=== PATIENT | female | born 1945 | race Caucasian/White ===

== ENCOUNTER 2018-04-11 18:36 | Emergency (ER) | payer MEDICARE ==
[2018-04-11] MEDS ORDERED: ACETAMINOPHEN 325 MG TABLET PO ONE (18:59)
--- NOTE | 2018-04-11 19:04 | ER Document Report ---
ED Medical Screen (RME) - General Chief Complaint: Abdominal Pain Stated Complaint: ABDOMINAL PAIN Time Seen by Provider: 04/11/18 18:55 Notes: RAPID MEDICAL EVALUATION DISCLOSURE I have seen this patient as part of a Rapid Medical Evaluation and, if applicable, placed any initially appropriate orders. The patient will be seen and fully evaluated, including a full history and physical exam, by a provider ( in Main ED or Fast Track) when a room becomes available. 72-year-old female PMH chronic UTIs here with complaints of lower abdominal pain , sharp and intermittent, over the past 4 days. She has also had dysuria consistent with her UTI flares. She takes daily Keflex for "many many years". She has also been taking Azo over the past few days with not much relief. Denies fevers chills nausea vomiting. She has chronic diarrhea as well from the metformin that she takes. EXAM Mild to moderate suprapubic TTP TRAVEL OUTSIDE OF THE [place] IN LAST 30 DAYS: No - Related Data Allergies/Adverse Reactions: niacin [Niacin] Allergy (Verified 04/11/18 18:57) nitrofurantoin [From Macrobid] Adverse Reaction (Verified 04/11/18 18:57) Past Medical History - Social History Chew tobacco use (# tins/day): No Frequency of alcohol use: None Drug Abuse: None - Past Medical History Cardiac Medical History: Reports: Hx Hypercholesterolemia Pulmonary Medical History: Reports: Hx COPD Endocrine Medical History: Reports: Hx Diabetes Mellitus Type 2, Hx Hypothyroidism Renal/ Medical History: Denies: Hx Peritoneal Dialysis GI Medical History: Reports: Hx Gastroesophageal Reflux Disease Past Surgical History: Reports: Hx Hysterectomy - Immunizations Hx Diphtheria, Pertussis, Tetanus Vaccination: Yes Physical Exam - Vital signs Vitals: Temp Pulse Resp BP Pulse Ox 98.4 F 89 26 H 146/68 H 93 04/11/18 18:43 04/11/18 18:43 04/11/18 18:43 04/11/18 18:43 04/11/18 18:43 Course - Vital Signs Vital signs: Temp Pulse Resp BP Pulse Ox 98.4 F 89 26 H 146/68 H 93 04/11/18 18:43 04/11/18 18:43 04/11/18 18:43 04/11/18 18:43 04/11/18 18:43
[2018-04-11 19:32] LABS: ABSOLUTE BASOPHILS # (AUTO) 0.2 10^3/uL (0.0-0.2); ABSOLUTE EOSINOPHILS # (AUTO) 0.3 10^3/uL (0.0-0.6); ABSOLUTE LYMPHOCYTES (AUTO) 4.6 10^3/uL (0.5-4.7); ABSOLUTE MONOCYTES (AUTO) 0.9 10^3/uL (0.1-1.4); ABSOLUTE NEUT (AUTO) 10.1 10^3/uL (1.7-8.2); BASOPHILS % (AUTO) 1.2 % (0-2); EOSINOPHILS % (AUTO) 1.8 % (0-6); HEMOGLOBIN 12.1 g/dL (12.0-15.5); LYMPHOCYTES % (AUTO) 28.6 % (13-45); MEAN CORPUSCULAR HEMOGLOBIN 26.1 pg (27.0-33.4); MEAN CORPUSCULAR HGB CONC 31.8 g/dL (32.0-36.0); MEAN CORPUSCULAR VOLUME 82 fl (80-97); MONOCYTES % (AUTO) 5.4 % (3-13); PLATELET COUNT 338 10^3/uL (150-450); RED BLOOD COUNT 4.64 10^6/uL (3.72-5.28); RED CELL DISTRIBUTION WIDTH 16.5 % (11.5-14.0); TOTAL CELLS COUNTED % (AUTO) 100 %
[2018-04-11 19:38] LABS: APPEARANCE,URINE CLEAR; BILIRUBIN,URINE NEGATIVE (NEGATIVE); COLOR,URINE AMBER; GLUCOSE, URINE NEGATIVE (NEGATIVE); KETONES,URINE NEGATIVE (NEGATIVE); LEUKOCYTE ESTERASE,URINE NEGATIVE (NEGATIVE); NITRITE,URINE POSITIVE (NEGATIVE); PROTEIN,URINE 30 mg/dL (NEGATIVE); URINE SPECIFIC GRAVITY 1.019
[2018-04-11 19:51] LABS: ANION GAP 17 (5-19); BLOOD UREA NITROGEN 12 mg/dL (7-20); CALCIUM 9.4 mg/dL (8.4-10.2); CARBON DIOXIDE 22 mmol/L (22-30); CHLORIDE 104 mmol/L (98-107); GLUCOSE 102 mg/dL (75-110); POTASSIUM 4.3 mmol/L (3.6-5.0); SODIUM 142.7 mmol/L (137-145)
[2018-04-11] MEDS ORDERED: CEPHALEXIN 500 MG CAPSULE PO ONE (21:09)
[2018-04-11] MEDS ORDERED: PHENAZOPYRIDINE HCL 200 MG TABLET PO ONE (21:11)
--- NOTE | 2018-04-11 21:18 | ER Document Report ---
ED General - General Chief Complaint: Abdominal Pain Stated Complaint: ABDOMINAL PAIN Time Seen by Provider: 04/11/18 18:55 Mode of Arrival: Ambulatory Information source: Patient Notes: 72-year-old female patient dysuria. Patient reports that she has chronic urinary tract infections but never seem to fully resolve. Patient states that she sees Dr. Land and that Dr. Land keeps her on Keflex 500 mg daily to try to keep the urinary tract infections to a minimum. Patient reports that over the last 2 days she has had increasing pain with urination. Patient denies any nausea, vomiting, fevers or back pain. TRAVEL OUTSIDE OF THE [place] IN LAST 30 DAYS: No - Related Data Allergies/Adverse Reactions: niacin [Niacin] Allergy (Verified 04/11/18 18:57) sulfamethoxazole [From Bactrim] Allergy (Verified 04/11/18 21:07) trimethoprim [From Bactrim] Allergy (Verified 04/11/18 21:07) nitrofurantoin [From Macrobid] Adverse Reaction (Verified 04/11/18 18:57) Past Medical History - General Information source: Patient - Social History Smoking Status: Former Smoker Chew tobacco use (# tins/day): No Frequency of alcohol use: None Drug Abuse: None Family History: Reviewed & Not Pertinent Patient has suicidal ideation: No Patient has homicidal ideation: No - Past Medical History Cardiac Medical History: Reports: Hx Hypercholesterolemia Pulmonary Medical History: Reports: Hx COPD Endocrine Medical History: Reports: Hx Diabetes Mellitus Type 2, Hx Hypothyroidism Renal/ Medical History: Denies: Hx Peritoneal Dialysis GI Medical History: Reports: Hx Gastroesophageal Reflux Disease Past Surgical History: Reports: Hx Hysterectomy - Immunizations Hx Diphtheria, Pertussis, Tetanus Vaccination: Yes Review of Systems - Review of Systems Constitutional: No symptoms reported. denies: Fever EENT: No symptoms reported Cardiovascular: No symptoms reported Respiratory: No symptoms reported Gastrointestinal: No symptoms reported. denies: Abdominal pain, Diarrhea, Nausea, Vomiting Genitourinary: Dysuria Female Genitourinary: No symptoms reported Musculoskeletal: No symptoms reported Skin: No symptoms reported Hematologic/Lymphatic: No symptoms reported Neurological/Psychological: No symptoms reported Physical Exam - Vital signs Vitals: Temp Pulse Resp BP Pulse Ox 98.4 F 89 26 H 146/68 H 93 04/11/18 18:43 04/11/18 18:43 04/11/18 18:43 04/11/18 18:43 04/11/18 18:43 - Notes Notes: PHYSICAL EXAMINATION: GENERAL: Well-appearing, well-nourished and in no acute distress. HEAD: Atraumatic, normocephalic. EYES: Pupils equal round and reactive to light, extraocular movements intact, conjunctiva are normal. ENT: Nares patent, oropharynx clear without exudates. Moist mucous membranes. NECK: Normal range of motion, supple without lymphadenopathy LUNGS: Breath sounds clear to auscultation bilaterally and equal. No wheezes rales or rhonchi. HEART: Regular rate and rhythm without murmurs ABDOMEN: Soft, nontender, nondistended abdomen. No guarding, no rebound. No masses appreciated. Female : No CVA tenderness. Musculoskeletal: Normal range of motion, no pitting or edema. No cyanosis. NEUROLOGICAL: Cranial nerves grossly intact. Normal speech, normal gait. Normal sensory, motor exams PSYCH: Normal mood, normal affect. SKIN: Warm, Dry, normal turgor, no rashes or lesions noted. Course - Re-evaluation Re-evalutation: 72-year-old female patient presented with chief complaint of denies any fever, chills, nausea. Denies any back pain or abdominal pain. CBC reveals elevated WBC of 16,000, CMP is unremarkable. Urinalysis with positive nitrates and 66 white blood cells. Patient is normotensive and without tachycardia and afebrile. Given that patient appears well and has not had any fever nor does she have CVA tenderness I feel comfortable discharging her home. Will treat patient with a dose of IM Rocephin while in the department due to her leukocytosis as well as the white blood cells in her urine. We will also increase patient's Keflex to 500 mg TID and add Pyridium/ Azo. Patient to resume her usual regimen after the seven-day course of antibiotics. Patient is instructed to follow-up with Dr. Land's office in the next 2-3 days to have her urine rechecked. Patient understands that she is to present back to the emergency department should she develop a fever, chills or any flank pain. - Vital Signs Vital signs: Temp Pulse Resp BP Pulse Ox 98.0 F 80 16 156/67 H 95 04/11/18 21:48 04/11/18 21:48 04/11/18 21:48 04/11/18 21:48 04/11/18 21:48 - Laboratory Result Diagrams: 04/11/18 19:13 04/11/18 19:13 Laboratory results interpreted by me: 04/11/18 04/11/18 04/11/18 19:13 19:13 19:13 WBC 16.0 H MCH 26.1 L MCHC 31.8 L RDW 16.5 H Absolute Neutrophils 10.1 H Est GFR (Non-Af Amer) 53 L Urine Protein 30 H Urine Nitrite POSITIVE H Urine Urobilinogen 4.0 H Discharge - Discharge Clinical Impression: Cystitis Urinary tract infection Qualifiers: Urinary tract infection type: site unspecified Hematuria presence: without hematuria Qualified Code(s): N39.0 - Urinary tract infection, site not specified Condition: Stable Disposition: HOME, SELF-CARE Additional Instructions: Urinary Tract Infection Your evaluation indicates that you have a urinary tract infection. This is due to germs growing in the bladder. This is a common problem. This infection usually responds quickly to antibiotics. Your antibiotic should be taken exactly as prescribed. Drink plenty of fluids -- three to four quarts a day. Occasionally, a bladder anesthetic will be prescribed to help stop the feeling of urgency until the antibiotic has a chance to clear the infection. This may cause your urine to be dark orange. Certain urine infections require a culture. If the doctor obtained a culture, the results will be back in two days. You should call to see if a change in treatment is needed. A repeat urinalysis after you finish treatment is often recommended. The physician will let you know if further testing is required. Call the doctor if you develop fever, chills, flank pain, inability to urinate, or blood in the urine. I am increasing your dose of cephalexin to 500mg three times daily. Please also take the urinary anesthetic as this will help with the pain. This medication will change the color of your urine to a bright orange. Drink plenty of fluids. Please call Dr. Romero office in the morning and make an appointment for follow up in the next 2-3 days. Return to the emergency department if you develop a fever, back pain, or any other symptoms that are concerning to you. Prescriptions: Cephalexin Monohydrate [Keflex 500 mg Capsule] 500 mg PO TID 7 Days #21 capsule Phenazopyridine HCl [Azo Urinary Pain Relief] 97.5 mg PO TID 2 Days #6 tablet Referrals: HERMILA LAND MD [Primary Care Provider] - Follow up as needed
[2018-04-11] MEDS ORDERED: LIDOCAINE 1% INJ-PF (10 MG/ML) 30 ML SDV INJ ONE (21:26)
[2018-04-11] MEDS ORDERED: CEFTRIAXONE INJ 1000 MG VIAL IM ONE (21:26)
[2018-04-11 21:50] VITALS: BP 156/67
== END 2018-04-11 21:48 | disposition home or self-care (01) ==
LOC: ER 18:36
DX: N30.90 Cystitis, unspecified without hematuria (principal); Z79.2 Long term (current) use of antibiotics; Z88.8 Allergy status to other drugs, medicaments and biological substances; Z88.1 Allergy status to other antibiotic agents; Z87.891 Personal history of nicotine dependence; J44.9 Chronic obstructive pulmonary disease, unspecified; E11.9 Type 2 diabetes mellitus without complications
CPT/HCPCS: 99284; 96372; 36415; 87040; 87086; 85025; 80048; 81001; A9270 ×3; J3490; J0696

== ENCOUNTER 2018-09-07 18:40 | Emergency (ER) | payer MEDICAID, MEDICARE ==
--- NOTE | 2018-09-07 19:21 | ER Document Report ---
ED Medical Screen (RME) - General Chief Complaint: Urinary Problem Stated Complaint: PAINFUL URINATION Time Seen by Provider: 09/07/18 19:14 Mode of Arrival: Ambulatory Information source: Patient Notes: 73-year-old female presents emergency department with complaints of increased urgency, increased frequency, dysuria, and low back pain. Patient states that she has a history of cystitis. She states that she followed up with her primary care physician 2 weeks ago for similar symptoms and was started on meloxicam. Patient states that she was not given an antibiotic. Her dysuria has been worsening. She denies any abdominal pain, nausea, vomiting. I have greeted and performed a rapid initial assessment of this patient. A comprehensive ED assessment and evaluation of the patient, analysis of test results and completion of the medical decision making process will be conducted by additional ED providers. PHYSICAL EXAMINATION: GENERAL: Well-appearing, well-nourished and in no acute distress. HEAD: Atraumatic, normocephalic. EYES: Pupils equal round extraocular movements intact, conjunctiva are normal. ENT: Nares patent NECK: Normal range of motion LUNGS: No respiratory distress Musculoskeletal: Normal range of motion NEUROLOGICAL: Normal speech, normal gait. PSYCH: Normal mood, normal affect. SKIN: Warm, Dry, normal turgor, no rashes or lesions noted. TRAVEL OUTSIDE OF THE [place] IN LAST 30 DAYS: No - Related Data Allergies/Adverse Reactions: niacin [Niacin] Allergy (Verified 09/07/18 18:49) sulfamethoxazole [From Bactrim] Allergy (Verified 09/07/18 18:49) trimethoprim [From Bactrim] Allergy (Verified 09/07/18 18:49) nitrofurantoin [From Macrobid] Adverse Reaction (Verified 09/07/18 18:49) Past Medical History - Social History Chew tobacco use (# tins/day): No Frequency of alcohol use: None Drug Abuse: None - Past Medical History Cardiac Medical History: Reports: Hx Hypercholesterolemia Pulmonary Medical History: Reports: Hx COPD Endocrine Medical History: Reports: Hx Diabetes Mellitus Type 2, Hx Hypothyroidism Renal/ Medical History: Denies: Hx Peritoneal Dialysis GI Medical History: Reports: Hx Gastroesophageal Reflux Disease Past Surgical History: Reports: Hx Hysterectomy - Immunizations Hx Diphtheria, Pertussis, Tetanus Vaccination: Yes Doctor's Discharge - Discharge Referrals: ELIU EVANS MD [Primary Care Provider] - Follow up as needed
[2018-09-07 20:01] LABS: APPEARANCE,URINE CLOUDY; BILIRUBIN,URINE NEGATIVE (NEGATIVE); COLOR,URINE AMBER; GLUCOSE, URINE NEGATIVE (NEGATIVE); KETONES,URINE NEGATIVE (NEGATIVE); LEUKOCYTE ESTERASE,URINE NEGATIVE (NEGATIVE); NITRITE,URINE POSITIVE (NEGATIVE); PROTEIN,URINE 100 mg/dL (NEGATIVE); URINE SPECIFIC GRAVITY 1.026
[2018-09-07 20:03] LABS: ABSOLUTE BASOPHILS # (AUTO) 0.3 10^3/uL (0.0-0.2); ABSOLUTE EOSINOPHILS # (AUTO) 0.8 10^3/uL (0.0-0.6); ABSOLUTE LYMPHOCYTES (AUTO) 5.5 10^3/uL (0.5-4.7); BASOPHILS % (AUTO) 1.9 % (0-2); EOSINOPHILS % (AUTO) 4.6 % (0-6); HEMATOCRIT 37.3 % (36.0-47.0); HEMOGLOBIN 11.7 g/dL (12.0-15.5); LYMPHOCYTES % (AUTO) 33.2 % (13-45); MEAN CORPUSCULAR HEMOGLOBIN 26.6 pg (27.0-33.4); MEAN CORPUSCULAR HGB CONC 31.4 g/dL (32.0-36.0); MEAN CORPUSCULAR VOLUME 85 fl (80-97); RED CELL DISTRIBUTION WIDTH 17.3 % (11.5-14.0); SEGMENTED NEUTROPHILS % (AUTO) 54.3 % (42-78); TOTAL CELLS COUNTED % (AUTO) 100 %; WHITE BLOOD COUNT 16.6 10^3/uL (4.0-10.5)
[2018-09-07 20:14] LABS: ALANINE AMINOTRANSFERASE 17 U/L (9-52); ALBUMIN 4.2 g/dL (3.5-5.0); ALKALINE PHOSPHATASE 91 U/L (38-126); ANION GAP 14 (5-19); ASPARTATE AMINO TRANSFERASE 26 U/L (14-36); BILIRUBIN,TOTAL 0.6 mg/dL (0.2-1.3); BLOOD UREA NITROGEN 12 mg/dL (7-20); CALCIUM 8.8 mg/dL (8.4-10.2); CARBON DIOXIDE 24 mmol/L (22-30); CHLORIDE 106 mmol/L (98-107); GLUCOSE 138 mg/dL (75-110); POTASSIUM 4.5 mmol/L (3.6-5.0); SODIUM 143.9 mmol/L (137-145); TOTAL PROTEIN 7.5 g/dL (6.3-8.2)
[2018-09-07 20:17] LABS: PLATELET COUNT 223 10^3/uL (150-450)
[2018-09-07] MEDS ORDERED: LIDOCAINE 1% INJ-PF (10 MG/ML) 30 ML SDV INFIL ONE (22:34)
[2018-09-07] MEDS ORDERED: CEFTRIAXONE INJ 1000 MG VIAL IM ONE (22:34)
--- NOTE | 2018-09-07 22:38 | ER Document Report ---
ED General - General Chief Complaint: Urinary Problem Stated Complaint: PAINFUL URINATION Time Seen by Provider: 09/07/18 19:14 Mode of Arrival: Ambulatory Notes: Patient is a 73-year-old female presents with complaint of pain and burning with urination. Pain is mostly in the suprapubic region. She says she has very mild pain going into her lower back. She has a history of chronic recurrent UTIs. She is on Cipro for possible UTIs however she was prescribed meloxicam for the pain by her primary care doctor and her pharmacist told her she cannot take the Cipro with this and therefore she has not been taking it. No fevers. No vomiting. Some nausea. No diarrhea. No other complaints at this time. TRAVEL OUTSIDE OF THE [place] IN LAST 30 DAYS: No - Related Data Allergies/Adverse Reactions: niacin [Niacin] Allergy (Verified 09/07/18 18:49) sulfamethoxazole [From Bactrim] Allergy (Verified 09/07/18 18:49) trimethoprim [From Bactrim] Allergy (Verified 09/07/18 18:49) nitrofurantoin [From Macrobid] Adverse Reaction (Verified 09/07/18 18:49) Past Medical History - General Information source: Patient - Social History Smoking Status: Never Smoker Chew tobacco use (# tins/day): No Frequency of alcohol use: None Drug Abuse: None Family History: Reviewed & Not Pertinent Patient has suicidal ideation: No Patient has homicidal ideation: No - Past Medical History Cardiac Medical History: Reports: Hx Hypercholesterolemia Pulmonary Medical History: Reports: Hx COPD Endocrine Medical History: Reports: Hx Diabetes Mellitus Type 2, Hx Hypothyroidism Renal/ Medical History: Denies: Hx Peritoneal Dialysis GI Medical History: Reports: Hx Gastroesophageal Reflux Disease Past Surgical History: Reports: Hx Hysterectomy - Immunizations Hx Diphtheria, Pertussis, Tetanus Vaccination: Yes Review of Systems - Review of Systems Notes: My Normal Review Basic REVIEW OF SYSTEMS: CONSTITUTIONAL : Denies fever, chills, or sweats. Denies recent illness. RESPIRATORY: Denies cough, cold, or chest congestion. Denies shortness of breath, difficulty breathing, or wheezing. GASTROINTESTINAL: Pubic abdominal pain. Denies nausea, vomiting, or diarrhea. GENITOURINARY: Dysuria. MUSCULOSKELETAL: Mild low back pain. NEUROLOGICAL: Denies altered mental status or loss of consciousness. ALL OTHER SYSTEMS REVIEWED AND NEGATIVE. Physical Exam - Vital signs Vitals: Temp Pulse Resp BP Pulse Ox 98.1 F 77 18 150/78 H 77 L 09/07/18 21:26 09/07/18 21:26 09/07/18 21:26 09/07/18 21:26 09/07/18 21:26 - Notes Notes: General Appearance: Well nourished, alert, cooperative, no acute distress, moderate obvious discomfort. Vitals: reviewed, See vital signs table. Eyes: PERRL, EOMI, Conjuctiva clear Lungs: No wheezing, No rales, No rhonci, No accessory muscle use, good air exchange bilaterally. Heart: Normal rate, Regular rythm, No murmur, no rub Abdomen: Normal BS, soft, No rigidity, mild suprapubic abdominal tenderness to palpation, No guarding, no rebound, no abdominal masses, no organomegaly Back: Negative Marcelino sign bilaterally Skin: warm, dry, appropriate color, no evidence of shingle-like rash on back. Neuro: speech clear, oriented x 3, normal affect, responds appropriately to questions. Course - Re-evaluation Re-evalutation: 09/08/18 08:53 Patient's urinalysis shows evidence of urinary tract infection which is consistent with her symptoms. She is not septic or toxic appearing. I will give her a dose of Rocephin and then placed on Keflex. I informed her follow- up closely with her and her urologist. I encouraged her return to ER if she has fevers, worsening pain, vomiting, or feels unwell. Patient agrees with plan and will be discharged home. Dictation of this chart was performed using voice recognition software; therefore, there may be some unintended grammatical errors. - Vital Signs Vital signs: Temp Pulse Resp BP Pulse Ox 97.8 F 77 18 150/72 H 99 09/07/18 23:30 09/07/18 23:30 09/07/18 23:30 09/07/18 23:30 09/07/18 23:30 - Laboratory Result Diagrams: 09/07/18 19:36 09/07/18 19:36 Laboratory results interpreted by me: 09/07/18 09/07/18 09/07/18 19:36 19:36 19:36 WBC 16.6 H Hgb 11.7 L MCH 26.6 L MCHC 31.4 L RDW 17.3 H Absolute Neutrophils 9.0 H Absolute Lymphocytes 5.5 H Absolute Eosinophils 0.8 H Absolute Basophils 0.3 H Est GFR (Non-Af Amer) 51 L Glucose 138 H Urine Protein 100 H Urine Blood MODERATE H Urine Nitrite POSITIVE H Urine Urobilinogen 4.0 H Discharge - Discharge Clinical Impression: UTI (urinary tract infection) Qualifiers: Urinary tract infection type: site unspecified Hematuria presence: with hematuria Qualified Code(s): N39.0 - Urinary tract infection, site not specified Condition: Good Disposition: HOME, SELF-CARE Additional Instructions: Please take the Keflex as prescribed. The ultram is a stronger pain medicine that may make you a little sleepy. Please do not drive or operate machinery when taking this medication. Only take the Ultram when your hood is severe. Please follow up with your urologist or Dr. Oliveira on Tuesday for reevaluation. Please return to the ER immediately if you have worsening pain, fevers, vomiting , or feel unwell. Prescriptions: Tramadol HCl [Ultram 50 mg Tablet] 50 mg PO Q6HP PRN #10 tablet PRN Reason: Cephalexin Monohydrate [Keflex 500 mg Capsule] 500 mg PO TID #21 capsule
[2018-09-07 23:31] VITALS: BP 150/72
== END 2018-09-07 23:31 | disposition home or self-care (01) ==
LOC: ER 18:40
DX: N39.0 Urinary tract infection, site not specified (principal); E78.00 Pure hypercholesterolemia, unspecified; J44.9 Chronic obstructive pulmonary disease, unspecified; E11.9 Type 2 diabetes mellitus without complications; E03.9 Hypothyroidism, unspecified; Z87.440 Personal history of urinary (tract) infections; Z88.3 Allergy status to other anti-infective agents; Z90.710 Acquired absence of both cervix and uterus
CPT/HCPCS: 99283; 96372; 36415; 87086; 85025; 87088; 80053; 81001; 87186; J3490; J0696

== ENCOUNTER 2018-10-12 06:54 | Day surgery (SDC) | payer MEDICARE ==
[~2018-10-12 06:54] MED LIST: KETOROLAC TROMETHAMINE 0.45% 4 DROP/0.4 ML DROPERETTE OS PRN
[2018-10-12] MEDS ORDERED: LIDOCAINE 1% INJ-PF (10 MG/ML) 30 ML SDV ONE (07:16)
[2018-10-12] MEDS ORDERED: CHONDR SU A NA/HYALUR INTRAOC KIT (SURGICARE) ONE (07:16)
[2018-10-12] MEDS ORDERED: EPINEPHRINE INJ/PF 1 MG/1 ML AMPULE ONE (07:16)
[2018-10-12] MEDS ORDERED: MIDAZOLAM 2 MG/2 ML INJ ONE (07:20)
[2018-10-12] MEDS: TETRACAINE HCL 0.5% OPH SOLN 4 ML OS PRN ×4 (07:52→10:23)
[2018-10-12] MEDS: CYCLOPENTOLATE 0.2%/PHENYLEPHRINE 1% OPH SOLN 2 ML OS PRN ×3 (07:52→08:13)
[2018-10-12] MEDS: TROPICAMIDE 1% OPH SOLN 3 ML OS PRN ×3 (07:52→08:13)
[2018-10-12] MEDS: BESIFLOXACIN HCL 0.6% OPH SUSP 5 ML BOTTLE OS PRN ×2 (07:53→08:45)
[2018-10-12] MEDS ORDERED: ALBUTEROL SULFATE 0.083% NEB 2.5 MG/3 ML AMPUL NEB ONE (07:59)
--- NOTE | 2018-10-12 19:32 | [facility] OPERATIVE REPORT E ---
[facility] Operative Report NAME: VIOLETTA MENENDEZ AGE: 73Y DATE OF SURGERY: 10/12/2018 ROOM: PREOPERATIVE DIAGNOSIS: CATARACT, LEFT EYE. POSTOPERATIVE DIAGNOSIS: CATARACT, LEFT EYE. OPERATION: Cataract extraction with insertion of an IOL of the left eye. SURGEON: TATIANA VAZQUEZ M.D. ANESTHESIA: Topical. PROCEDURE: After obtaining appropriate consent, the patient's left eye was prepped and draped in sterile fashion as well as the surgeon in a sterile manner and cataract surgery was started. First a paracentesis blade was used to make a side-port incision. Viscoelastic was used to inflate the anterior chamber. Next a 2.4 mm incision was made with a 2.4 mm blade, clear corneal temporally. A continuous capsulorrhexis was made using a cystotome and Utrata forceps. Following this hydrodissection was carried out to make the lens fully loose and mobile and it was rotated 90 degrees. Following this, a abgxus-evu-[id number] technique was used to phacoemulsify the lens with a CDE of 8.31. The remaining cortex was removed with irrigation/aspiration. Provisc was instilled into the capsular bag to inflate the bag. A SN60WF, 20.5 diopter lens was placed. The remaining viscoelastic material was removed with irrigation/aspiration. Following this, the incision was found to be watertight. Besivance was instilled into the eye and a protective shield was placed over the eye. The patient returned to the postoperative recovery in stable condition. DICTATING PHYSICIAN: TATIANA VAZQUEZ M.D. [id number] PHY#: [id number] ID: [id number] JOB#: [id number] ACCT: [id number] cc:TATIANA VAZQUEZ M.D. >
--- NOTE | 2018-10-12 19:37 | [facility] DISCHARGE SUMMARY E ---
[facility] Discharge Summary NAME: VIOLETTA MENENDEZ AGE: 73Y ADMITTED: 10/12/2018 DISCHARGED: 10/12/2018 HOSPITAL COURSE: This is a 73-year-old female who underwent cataract extraction of the left eye. DIAGNOSIS: CATARACT, LEFT EYE. She underwent surgery because she was having trouble seeing words on the television and small print. DISCHARGE INSTRUCTIONS: She should be on a regular diet. No bending at her waist, no heavy lifting. She should use her Besivance, Ilevro, and Durezol at 3 p.m. and 8 p.m. and sleep with a rigid shield. I will see her for her 1 day postoperative tomorrow. DICTATING PHYSICIAN: TATIANA VAZQUEZ M.D. [id number] PHY#: [id number] ID: [id number] JOB#: [id number] ACCT: [id number] cc:TATIANA VAZQUEZ M.D. >
== END 2018-10-12 09:28 | disposition home or self-care (01) ==
LOC: SC 06:54
PROVIDERS: ATTEND Internal Medicine
DX: H25.813 Combined forms of age-related cataract, bilateral (principal); E11.9 Type 2 diabetes mellitus without complications; E78.00 Pure hypercholesterolemia, unspecified; E03.9 Hypothyroidism, unspecified; J44.9 Chronic obstructive pulmonary disease, unspecified; Z87.891 Personal history of nicotine dependence; Z88.1 Allergy status to other antibiotic agents; Z79.899 Other long term (current) drug therapy; Z79.84 Long term (current) use of oral hypoglycemic drugs; Z85.42 Personal history of malignant neoplasm of other parts of uterus; Z79.51 Long term (current) use of inhaled steroids; K21.9 Gastro-esophageal reflux disease without esophagitis; E66.9 Obesity, unspecified; Z68.37 Body mass index [BMI] 37.0-37.9, adult
CPT/HCPCS: 66984; 82962; V2632; J2250; J3490 ×3; A9270 ×2; J0171; 142

== ENCOUNTER 2018-11-02 07:17 | Day surgery (SDC) | payer MEDICARE ==
[~2018-11-02 07:17] MED LIST changes: +CHONDR SU A NA/HYALUR INTRAOC KIT (SURGICARE) ONE; +EPINEPHRINE INJ/PF 1 MG/1 ML AMPULE ONE; +KETOROLAC TROMETHAMINE 0.45% 4 DROP/0.4 ML DROPERETTE OD PRN; -KETOROLAC TROMETHAMINE 0.45% 4 DROP/0.4 ML DROPERETTE OS PRN; +LIDOCAINE 1% INJ-PF (10 MG/ML) 30 ML SDV ONE
[2018-11-02] MEDS: TROPICAMIDE 1% OPH SOLN 3 ML OD PRN ×3 (07:47→08:07)
[2018-11-02] MEDS: CYCLOPENTOLATE 0.2%/PHENYLEPHRINE 1% OPH SOLN 2 ML OD PRN ×3 (07:47→08:07)
[2018-11-02] MEDS: BESIFLOXACIN HCL 0.6% OPH SUSP 5 ML BOTTLE OD PRN ×4 (07:47→08:45)
[2018-11-02] MEDS: TETRACAINE HCL 0.5% OPH SOLN 4 ML OD PRN ×3 (07:48→08:21)
[2018-11-02] MEDS ORDERED: MIDAZOLAM 2 MG/2 ML INJ ONE (08:08)
--- NOTE | 2018-11-02 22:42 | [facility] DISCHARGE SUMMARY E ---
[facility] Discharge Summary NAME: VIOLETTA MENENDEZ AGE: 73Y ADMITTED: 11/02/2018 DISCHARGED: This is a 73-year-old female who underwent cataract extraction of the right eye. DIAGNOSIS: Cataract right eye. She underwent surgery because she was having difficulty driving at night secondary to glare from headlights. She should be on a regular diet. No bending at the waist and no heavy lifting. She should use her Besivance, Ilevro, and Durezol at 3:00 p.m. and 8:00 p.m. and sleep with a rigid shield. I will see her for her 1-day postop tomorrow. DICTATING PHYSICIAN: TATIANA VAZQUEZ M.D. [id number] PHY#: [id number] ID: [id number] JOB#: [id number] ACCT: [id number] cc:TATIANA VAZQUEZ M.D. >
--- NOTE | 2018-11-02 22:42 | [facility] OPERATIVE REPORT E ---
[facility] Operative Report NAME: VIOLETTA MENENDEZ AGE: 73Y DATE OF SURGERY: 11/02/2018 ROOM: PREOPERATIVE DIAGNOSIS: CATARACT, RIGHT EYE. POSTOPERATIVE DIAGNOSIS: CATARACT, RIGHT EYE. OPERATION: Cataract extraction with insertion of an IOL of the right eye. SURGEON: TATIANA VAZQUEZ M.D. ANESTHESIA: Topical. PROCEDURE: After obtaining appropriate consent, the patient's right eye was prepped and draped in sterile fashion as well as the surgeon in a sterile manner and cataract surgery was started. First a paracentesis blade was used to make a side-port incision. Viscoelastic was used to inflate the anterior chamber. Next a 2.4 mm incision was made with a 2.4 mm blade, clear corneal temporally. A continuous capsulorrhexis was made using a cystotome and Utrata forceps. Following this hydrodissection was carried out to make the lens fully loose and mobile and it was rotated 90 degrees. Following this, a bpltzb-vgf-qawyimw technique was used to phacoemulsify the lens with a CDE of 10.18. The remaining cortex was removed with irrigation/aspiration. Provisc was instilled into the capsular bag to inflate the bag. A SN60WF, 22.5 diopter lens was placed. The remaining viscoelastic material was removed with irrigation/aspiration. Following this, the incision was found to be watertight. Besivance was instilled into the eye and a protective shield was placed over the eye. The patient returned to the postoperative recovery in stable condition. DICTATING PHYSICIAN: TATIANA VAZQUEZ M.D. [id number] PHY#: [id number] ID: [id number] JOB#: [id number] ACCT: [id number] cc:TATIANA VAZQUEZ M.D. >
== END 2018-11-02 09:35 | disposition home or self-care (01) ==
LOC: SC 07:17
PROVIDERS: ATTEND Internal Medicine
DX: H25.811 Combined forms of age-related cataract, right eye (principal); Z96.1 Presence of intraocular lens; J44.9 Chronic obstructive pulmonary disease, unspecified; K21.9 Gastro-esophageal reflux disease without esophagitis; E11.9 Type 2 diabetes mellitus without complications; E07.9 Disorder of thyroid, unspecified; Z79.899 Other long term (current) drug therapy; Z79.84 Long term (current) use of oral hypoglycemic drugs; Z88.2 Allergy status to sulfonamides
CPT/HCPCS: 66984; 82962; V2632; J2250; J3490 ×3; A9270; J0171; 142

== ENCOUNTER 2018-12-09 21:30 | Emergency (ER) | payer MEDICARE, MEDICAID ==
[2018-12-09 22:53] LABS: APPEARANCE,URINE TURBID; BILIRUBIN,URINE NEGATIVE (NEGATIVE); GLUCOSE, URINE NEGATIVE (NEGATIVE); KETONES,URINE NEGATIVE (NEGATIVE); LEUKOCYTE ESTERASE,URINE TRACE (NEGATIVE); NITRITE,URINE POSITIVE (NEGATIVE); PROTEIN,URINE >=500 mg/dL (NEGATIVE); URINE SPECIFIC GRAVITY 1.023
[2018-12-09 22:59] LABS: COLOR,URINE ORANGE
[2018-12-09] MEDS ORDERED: CEPHALEXIN 500 MG CAPSULE PO ONE (23:02)
--- NOTE | 2018-12-09 23:08 | ER Document Report ---
ED General - General Chief Complaint: Urinary Problem Stated Complaint: URINATION ISSUES Time Seen by Provider: 12/09/18 22:43 Primary Care Provider: HERMILA LAND MD [Primary Care Provider] - Follow up as needed Notes: Patient is a 73-year-old female who has a long-standing history of recurrent urinary tract infections followed by urology who presents with 24 hours of dysuria and urinary frequency. Patient states this feels identical to her previous episodes of urinary tract infections. Describes the pain as being a dull, burning, significant discomfort with urination but denies any pain otherwise. States she is going to the bathroom every 5-10 minutes and that it is very uncomfortable. Nothing seems to improve or worsen her symptoms. Has not yet seen her general doctor regarding today's concerns. Denies fever or constitutional symptoms. Denies focal abdominal pain. TRAVEL OUTSIDE OF THE [place] IN LAST 30 DAYS: No - Related Data Allergies/Adverse Reactions: niacin [Niacin] Allergy (Verified 10/05/18 13:13) Generalized Itching sulfamethoxazole [From Bactrim] Allergy (Verified 10/05/18 13:13) Hives trimethoprim [From Bactrim] Allergy (Verified 10/05/18 13:13) Hives nitrofurantoin [From Macrobid] Adverse Reaction (Verified 10/05/18 13:13) HURT LUNGS Past Medical History - General Information source: Patient - Social History Smoking Status: Never Smoker Frequency of alcohol use: None Drug Abuse: None Lives with: Family Family History: Reviewed & Not Pertinent - Past Medical History Cardiac Medical History: Reports: Hx Hypercholesterolemia Denies: Hx Heart Attack, Hx Hypertension Pulmonary Medical History: Reports: Hx COPD Denies: Hx Asthma Neurological Medical History: Denies: Hx Cerebrovascular Accident, Hx Seizures Endocrine Medical History: Reports: Hx Diabetes Mellitus Type 2, Hx Hypot hyroidism Renal/ Medical History: Denies: Hx Peritoneal Dialysis GI Medical History: Reports: Hx Gastroesophageal Reflux Disease. Denies: Hx Hepatitis, Hx Hiatal Hernia, Hx Ulcer Infectious Medical History: Denies: Hx Hepatitis Past Surgical History: Reports: Hx Hysterectomy. Denies: Hx Mastectomy, Hx Open Heart Surgery, Hx Pacemaker - Immunizations Hx Diphtheria, Pertussis, Tetanus Vaccination: Yes Review of Systems - Review of Systems Notes: Constitutional: Negative for fever. HENT: Negative for sore throat. Eyes: Negative for visual changes. Cardiovascular: Negative for chest pain. Respiratory: Negative for shortness of breath. Gastrointestinal: Negative for abdominal pain, vomiting or diarrhea. Genitourinary: Positive for dysuria and urinary frequency Musculoskeletal: Negative for back pain. Skin: Negative for rash. Neurological: Negative for headaches, weakness or numbness. 10 point ROS negative except as marked above and in HPI. Physical Exam - Vital signs Vitals: Temp Pulse Resp BP Pulse Ox 98 F 86 16 126/66 H 93 12/09/18 21:36 12/09/18 21:36 12/09/18 21:36 12/09/18 21:36 12/09/18 21:36 Interpretation: Normal Notes: PHYSICAL EXAMINATION: GENERAL: Well-appearing, well-nourished and in no acute distress. HEAD: Atraumatic, normocephalic. EYES: Pupils equal round and reactive to light, extraocular movements intact, sclera anicteric, conjunctiva are normal. ENT: nares patent, oropharynx clear without exudates. Moist mucous membranes. NECK: Normal range of motion, supple without lymphadenopathy LUNGS: Breath sounds clear to auscultation bilaterally and equal. No wheezes rales or rhonchi. HEART: Regular rate and rhythm without murmurs ABDOMEN: Soft, nontender, normoactive bowel sounds. No guarding, no rebound. No masses appreciated. EXTREMITIES: Normal range of motion, no pitting or edema. No cyanosis. NEUROLOGICAL: No focal neurological deficits. Moves all extremities spontaneously and on command. PSYCH: Normal mood, normal affect. SKIN: Warm, Dry, normal turgor, no rashes or lesions noted. Course - Re-evaluation Re-evalutation: 12/09/18 23:06 Patient presents with symptoms consistent with an acute cystitis. Vitals wnl. No history of fever, flank pain, or constitution symptoms to suggest ascending infection at this time. Patient is well in appearance, tolerating oral intake without difficulty. No focal abdominal tenderness to suggest acute appendicitis, biliary pathology, acute pancreatitis. Patient will be started on antibiotics at this time. A culture has been sent. At this time will discharge with return precautions and follow-up recommendations. Verbal discharge instructions given a the bedside and opportunity for questions given. Medication warnings reviewed. Patient is in agreement with this plan and has verbalized understanding of return precautions and the need for primary care follow-up in the next 24-72 hours. - Vital Signs Vital signs: Temp Pulse Resp BP Pulse Ox 98 F 86 16 126/66 H 93 12/09/18 21:36 12/09/18 21:36 12/09/18 21:36 12/09/18 21:36 12/09/18 21:36 - Laboratory Laboratory results interpreted by me: 12/09/18 22:25 Urine Protein >=500 H Urine Blood SMALL H Urine Nitrite POSITIVE H Urine Urobilinogen 4.0 H Ur Leukocyte Esterase TRACE H Discharge - Discharge Clinical Impression: Urinary frequency UTI (urinary tract infection) Qualifiers: Urinary tract infection type: acute cystitis Hematuria presence: with hematuria Qualified Code(s): N30.01 - Acute cystitis with hematuria Condition: Good Disposition: HOME, SELF-CARE Additional Instructions: Your urine shows findings consistent with a urinary tract infection. Please take all the antibiotics as directed even if your symptoms have improved. Please follow-up with your primary care physician as needed. Return to emergency room if you develop fever >101F, persistent vomiting, become lethargic, have severe pain in your sides, or any other symptoms that are concerning to you. Prescriptions: Cephalexin Monohydrate [Keflex 500 mg Capsule] 500 mg PO Q6H 5 Days capsule Referrals: HERMILA LAND MD [Primary Care Provider] - Follow up as needed
[2018-12-09 23:24] VITALS: BP 144/87
== END 2018-12-09 23:34 | disposition home or self-care (01) ==
LOC: ER 21:30
DX: N30.01 Acute cystitis with hematuria (principal); J44.9 Chronic obstructive pulmonary disease, unspecified; E11.9 Type 2 diabetes mellitus without complications; Z88.8 Allergy status to other drugs, medicaments and biological substances; Z88.1 Allergy status to other antibiotic agents
CPT/HCPCS: 99283; 36415; 87086; 87088; 81001; 87186; A9270

== ENCOUNTER 2018-12-20 12:21 | Emergency (ER) | payer MEDICARE, MEDICAID ==
--- NOTE | 2018-12-20 13:29 | ER Document Report ---
ED Medical Screen (RME) - General Chief Complaint: Urinary Problem Stated Complaint: POSSIBLE UTI Time Seen by Provider: 12/20/18 13:25 Primary Care Provider: HERMILA LAND MD [Primary Care Provider] - Follow up as needed Notes: 73 years old female presents today with pain on urination and possible rash around that area. And repeated treatment with antibiotic for presumed UTI. TRAVEL OUTSIDE OF THE [place] IN LAST 30 DAYS: No - Related Data Allergies/Adverse Reactions: niacin [Niacin] Allergy (Verified 12/20/18 12:27) Generalized Itching sulfamethoxazole [From Bactrim] Allergy (Verified 12/20/18 12:27) Hives trimethoprim [From Bactrim] Allergy (Verified 12/20/18 12:27) Hives nitrofurantoin [From Macrobid] Adverse Reaction (Verified 12/20/18 12:27) HURT LUNGS Past Medical History - Past Medical History Cardiac Medical History: Reports: Hx Hypercholesterolemia Denies: Hx Heart Attack, Hx Hypertension Pulmonary Medical History: Reports: Hx COPD Denies: Hx Asthma Neurological Medical History: Denies: Hx Cerebrovascular Accident, Hx Seizures Endocrine Medical History: Reports: Hx Diabetes Mellitus Type 2, Hx Hypothyroidism Renal/ Medical History: Denies: Hx Peritoneal Dialysis GI Medical History: Reports: Hx Gastroesophageal Reflux Disease. Denies: Hx Hepatitis, Hx Hiatal Hernia, Hx Ulcer Infectious Medical History: Denies: Hx Hepatitis Past Surgical History: Reports: Hx Hysterectomy. Denies: Hx Mastectomy, Hx Open Heart Surgery, Hx Pacemaker - Immunizations Hx Diphtheria, Pertussis, Tetanus Vaccination: Yes Physical Exam - Vital signs Vitals: Temp Pulse Resp BP Pulse Ox 98.8 F 80 15 124/57 L 93 12/20/18 12:51 12/20/18 12:51 12/20/18 12:51 12/20/18 12:51 12/20/18 12:51 Course - Vital Signs Vital signs: Temp Pulse Resp BP Pulse Ox 98.8 F 80 15 124/57 L 93 12/20/18 12:51 12/20/18 12:51 12/20/18 12:51 12/20/18 12:51 12/20/18 12:51 Doctor's Discharge - Discharge Referrals: HERMILA LAND MD [Primary Care Provider] - Follow up as needed
[2018-12-20 13:44] LABS: ABSOLUTE BASOPHILS # (AUTO) 0.1 10^3/uL (0.0-0.2); ABSOLUTE EOSINOPHILS # (AUTO) 0.5 10^3/uL (0.0-0.6); ABSOLUTE MONOCYTES (AUTO) 0.9 10^3/uL (0.1-1.4); ABSOLUTE NEUT (AUTO) 9.4 10^3/uL (1.7-8.2); BASOPHILS % (AUTO) 0.4 % (0-2); EOSINOPHILS % (AUTO) 3.2 % (0-6); HEMATOCRIT 37.1 % (36.0-47.0); HEMOGLOBIN 11.8 g/dL (12.0-15.5); LYMPHOCYTES % (AUTO) 31.7 % (13-45); MEAN CORPUSCULAR HEMOGLOBIN 26.7 pg (27.0-33.4); MEAN CORPUSCULAR HGB CONC 31.8 g/dL (32.0-36.0); MEAN CORPUSCULAR VOLUME 84 fl (80-97); MONOCYTES % (AUTO) 5.6 % (3-13); PLATELET COUNT 438 10^3/uL (150-450); RED BLOOD COUNT 4.43 10^6/uL (3.72-5.28); RED CELL DISTRIBUTION WIDTH 16.8 % (11.5-14.0); SEGMENTED NEUTROPHILS % (AUTO) 59.1 % (42-78); TOTAL CELLS COUNTED % (AUTO) 100 %; WHITE BLOOD COUNT 15.8 10^3/uL (4.0-10.5)
[2018-12-20 13:52] LABS: ALANINE AMINOTRANSFERASE 15 U/L (9-52); ALBUMIN 4.7 g/dL (3.5-5.0); ALKALINE PHOSPHATASE 99 U/L (38-126); ANION GAP 14 (5-19); ASPARTATE AMINO TRANSFERASE 39 U/L (14-36); BILIRUBIN,DIRECT 0.2 mg/dL (0.0-0.4); BILIRUBIN,TOTAL 0.6 mg/dL (0.2-1.3); BLOOD UREA NITROGEN 16 mg/dL (7-20); CALCIUM 9.7 mg/dL (8.4-10.2); CARBON DIOXIDE 24 mmol/L (22-30); CHLORIDE 105 mmol/L (98-107); GLUCOSE 142 mg/dL (75-110); SODIUM 143.4 mmol/L (137-145); TOTAL PROTEIN 8.3 g/dL (6.3-8.2)
[2018-12-20 13:59] LABS: APPEARANCE,URINE CLOUDY; BILIRUBIN,URINE NEGATIVE (NEGATIVE); COLOR,URINE AMBER; GLUCOSE, URINE NEGATIVE (NEGATIVE); KETONES,URINE NEGATIVE (NEGATIVE); LEUKOCYTE ESTERASE,URINE MODERATE (NEGATIVE); NITRITE,URINE POSITIVE (NEGATIVE); PROTEIN,URINE 100 mg/dL (NEGATIVE)
--- NOTE | 2018-12-20 14:34 | ER Document Report ---
ED General - General Chief Complaint: Urinary Problem Stated Complaint: POSSIBLE UTI Time Seen by Provider: 12/20/18 13:25 Primary Care Provider: HERMILA LAND MD [Primary Care Provider] - Follow up as needed Notes: Patient is a 73-year-old female that presents to the emergency department for chief complaint of suprapubic pain and concern for urinary tract infection. Patient states she has had a history of recurrent urinary tract infections, she was here about a week ago, with similar complaints of suprapubic pain, she is been taking Azo, was prescribed Keflex at that time, has not had much relief of her symptoms, so she decided come back to the emergency department. She has seen urology in the past, had cystoscopy that demonstrated chronic inflammation of the bladder. She denies any fevers, chills, nausea, vomiting. She currently rates her pain as severe, and she " hurts." Past Medical History: Recurrent urinary tract infections, diabetes mellitus, hypertension, insomnia Past Surgical History: Hysterectomy, cystoscopy Social History: Denies current tobacco, alcohol or drug use. Family History: Reviewed and noncontributory for presenting illness Allergies: Reviewed, see documented allergy list. REVIEW OF SYSTEMS: Other than noted above, the 12 point review of systems was reviewed with the patient and were negative, all pertinent findings are included in the HPI. PHYSICAL EXAMINATION: Vital signs reviewed, nursing noted reviewed. GENERAL: Elderly female, appears uncomfortable, but in no immediate distress HEAD: Atraumatic, normocephalic. EYES: Eyes appear normal, extraocular movements intact, sclera anicteric, conjunctiva are normal. ENT: nares patent, oropharynx clear without exudates. Moist mucous membranes. NECK: Normal range of motion, supple without lymphadenopathy LUNGS: Breath sounds clear to auscultation bilaterally and equal. No wheezes rales or rhonchi. HEART: Regular rate and rhythm without murmurs ABDOMEN: Soft, obese, nontender, normoactive bowel sounds. No rebound, guarding, or rigidity. No masses appreciated. EXTREMITIES: Nontender, good range of motion, no pitting or edema. NEUROLOGICAL: No focal neurological deficits. Moves all extremities spontaneously Motor and sensory grossly intact on exam. PSYCH: Normal mood, normal affect. SKIN: Warm, Dry, normal turgor, no rashes or lesions noted on exposed skin TRAVEL OUTSIDE OF THE [place] IN LAST 30 DAYS: No - Related Data Allergies/Adverse Reactions: niacin [Niacin] Allergy (Verified 12/20/18 12:27) Generalized Itching sulfamethoxazole [From Bactrim] Allergy (Verified 12/20/18 12:27) Hives trimethoprim [From Bactrim] Allergy (Verified 12/20/18 12:27) Hives nitrofurantoin [From Macrobid] Adverse Reaction (Verified 12/20/18 12:27) HURT LUNGS Past Medical History - Social History Smoking Status: Former Smoker Family History: Reviewed & Not Pertinent Patient has suicidal ideation: No Patient has homicidal ideation: No - Past Medical History Cardiac Medical History: Reports: Hx Hypercholesterolemia Denies: Hx Heart Attack, Hx Hypertension Pulmonary Medical History: Reports: Hx COPD Denies: Hx Asthma Neurological Medical History: Denies: Hx Cerebrovascular Accident, Hx Seizures Endocrine Medical History: Reports: Hx Diabetes Mellitus Type 2, Hx H ypothyroidism Renal/ Medical History: Denies: Hx Peritoneal Dialysis GI Medical History: Reports: Hx Gastroesophageal Reflux Disease. Denies: Hx He patitis, Hx Hiatal Hernia, Hx Ulcer Infectious Medical History: Denies: Hx Hepatitis Past Surgical History: Reports: Hx Hysterectomy. Denies: Hx Mastectomy, Hx Open Heart Surgery, Hx Pacemaker - Immunizations Hx Diphtheria, Pertussis, Tetanus Vaccination: Yes Physical Exam - Vital signs Vitals: Temp Pulse Resp BP Pulse Ox 98.8 F 80 15 124/57 L 93 12/20/18 12:51 12/20/18 12:51 12/20/18 12:51 12/20/18 12:51 12/20/18 12:51 Course - Re-evaluation Re-evalutation: Patient seen and examined vital signs reviewed. Laboratory data and imaging were ordered as appropriate for the patient's presenting symptoms and complaint, with consideration of any critical or life threatening conditions that may be associated with their obtained history and exam as noted above. Patient was treated with oral ciprofloxacin 500 mg, and oral Pyridium 200 mg. Results were reviewed when available and demonstrated leukocytosis, and a UA consistent with urinary tract infection, will be sent for culture, patient's previous cultures were reviewed, most recently she grew Klebsiella pneumonia that was essentially pansensitive, and pseudomonas aeruginosa, that was se nsitive to fluoroquinolones The patient was re-evaluated and was stable Evaluation was most consistent with recurrent urinary tract infection, will treat with ciprofloxacin for 10 days. Also given a prescription for Pyridium. Results were discussed with the patient at this point, after careful c onsideration I feel that that patient can be discharged from the emergency department, the patient was educated treatments and reasons to return to the emergency department based on their presumed diagnosis as noted above, they were advised to followup with a primary care physician in 2-3 days. Patient was agreeable to plan of care. *Note is created using voice recognition software and may contain spelling, syntax or grammatical errors. Laboratory 12/20/18 12/20/18 12/20/18 10:54 10:54 12:52 WBC 15.8 H RBC 4.43 Hgb 11.8 L Hct 37.1 MCV 84 MCH 26.7 L MCHC 31.8 L RDW 16.8 H Plt Count 438 Seg Neutrophils % 59.1 Lymphocytes % 31.7 Monocytes % 5.6 Eosinophils % 3.2 Basophils % 0.4 Absolute Neutrophils 9.4 H Absolute Lymphocytes 5.0 H Absolute Monocytes 0.9 Absolute Eosinophils 0.5 Absolute Basophils 0.1 Sodium 143.4 Potassium 4.0 Chloride 105 Carbon Dioxide 24 Anion Gap 14 BUN 16 Creatinine 1.02 Est GFR ( Amer) > 60 Est GFR (Non-Af Amer) 53 L Glucose 142 H Calcium 9.7 Total Bilirubin 0.6 Direct Bilirubin 0.2 Neonat Total Bilirubin Not Reportable Neonat Direct Bilirubin Not Reportable Neonat Indirect Bili Not Reportable AST 39 H ALT 15 Alkaline Phosphatase 99 Total Protein 8.3 H Albumin 4.7 Urine Color RAMYA Urine Appearance CLOUDY Urine pH 6.0 Ur Specific [place] 1.010 Urine Protein 100 H Urine Glucose (UA) NEGATIVE Urine Ketones NEGATIVE Urine Blood MODERATE H Urine Nitrite POSITIVE H Urine Bilirubin NEGATIVE Urine Urobilinogen 4.0 H Ur Leukocyte Esterase MODERATE H Urine WBC (Auto) >182 Urine RBC (Auto) 33 Urine Bacteria (Auto) 1+ Urine WBC Clumps MANY Urine Mucus (Auto) RARE Urine Ascorbic Acid NEGATIVE - Vital Signs Vital signs: Temp Pulse Resp BP Pulse Ox 98.8 F 80 15 124/57 L 93 12/20/18 12:51 12/20/18 12:51 12/20/18 12:51 12/20/18 12:51 12/20/18 12:51 - Laboratory Result Diagrams: 12/20/18 10:54 12/20/18 10:54 Laboratory results interpreted by me: 12/20/18 12/20/18 12/20/18 10:54 10:54 12:52 WBC 15.8 H Hgb 11.8 L MCH 26.7 L MCHC 31.8 L RDW 16.8 H Absolute Neutrophils 9.4 H Absolute Lymphocytes 5.0 H Est GFR (Non-Af Amer) 53 L Glucose 142 H AST 39 H Total Protein 8.3 H Urine Protein 100 H Urine Blood MODERATE H Urine Nitrite POSITIVE H Urine Urobilinogen 4.0 H Ur Leukocyte Esterase MODERATE H Discharge - Discharge Clinical Impression: UTI (urinary tract infection) Qualifiers: Urinary tract infection type: site unspecified Hematuria presence: with hematuria Qualified Code(s): N39.0 - Urinary tract infection, site not specified; R31.9 - Hematuria, unspecified Leukocytosis Qualifiers: Leukocytosis type: unspecified Qualified Code(s): D72.829 - Elevated white blood cell count, unspecified Condition: Stable Disposition: HOME, SELF-CARE Instructions: Urinary Tract Infection ([facility]) Additional Instructions: Please complete the entire course of antibiotics as prescribed and follow-up with your primary care physician. And urologist. Prescriptions: Ciprofloxacin HCl [Cipro 500 mg Tablet] 500 mg PO BID #20 tablet Phenazopyridine HCl [Pyridium 200 mg Tablet] 200 mg PO TID #9 tablet Referrals: HERMILA LAND MD [Primary Care Provider] - Follow up in 3-5 days
[2018-12-20] MEDS ORDERED: CIPROFLOXACIN HCL 500 MG TABLET PO ONE (14:41)
[2018-12-20] MEDS ORDERED: PHENAZOPYRIDINE HCL 200 MG TABLET PO ONE (14:41)
--- NOTE | 2018-12-20 14:47 | RADIOLOGY REPORT (SQ) ---
EXAM DESCRIPTION: KUB/ABDOMEN (SINGLE VIEW) COMPLETED DATE/TIME: 12/20/2018 2:38 pm REASON FOR STUDY: Abdominal pain COMPARISON: Abdominal films 05/11/2015, 12/28/2014, 11/16/2013 NUMBER OF VIEWS: One view. TECHNIQUE: Supine radiographic image of the abdomen acquired. LIMITATIONS: None. FINDINGS: BOWEL GAS PATTERN: Normal bowel gas pattern. No dilated loops. CALCIFICATIONS: No suspicious calcifications. SOFT TISSUES: No gross mass or suggestion of organomegaly. HARDWARE: Surgical clips along the right and left internal iliac regions. BONES: No acute fracture. No worrisome bone lesions. OTHER: No other significant finding. IMPRESSION: Nonobstructive bowel gas pattern TECHNICAL DOCUMENTATION: JOB ID: [id number] [employer]- All Rights Reserved Reading location - IP/workstation name: [email or web address]
[2018-12-20 14:57] VITALS: BP 122/62
== END 2018-12-20 14:57 | disposition home or self-care (01) ==
LOC: ER 12:21
DX: N39.0 Urinary tract infection, site not specified (principal); R31.9 Hematuria, unspecified; D72.829 Elevated white blood cell count, unspecified; R10.30 Lower abdominal pain, unspecified; Z87.891 Personal history of nicotine dependence; J44.9 Chronic obstructive pulmonary disease, unspecified; E11.9 Type 2 diabetes mellitus without complications
CPT/HCPCS: 99283; 36415; 87086; 85025; 87088; 80053; 81001; 87186; 74018; A9270 ×2; J3490

== ENCOUNTER 2019-07-02 22:21 | Emergency (ER) | payer MEDICARE, MEDICAID ==
--- NOTE | 2019-07-02 22:30 | ER Document Report ---
ED General - General Stated Complaint: VOMITING/DIZZINESS Time Seen by Provider: 07/02/19 22:29 Primary Care Provider: HERMILA LAND MD [Primary Care Provider] - Follow up as needed Notes: Patient is a 73-year-old female with diabetes that presents to the emergency department for chief complaint of nausea, vomiting diarrhea. Patient states that this started this evening, where she was having vomiting while having diarrhea, and she actually had a diarrhea episode on the way into the hospital by ambulance. She states she was overall feeling okay earlier in the day, she states she ate a ham and turkey salad, but nothing out of the ordinary. No recent travel out of the country. She denies having any blood in the stool or in the vomit. She denies having any pain at this time, denies headache, but admits she had some lightheadedness, but did not pass out. Denies having any chest pain, shortness of breath or difficulty breathing. Past Medical History: Diabetes, hypothyroidism, overactive bladder Past Surgical History: Hysterectomy Social History: Denies tobacco, alcohol or drug use. Family History: Reviewed and noncontributory for presenting illness Allergies: Reviewed, see documented allergy list. REVIEW OF SYSTEMS: Other than noted above, the 12 point review of systems was reviewed with the patient and were negative, all pertinent findings are included in the HPI. PHYSICAL EXAMINATION: Vital signs reviewed, nursing noted reviewed. GENERAL: Elderly, obese female, no acute distress HEAD: Atraumatic, normocephalic. EYES: Eyes appear normal, extraocular movements intact, sclera anicteric, conjunctiva are normal. ENT: nares patent, oropharynx clear without exudates. Moist mucous membranes. NECK: Normal range of motion, supple without lymphadenopathy LUNGS: Breath sounds clear to auscultation bilaterally and equal. No wheezes rales or rhonchi. HEART: Regular rate and rhythm without murmurs ABDOMEN: Soft, nontender, normoactive bowel sounds. No rebound, guarding, or rigidity. No masses appreciated. EXTREMITIES: Nontender, good range of motion, no pitting or edema. NEUROLOGICAL: No focal neurological deficits. Moves all extremities spontaneously Motor and sensory grossly intact on exam. PSYCH: Normal mood, normal affect. SKIN: Warm, Dry, normal turgor, no rashes or lesions noted on exposed skin TRAVEL OUTSIDE OF THE [place] IN LAST 30 DAYS: No - Related Data Allergies/Adverse Reactions: niacin [Niacin] Allergy (Verified 12/20/18 12:27) Generalized Itching sulfamethoxazole [From Bactrim] Allergy (Verified 12/20/18 12:27) Hives trimethoprim [From Bactrim] Allergy (Verified 12/20/18 12:27) Hives nitrofurantoin [From Macrobid] Adverse Reaction (Verified 12/20/18 12:27) HURT LUNGS Past Medical History - Social History Smoking Status: Never Smoker Family History: Reviewed & Not Pertinent - Past Medical History Cardiac Medical History: Reports: Hx Hypercholesterolemia Denies: Hx Heart Attack, Hx Hypertension Pulmonary Medical History: Reports: Hx COPD Denies: Hx Asthma Neurological Medical History: Denies: Hx Cerebrovascular Accident, Hx Seizures Endocrine Medical History: Reports: Hx Diabetes Mellitus Type 2, Hx Hypothyroidism Renal/ Medical History: Denies: Hx Peritoneal Dialysis GI Medical History: Reports: Hx Gastroesophageal Reflux Disease. Denies: Hx Hepatitis, Hx Hiatal Hernia, Hx Ulcer Infectious Medical History: Denies: Hx Hepatitis Past Surgical History: Reports: Hx Hysterectomy. Denies: Hx Mastectomy, Hx Open Heart Surgery, Hx Pacemaker - Immunizations Hx Diphtheria, Pertussis, Tetanus Vaccination: Yes Physical Exam - Vital signs Vitals: Temp Resp BP 98.0 F 18 89/76 L 07/02/19 22:41 07/02/19 22:41 07/02/19 22:41 Course - Re-evaluation Re-evalutation: Patient seen and examined vital signs reviewed. Laboratory data and/or imaging were ordered as appropriate for the patient's presenting symptoms and complaint, with consideration of any critical or life threatening conditions that may be associated with their obtained history and exam as noted above. Patient was treated with IV fluids and Zofran Results were reviewed when available and demonstrated unremarkable CMP, [place]'s white blood cell count was elevated at 22, she has not been on recent antibiotics, has not had further diarrhea in the ED since arrival, I have low suspicion for bacterial etiology of her diarrhea, she is no abdominal pain, no blood in the diarrhea. The patient was re-evaluated and was stable, blood pressure stable, she is feeling much better, no further diarrhea or vomiting. Patient feels comfortable being discharged home. Evaluation was most consistent with nonspecific nausea, vomiting diarrhea, most likely viral in etiology, will have her follow-up with her primary care, given a dispense pack of Zofran to take for the nausea and vomiting. Results were discussed with the patient at this point, after careful consideration I feel that that patient can be discharged from the emergency department, the patient was educated treatments and reasons to return to the emergency department based on their presumed diagnosis as noted above, they were advised to followup with a primary care physician in 2-3 days. Patient was agreeable to plan of care. *Note is created using voice recognition software and may contain spelling, syntax or grammatical errors. Laboratory 07/02/19 07/02/19 23:30 23:30 WBC 21.2 H RBC 4.38 Hgb 11.2 L Hct 35.4 L MCV 81 MCH 25.5 L MCHC 31.6 L RDW 17.4 H Plt Count 374 Lymph % (Auto) Not Reportable [place] % (Auto) Not Reportable Eos % (Auto) Not Reportable Baso % (Auto) Not Reportable Absolute Neuts (auto) Not Reportable Absolute Lymphs (auto) Not Reportable Absolute Monos (auto) Not Reportable Absolute Eos (auto) Not Reportable Absolute Basos (auto) Not Reportable Total Counted 100 Seg Neutrophils % Not Reportable Seg Neuts % (Manual) 76 Band Neutrophils % 2 L Lymphocytes % (Manual) 18 Monocytes % (Manual) 4 Eosinophils % (Manual) 0 Basophils % (Manual) 0 Abs Neuts (Manual) 16.5 H Abs Lymphs (Manual) 3.8 Abs Monocytes (Manual) 0.8 Absolute Eos (Manual) 0.0 Abs Basophils (Manual) 0.0 Toxic Granulation SLIGHT Toxic Vacuolation PRESENT Platelet Comment ADEQUATE Poikilocytosis 1+ Anisocytosis 1+ Tear Drop Cells SLIGHT Ovalocytes SLIGHT [place] Cells SLIGHT Sodium 139.3 Potassium 4.8 Chloride 104 Carbon Dioxide 24 Anion Gap 11 BUN 19 Creatinine 1.13 Est GFR ( Amer) 57 L Est GFR (MDRD) Non-Af 47 L Glucose 188 H Calcium 9.2 Total Bilirubin 0.4 Direct Bilirubin 0.3 Neonat Total Bilirubin Not Reportable Neonat Direct Bilirubin Not Reportable Neonat Indirect Bili Not Reportable AST 38 H ALT 22 Alkaline Phosphatase 96 Total Protein 7.6 Albumin 4.1 Chest X-Ray 07/02/19 22:31 IMPRESSION: No evidence of acute cardiopulmonary disease. - Vital Signs Vital signs: Temp Pulse Resp BP Pulse Ox 98.0 F 21 H 89/76 L 98 07/02/19 22:41 07/02/19 23:04 07/02/19 22:41 07/02/19 23:04 - Laboratory Result Diagrams: 07/02/19 23:30 07/02/19 23:30 Laboratory results interpreted by me: 07/02/19 07/02/19 23:30 23:30 WBC 21.2 H Hgb 11.2 L Hct 35.4 L MCH 25.5 L MCHC 31.6 L RDW 17.4 H Band Neutrophils % 2 L Abs Neuts (Manual) 16.5 H Est GFR ( Amer) 57 L Est GFR (MDRD) Non-Af 47 L Glucose 188 H AST 38 H - EKG Interpretation by Me Additional EKG results interpreted by me: EKG demonstrates sinus rhythm with a ventricular rate of 82 bpm, normal axis, normal intervals, no ST elevation, compared to prior EKG from 03/30/2016, without significant change. Discharge - Discharge Clinical Impression: Nausea vomiting and diarrhea Condition: Stable Disposition: HOME, SELF-CARE Instructions: Diarrhea, Nonspecific ([facility]), Vomiting ([facility]) Additional Instructions: Please follow-up with Dr. Land, call for an appointment tomorrow, be sure to drink plenty of fluids at home to hydrate yourself. If your diarrhea is continuing or worsening, do not hesitate to return to the emergency department to be reevaluated. Referrals: HERMILA LAND MD [Primary Care Provider] - Follow up in 3-5 days
[2019-07-02] MEDS ORDERED: NORMAL SALINE 1000 ML 1,000 ML IV ONE (22:35)
[2019-07-02] MEDS ORDERED: ONDANSETRON HCL INJ/PF 4 MG/2 ML SDV IV ONE (22:35)
[2019-07-02 23:49] LABS: HEMATOCRIT 35.4 % (36.0-47.0); HEMOGLOBIN 11.2 g/dL (12.0-15.5); MEAN CORPUSCULAR HEMOGLOBIN 25.5 pg (27.0-33.4); MEAN CORPUSCULAR HGB CONC 31.6 g/dL (32.0-36.0); MEAN CORPUSCULAR VOLUME 81 fl (80-97); PLATELET COUNT 374 10^3/uL (150-450); RED BLOOD COUNT 4.38 10^6/uL (3.72-5.28); RED CELL DISTRIBUTION WIDTH 17.4 % (11.5-14.0); WHITE BLOOD COUNT 21.2 10^3/uL (4.0-10.5)
--- NOTE | 2019-07-02 23:50 | RADIOLOGY REPORT (SQ) ---
XR CHEST 1 VIEW EXAM DATE: 07/02/2019 10:31 PM CDT HISTORY: Dizziness. COMPARISON: 12/02/2014 FINDINGS: The heart size is within normal limits. No consolidation, pleural effusion, or pneumothorax is seen. Chronic interstitial changes in both lungs. The bony thorax is intact. IMPRESSION: No evidence of acute cardiopulmonary disease.
[2019-07-03 00:01] LABS: ALBUMIN 4.1 g/dL (3.5-5.0); ALKALINE PHOSPHATASE 96 U/L (38-126); ANION GAP 11 (5-19); ASPARTATE AMINO TRANSFERASE 38 U/L (14-36); BILIRUBIN,DIRECT 0.3 mg/dL (0.0-0.4); BILIRUBIN,TOTAL 0.4 mg/dL (0.2-1.3); BLOOD UREA NITROGEN 19 mg/dL (7-20); CALCIUM 9.2 mg/dL (8.4-10.2); CARBON DIOXIDE 24 mmol/L (22-30); CHLORIDE 104 mmol/L (98-107); GLUCOSE 188 mg/dL (75-110); POTASSIUM 4.8 mmol/L (3.6-5.0); TOTAL PROTEIN 7.6 g/dL (6.3-8.2)
[2019-07-03 00:12] LABS: ABSOLUTE LYMPHOCYTES# (MANUAL) 3.8 10^3/uL (0.5-4.7); ABSOLUTE MONOCYTES # (MANUAL) 0.8 10^3/uL (0.1-1.4); BAND NEUTROPHILS % (MANUAL) 2 % (3-5); BASOPHILS % (MANUAL) 0 % (0-2); EOSINOPHILS % (MANUAL) 0 % (0-6); LYMPHOCYTES % (MANUAL) 18 % (13-45); MONOCYTES % (MANUAL) 4 % (3-13); SEGMENTED NEUTROPHILS % (MAN) 76 % (42-78); TOTAL CELLS COUNTED 100
[2019-07-03 00:13] LABS: TOXIC GRANULATION SLIGHT; TOXIC VACUOLATION PRESENT
[2019-07-03 00:14] LABS: ANISOCYTOSIS 1+; BURR CELLS SLIGHT; OVALOCYTES SLIGHT; PLATELET COMMENT ADEQUATE; POIKILOCYTOSIS 1+; TEAR DROP CELLS SLIGHT
[2019-07-03] MEDS ORDERED: ONDANSETRON ODT 4 MG TAB (6 TAB/ER DISP) PO PRN (00:33)
[2019-07-03 01:09] VITALS: BP 133/58
--- NOTE | 2019-07-03 07:08 | EKG REPORT ---
SEVERITY:- BORDERLINE ECG - SINUS RHYTHM BORDERLINE T WAVE ABNORMALITIES : Confirmed by: Eh Reynolds MD 03-Jul-2019 07:08:06
== END 2019-07-03 01:17 | disposition home or self-care (01) ==
LOC: ER 22:21
DX: R11.2 Nausea with vomiting, unspecified (principal); R19.7 Diarrhea, unspecified; E11.9 Type 2 diabetes mellitus without complications; E66.9 Obesity, unspecified
CPT/HCPCS: 93005; 36415; 85025; 80053; 71045; 93010; J2405; J7030; A9270; 96361; 96374; 99284

== ENCOUNTER 2019-07-23 17:24 | Emergency (ER) | payer MEDICAID, MEDICARE ==
--- NOTE | 2019-07-23 17:45 | ER Document Report ---
ED General - General Stated Complaint: VOMITTING/NAUSEA Time Seen by Provider: 07/23/19 17:35 Primary Care Provider: HERMILA LAND MD [Primary Care Provider] - Follow up as needed Notes: Patient is a 73-year-old female who presents to the emergency department with a chief complaint of nausea, vomiting, and diarrhea. Patient was at home and she tried to take her own Zofran, but ended up vomiting it up. She arrived via EMS and EMS arrived she was pale and diaphoretic. They gave her 4 mg of Zofran IV and 500 mL of lactated Ringer's. TRAVEL OUTSIDE OF THE [place] IN LAST 30 DAYS: No - Related Data Allergies/Adverse Reactions: niacin [Niacin] Allergy (Verified 12/20/18 12:27) Generalized Itching sulfamethoxazole [From Bactrim] Allergy (Verified 12/20/18 12:27) Hives trimethoprim [From Bactrim] Allergy (Verified 12/20/18 12:27) Hives nitrofurantoin [From Macrobid] Adverse Reaction (Verified 12/20/18 12:27) HURT LUNGS Past Medical History - Social History Family History: Reviewed & Not Pertinent - Past Medical History Cardiac Medical History: Reports: Hx Hypercholesterolemia Denies: Hx Heart Attack, Hx Hypertension Pulmonary Medical History: Reports: Hx COPD Denies: Hx Asthma Neurological Medical History: Denies: Hx Cerebrovascular Accident, Hx Seizures Endocrine Medical History: Reports: Hx Diabetes Mellitus Type 2, Hx Hypothyroidism Renal/ Medical History: Denies: Hx Peritoneal Dialysis GI Medical History: Reports: Hx Gastroesophageal Reflux Disease. Denies: Hx Hepatitis, Hx Hiatal Hernia, Hx Ulcer Infectious Medical History: Denies: Hx Hepatitis Past Surgical History: Reports: Hx Hysterectomy. Denies: Hx Mastectomy, Hx Open Heart Surgery, Hx Pacemaker - Immunizations Hx Diphtheria, Pertussis, Tetanus Vaccination: Yes Discharge - Discharge Referrals: HERMILA LAND MD [Primary Care Provider] - Follow up as needed
--- NOTE | 2019-07-23 17:59 | ER Document Report ---
ED Medical Screen (RME) - General Stated Complaint: VOMITTING/NAUSEA Time Seen by Provider: 07/23/19 17:35 Primary Care Provider: HERMILA LAND MD [Primary Care Provider] - Follow up as needed Notes: Patient is a 73-year-old female who presents to the emergency department with a chief complaint of nausea, vomiting, and diarrhea. Patient attempted to take her own Zofran, but ended up vomiting it up. She arrived via EMS and EMS arrived she was pale and diaphoretic. They gave her 4 mg of Zofran IV and 500 mL of lactated Ringer's. Patient states that she feels better after receiving the Zofran. Exam: Soft, mildly tender lower abdomen. I have greeted and performed a rapid initial assessment of this patient. A comprehensive ED assessment and evaluation of the patient, analysis of test results and completion of medical decision making process will be conducted by an additional ED providers. TRAVEL OUTSIDE OF THE [place] IN LAST 30 DAYS: No - Related Data Allergies/Adverse Reactions: niacin [Niacin] Allergy (Verified 12/20/18 12:27) Generalized Itching sulfamethoxazole [From Bactrim] Allergy (Verified 12/20/18 12:27) Hives trimethoprim [From Bactrim] Allergy (Verified 12/20/18 12:27) Hives nitrofurantoin [From Macrobid] Adverse Reaction (Verified 12/20/18 12:27) HURT LUNGS Past Medical History - Past Medical History Cardiac Medical History: Reports: Hx Hypercholesterolemia Denies: Hx Heart Attack, Hx Hypertension Pulmonary Medical History: Reports: Hx COPD Denies: Hx Asthma Neurological Medical History: Denies: Hx Cerebrovascular Accident, Hx Seizures Endocrine Medical History: Reports: Hx Diabetes Mellitus Type 2, Hx Hypothyroidism Renal/ Medical History: Denies: Hx Peritoneal Dialysis GI Medical History: Reports: Hx Gastroesophageal Reflux Disease. Denies: Hx Hepatitis, Hx Hiatal Hernia, Hx Ulcer Infectious Medical History: Denies: Hx Hepatitis Past Surgical History: Reports: Hx Hysterectomy. Denies: Hx Mastectomy, Hx Open Heart Surgery, Hx Pacemaker - Immunizations Hx Diphtheria, Pertussis, Tetanus Vaccination: Yes Course - Laboratory Result Diagrams: 07/23/19 16:50 07/23/19 16:50 Doctor's Discharge - Discharge Referrals: HERMILA LAND MD [Primary Care Provider] - Follow up as needed
[2019-07-23 18:07] LABS: MEAN CORPUSCULAR HEMOGLOBIN 25.2 pg (27.0-33.4); MEAN CORPUSCULAR HGB CONC 31.7 g/dL (32.0-36.0); MEAN CORPUSCULAR VOLUME 80 fl (80-97); PLATELET COUNT 423 10^3/uL (150-450); RED BLOOD COUNT 4.76 10^6/uL (3.72-5.28); RED CELL DISTRIBUTION WIDTH 17.5 % (11.5-14.0); WHITE BLOOD COUNT 23.3 10^3/uL (4.0-10.5)
[2019-07-23 18:21] LABS: ALBUMIN 4.4 g/dL (3.5-5.0); ALKALINE PHOSPHATASE 109 U/L (38-126); ANION GAP 16 (5-19); ASPARTATE AMINO TRANSFERASE 43 U/L (14-36); BILIRUBIN,DIRECT 0.2 mg/dL (0.0-0.4); BILIRUBIN,TOTAL 0.3 mg/dL (0.2-1.3); BLOOD UREA NITROGEN 13 mg/dL (7-20); CALCIUM 9.7 mg/dL (8.4-10.2); CARBON DIOXIDE 25 mmol/L (22-30); CHLORIDE 100 mmol/L (98-107); GLUCOSE 92 mg/dL (75-110); POTASSIUM 4.2 mmol/L (3.6-5.0); TOTAL PROTEIN 7.8 g/dL (6.3-8.2)
[2019-07-23 18:36] LABS: ABSOLUTE LYMPHOCYTES# (MANUAL) 11.2 10^3/uL (0.5-4.7); ABSOLUTE MONOCYTES # (MANUAL) 0.9 10^3/uL (0.1-1.4); BASOPHILS % (MANUAL) 0 % (0-2); EOSINOPHILS % (MANUAL) 2 % (0-6); LYMPHOCYTES % (MANUAL) 48 % (13-45); MONOCYTES % (MANUAL) 4 % (3-13); SEGMENTED NEUTROPHILS % (MAN) 46 % (42-78); TOTAL CELLS COUNTED 100
[2019-07-23 18:37] LABS: ANISOCYTOSIS 1+; HYPOCHROMASIA SLIGHT; PLATELET COMMENT ADEQUATE
[2019-07-23 19:46] LABS: APPEARANCE,URINE CLOUDY; BILIRUBIN,URINE NEGATIVE (NEGATIVE); COLOR,URINE YELLOW; GLUCOSE, URINE NEGATIVE (NEGATIVE); KETONES,URINE NEGATIVE (NEGATIVE); LEUKOCYTE ESTERASE,URINE LARGE (NEGATIVE); NITRITE,URINE NEGATIVE (NEGATIVE); PROTEIN,URINE 30 mg/dL (NEGATIVE); URINE SPECIFIC GRAVITY 1.016; UROBILINOGEN,URINE NEGATIVE mg/dL (<2.0)
[2019-07-23] MEDS ORDERED: CEFTRIAXONE INJ 1000 MG VIAL IV ONE (20:22)
--- NOTE | 2019-07-23 20:22 | ER Document Report ---
ED General - General Chief Complaint: Nausea/Vomiting/Diarrhea Stated Complaint: VOMITTING/NAUSEA Time Seen by Provider: 07/23/19 17:35 Primary Care Provider: HERMILA LAND MD [Primary Care Provider] - Follow up in 3-5 days Notes: Patient is a 73-year-old female who presents to the emergency department with a chief complaint of nausea, vomiting, and diarrhea. Patient attempted to take her own Zofran, but ended up vomiting it up. She arrived via EMS and EMS arrived she was pale and diaphoretic. They gave her 4 mg of Zofran IV and 500 mL of lactated Ringer's. Patient states that she feels better after receiving the Zofran. TRAVEL OUTSIDE OF THE [place] IN LAST 30 DAYS: No - Related Data Allergies/Adverse Reactions: niacin [Niacin] Allergy (Verified 12/20/18 12:27) Generalized Itching sulfamethoxazole [From Bactrim] Allergy (Verified 12/20/18 12:27) Hives trimethoprim [From Bactrim] Allergy (Verified 12/20/18 12:27) Hives nitrofurantoin [From Macrobid] Adverse Reaction (Verified 12/20/18 12:27) HURT LUNGS Past Medical History - Social History Smoking Status: Never Smoker Frequency of alcohol use: None Drug Abuse: None Family History: Reviewed & Not Pertinent - Past Medical History Cardiac Medical History: Reports: Hx Hypercholesterolemia Denies: Hx Heart Attack, Hx Hypertension Pulmonary Medical History: Reports: Hx COPD Denies: Hx Asthma Neurological Medical History: Denies: Hx Cerebrovascular Accident, Hx Seizures Endocrine Medical History: Reports: Hx Diabetes Mellitus Type 2, Hx Hypothyroidism Renal/ Medical History: Denies: Hx Peritoneal Dialysis GI Medical History: Reports: Hx Gastroesophageal Reflux Disease. Denies: Hx Hepatitis, Hx Hiatal Hernia, Hx Ulcer Infectious Medical History: Denies: Hx Hepatitis Past Surgical History: Reports: Hx Hysterectomy. Denies: Hx Mastectomy, Hx Open Heart Surgery, Hx Pacemaker - Immunizations Hx Diphtheria, Pertussis, Tetanus Vaccination: Yes Review of Systems - Review of Systems Notes: REVIEW OF SYSTEMS: CONSTITUTIONAL : Denies recent illness. Denies recent unintentional weight loss. Denies fever, chills, or sweats. EENT: Denies eye, ear, throat, or mouth pain, discharge, or symptoms. Denies nasal or sinus congestion. CARDIOVASCULAR: Denies chest pain. RESPIRATORY: Denies shortness of breath, cough, congestion, difficulty breathing, or wheezing. GASTROINTESTINAL: See HPI. GENITOURINARY: Denies difficulty urinating, burning, blood in urine, urgency or frequency. MUSCULOSKELETAL: Denies neck and back pain. Denies joint pain or swelling. SKIN: Denies rash, itchiness, or lesions HEMATOLOGIC : Denies easy bruising or bleeding. LYMPHATIC: Denies swollen, painful, enlarged glands. NEUROLOGICAL: Denies no numbness or tingling denies weakness. Denies headache. Denies altered mental status. Denies alteration in speech. PSYCHIATRIC: Denies stress, anxiety, alteration in sleep patterns, or depression. All other systems reviewed and negative. Physical Exam - Vital signs Vitals: Temp Pulse Resp BP Pulse Ox 98.0 F 84 16 109/53 L 96 07/23/19 20:24 07/23/19 20:24 07/23/19 20:24 07/23/19 20:24 07/23/19 20:24 - Notes Notes: PHYSICAL EXAMINATION: GENERAL: Obese, no acute distress. HEAD: Normocephalic, atraumatic. EYES: PERRL, conjunctiva normal, all extraocular movements intact, sclera nonicteric ENT: Moist mucous membranes. NECK: Supple, no noticeable swelling, redness, rash. Normal range of motion. LUNGS: Equal breath sounds bilaterally and clear to auscultation. No wheezes rales or rhonchi. CARDIOVASCULAR: S1-S2, regular rate, regular rhythm. Radial pulses 2+, normal. ABDOMEN: Normoactive bowel sounds. Soft, mildly tender mid to lower abdomen, no guarding, no rebound tenderness, and no masses palpated. EXTREMITIES: Normal strength and range of motion, no pitting or edema. No cyanosis. NEUROLOGICAL: Moves all extremities upon command. Strength 5/5 in all extremities. PSYCH: Normal mood, normal affect. SKIN: Warm, dry. No rash, lesions, ulcerations noted. Normal skin turgor. Course - Re-evaluation Re-evalutation: 07/23/19 20:24 Patient's chemistries are unremarkable at this time. Her urinalysis shows that she has a large amount of leukocytes and greater than 182 WBCs and her urine. I have a very low suspicion for an infected kidney stone because the patient does not have any flank pain and most of her pain is in her mid lower abdomen. Her urine will be sent for culture. She will be given a gram of Rocephin and sent home with azithromycin Keflex. She has an elevated white blood cell count of 23,300. The patient was unable to provide a stool sample for C. difficile or stool for WBC. I have advised the patient to follow-up with her primary care provider in regards to her diarrhea. She will start on the BRAT diet. Follow- up precautions were given. Verbal discharge instructions were given to the patient. They verbalized understanding. They are stable for discharge. - Vital Signs Vital signs: Temp Pulse Resp BP Pulse Ox 98.9 F 92 18 144/99 H 100 07/23/19 21:00 07/23/19 21:00 07/23/19 21:00 07/23/19 21:00 07/23/19 21:00 - Laboratory Result Diagrams: 07/23/19 16:50 07/23/19 16:50 Laboratory results interpreted by me: 07/23/19 07/23/19 07/23/19 16:50 16:50 19:06 WBC 23.3 H MCH 25.2 L MCHC 31.7 L RDW 17.5 H Lymphocytes % (Manual) 48 H Abs Neuts (Manual) 10.7 H Abs Lymphs (Manual) 11.2 H Est GFR (MDRD) Non-Af 56 L AST 43 H Urine Protein 30 H Urine Blood SMALL H Ur Leukocyte Esterase LARGE H Discharge - Discharge Clinical Impression: Nausea vomiting and diarrhea Urinary tract infection Qualifiers: Urinary tract infection type: acute cystitis Hematuria presence: with hematuria Qualified Code(s): N30.01 - Acute cystitis with hematuria Condition: Stable Disposition: HOME, SELF-CARE Instructions: Antinausea Medication ([facility]), Cephalexin ([facility]), Urinary Tract Infection ([facility]) Additional Instructions: Your urine shows findings consistent with a urinary tract infection. Please take all the antibiotics as directed even if your symptoms have improved. Please follow-up with your primary care physician as needed. Return to emergency room if you develop fever >101F, persistent vomiting, become lethargic, have severe pain in your sides, or any other symptoms that are concerning to you. Please follow-up with Dr. Land in regards to your diarrhea. You can start on the brat diet, which is bananas, rice, applesauce, and toast. This will help with your diarrhea. Prescriptions: Cephalexin [Keflex] 500 mg PO BID #14 capsule Ondansetron [Zofran Odt 4 mg Tablet] 1 - 2 tab PO Q4H PRN #15 tab.rapdis PRN Reason: For Nausea/Vomiting Referrals: HERMILA LAND MD [Primary Care Provider] - Follow up in 3-5 days
[2019-07-23 21:00] VITALS: BP 144/99
== END 2019-07-23 21:05 | disposition home or self-care (01) ==
LOC: ER 17:24
DX: N30.01 Acute cystitis with hematuria (principal); R11.2 Nausea with vomiting, unspecified; R19.7 Diarrhea, unspecified; E78.00 Pure hypercholesterolemia, unspecified; E66.9 Obesity, unspecified; Z88.3 Allergy status to other anti-infective agents; Z90.710 Acquired absence of both cervix and uterus
CPT/HCPCS: 36415; 87086; 85025; 87088; 80053; 81001; 87186; J0696; 96374; 99284

== ENCOUNTER 2019-07-24 02:00 | Inpatient (IN) | payer MEDICARE ==
[2019-07-24] MEDS ORDERED: NORMAL SALINE 1000 ML 1,000 ML IV PRN (02:23)
[2019-07-24] MEDS ORDERED: CEFTRIAXONE 1 GM/D5W RTU 1 GM/50 ML RTUPB IV ONE (02:25)
[2019-07-24 03:11] LABS: ABSOLUTE EOSINOPHILS # (AUTO) 0.2 10^3/uL (0.0-0.6); ABSOLUTE LYMPHOCYTES (AUTO) 1.3 10^3/uL (0.5-4.7); ABSOLUTE NEUT (AUTO) 12.2 10^3/uL (1.7-8.2); BASOPHILS % (AUTO) 0.1 % (0-2); EOSINOPHILS % (AUTO) 1.2 % (0-6); HEMATOCRIT 35.7 % (36.0-47.0); HEMOGLOBIN 11.2 g/dL (12.0-15.5); LYMPHOCYTES % (AUTO) 9.1 % (13-45); MEAN CORPUSCULAR HEMOGLOBIN 25.4 pg (27.0-33.4); MEAN CORPUSCULAR HGB CONC 31.4 g/dL (32.0-36.0); MEAN CORPUSCULAR VOLUME 81 fl (80-97); MONOCYTES % (AUTO) 6.9 % (3-13); PLATELET COUNT 293 10^3/uL (150-450); RED BLOOD COUNT 4.41 10^6/uL (3.72-5.28); RED CELL DISTRIBUTION WIDTH 17.3 % (11.5-14.0); SEGMENTED NEUTROPHILS % (AUTO) 82.7 % (42-78); TOTAL CELLS COUNTED % (AUTO) 100 %; WHITE BLOOD COUNT 14.8 10^3/uL (4.0-10.5)
[2019-07-24] MEDS ORDERED: NORMAL SALINE 1000 ML 1,000 ML IV ONE (03:31)
[2019-07-24 03:42] LABS: APPEARANCE,URINE HAZY; BILIRUBIN,URINE NEGATIVE (NEGATIVE); COLOR,URINE YELLOW; GLUCOSE, URINE NEGATIVE (NEGATIVE); KETONES,URINE NEGATIVE (NEGATIVE); LEUKOCYTE ESTERASE,URINE LARGE (NEGATIVE); NITRITE,URINE NEGATIVE (NEGATIVE); PROTEIN,URINE 100 mg/dL (NEGATIVE); URINE SPECIFIC GRAVITY 1.013; UROBILINOGEN,URINE NEGATIVE mg/dL (<2.0)
[2019-07-24 04:25] LABS: PROTHROMBIN TIME 14.2 SEC (11.4-15.4)
[2019-07-24 04:30] LABS: ALBUMIN 3.8 g/dL (3.5-5.0); ALKALINE PHOSPHATASE 89 U/L (38-126); ANION GAP 14 (5-19); ASPARTATE AMINO TRANSFERASE 37 U/L (14-36); BILIRUBIN,DIRECT 0.1 mg/dL (0.0-0.4); BILIRUBIN,TOTAL 0.3 mg/dL (0.2-1.3); BLOOD UREA NITROGEN 16 mg/dL (7-20); CALCIUM 8.6 mg/dL (8.4-10.2); CARBON DIOXIDE 22 mmol/L (22-30); CHLORIDE 105 mmol/L (98-107); GLUCOSE 216 mg/dL (75-110); POTASSIUM 4.4 mmol/L (3.6-5.0); TOTAL PROTEIN 7.3 g/dL (6.3-8.2)
--- NOTE | 2019-07-24 06:39 | RADIOLOGY REPORT (SQ) ---
CLINICAL HISTORY: general pain COMPARISON: None. TECHNIQUE: CT ABDOMEN PELVIS WITH IV CONTRAST on 07/24/2019 5:09 AM CDT This exam was performed according to our departmental dose-optimization program, which includes automated exposure control, adjustment of the mA and/or kV according to patient size and/or use of iterative reconstruction technique. FINDINGS: Lower lungs are clear. Abdomen: The liver is normal in appearance. There is no biliary dilatation. Gallbladder is normally distended. The pancreas and spleen are normal in appearance. Adrenal glands are normal. Kidneys are mildly atrophic. Abdominal aorta is normal in course and caliber without aneurysm. There is no free air. There is no retroperitoneal adenopathy.There is a [place] left lateral abdominal wall hernia containing multiple bowel loops. Pelvis: There is moderate distal colonic diverticulosis. There is mild thickening of the urinary bladder with surrounding inflammation. There fiducial markers at the vaginal cuff. There is no free fluid. Appendix is normal. Hysterectomy was performed. Skeleton: There are no acute osseous findings. No suspicious bony lesions. IMPRESSION: Possible diffuse cystitis. No other convincing acute inflammatory process.
--- NOTE | 2019-07-24 06:47 | ER Document Report ---
ED GI/ - General Chief Complaint: Nausea/Vomiting/Diarrhea Stated Complaint: WEAKNESS,NEAR SYNCOPE Time Seen by Provider: 07/24/19 02:20 Primary Care Provider: HERMILA LAND MD [Primary Care Provider] - Follow up as needed Notes: Patient is a 73-year-old female presents to the emergency department for hypotension, continued nausea, vomiting, diarrhea. Patient was seen at this facility earlier this evening diagnosed with a urinary tract infection. States she was initially feeling better but when she presented home she continued with vomiting and diarrhea. States she had to alert 911 to present to the emergency room. EMS report states patient had a blood pressure of 78/palp. They did provide the patient with 800 cc of normal saline solution. Patient is complaining of continued diarrhea and vomiting. She is denying any blood in her emesis or stool. Patient is complaining of generalized abdominal pain. TRAVEL OUTSIDE OF THE [place] IN LAST 30 DAYS: No - Related Data Allergies/Adverse Reactions: niacin [Niacin] Allergy (Verified 12/20/18 12:27) Generalized Itching sulfamethoxazole [From Bactrim] Allergy (Verified 12/20/18 12:27) Hives trimethoprim [From Bactrim] Allergy (Verified 12/20/18 12:27) Hives nitrofurantoin [From Macrobid] Adverse Reaction (Verified 12/20/18 12:27) HURT LUNGS Past Medical History - General Information source: Patient - Social History Smoking Status: Unknown if Ever Smoked Family History: Reviewed & Not Pertinent Patient has suicidal ideation: No Patient has homicidal ideation: No - Past Medical History Cardiac Medical History: Reports: Hx Hypercholesterolemia Denies: Hx Heart Attack, Hx Hypertension Pulmonary Medical History: Reports: Hx COPD Denies: Hx Asthma Neurological Medical History: Denies: Hx Cerebrovascular Accident, Hx Seizures Endocrine Medical History: Reports: Hx Diabetes Mellitus Type 2, Hx Hypothyroidism Renal/ Medical History: Denies: Hx Peritoneal Dialysis GI Medical History: Reports: Hx Gastroesophageal Reflux Disease. Denies: Hx Hepatitis, Hx Hiatal Hernia, Hx Ulcer Infectious Medical History: Denies: Hx Hepatitis Past Surgical History: Reports: Hx Hysterectomy. Denies: Hx Mastectomy, Hx Open Heart Surgery, Hx Pacemaker - Immunizations Hx Diphtheria, Pertussis, Tetanus Vaccination: Yes Review of Systems - Review of Systems Constitutional: denies: Fever EENT: No symptoms reported Cardiovascular: No symptoms reported Respiratory: No symptoms reported Gastrointestinal: See HPI Genitourinary: denies: Burning, Dysuria Female Genitourinary: No symptoms reported Musculoskeletal: No symptoms reported Skin: No symptoms reported Hematologic/Lymphatic: No symptoms reported Neurological/Psychological: No symptoms reported Physical Exam - Vital signs Vitals: Resp Pulse Ox 18 97 07/24/19 02:08 07/24/19 02:08 - Notes Notes: GENERAL: Alert, interacts well. Pallor noted HEAD: Normocephalic, atraumatic. EYES: Pupils equal, round, and reactive to light. Extraocular movements intact. ENT: Oral mucosa moist, tongue midline. NECK: Full range of motion. Supple. Trachea midline. LUNGS: Clear to auscultation bilaterally, no wheezes, rales, or rhonchi. No respiratory distress. HEART: Regular rate and rhythm. No murmur ABDOMEN: Soft, generalized tenderness noted all 4 quadrants. Non-distended. Bowel sounds present in all 4 quadrants. EXTREMITIES: Moves all 4 extremities spontaneously. No edema, normal radial and dorsalis pedis pulses bilaterally. No cyanosis. BACK: no cervical, thoracic, lumbar midline tenderness. No saddle anesthesia, normal distal neurovascular exam. NEUROLOGICAL: Alert and oriented x3. Normal speech. cranial nerves II through XII grossly intact PSYCH: Normal affect, normal mood. SKIN: Warm, dry, normal turgor. No rashes or lesions noted. Course - Re-evaluation Re-evalutation: Laboratory 07/24/19 07/24/19 07/24/19 02:45 02:45 02:45 WBC 14.8 H RBC 4.41 Hgb 11.2 L Hct 35.7 L MCV 81 MCH 25.4 L MCHC 31.4 L RDW 17.3 H Plt Count 293 Lymph % (Auto) 9.1 L [place] % (Auto) 6.9 Eos % (Auto) 1.2 Baso % (Auto) 0.1 Absolute Neuts (auto) 12.2 H Absolute Lymphs (auto) 1.3 Absolute Monos (auto) 1.0 Absolute Eos (auto) 0.2 Absolute Basos (auto) 0.0 Seg Neutrophils % 82.7 H PT INR Sodium Cancelled Potassium Cancelled Chloride Cancelled Carbon Dioxide Cancelled Anion Gap Cancelled BUN Cancelled Creatinine Cancelled Est GFR ( Amer) Cancelled Est GFR (Non-Af Amer) Cancelled Est GFR (MDRD) Non-Af Cancelled Glucose Cancelled Lactic Acid 3.9 H Calcium Cancelled Total Bilirubin Cancelled Direct Bilirubin Cancelled Neonat Total Bilirubin Cancelled Neonat Direct Bilirubin Cancelled Neonat Indirect Bili Cancelled AST Cancelled ALT Cancelled Alkaline Phosphatase Cancelled Total Protein Cancelled Albumin Cancelled EGFR Cancelled Urine Color Urine Appearance Urine pH Ur Specific [place] Urine Protein Urine Glucose (UA) Urine Ketones Urine Blood Urine Nitrite Urine Bilirubin Urine Urobilinogen Ur Leukocyte Esterase Urine WBC (Auto) Urine RBC (Auto) U Hyaline Cast (Auto) Urine Bacteria (Auto) Urine WBC Clumps Squamous Epi Cells Auto Urine Mucus (Auto) Urine Ascorbic Acid 07/24/19 07/24/19 07/24/19 03:10 03:57 03:57 WBC RBC Hgb Hct MCV MCH MCHC RDW Plt Count Lymph % (Auto) [place] % (Auto) Eos % (Auto) Baso % (Auto) Absolute Neuts (auto) Absolute Lymphs (auto) Absolute Monos (auto) Absolute Eos (auto) Absolute Basos (auto) Seg Neutrophils % PT 14.2 INR 1.10 Sodium 140.6 Potassium 4.4 Chloride 105 Carbon Dioxide 22 Anion Gap 14 BUN 16 Creatinine 0.97 Est GFR ( Amer) > 60 Est GFR (Non-Af Amer) Est GFR (MDRD) Non-Af 56 L Glucose 216 H Lactic Acid Calcium 8.6 Total Bilirubin 0.3 Direct Bilirubin 0.1 Neonat Total Bilirubin Not Reportable Neonat Direct Bilirubin Not Reportable Neonat Indirect Bili Not Reportable AST 37 H ALT 22 Alkaline Phosphatase 89 Total Protein 7.3 Albumin 3.8 EGFR Urine Color YELLOW Urine Appearance HAZY Urine pH 5.0 Ur Specific [place] 1.013 Urine Protein 100 H Urine Glucose (UA) NEGATIVE Urine Ketones NEGATIVE Urine Blood MODERATE H Urine Nitrite NEGATIVE Urine Bilirubin NEGATIVE Urine Urobilinogen NEGATIVE Ur Leukocyte Esterase LARGE H Urine WBC (Auto) >182 Urine RBC (Auto) 39 U Hyaline Cast (Auto) 24 Urine Bacteria (Auto) 1+ Urine WBC Clumps FEW Squamous Epi Cells Auto 2 Urine Mucus (Auto) RARE Urine Ascorbic Acid NEGATIVE Abdomen/Pelvis CT 07/24/19 05:09 IMPRESSION: Possible diffuse cystitis. No other convincing acute inflammatory process. I discussed this case with patient's primary care doctor Dr. Land. He would like the patient admitted to [facility] for continued care. - Vital Signs Vital signs: Temp Pulse Resp BP Pulse Ox 98.5 F 19 106/49 L 96 07/24/19 03:10 07/24/19 06:01 07/24/19 06:00 07/24/19 06:01 - Laboratory Result Diagrams: 07/24/19 02:45 07/24/19 03:57 Laboratory results interpreted by me: 07/24/19 07/24/19 07/24/19 02:45 02:45 03:10 WBC 14.8 H Hgb 11.2 L Hct 35.7 L MCH 25.4 L MCHC 31.4 L RDW 17.3 H Lymph % (Auto) 9.1 L Absolute Neuts (auto) 12.2 H Seg Neutrophils % 82.7 H Est GFR (MDRD) Non-Af Glucose Lactic Acid 3.9 H AST Urine Protein 100 H Urine Blood MODERATE H Ur Leukocyte Esterase LARGE H 07/24/19 03:57 WBC Hgb Hct MCH MCHC RDW Lymph % (Auto) Absolute Neuts (auto) Seg Neutrophils % Est GFR (MDRD) Non-Af 56 L Glucose 216 H Lactic Acid AST 37 H Urine Protein Urine Blood Ur Leukocyte Esterase Discharge - Discharge Clinical Impression: Elevated lactic acid level Urinary tract infection Qualifiers: Urinary tract infection type: site unspecified Hematuria presence: with hematuria Qualified Code(s): N39.0 - Urinary tract infection, site not specified Hypotension Qualifiers: Hypotension type: unspecified hypotension type Qualified Code(s): I95.9 - Hypotension, unspecified Condition: Stable Disposition: ADMITTED INPATIENT Admitting Provider: [facility] Unit Admitted: [facility] Referrals: HERMILA LAND MD [Primary Care Provider] - Follow up as needed
[2019-07-24] MEDS ORDERED: ONDANSETRON HCL INJ/PF 4 MG/2 ML SDV IV PRN (07:43)
[2019-07-24] MEDS ORDERED: ACETAMINOPHEN 325 MG TABLET PO PRN (07:43)
--- NOTE | 2019-07-24 07:48 | EKG REPORT ---
SEVERITY:- NORMAL ECG - SINUS RHYTHM : Confirmed by: Eh Reynolds MD 24-Jul-2019 07:47:33
[2019-07-24] MEDS ORDERED: DEXTROSE 40% GEL 15 GM TUBE PO PRN ×2 (08:41)
[2019-07-24] MEDS ORDERED: DEXTROSE 50%-WATER 25 GM/50 ML DISP.SYRIN IV PRN ×2 (08:41)
[2019-07-24] MEDS ORDERED: GLUCAGON,HUMAN RECOMB 1 MG INJ IM PRN (08:41)
--- NOTE | 2019-07-24 09:17 | PDOC H&P ---
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 bahena in [place] came to the emergency department last night with a nausea vomiting not feeling well In the emergency department patient's white count was elevated 22,000's and the patient received the Rocephin and oral antibiotic and discharged home patients went home and not feeling well persistent nausea vomiting diarrhea and patients came by EMS with the hypotensive and not feeling well and patient's underwent for the CT abdomen pelvis with IV contrast with suggest the diffuse cystitis but no other acute finding In the ER patient's white count is already down from the last visit from the ER patient's was received the 2 L of fluids feeling better's when I saw in the ER patient is alert awake talking denied any chest pain to than any shortness of the breath Patient urine is positive for UTI patient's was several prophylactic antibiotic including the Macrobid in the past which caused the pulmonary fibrosis switch to the Bactrim then switched to the Cipro and then Keflex by several urologist At this point decided to admit in the IMCU for further close monitor for possible urosepsis due to the hypotension's elevated white count elevated lactic acids Discussed with the patient about the power of attorneyBut patient does not have it and patient wants to talk only close friends but not Her kidsAnd she does not want to inform her kids Past Medical History Cardiac Medical History: Reports: Hyperlipidema Denies: Myocardial Infarction, Hypertension Pulmonary Medical History: Reports: Chronic Obstructive Pulmonary Disease (COPD) Denies: Asthma Neurological Medical History: Denies: Seizures Endocrine Medical History: Reports: Diabetes Mellitus Type 2, Hypothyroidism Malignancy History Note: Uterine cancer status post hysterectomy status post pelvic radiation's GI Medical History: Reports: Gastroesophageal Reflux Disease Denies: Hepatitis, Hiatal Hernia Hematology: Denies: Anemia, Sickle Cell Disease Past Surgical History Past Surgical History: Reports: Hysterectomy Denies: Mastectomy, Pacemaker Social History Information Source: Patient Smoking Status: Never Smoker Frequency of Alcohol Use: None Hx Recreational Drug Use: No Hx Prescription Drug Abuse: No Family History Family History: Reviewed & Not Pertinent Parental Family History Reviewed: Yes Children Family History Reviewed: Yes Sibling(s) Family History Reviewed.: Yes Medication/Allergy Home Medications: Acetaminophen/Diphenhydramine [Tylenol Pm Ex-Strength Caplet] 2 tab PO QPM 07/24/19 Atorvastatin Calcium [Lipitor 40 mg Tablet] 40 mg PO QHS 07/24/19 Esomeprazole Mag Trihydrate [Nexium] 40 mg PO QAM 07/24/19 Gabapentin [Neurontin 100 mg Capsule] 200 mg PO Q12 07/24/19 Glipizide [Glucotrol] 5 mg PO DAILY 07/24/19 Ipratropium/Albuterol Sulfate [Combivent Respimat 4 gm Mdi] 1 puff IH QID 07/24/19 Levothyroxine Sodium 100 mcg PO Q6AM 07/24/19 Metformin HCl [Glucophage 500 mg Tablet] 500 mg PO Q12 07/24/19 Allergies/Adverse Reactions: niacin [Niacin] Allergy (Verified 12/20/18 12:27) Generalized Itching sulfamethoxazole [From Bactrim] Allergy (Verified 12/20/18 12:27) Hives trimethoprim [From Bactrim] Allergy (Verified 12/20/18 12:27) Hives nitrofurantoin [From Macrobid] Adverse Reaction (Verified 12/20/18 12:27) HURT LUNGS Review of Systems Constitutional: ABSENT: chills, fever(s), headache(s), weight gain, weight loss Eyes: ABSENT: visual disturbances Ears: ABSENT: hearing changes Cardiovascular: ABSENT: chest pain, dyspnea on exertion, edema, orthropnea, palpitations Respiratory: ABSENT: cough, hemoptysis Gastrointestinal: PRESENT: diarrhea, nausea, vomiting. ABSENT: abdominal pain, constipation, hematemesis, hematochezia Genitourinary: ABSENT: dysuria, hematuria Musculoskeletal: ABSENT: joint swelling Integumentary: ABSENT: rash, wounds Neurological: PRESENT: weakness. ABSENT: abnormal gait, abnormal speech, confusion, dizziness, focal weakness, syncope Psychiatric: ABSENT: anxiety, depression, homidical ideation, suicidal ideation Endocrine: ABSENT: cold intolerance, heat intolerance, menstrual abnormalities, polydipsia, polyuria Hematologic/Lymphatic: ABSENT: easy bleeding, easy bruising, lymphadenopathy Physical Exam Vital Signs: Temp Pulse Resp BP Pulse Ox 98.3 F 17 104/51 L 96 07/24/19 07:46 07/24/19 07:27 07/24/19 07:27 07/24/19 07:27 Intake & Output 07/23/19 07/24/19 07/25/19 06:59 06:59 06:59 Intake Total 2049 Balance 2049 Weight 96.615 kg General appearance: PRESENT: no acute distress, well-developed, well-nourished Head exam: PRESENT: atraumatic, normocephalic Eye exam: PRESENT: conjunctiva pink, EOMI, PERRLA. ABSENT: scleral icterus Ear exam: PRESENT: normal external ear exam Mouth exam: PRESENT: moist, tongue midline Neck exam: PRESENT: full ROM. ABSENT: carotid bruit, JVD, lymphadenopathy, thyromegaly Respiratory exam: PRESENT: clear to auscultation pranay Cardiovascular exam: PRESENT: RRR. ABSENT: diastolic murmur, rubs, systolic m urmur Pulses: PRESENT: normal dorsalis pedis pul, +2 pedal pulses bilateral Vascular exam: PRESENT: normal capillary refill GI/Abdominal exam: PRESENT: normal bowel sounds, soft. ABSENT: distended, guarding, mass, organolmegaly, rebound, tenderness Rectal exam: PRESENT: deferred Extremities exam: ABSENT: pedal edema Neurological exam: PRESENT: alert, awake, oriented to person, oriented to place, oriented to time, oriented to situation, CN II-XII grossly intact. ABSENT: motor sensory deficit Psychiatric exam: PRESENT: appropriate affect, normal mood. ABSENT: homicidal ideation, suicidal ideation Skin exam: PRESENT: dry, intact, warm. ABSENT: cyanosis, rash Results Laboratory Results: 07/24/19 02:45 07/24/19 03:57 07/24/19 07/24/19 07/24/19 02:45 02:45 02:45 WBC 14.8 H RBC 4.41 Hgb 11.2 L Hct 35.7 L MCV 81 MCH 25.4 L MCHC 31.4 L RDW 17.3 H Plt Count 293 Seg Neutrophils % 82.7 H Sodium Cancelled Potassium Cancelled Chloride Cancelled Carbon Dioxide Cancelled Anion Gap Cancelled BUN Cancelled Creatinine Cancelled Est GFR ( Amer) Cancelled Est GFR (Non-Af Amer) Cancelled Glucose Cancelled Lactic Acid 3.9 H Calcium Cancelled Total Bilirubin Cancelled AST Cancelled Alkaline Phosphatase Cancelled Total Protein Cancelled Albumin Cancelled Urine Color Urine Appearance Urine pH Ur Specific [place] Urine Protein Urine Glucose (UA) Urine Ketones Urine Blood Urine Nitrite Ur Leukocyte Esterase Urine WBC (Auto) Urine RBC (Auto) 07/24/19 07/24/19 03:10 03:57 WBC RBC Hgb Hct MCV MCH MCHC RDW Plt Count Seg Neutrophils % Sodium 140.6 Potassium 4.4 Chloride 105 Carbon Dioxide 22 Anion Gap 14 BUN 16 Creatinine 0.97 Est GFR ( Amer) > 60 Est GFR (Non-Af Amer) Glucose 216 H Lactic Acid Calcium 8.6 Total Bilirubin 0.3 AST 37 H Alkaline Phosphatase 89 Total Protein 7.3 Albumin 3.8 Urine Color YELLOW Urine Appearance HAZY Urine pH 5.0 Ur Specific [place] 1.013 Urine Protein 100 H Urine Glucose (UA) NEGATIVE Urine Ketones NEGATIVE Urine Blood MODERATE H Urine Nitrite NEGATIVE Ur Leukocyte Esterase LARGE H Urine WBC (Auto) >182 Urine RBC (Auto) 39 Impressions: Abdomen/Pelvis CT 07/24/19 05:09 IMPRESSION: Possible diffuse cystitis. No other convincing acute inflammatory process. Assessment & Plan - Diagnosis (1) Sepsis associated hypotension Is this a current diagnosis for this admission?: Yes Plan: Due to the recurrent urinary tract infections with the urosepsis continues to IV fluid IV antibiotic will wait for the all culture and sensitivity (2) Recurrent urinary tract infection Is this a current diagnosis for this admission?: Yes Plan: Is likely due to the radiation-induced chronic cystitis patient seen by the several urologist have a cystoscopy was done last year suggesting some mucosal inflammation's all the urologist changing the prophylactic antibioticsAnd may be a suggest the hyperbaric therapy chamber (3) Chronic cystitis without hematuria Is this a current diagnosis for this admission?: Yes Plan: Due to the pelvic radiation's with chronic cystitis (4) Type 2 diabetes mellitus Qualifiers: Diabetes mellitus residential insulin use: without residential use Is this a current diagnosis for this admission?: Yes Plan: Continues to sliding scale will stop the Metformin right now due to the diarrhea (5) Hypertension Qualifiers: Hypertension type: essential hypertension Qualified Code(s): I10 - Essential (primary) hypertension Is this a current diagnosis for this admission?: Yes Plan: Currently hold the blood pressure medications (6) History of uterine cancer Is this a current diagnosis for this admission?: Yes Plan: Status post hysterectomy current abdomen pelvic CT is all stable (7) Hyperlipidemia Qualifiers: Hyperlipidemia type: unspecified Qualified Code(s): E78.5 - Hyperlipidemia, unspecified Is this a current diagnosis for this admission?: Yes (8) Nausea vomiting and diarrhea Is this a current diagnosis for this admission?: Yes Plan: Will continues to PRN Zofran's we will check stool for C. difficile continues to the Protonix patient is already refused for colonoscopy in the past patient with persistent symptoms patients need endoscopy or colonoscopy for further evaluations (9) Chronic obstructive pulmonary disease Qualifiers: Emphysema type: unspecified Is this a current diagnosis for this admission?: Yes Plan: Continues to nebulizer treatments patient have underlying pulmonary fibrosis due to the medications - Time Time Spent: 50 to 70 Minutes Medications reviewed and adjusted accordingly: Yes Anticipated discharge: Home with Homehealth Within: Other - Inpatient Certification Based on my medical assessment, after consideration of the patient's comorbidities, presenting symptoms, or acuity I expect that the services needed warrant INPATIENT care.: Yes Medical Necessity: Significant Comorbidiites Make Outpatient Treatment Too Risky, Need For IV Fluids, Need for IV Antibiotics Post Hospital Care: D/C Mash 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
[2019-07-24] MEDS ORDERED: CEFTRIAXONE 1 GM/D5W RTU 1 GM/50 ML RTUPB IV SCH (10:00)
[2019-07-24 10:15] LABS: C DIFFICILE GDH NEGATIVE (NEGATIVE)
[2019-07-24] MEDS: CEFEPIME 1 GM/D5W RTU 1 GM/50 ML RTUPB IV SCH ×2 (11:16→21:28)
[2019-07-24] MEDS: GLIPIZIDE 5 MG TABLET PO SCH (11:17)
[2019-07-24] MEDS: GABAPENTIN 100 MG CAPSULE PO SCH ×2 (11:17→21:28)
[2019-07-24] MEDS: NORMAL SALINE 1000 ML 1,000 ML IV PRN (11:17)
[2019-07-24] MEDS: ENOXAPARIN SODIUM INJ 40 MG/0.4 ML DISP.SYRIN SUBCUT SCH (11:17)
[2019-07-24] MEDS: PANTOPRAZOLE SODIUM 40 MG TABLET.DR PO SCH (11:18)
[2019-07-24] MEDS: LEVOTHYROXINE SODIUM 0.1 MG TABLET PO SCH (11:18)
[2019-07-24] MEDS: DOCUSATE SODIUM 100 MG CAPSULE PO SCH (11:19)
[2019-07-24] MEDS: INSULIN LISPRO 100 UNIT/ML 3 ML VIAL SUBCUT SCH ×3 (12:23→21:28)
[2019-07-24] MEDS: IPRATROPIUM/ALBUTEROL 120 PUFF/4 GM MDI IH SCH ×4 (13:30→21:27)
[2019-07-24] MEDS ORDERED: DIPHENHYDRAMINE PO SCH (18:00)
[2019-07-24] MEDS ORDERED: ACETAMINOPHEN PO SCH (18:00)
[2019-07-24] MEDS ORDERED: [UNRECOGNIZED DRUG - OTHER] PO SCH (18:00)
[2019-07-24] MEDS: ATORVASTATIN CALCIUM 40 MG TABLET PO SCH (21:28)
[2019-07-25] MEDS: NORMAL SALINE 1000 ML 1,000 ML IV PRN ×2 (02:29→17:05)
[2019-07-25] MEDS: LEVOTHYROXINE SODIUM 0.1 MG TABLET PO SCH (05:18)
[2019-07-25 06:48] LABS: ABSOLUTE EOSINOPHILS # (AUTO) 0.4 10^3/uL (0.0-0.6); ABSOLUTE LYMPHOCYTES (AUTO) 2.2 10^3/uL (0.5-4.7); ABSOLUTE MONOCYTES (AUTO) 0.7 10^3/uL (0.1-1.4); ABSOLUTE NEUT (AUTO) 5.7 10^3/uL (1.7-8.2); BASOPHILS % (AUTO) 0.4 % (0-2); EOSINOPHILS % (AUTO) 4.7 % (0-6); HEMATOCRIT 31.3 % (36.0-47.0); HEMOGLOBIN 9.8 g/dL (12.0-15.5); LYMPHOCYTES % (AUTO) 24.5 % (13-45); MEAN CORPUSCULAR HEMOGLOBIN 25.3 pg (27.0-33.4); MEAN CORPUSCULAR HGB CONC 31.3 g/dL (32.0-36.0); MEAN CORPUSCULAR VOLUME 81 fl (80-97); MONOCYTES % (AUTO) 7.5 % (3-13); PLATELET COUNT 258 10^3/uL (150-450); RED BLOOD COUNT 3.88 10^6/uL (3.72-5.28); RED CELL DISTRIBUTION WIDTH 17.4 % (11.5-14.0); SEGMENTED NEUTROPHILS % (AUTO) 62.9 % (42-78); TOTAL CELLS COUNTED % (AUTO) 100 %; WHITE BLOOD COUNT 9.1 10^3/uL (4.0-10.5)
[2019-07-25 07:10] LABS: ANION GAP 12 (5-19); BLOOD UREA NITROGEN 13 mg/dL (7-20); CALCIUM 8.3 mg/dL (8.4-10.2); CARBON DIOXIDE 23 mmol/L (22-30); CHLORIDE 106 mmol/L (98-107); GLUCOSE 170 mg/dL (75-110); PHOSPHORUS 3.4 mg/dL (2.5-4.5); POTASSIUM 4.2 mmol/L (3.6-5.0)
[2019-07-25] MEDS ORDERED: (PENDING PHARMACY ID) (Esomeprazole Mag Trihydrate [Nexium] 40 MG) PO SCH (08:00)
--- NOTE | 2019-07-25 08:42 | PDOC PROGRESS REPORT ---
Subjective Progress Note for:: 07/25/19 Subjective:: Patient is feeling much better Patient's denied any chest pain to than any shortness of the breath No abdominal pain no nausea no vomiting no diarrhea today Reason For Visit: UROSEPSIS Physical Exam Vital Signs: Temp Pulse Resp BP Pulse Ox 97.7 F 71 16 125/49 L 96 07/25/19 04:05 07/25/19 04:05 07/25/19 04:05 07/25/19 04:05 07/25/19 04:05 Intake & Output 07/24/19 07/25/19 07/26/19 06:59 06:59 06:59 Intake Total 2049 1830 562 Output Total 2700 Balance 2049 -870 562 Weight 99.6 kg General appearance: PRESENT: no acute distress, well-developed, well-nourished Head exam: PRESENT: atraumatic, normocephalic Eye exam: PRESENT: conjunctiva pink, EOMI, PERRLA. ABSENT: scleral icterus Ear exam: PRESENT: normal external ear exam Mouth exam: PRESENT: moist, tongue midline Neck exam: PRESENT: full ROM. ABSENT: carotid bruit, JVD, lymphadenopathy, thyromegaly Respiratory exam: PRESENT: clear to auscultation pranay Cardiovascular exam: PRESENT: RRR. ABSENT: diastolic murmur, rubs, systolic murmur Pulses: PRESENT: normal dorsalis pedis pul, +2 pedal pulses bilateral Vascular exam: PRESENT: normal capillary refill GI/Abdominal exam: PRESENT: normal bowel sounds, soft. ABSENT: distended, guarding, mass, organolmegaly, rebound, tenderness Rectal exam: PRESENT: deferred Musculoskeletal exam: PRESENT: ambulatory Neurological exam: PRESENT: alert, awake, oriented to person, oriented to place, oriented to time, oriented to situation, CN II-XII grossly intact. ABSENT: motor sensory deficit Psychiatric exam: PRESENT: appropriate affect, normal mood. ABSENT: homicidal ideation, suicidal ideation Skin exam: PRESENT: dry, intact, warm. ABSENT: cyanosis, rash Results Laboratory Results: 07/25/19 06:31 07/25/19 06:31 07/24/19 07/25/19 07/25/19 08:25 06:31 06:31 WBC 9.1 RBC 3.88 Hgb 9.8 L Hct 31.3 L MCV 81 MCH 25.3 L MCHC 31.3 L RDW 17.4 H Plt Count 258 Seg Neutrophils % 62.9 Sodium 140.6 Potassium 4.2 Chloride 106 Carbon Dioxide 23 Anion Gap 12 BUN 13 Creatinine 0.87 Est GFR ( Amer) > 60 Glucose 170 H Lactic Acid 2.3 H Calcium 8.3 L Phosphorus 3.4 Impressions: Abdomen/Pelvis CT 07/24/19 05:09 IMPRESSION: Possible diffuse cystitis. No other convincing acute inflammatory process. Assessment & Plan - Diagnosis (1) Sepsis associated hypotension Is this a current diagnosis for this admission?: Yes Plan: Currently all getting better's white count is normal we will continues to IV antibiotic wait for the cultures cut down the IV fluids (2) Recurrent urinary tract infection Is this a current diagnosis for this admission?: Yes Plan: Is likely due to the radiation induced cystitis continues to IV antibiotics (3) Chronic cystitis without hematuria Is this a current diagnosis for this admission?: Yes Plan: Due to the pelvic radiation's with chronic cystitis (4) Type 2 diabetes mellitus Qualifiers: Diabetes mellitus half-way insulin use: without vermin exterminator use Is this a current diagnosis for this admission?: Yes Plan: Continues to sliding scale will stop the Metformin right now due to the diarrhea (5) Hypertension Qualifiers: Hypertension type: essential hypertension Qualified Code(s): I10 - Essential (primary) hypertension Is this a current diagnosis for this admission?: Yes Plan: Currently all improving stable (6) History of uterine cancer Is this a current diagnosis for this admission?: Yes Plan: Status post hysterectomy current abdomen pelvic CT is all stable (7) Hyperlipidemia Qualifiers: Hyperlipidemia type: unspecified Qualified Code(s): E78.5 - Hyperlipidemia, unspecified Is this a current diagnosis for this admission?: Yes (8) Nausea vomiting and diarrhea Is this a current diagnosis for this admission?: Yes Plan: Currently all resolved (9) Chronic obstructive pulmonary disease Qualifiers: Emphysema type: unspecified Is this a current diagnosis for this admission?: Yes Plan: Continues to nebulizer treatments patient have underlying pulmonary fibrosis due to the medications - Time Time Spent with patient: 15-24 minutes Medications reviewed and adjusted accordingly: Yes Anticipated discharge: Home with Homehealth Within: Other - Plan Summary Plan Summary: Get the physical therapy evaluations Out of the bed Continues to IV antibiotic wait for the culture Down the IV fluid
[2019-07-25] MEDS: INSULIN LISPRO 100 UNIT/ML 3 ML VIAL SUBCUT SCH ×4 (09:56→21:47)
[2019-07-25] MEDS: PANTOPRAZOLE SODIUM 40 MG TABLET.DR PO SCH (09:56)
[2019-07-25] MEDS: GABAPENTIN 100 MG CAPSULE PO SCH ×2 (09:57→21:46)
[2019-07-25] MEDS: GLIPIZIDE 5 MG TABLET PO SCH (09:57)
[2019-07-25] MEDS: DOCUSATE SODIUM 100 MG CAPSULE PO SCH (09:57)
[2019-07-25] MEDS: ENOXAPARIN SODIUM INJ 40 MG/0.4 ML DISP.SYRIN SUBCUT SCH (09:59)
[2019-07-25] MEDS: IPRATROPIUM/ALBUTEROL 120 PUFF/4 GM MDI IH SCH ×4 (10:00→21:48)
[2019-07-25] MEDS: CEFEPIME 1 GM/D5W RTU 1 GM/50 ML RTUPB IV SCH ×2 (10:00→21:47)
[2019-07-25] MEDS: ATORVASTATIN CALCIUM 40 MG TABLET PO SCH (21:46)
[2019-07-26] MEDS: LEVOTHYROXINE SODIUM 0.1 MG TABLET PO SCH (05:39)
[2019-07-26 07:08] LABS: ABSOLUTE BASOPHILS # (AUTO) 0.1 10^3/uL (0.0-0.2); ABSOLUTE EOSINOPHILS # (AUTO) 0.4 10^3/uL (0.0-0.6); ABSOLUTE LYMPHOCYTES (AUTO) 2.7 10^3/uL (0.5-4.7); ABSOLUTE MONOCYTES (AUTO) 0.6 10^3/uL (0.1-1.4); ABSOLUTE NEUT (AUTO) 4.7 10^3/uL (1.7-8.2); BASOPHILS % (AUTO) 0.6 % (0-2); EOSINOPHILS % (AUTO) 4.5 % (0-6); HEMATOCRIT 31.7 % (36.0-47.0); HEMOGLOBIN 10.1 g/dL (12.0-15.5); MEAN CORPUSCULAR HEMOGLOBIN 25.5 pg (27.0-33.4); MEAN CORPUSCULAR VOLUME 80 fl (80-97); MONOCYTES % (AUTO) 7.3 % (3-13); PLATELET COUNT 249 10^3/uL (150-450); RED BLOOD COUNT 3.97 10^6/uL (3.72-5.28); RED CELL DISTRIBUTION WIDTH 17.2 % (11.5-14.0); SEGMENTED NEUTROPHILS % (AUTO) 55.6 % (42-78); TOTAL CELLS COUNTED % (AUTO) 100 %; WHITE BLOOD COUNT 8.4 10^3/uL (4.0-10.5)
[2019-07-26 07:39] LABS: ANION GAP 11 (5-19); BLOOD UREA NITROGEN 13 mg/dL (7-20); CALCIUM 8.7 mg/dL (8.4-10.2); CARBON DIOXIDE 24 mmol/L (22-30); CHLORIDE 106 mmol/L (98-107); GLUCOSE 140 mg/dL (75-110); PHOSPHORUS 3.9 mg/dL (2.5-4.5); POTASSIUM 4.4 mmol/L (3.6-5.0)
[2019-07-26] MEDS: INSULIN LISPRO 100 UNIT/ML 3 ML VIAL SUBCUT SCH ×4 (09:00→21:35)
[2019-07-26] MEDS: DOCUSATE SODIUM 100 MG CAPSULE PO SCH (11:00)
[2019-07-26] MEDS: IPRATROPIUM/ALBUTEROL 120 PUFF/4 GM MDI IH SCH ×4 (11:17→21:25)
[2019-07-26] MEDS: GLIPIZIDE 5 MG TABLET PO SCH (11:17)
[2019-07-26] MEDS: ENOXAPARIN SODIUM INJ 40 MG/0.4 ML DISP.SYRIN SUBCUT SCH (11:18)
[2019-07-26] MEDS: CEFEPIME 1 GM/D5W RTU 1 GM/50 ML RTUPB IV SCH ×2 (11:18→21:26)
[2019-07-26] MEDS: GABAPENTIN 100 MG CAPSULE PO SCH ×2 (11:19→21:26)
[2019-07-26] MEDS: PANTOPRAZOLE SODIUM 40 MG TABLET.DR PO SCH (11:20)
--- NOTE | 2019-07-26 14:22 | PDOC PROGRESS REPORT ---
Subjective Progress Note for:: 07/26/19 Subjective:: Patient is currently doing well No fever no chills Reason For Visit: UROSEPSIS Physical Exam Vital Signs: Temp Pulse Resp BP Pulse Ox 98.3 F 69 16 131/57 H 94 07/26/19 11:07 07/26/19 11:07 07/26/19 11:07 07/26/19 11:07 07/26/19 11:07 Intake & Output 07/25/19 07/26/19 07/27/19 06:59 06:59 06:59 Intake Total 1880 2160 1530 Output Total 2700 3675 700 Balance -820 -1515 830 Weight 99.6 kg 99.8 kg General appearance: PRESENT: no acute distress, well-developed, well-nourished Head exam: PRESENT: atraumatic, normocephalic Eye exam: PRESENT: conjunctiva pink, EOMI, PERRLA. ABSENT: scleral icterus Ear exam: PRESENT: normal external ear exam Mouth exam: PRESENT: moist, tongue midline Neck exam: PRESENT: full ROM. ABSENT: carotid bruit, JVD, lymphadenopathy, thyromegaly Respiratory exam: PRESENT: clear to auscultation pranay Cardiovascular exam: PRESENT: RRR. ABSENT: diastolic murmur, rubs, systolic murmur Pulses: PRESENT: normal dorsalis pedis pul, +2 pedal pulses bilateral Vascular exam: PRESENT: normal capillary refill GI/Abdominal exam: PRESENT: normal bowel sounds, soft. ABSENT: distended, guarding, mass, organolmegaly, rebound, tenderness Rectal exam: PRESENT: deferred Musculoskeletal exam: PRESENT: ambulatory Neurological exam: PRESENT: alert, awake, oriented to person, oriented to place, oriented to time, oriented to situation, CN II-XII grossly intact. ABSENT: motor sensory deficit Psychiatric exam: PRESENT: appropriate affect, normal mood. ABSENT: homicidal ideation, suicidal ideation Skin exam: PRESENT: dry, intact, warm. ABSENT: cyanosis, rash Results Laboratory Results: 07/26/19 06:26 07/26/19 06:26 07/26/19 07/26/19 06:26 06:26 WBC 8.4 RBC 3.97 Hgb 10.1 L Hct 31.7 L MCV 80 MCH 25.5 L MCHC 32.0 RDW 17.2 H Plt Count 249 Seg Neutrophils % 55.6 Sodium 141.3 Potassium 4.4 Chloride 106 Carbon Dioxide 24 Anion Gap 11 BUN 13 Creatinine 0.74 Est GFR ( Amer) > 60 Glucose 140 H Calcium 8.7 Phosphorus 3.9 07/24/19 03:10 Clean Catch Midstream Urine Culture - Final 6,000 col/ml Impressions: Abdomen/Pelvis CT 07/24/19 05:09 IMPRESSION: Possible diffuse cystitis. No other convincing acute inflammatory process. 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 bahena for further future plan (4) Type 2 diabetes mellitus Qualifiers: Diabetes mellitus half-way insulin use: without joint terminal attack controller use Is this a current diagnosis for this admission?: Yes Plan: Continues to sliding scale will stop the Metformin right now due to the diarrhea (5) Hypertension Qualifiers: Hypertension type: essential hypertension Qualified Code(s): I10 - Essential (primary) hypertension Is this a current diagnosis for this admission?: Yes Plan: Currently all improving stable (6) History of uterine cancer Is this a current diagnosis for this admission?: Yes Plan: Status post hysterectomy current abdomen pelvic CT is all stable (7) Hyperlipidemia Qualifiers: Hyperlipidemia type: unspecified Qualified Code(s): E78.5 - Hyperlipidemia, unspecified Is this a current diagnosis for this admission?: Yes (8) Nausea vomiting and diarrhea Is this a current diagnosis for this admission?: Yes Plan: Currently all resolved (9) Chronic obstructive pulmonary disease Qualifiers: Emphysema type: unspecified Is this a current diagnosis for this admission?: Yes Plan: Continues to nebulizer treatments patient have underlying pulmonary fibrosis due to the medications - Time Time Spent with patient: 15-24 minutes Medications reviewed and adjusted accordingly: Yes Anticipated discharge: Home with Homehealth Within: Other - Plan Summary Plan Summary: We will discontinues the Mcallister catheter
[2019-07-26] MEDS: ATORVASTATIN CALCIUM 40 MG TABLET PO SCH (21:26)
[2019-07-27] MEDS: LEVOTHYROXINE SODIUM 0.1 MG TABLET PO SCH (05:41)
[2019-07-27 06:47] LABS: ABSOLUTE BASOPHILS # (AUTO) 0.1 10^3/uL (0.0-0.2); ABSOLUTE EOSINOPHILS # (AUTO) 0.3 10^3/uL (0.0-0.6); ABSOLUTE LYMPHOCYTES (AUTO) 2.3 10^3/uL (0.5-4.7); ABSOLUTE MONOCYTES (AUTO) 0.7 10^3/uL (0.1-1.4); ABSOLUTE NEUT (AUTO) 5.4 10^3/uL (1.7-8.2); BASOPHILS % (AUTO) 0.6 % (0-2); EOSINOPHILS % (AUTO) 3.5 % (0-6); HEMATOCRIT 31.4 % (36.0-47.0); HEMOGLOBIN 10.1 g/dL (12.0-15.5); LYMPHOCYTES % (AUTO) 26.2 % (13-45); MEAN CORPUSCULAR HEMOGLOBIN 25.5 pg (27.0-33.4); MEAN CORPUSCULAR HGB CONC 32.2 g/dL (32.0-36.0); MEAN CORPUSCULAR VOLUME 79 fl (80-97); MONOCYTES % (AUTO) 7.5 % (3-13); PLATELET COUNT 249 10^3/uL (150-450); RED BLOOD COUNT 3.97 10^6/uL (3.72-5.28); RED CELL DISTRIBUTION WIDTH 17.1 % (11.5-14.0); SEGMENTED NEUTROPHILS % (AUTO) 62.2 % (42-78); TOTAL CELLS COUNTED % (AUTO) 100 %; WHITE BLOOD COUNT 8.7 10^3/uL (4.0-10.5)
[2019-07-27 07:07] LABS: ANION GAP 10 (5-19); BLOOD UREA NITROGEN 13 mg/dL (7-20); CARBON DIOXIDE 26 mmol/L (22-30); CHLORIDE 103 mmol/L (98-107); GLUCOSE 153 mg/dL (75-110); PHOSPHORUS 4.5 mg/dL (2.5-4.5); POTASSIUM 4.2 mmol/L (3.6-5.0)
[2019-07-27] MEDS: INSULIN LISPRO 100 UNIT/ML 3 ML VIAL SUBCUT SCH (09:00)
[2019-07-27] MEDS: CEFEPIME 1 GM/D5W RTU 1 GM/50 ML RTUPB IV SCH (09:49)
[2019-07-27] MEDS: PANTOPRAZOLE SODIUM 40 MG TABLET.DR PO SCH (09:50)
[2019-07-27] MEDS: GABAPENTIN 100 MG CAPSULE PO SCH (09:50)
[2019-07-27] MEDS: GLIPIZIDE 5 MG TABLET PO SCH (09:51)
[2019-07-27] MEDS: DOCUSATE SODIUM 100 MG CAPSULE PO SCH (09:51)
[2019-07-27] MEDS: IPRATROPIUM/ALBUTEROL 120 PUFF/4 GM MDI IH SCH (09:52)
[2019-07-27] MEDS: ENOXAPARIN SODIUM INJ 40 MG/0.4 ML DISP.SYRIN SUBCUT SCH (09:54)
[2019-07-27 12:38] VITALS: BP 110/84
--- NOTE | 2019-07-27 13:34 | PDOC DISCHARGE SUMMARY ---
General - Admit/Disc Date/PCP Admission Date/Primary Care Provider: 07/24/19 07:02 HERMILA LAND MD Discharge Date: 07/27/19 - Discharge Diagnosis (1) Sepsis associated hypotension Is this a current diagnosis for this admission?: Yes Summary: Currently all resolved (2) Recurrent urinary tract infection Is this a current diagnosis for this admission?: Yes Summary: Continues to Keflex twice a day follow with the urology (3) Chronic cystitis without hematuria Is this a current diagnosis for this admission?: Yes Summary: Patient is already seen by Dr. bahena urology will make a permit to see her next week for may be consider hyperbaric therapy for the radiation-induced cystitis (4) Type 2 diabetes mellitus Is this a current diagnosis for this admission?: Yes Summary: We will discontinues the Metformin because of the GI upsets will continues to glipizide's for patient's blood sugars goes up we may consider the Tradjenta (5) Hypertension Is this a current diagnosis for this admission?: Yes Summary: Currently all stable (6) History of uterine cancer Is this a current diagnosis for this admission?: Yes (7) Hyperlipidemia Is this a current diagnosis for this admission?: Yes (8) Nausea vomiting and diarrhea Is this a current diagnosis for this admission?: Yes Summary: Patient is initially all the symptoms resolved still have some mild persistent on and off nausea patients get a benefit to outpatients GI evaluations which patient refused in the past but discussed with the patient's and she will go The PPI (9) Chronic obstructive pulmonary disease Is this a current diagnosis for this admission?: Yes Summary: Currently all stable - Additional Information Discharge Diet: Diabetic Discharge Activity: Activity As Tolerated Prescriptions: Cephalexin Monohydrate [Keflex 500 mg Capsule] 500 mg PO BID #14 capsule Ondansetron HCl [Zofran 4 mg Tablet] 1 tab PO Q4H PRN #20 tablet PRN Reason: Home Medications: Acetaminophen/Diphenhydramine [Tylenol Pm Ex-Strength Caplet] 2 tab PO QPM 07/24/19 Atorvastatin Calcium [Lipitor 40 mg Tablet] 40 mg PO QHS 07/24/19 Esomeprazole Mag Trihydrate [Nexium] 40 mg PO QAM 07/24/19 Gabapentin [Neurontin 100 mg Capsule] 200 mg PO Q12 07/24/19 Glipizide [Glucotrol] 5 mg PO DAILY 07/24/19 Ipratropium/Albuterol Sulfate [Combivent Respimat 4 gm Mdi] 1 puff IH QID 07/24/19 Levothyroxine Sodium 100 mcg PO Q6AM 07/24/19 Cephalexin Monohydrate [Keflex 500 mg Capsule] 500 mg PO BID #14 capsule 07/27/19 Ondansetron HCl [Zofran 4 mg Tablet] 1 tab PO Q4H PRN #20 tablet 07/27/19 History of Present Illness History of Present Illness: VIOLETTA MENENDEZ is a 73 year old female This 73-year-old female with a history of the type 2 diabetes history of the hypertension's hyperlipidemia and history of the recurrent urinary tract infections with the 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 bahena in [place] came to the emergency department last night with a nausea vomiting not feeling well In the emergency department patient's white count was elevated 22,000's and the patient received the Rocephin and oral antibiotic and discharged home patients went home and not feeling well persistent nausea vomiting diarrhea and patients came by EMS with the hypotensive and not feeling well and patient's underwent for the CT abdomen pelvis with IV contrast with suggest the diffuse cystitis but no other acute finding In the ER patient's white count is already down from the last visit from the ER patient's was received the 2 L of fluids feeling better's when I saw in the ER patient is alert awake talking denied any chest pain to than any shortness of the breath Patient urine is positive for UTI patient's was several prophylactic antibiotic including the Macrobid in the past which caused the pulmonary fibrosis switch to the Bactrim then switched to the Cipro and then Keflex by several urologist At this point decided to admit in the IMCU for further close monitor for possible urosepsis due to the hypotension's elevated white count elevated lactic acids Discussed with the patient about the power of attorneyBut patient does not have it and patient wants to talk only close friends but not Her kidsAnd she does not want to inform her kids Hospital Course Hospital Course: This is a 73-year-old female she presents with the nausea vomiting diarrhea with a urinary tract infections And have a radiation-induced cystitis with a several urology evaluation done so in the last several yearsIn the last one done by Dr. bahena and a cystoscopy was also done and suggest patients may be need a hyperbaric therapy but patients unable to go because of the transportation issues and a cost issues It was giving several antibiotic prophylactic including the patient was given Macrobid which caused some pulmonary fibrosis then giving the Keflex then giving the Cipro In the emergency department patient's received the IV fluid IV antibiotics and patient's daughter all culture and put the Mcallister catheter Patient is improved much better although nausea vomiting diarrhea is resolved stool culture is negative's and the patient's C. difficile is also negative patient's urine cultures also negative Since Mcallister catheter was removed Patient CT scan of the abdomen pelvis shows a diffuse cystitis but no other acu te findings Patient's otherwise walk with the physical therapy back to the baseline all blood work is stable Physical Exam Vital Signs: Temp Pulse Resp BP Pulse Ox 98.1 F 82 18 110/84 96 07/27/19 11:25 07/27/19 11:25 07/27/19 11:25 07/27/19 11:25 07/27/19 11:25 Intake & Output 07/26/19 07/27/19 07/28/19 06:59 06:59 06:59 Intake Total 2160 2130 50 Output Total 3675 1100 Balance -1515 1030 50 Weight 99.8 kg 98.4 kg General appearance: PRESENT: no acute distress, well-developed, well-nourished Head exam: PRESENT: atraumatic, normocephalic Eye exam: PRESENT: conjunctiva pink, EOMI, PERRLA. ABSENT: scleral icterus Ear exam: PRESENT: normal external ear exam Mouth exam: PRESENT: moist, tongue midline Neck exam: PRESENT: full ROM. ABSENT: carotid bruit, JVD, lymphadenopathy, thyromegaly Respiratory exam: PRESENT: clear to auscultation pranay Cardiovascular exam: PRESENT: RRR. ABSENT: diastolic murmur, rubs, systolic murmur Pulses: PRESENT: normal dorsalis pedis pul, +2 pedal pulses bilateral Vascular exam: PRESENT: normal capillary refill GI/Abdominal exam: PRESENT: normal bowel sounds, soft. ABSENT: distended, guarding, mass, organolmegaly, rebound, tenderness Rectal exam: PRESENT: deferred Musculoskeletal exam: PRESENT: ambulatory Neurological exam: PRESENT: alert, awake, oriented to person, oriented to place, oriented to time, oriented to situation, CN II-XII grossly intact. ABSENT: motor sensory deficit Psychiatric exam: PRESENT: appropriate affect, normal mood. ABSENT: homicidal ideation, suicidal ideation Skin exam: PRESENT: dry, intact, warm. ABSENT: cyanosis, rash Results Laboratory Results: 07/27/19 06:34 07/27/19 06:34 07/27/19 07/27/19 06:34 06:34 WBC 8.7 RBC 3.97 Hgb 10.1 L Hct 31.4 L MCV 79 L MCH 25.5 L MCHC 32.2 RDW 17.1 H Plt Count 249 Seg Neutrophils % 62.2 Sodium 139.3 Potassium 4.2 Chloride 103 Carbon Dioxide 26 Anion Gap 10 BUN 13 Creatinine 0.72 Est GFR ( Amer) > 60 Glucose 153 H Calcium 9.0 Phosphorus 4.5 07/24/19 05:11 Stool - Stool - Final 07/24/19 05:11 Stool - Stool Stool Culture - Final NO SALMONELLA, SHIGELLA, CAMPYLOBACTER, OR E.COLI 0157 RECOVERED. NEGATIVE FOR SHIGA TOXINS 1&2. Impressions: Abdomen/Pelvis CT 07/24/19 05:09 IMPRESSION: Possible diffuse cystitis. No other convincing acute inflammatory process. Qualifiers - * PATIENT BEING DISCHARGED WITH ANY OF THE FOLLOWING DIAGNOSIS: No Acute Heart Failure - Is this a Heart Failure Patient?: No Plan Time Spent: Greater than 30 Minutes - Follow with the urology Dr. bahena next week Follow with superannuation clerk will make appointment to see Dr. Juancarlos Uribe in office 1 week
== END 2019-07-27 12:45 | disposition home health service (06) | DRG 872 ==
LOC: ER 02:00 → EH 07:02 → 3W 08:59
PROVIDERS: ADMIT Family Medicine; ATTEND Family Medicine
DX: A41.9 Sepsis, unspecified organism (principal); N30.40 Irradiation cystitis without hematuria; E11.9 Type 2 diabetes mellitus without complications; I10 Essential (primary) hypertension; E78.5 Hyperlipidemia, unspecified; J44.9 Chronic obstructive pulmonary disease, unspecified; E03.9 Hypothyroidism, unspecified; K21.9 Gastro-esophageal reflux disease without esophagitis; E78.00 Pure hypercholesterolemia, unspecified; Y84.2 Radiological procedure and radiotherapy as the cause of abnormal reaction of the patient, or of later complication, without mention of misadventure at the time of the procedure; I95.9 Hypotension, unspecified; Z85.42 Personal history of malignant neoplasm of other parts of uterus; Z92.3 Personal history of irradiation; Z79.899 Other long term (current) drug therapy; Z79.84 Long term (current) use of oral hypoglycemic drugs; Z88.3 Allergy status to other anti-infective agents; Z88.8 Allergy status to other drugs, medicaments and biological substances
CPT/HCPCS: 36415; 74177; 80048; 80053; 81001; 82962; 83605; 84100; 85025; 85610; 87040; 87045; 87086; 87088; 87186; 87205; 87324; 87449; 93005; 93010; 96361; 96365; 99285; J0692; J0696; J1650; J1815; J3490; J7030

== ENCOUNTER 2019-11-25 12:35 | Emergency (ER) | payer MEDICARE ==
[2019-11-25 12:44] VITALS: BP 145/75
[2019-11-25 13:20] LABS: AMORPHOUS SEDIMENT,URINE TRACE /HPF; APPEARANCE,URINE CLOUDY; BILIRUBIN,URINE NEGATIVE (NEGATIVE); COLOR,URINE AMBER; GLUCOSE, URINE NEGATIVE (NEGATIVE); KETONES,URINE NEGATIVE (NEGATIVE); LEUKOCYTE ESTERASE,URINE LARGE (NEGATIVE); NITRITE,URINE POSITIVE (NEGATIVE); PROTEIN,URINE NEGATIVE (NEGATIVE); URINE SPECIFIC GRAVITY 1.013
[2019-11-25] MEDS ORDERED: OXYCODONE-ACETAMINOPHEN 5-325 MG TABLET PO ONE (13:52)
[2019-11-25] MEDS ORDERED: CIPROFLOXACIN HCL 500 MG TABLET PO ONE (13:53)
--- NOTE | 2019-11-25 19:48 | ER Document Report ---
Entered by DAVID HUGGINS SCRIBE 11/25/19 1331 Acting as scribe for:ROS RICHARD MD ED General - General Chief Complaint: Back Pain Stated Complaint: BACK PAIN Time Seen by Provider: 11/25/19 13:25 Primary Care Provider: HERMILA LAND MD [Primary Care Provider] - Follow up in 3-5 days (Call the office tomorrow morning to schedule appointment in the next 2 to 3 days for recheck.) Mode of Arrival: Medic Information source: Patient Notes: This 74 year old female patient brought in by EMS presents to the ED today with complaints of left-sided back pain and associated sacral region pain that started x3 days ago. Patient states that the symptoms have progressively gotten worse since onset and that the pain is exacerbated by certain movements and coughing. Patient states that she took aspirin without relief. Patient reports some nausea with increased pain, but denies a fever. Patient has a history of chronic UTIs that grows either Klebsiella or Pseudomonas or both when cultured. TRAVEL OUTSIDE OF THE [place] IN LAST 30 DAYS: No - Related Data Allergies/Adverse Reactions: niacin [Niacin] Allergy (Verified 12/20/18 12:27) Generalized Itching sulfamethoxazole [From Bactrim] Allergy (Verified 12/20/18 12:27) Hives trimethoprim [From Bactrim] Allergy (Verified 12/20/18 12:27) Hives nitrofurantoin [From Macrobid] Adverse Reaction (Verified 12/20/18 12:27) HURT LUNGS Past Medical History - General Information source: Patient - Social History Smoking Status: Never Smoker Cigarette use (# per day): No Chew tobacco use (# tins/day): No Smoking Education Provided: No Frequency of alcohol use: None Drug Abuse: None Lives with: Alone Family History: Reviewed & Not Pertinent Patient has suicidal ideation: No Patient has homicidal ideation: No - Past Medical History Cardiac Medical History: Reports: Hx Hypercholesterolemia Pulmonary Medical History: Reports: Hx COPD Endocrine Medical History: Reports: Hx Diabetes Mellitus Type 2, Hx Hypothyroidism Renal/ Medical History: Reports: Other - Hx UTI GI Medical History: Reports: Hx Gastroesophageal Reflux Disease Past Surgical History: Reports: Hx Hysterectomy - Immunizations Hx Diphtheria, Pertussis, Tetanus Vaccination: Yes Hx Pneumococcal Vaccination: 11/07/13 Review of Systems - Review of Systems Constitutional: See HPI. denies: Fever EENT: No symptoms reported Cardiovascular: No symptoms reported Respiratory: No symptoms reported Gastrointestinal: See HPI, Nausea Genitourinary: No symptoms reported Female Genitourinary: No symptoms reported Musculoskeletal: See HPI, Back pain, Other - Sacral pain Skin: No symptoms reported Hematologic/Lymphatic: No symptoms reported Neurological/Psychological: No symptoms reported -: Yes All other systems reviewed and negative Physical Exam - Vital signs Vitals: Temp Pulse Resp BP Pulse Ox 98.2 F 84 20 145/75 H 95 11/25/19 12:36 11/25/19 12:36 11/25/19 12:36 11/25/19 12:36 11/25/19 12:36 - General General appearance: Alert - HEENT Head: Normocephalic, Atraumatic Eyes: Normal Pupils: PERRL - Respiratory Respiratory status: No respiratory distress Chest status: Nontender Breath sounds: Normal Chest palpation: Normal - Cardiovascular Rhythm: Regular Heart sounds: Normal auscultation Murmur: No - Abdominal Inspection: Obese Distension: No distension Bowel sounds: Normal Tenderness: Nontender - Abdomen soft Organomegaly: No organomegaly - Back Back: Tender - Left lower lumbar sacral muscles are exquisitely tender to palpate. Right lumbar back is midly tender to palpate., Other - No skin rash, lesion, or edema noted. - Extremities General upper extremity: Normal inspection General lower extremity: Normal inspection - Neurological Neuro grossly intact: Yes - Psychological Associated symptoms: Normal affect, Normal mood - Skin Skin Temperature: Warm Skin Moisture: Dry Skin Color: Normal Course - Vital Signs Vital signs: Temp Pulse Resp BP Pulse Ox 98.2 F 84 16 145/75 H 95 11/25/19 12:41 11/25/19 12:41 11/25/19 12:41 11/25/19 12:41 11/25/19 12:41 - Laboratory Laboratory results interpreted by me: 11/25/19 12:55 Urine Blood SMALL H Urine Nitrite POSITIVE H Urine Urobilinogen 4.0 H Ur Leukocyte Esterase LARGE H Discharge - Discharge Clinical Impression: Urinary tract infection Qualifiers: Urinary tract infection type: site unspecified Hematuria presence: with hematuria Qualified Code(s): N39.0 - Urinary tract infection, site not specified; R31.9 - Hematuria, unspecified Low back pain Qualifiers: Chronicity: acute Back pain laterality: left Sciatica presence: without sciatica Qualified Code(s): M54.5 - Low back pain Condition: Stable Disposition: HOME, SELF-CARE Additional Instructions: Low Back Pain: Three out of every four people will have an episode of disabling back pain during their lifetime. Most commonly the pain is due to straining of the muscles and ligaments in the low back. Usual treatment includes: (1) Rest on a firm surface. Avoid lying on your stomach. (2) Ice pack the painful area. After a few days, gentle heat may be used intermittently to relax the area, or ice packs can be continued. (3) Medication may be needed -- muscle relaxers and antiinflammatory medicines are commonly used. (4) As the back improves, exercises are prescribed to strengthen the back and abdominal muscles. Your doctor will advise you on the proper care for your back at each stage in your recovery. You may be better in a few days -- or healing may take several weeks. If new symptoms of a "herniated disc" (radiation of pain, numbness, or tingling down the back of the leg or weakness in the leg) occur, you should be re-examined. Further testing may be necessary. Urinary Tract Infection: Your evaluation indicates that you have a urinary tract infection. This is due to germs growing in the bladder. This is a common problem. This infection usually responds quickly to antibiotics. Your antibiotic should be taken exactly as prescribed. Drink plenty of fluids -- three to four quarts a day. Occasionally, a bladder anesthetic will be prescribed to help stop the feeling of urgency until the antibiotic has a chance to clear the infection. This may cause your urine to be dark orange. Certain urine infections require a culture. If the doctor obtained a culture, the results will be back in two days. You should call to see if a change in treatment is needed. A repeat urinalysis after you finish treatment is often recommended. The physician will let you know if further testing is required. Call the doctor if you develop fever, chills, flank pain, inability to urinate, or blood in the urine. Take medications as prescribed. Rest. Drink plenty of fluids throughout the day in the evening. Call Dr. Land's office tomorrow morning to schedule an appointment in the next 2 to 3 days for recheck. RETURN TO THE EMERGENCY ROOM IF ANY NEW OR WORSENING SYMPTOMS. Prescriptions: Ciprofloxacin HCl [Cipro 500 mg Tablet] 500 mg PO BID #10 tablet Cyclobenzaprine HCl [Flexeril 5 mg Tablet] 5 mg PO TID PRN #15 tablet PRN Reason: Oxycodone HCl/Acetaminophen [Percocet 5-325 mg Tablet] 1 tab PO ASDIR PRN #12 tablet PRN Reason: Referrals: HERMILA LAND MD [Primary Care Provider] - Follow up in 3-5 days (Call the office tomorrow morning to schedule appointment in the next 2 to 3 days for recheck.) Scribe Attestation: 11/25/19 13:48 I personally performed the services described in the documentation, reviewed and edited the documentation which was dictated to the scribe in my presence, and it accurately records my words and actions. I personally performed the services described in the documentation, reviewed and edited the documentation which was dictated to the scribe in my presence, and it accurately records my words and actions.
== END 2019-11-25 14:09 | disposition home or self-care (01) ==
LOC: ER 12:35
DX: N39.0 Urinary tract infection, site not specified (principal); R31.9 Hematuria, unspecified; M54.5 Low back pain; J44.9 Chronic obstructive pulmonary disease, unspecified; E11.9 Type 2 diabetes mellitus without complications; R11.0 Nausea; Z88.8 Allergy status to other drugs, medicaments and biological substances; Z88.1 Allergy status to other antibiotic agents
CPT/HCPCS: 99283; 87086; 87088; 81001; 87186; A9270 ×2

== ENCOUNTER 2020-04-16 05:10 | Emergency (ER) | payer MEDICARE ==
[2020-04-16] MEDS ORDERED: MORPHINE SULFATE 10 MG/ML INJ IV ONE (05:31)
[2020-04-16 06:04] LABS: INTERNATIONAL RATION (INR) 1.06; PROTHROMBIN TIME 13.8 SEC (11.4-15.4)
[2020-04-16 06:05] LABS: PARTIAL THROMBOPLASTIN TIME 23.5 SEC (23.5-35.8)
[2020-04-16 06:10] LABS: HEMATOCRIT 37.6 % (36.0-47.0); MEAN CORPUSCULAR VOLUME 81 fl (80-97); PLATELET COUNT 286 10^3/uL (150-450); RED BLOOD COUNT 4.63 10^6/uL (3.72-5.28); RED CELL DISTRIBUTION WIDTH 17.6 % (11.5-14.0); WHITE BLOOD COUNT 10.9 10^3/uL (4.0-10.5)
--- NOTE | 2020-04-16 06:13 | RADIOLOGY REPORT (SQ) ---
EXAM DESCRIPTION: XR PELVIS 1-2 VIEWS COMPLETED DATE/TME: 04/16/2020 05:27 CLINICAL HISTORY: 74 years, Female, trauma right side fall COMPARISON: None. NUMBER OF VIEWS: 2 TECHNIQUE: AP views of the pelvis LIMITATIONS: None. FINDINGS: Osteopenia. Surgical clips in the pelvis. Degenerative change of the hips bilaterally. No radiographic evidence for acute fracture or dislocation IMPRESSION: No acute osseous abnormality copyright 2010 [employer]- All Rights Reserved
--- NOTE | 2020-04-16 06:17 | RADIOLOGY REPORT (SQ) ---
EXAM DESCRIPTION: [facility]: XR CHEST 1 VIEW CLINICAL HISTORY: 74 years Female; trauma right side fall; COMPARISON: 07/02/2019 FINDINGS: Lungs: Peripheral interstitial fibrosis is again noted in both lungs. There is no acute groundglass infiltrate. No pneumothorax or pleural effusion. Mediastinum: Aortic calcifications are again noted. No superior mediastinal widening or shift. Bones: There are slightly displaced fractures of the lateral portions of the right 7th and 8th ribs. Cannot exclude distal nondisplaced rib fractures. IMPRESSION: 1. Acute displaced right 7th and 8th rib fractures. 2. No pneumothorax.
[2020-04-16 06:20] LABS: ALBUMIN 4.1 g/dL (3.5-5.0); ALKALINE PHOSPHATASE 182 U/L (38-126); ANION GAP 10 (5-19); ASPARTATE AMINO TRANSFERASE 45 U/L (14-36); BILIRUBIN,DIRECT 0.1 mg/dL (0.0-0.4); BILIRUBIN,TOTAL 0.6 mg/dL (0.2-1.3); BLOOD UREA NITROGEN 11 mg/dL (7-20); CALCIUM 9.1 mg/dL (8.4-10.2); CARBON DIOXIDE 27 mmol/L (22-30); CHLORIDE 101 mmol/L (98-107); GLUCOSE 251 mg/dL (75-110); POTASSIUM 4.3 mmol/L (3.6-5.0); TOTAL PROTEIN 7.8 g/dL (6.3-8.2)
[2020-04-16 06:46] LABS: ABSOLUTE LYMPHOCYTES# (MANUAL) 3.1 10^3/uL (0.5-4.7); ABSOLUTE MONOCYTES # (MANUAL) 0.4 10^3/uL (0.1-1.4); BASOPHILS % (MANUAL) 0 % (0-2); EOSINOPHILS % (MANUAL) 2 % (0-6); LYMPHOCYTES % (MANUAL) 28 % (13-45); MONOCYTES % (MANUAL) 4 % (3-13); SEGMENTED NEUTROPHILS % (MAN) 66 % (42-78); TOTAL CELLS COUNTED 100
[2020-04-16 06:47] LABS: ANISOCYTOSIS 1+; HYPOCHROMASIA SLIGHT; TOXIC GRANULATION SLIGHT
[2020-04-16 06:48] LABS: OVALOCYTES SLIGHT; PLATELET COMMENT ADEQUATE; POIKILOCYTOSIS SLIGHT; SCHISTOCYTES SLIGHT
--- NOTE | 2020-04-16 07:20 | RADIOLOGY REPORT (SQ) ---
CLINICAL HISTORY: trauma right side chest abd COMPARISON: 07/24/2019. TECHNIQUE: CT ABDOMEN PELVIS WITHOUT IV CONTRAST, CT CHEST WITHOUT IV CONTRAST on 04/16/2020 5:32 AM CDT This exam was performed according to our departmental dose-optimization program, which includes automated exposure control, adjustment of the mA and/or kV according to patient size and/or use of iterative reconstruction technique. FINDINGS: Chest: The heart is normal in size. There is no pericardial effusion. Intrathoracic lymph nodes are not enlarged. There is no pleural effusion, pleural thickening or pneumothorax. Central airways are patent. There is upper lung paraseptal emphysema. There are no focal consolidations. Abdomen: The liver is normal in appearance. There is no biliary dilatation. Gallbladder is normal in appearance. The pancreas and spleen are normal in appearance. Adrenal glands are normal. Kidneys are mildly atrophic. Abdominal aorta is densely calcified without aneurysm. There is no free air. There is no retroperitoneal adenopathy.There is a large left lateral abdominal wall hernia containing small and large bowel. Pelvis: There is no bowel obstruction. There is moderate diverticulosis of the distal colon. Urinary bladder is unremarkable. There is no free fluid. Hysterectomy was performed. Appendix is normal. Skeleton: There are mildly displaced fractures of the lateral aspects of the right seventh and eighth ribs. IMPRESSION: Right rib fractures.
[2020-04-16] MEDS ORDERED: OXYCODONE-ACETAMINOPHEN 5-325 MG TABLET PO ONE (07:32)
--- NOTE | 2020-04-16 07:39 | ER Document Report ---
ED General - General Chief Complaint: Fall Injury Stated Complaint: FALL/RIB PAIN Primary Care Provider: HERMILA LAND MD [Primary Care Provider] - Follow up as needed TRAVEL OUTSIDE OF THE [place] IN LAST 30 DAYS: No - HPI Notes: 74-year-old female history of hyperlipidemia, diabetes presents with mechanical fall just prior to arrival. Patient says she got up to go the bathroom in the dark and hit her right side of her body hard on her bed. Patient complains of pain with breathing and pain to her right rib cage. Patient denies other injury, head injury, neck pain, back pain, vomiting, abdominal pain, anticoagulation - Related Data Allergies/Adverse Reactions: niacin [Niacin] Allergy (Verified 04/16/20 05:15) Generalized Itching sulfamethoxazole [From Bactrim] Allergy (Verified 04/16/20 05:15) Hives trimethoprim [From Bactrim] Allergy (Verified 04/16/20 05:15) Hives nitrofurantoin [From Macrobid] Adverse Reaction (Verified 04/16/20 05:15) HURT LUNGS Past Medical History - General Information source: Patient - Social History Smoking Status: Never Smoker Family History: Reviewed & Not Pertinent Patient has homicidal ideation: No - Past Medical History Cardiac Medical History: Reports: Hx Hypercholesterolemia Denies: Hx Heart Attack, Hx Hypertension Pulmonary Medical History: Reports: Hx COPD Denies: Hx Asthma Neurological Medical History: Denies: Hx Cerebrovascular Accident, Hx Seizures Endocrine Medical History: Reports: Hx Diabetes Mellitus Type 2, Hx Hypothy roidism Renal/ Medical History: Denies: Hx Peritoneal Dialysis GI Medical History: Reports: Hx Gastroesophageal Reflux Disease. Denies: Hx Hepatitis, Hx Hiatal Hernia, Hx Ulcer Infectious Medical History: Denies: Hx Hepatitis Past Surgical History: Reports: Hx Hysterectomy. Denies: Hx Mastectomy, Hx Open Heart Surgery, Hx Pacemaker - Immunizations Hx Diphtheria, Pertussis, Tetanus Vaccination: Yes Hx Pneumococcal Vaccination: 11/07/13 Review of Systems - Review of Systems Notes: REVIEW OF SYSTEMS: CONSTITUTIONAL : Denies fever, chills, or sweats. EENT: Denies recent cold/sinus symptoms, denies throat pain CARDIOVASCULAR: +rib pain, -KI RESPIRATORY: Denies cough, denies shortness of breath. GASTROINTESTINAL: Denies abdominal pain, nausea/vomiting. GENITOURINARY: Denies difficulty urinating, painful urination. MUSCULOSKELETAL: Denies neck pain, back pain. SKIN: Denies rash or skin lesions. HEMATOLOGIC : Denies easy bruising or bleeding. LYMPHATIC: Denies swollen, enlarged glands. NEUROLOGICAL: Denies headache, denies change in gait. PSYCHIATRIC: Denies anxiety or stress or depression. Physical Exam - Vital signs Vitals: Temp 97.8 F 04/16/20 05:15 - Notes Notes: PHYSICAL EXAMINATION: GENERAL: Well-appearing, well-nourished elderly woman in no acute distress. HEAD: Atraumatic, normocephalic. EYES: Pupils equal round and appropriate constriction, sclera anicteric, conjunctiva are normal. ENT: nares patent, moist mucous membranes. NECK: Normal range of motion, supple without lymphadenopathy LUNGS: Breath sounds clear to auscultation bilaterally and equal. No wheezes rales or rhonchi. CHEST: Tenderness without deformity to inferior lateral right chest HEART: Regular rate and rhythm without murmurs ABDOMEN: Soft, nontender, no guarding, no masses, no CVAT EXTREMITIES: Normal range of motion, no pitting or edema. No cyanosis. NEUROLOGICAL: Awake, alert, conversing appropriately, moves all extremities spontaneously. PSYCH: Normal mood, normal affect. SKIN: Warm, Dry, normal turgor, no rashes or lesions noted. Course - Re-evaluation Re-evalutation: 04/16/20 07:43 Patient assessed immediately upon arrival to the trauma bay (patient refused transport to [facility]), had bilateral breath sounds and bilateral lung sliding on bedside ultrasound, performed FAST exam which was negative and added to chart, because isolated trauma was on inferior ribs obtain CT of chest and abdomen pelvis which showed no emergent findings. Patient found to have 2 mildly displaced right rib fractures without pneumothorax. Patient lives with her daughter who can help her at home. Patient had no other injury on exam and his tory. Patient has tolerated Percocet in the past and will prescribe this for pain control. Spoke to patient at length regarding importance of breathing exercises and use of incentive spirometry in order to avoid pneumonia secondary to splinting. Ordered incentive spirometry and meds and additional dose of Percocet for rib pain. Gave patient extensive return to ED precautions which she demonstrated understanding of. Patient calling her daughter for a ride home. - Vital Signs Vital signs: Temp Pulse Resp BP Pulse Ox 97.8 F 17 148/46 H 100 04/16/20 05:15 04/16/20 05:31 04/16/20 05:31 04/16/20 05:31 - Laboratory Result Diagrams: 04/16/20 05:44 04/16/20 05:44 Laboratory results interpreted by me: 04/16/20 04/16/20 05:44 05:44 WBC 10.9 H MCH 26.0 L RDW 17.6 H Glucose 251 H AST 45 H Alkaline Phosphatase 182 H Discharge - Discharge Clinical Impression: Rib fractures Qualifiers: Encounter type: initial encounter Rib fracture type: multiple ribs Fracture type: closed Laterality: right Qualified Code(s): S22.41XA - Multiple fractures of ribs, right side, initial encounter for closed fracture Condition: Stable Disposition: HOME, SELF-CARE Additional Instructions: Rib Injuries and Fractures You have been diagnosed as having either bruised or broken ribs. These two injuries are treated in the same way. It will usually take four to six weeks for these injured ribs to heal. Sometimes, rib belts or anesthetic injections of the chest wall help reduce the pain. If you are using a rib belt, you should cough or take a deep breath at least every hour or two to prevent lung complications. You should not engage in any strenuous physical activity until released by your physician. The usual rule is "if it hurts, don't do it." Rib fractures can lead to serious lung complications including lung collapse, hemorrhage, and pneumonia. You should call the physician or return at once if any of the following occur: (1) Fever or chills. (2) Persistent cough, coughing up blood, or shortness of breath. (3) Increasing pain. (4) Weakness, lightheadedness, or fainting. Use incentive spirometer as instructed. follow-up with your primary doctor within the next few days to be reassessed to ensure that you are not developing any infection. If you have any shortness of breath, fever, worsening pain, chest pain, dizziness, fainting, any new symptoms or any worsening or alarming symptoms return to the ED immediately. Prescriptions: Acetaminophen [Pain Relief] 650 mg PO Q6HP PRN #30 tablet PRN Reason: Oxycodone HCl/Acetaminophen [Percocet 5-325 mg Tablet] 1 tab PO Q6HP PRN #10 tablet PRN Reason: Referrals: HERMILA LAND MD [Primary Care Provider] - Follow up as needed
[2020-04-16 08:37] VITALS: BP 129/52
== END 2020-04-16 08:36 | disposition home or self-care (01) ==
LOC: ER 05:10
DX: S22.41XA Multiple fractures of ribs, right side, initial encounter for closed fracture (principal); R07.81 Pleurodynia; E78.5 Hyperlipidemia, unspecified; W19.XXXA Unspecified fall, initial encounter; Z88.8 Allergy status to other drugs, medicaments and biological substances; Z88.2 Allergy status to sulfonamides; J44.9 Chronic obstructive pulmonary disease, unspecified; E11.9 Type 2 diabetes mellitus without complications
CPT/HCPCS: 99284; 96374; 36415; 85025; 85610; 85730; 80053; 71045; 72170; 71250; 74176; J2270; A9270

== ENCOUNTER 2020-10-24 16:37 | Inpatient (IN) | payer MEDICARE ==
--- NOTE | 2020-10-24 17:10 | ER Document Report ---
ED Medical Screen (RME) - General Chief Complaint: Shortness Of Breath Stated Complaint: TROUBLE BREATHING Time Seen by Provider: 10/24/20 17:08 Primary Care Provider: HERMILA LAND MD [Primary Care Provider] - Follow up as needed Information source: Patient Notes: Patient presents complaining of difficulty breathing that started yesterday. Patient denies any cough but does report chest pain symptoms. Patient states that she does wear oxygen at 3 L and ran out of her home oxygen recently. Patient states that her difficulty breathing started prior to running out of the oxygen. Patient has a history of diabetes and COPD. Patient has a history of prior pneumothorax after rib fracture and was concerned that her pain symptoms may be attributed to this. I have greeted and performed a rapid initial assessment of this patient. A comprehensive ED assessment and evaluation of the patient, analysis of test results and completion of the medical decision making process will be conducted by additional ED providers. TRAVEL OUTSIDE OF THE [place] IN LAST 30 DAYS: No - Related Data Allergies/Adverse Reactions: niacin [Niacin] Allergy (Verified 10/24/20 16:52) Generalized Itching sulfamethoxazole [From Bactrim] Allergy (Verified 10/24/20 16:52) Hives trimethoprim [From Bactrim] Allergy (Verified 10/24/20 16:52) Hives nitrofurantoin [From Macrobid] Adverse Reaction (Verified 10/24/20 16:52) HURT LUNGS Past Medical History - Social History Frequency of alcohol use: None Drug Abuse: None - Past Medical History Cardiac Medical History: Reports: Hx Hypercholesterolemia Denies: Hx Heart Attack, Hx Hypertension Pulmonary Medical History: Reports: Hx COPD Denies: Hx Asthma Neurological Medical History: Denies: Hx Cerebrovascular Accident, Hx Seizures Endocrine Medical History: Reports: Hx Diabetes Mellitus Type 2, Hx Hypothyroidism Renal/ Medical History: Denies: Hx Peritoneal Dialysis GI Medical History: Reports: Hx Gastroesophageal Reflux Disease. Denies: Hx Hepatitis, Hx Hiatal Hernia, Hx Ulcer Infectious Medical History: Denies: Hx Hepatitis Past Surgical History: Reports: Hx Hysterectomy. Denies: Hx Mastectomy, Hx Open Heart Surgery, Hx Pacemaker - Immunizations Hx Diphtheria, Pertussis, Tetanus Vaccination: Yes Physical Exam - Vital signs Vitals: Temp Pulse Resp BP Pulse Ox 97.8 F 98 28 H 125/89 H 91 L 10/24/20 16:48 10/24/20 16:48 10/24/20 16:48 10/24/20 16:48 10/24/20 16:48 - Respiratory Respiratory status: Tachypnea Chest status: Tender Breath sounds: Normal Course - Vital Signs Vital signs: Temp Pulse Resp BP Pulse Ox 97.8 F 98 28 H 125/89 H 91 L 10/24/20 16:48 10/24/20 16:48 10/24/20 16:48 10/24/20 16:48 10/24/20 16:48 Doctor's Discharge - Discharge Referrals: HERMILA LAND MD [Primary Care Provider] - Follow up as needed
[2020-10-24 18:52] LABS: ABSOLUTE EOSINOPHILS # (AUTO) 0.2 10^3/uL (0.0-0.6); ABSOLUTE LYMPHOCYTES (AUTO) 3.3 10^3/uL (0.5-4.7); ABSOLUTE MONOCYTES (AUTO) 0.9 10^3/uL (0.1-1.4); ABSOLUTE NEUT (AUTO) 10.4 10^3/uL (1.7-8.2); BASOPHILS % (AUTO) 0.3 % (0-2); EOSINOPHILS % (AUTO) 1.3 % (0-6); HEMATOCRIT 39.8 % (36.0-47.0); HEMOGLOBIN 12.5 g/dL (12.0-15.5); LYMPHOCYTES % (AUTO) 22.5 % (13-45); MEAN CORPUSCULAR HEMOGLOBIN 25.4 pg (27.0-33.4); MEAN CORPUSCULAR HGB CONC 31.4 g/dL (32.0-36.0); MEAN CORPUSCULAR VOLUME 81 fl (80-97); MONOCYTES % (AUTO) 5.9 % (3-13); PLATELET COUNT 338 10^3/uL (150-450); RED BLOOD COUNT 4.93 10^6/uL (3.72-5.28); TOTAL CELLS COUNTED % (AUTO) 100 %; WHITE BLOOD COUNT 14.8 10^3/uL (4.0-10.5)
--- NOTE | 2020-10-24 19:05 | ER Document Report ---
ED Respiratory Problem - General Chief Complaint: Shortness Of Breath Stated Complaint: TROUBLE BREATHING Time Seen by Provider: 10/24/20 17:08 Mode of Arrival: Wheelchair Information source: Patient Notes: 75-year-old woman presents to the emergency department with a history of pneumothorax which was treated at [facility] approximately 3 weeks ago. She states that she had a tube in her chest for approximately 5 days it was removed and she was doing well. Last night she was traveling from [place], developed shortness of breath, the shortness of breath and chest discomfort has continued into the day today. Presents to the ER for evaluation. She is not a smoker, and she is on no anticoagulation. TRAVEL OUTSIDE OF THE [place] IN LAST 30 DAYS: No - Related Data Allergies/Adverse Reactions: niacin [Niacin] Allergy (Verified 10/24/20 16:52) Generalized Itching sulfamethoxazole [From Bactrim] Allergy (Verified 10/24/20 16:52) Hives trimethoprim [From Bactrim] Allergy (Verified 10/24/20 16:52) Hives nitrofurantoin [From Macrobid] Adverse Reaction (Verified 10/24/20 16:52) HURT LUNGS Past Medical History - General Information source: Patient - Social History Smoking Status: Former Smoker Frequency of alcohol use: None Drug Abuse: None Family History: Reviewed & Not Pertinent - Past Medical History Cardiac Medical History: Reports: Hx Hypercholesterolemia Denies: Hx Heart Attack, Hx Hypertension Pulmonary Medical History: Reports: Hx COPD Denies: Hx Asthma Neurological Medical History: Denies: Hx Cerebrovascular Accident, Hx Seizures Endocrine Medical History: Reports: Hx Diabetes Mellitus Type 2, Hx Hypothyroidism Renal/ Medical History: Denies: Hx Peritoneal Dialysis GI Medical History: Reports: Hx Gastroesophageal Reflux Disease. Denies: Hx Hepatitis, Hx Hiatal Hernia, Hx Ulcer Infectious Medical History: Denies: Hx Hepatitis Past Surgical History: Reports: Hx Hysterectomy. Denies: Hx Mastectomy, Hx Open Heart Surgery, Hx Pacemaker - Immunizations Hx Diphtheria, Pertussis, Tetanus Vaccination: Yes Hx Pneumococcal Vaccination: 11/07/13 Review of Systems - Review of Systems Notes: Constitutional: Negative for fever. HENT: Negative for sore throat. Eyes: Negative for visual changes. Cardiovascular: Negative for chest pain. Respiratory: See HPI Gastrointestinal: Negative for abdominal pain, vomiting or diarrhea. Genitourinary: Negative for dysuria. Musculoskeletal: Negative for back pain. Skin: Negative for rash. Neurological: Negative for headaches, weakness or numbness. 10 point ROS negative except as marked above and in HPI. Physical Exam - Vital signs Vitals: Temp Pulse Resp BP Pulse Ox 97.8 F 98 28 H 125/89 H 91 L 10/24/20 16:48 10/24/20 16:48 10/24/20 16:48 10/24/20 16:48 10/24/20 16:48 - Notes Notes: PHYSICAL EXAMINATION: Physical Exam: General: Well-nourished well-developed 68-year-old woman in no acute distress HEENT: NC/AT, pupils equal round and reactive to light, MM moist,nares clear, oropharynx clear, airway patent Neck: supple, no adenopathy, no masses. Good range of motion Lungs: No respiratory distress, good air movement CVS: Regular rate and rhythm no murmur gallop or rub Abdomen: Soft, active, nontender, no masses, no hepatosplenomegaly Ext: No edema, clubbing or cyanosis. Neuro: Alert and responsive, moving all 4 extremities on command, cranial nerves intact, no focal findings Skin: Intact no open lesions, no rash PSYCH: Normal mood, normal affect. Course - Re-evaluation Re-evalutation: 10/24/20 19:03 I have reviewed the chest x-ray and note that the patient has approximate 35% pneumothorax on the right side without shift in the midline. I talked to the general surgeon on-call Dr. Brice, he will see the patient in the emergency department for further evaluation and treatment. Of note a rapid coronavirus test is ordered, requested the patient be placed in one of the trauma base and that a chest tube insertion kit and Pleur-vac be made available in the room. - Vital Signs Vital signs: Temp Pulse Resp BP Pulse Ox 97.8 F 98 21 H 141/51 H 100 10/24/20 16:48 10/24/20 16:48 10/25/20 01:00 10/25/20 00:04 10/25/20 01:00 - Laboratory Results Result Diagrams: 10/24/20 18:28 10/24/20 18:28 Laboratory Results Interpreted: 10/24/20 10/24/20 10/24/20 18:28 18:28 18:28 WBC 14.8 H MCH 25.4 L MCHC 31.4 L RDW 17.0 H Absolute Neuts (auto) 10.4 H Glucose 154 H Phosphorus 4.7 H Magnesium 1.5 L Alkaline Phosphatase 151 H TSH 10/24/20 18:28 WBC MCH MCHC RDW Absolute Neuts (auto) Glucose Phosphorus Magnesium Alkaline Phosphatase TSH 0.03 L Critical Laboratory Results Reviewed: No Critical Results - Radiology Results Radiology Results Interpreted: 10/24/20 20:24 Chest X-Ray 10/24/20 17:09 IMPRESSION: Right sided pneumothorax. Critical Radiology Results Reviewed: Yes Attending or Supervising Physician who Reviewed Radiology: MAURIZIO HANNON - EKG Interpretation by Id Rate: Normal - EKG interpreted by Dr. Hannon: Normal sinus rhythm, rate 89, W[place] interval 160 ms QT interval 360 ms, normal axis, diffuse low voltage, no acute ST or T wave abnormalities, no ischemic findings, compared to EKG dated 07/24/2019 no acute interval changes are noted, Interpretation borderline EKG Discharge - Discharge Clinical Impression: Type 2 diabetes mellitus, Hypertension, Pneumothorax, right Condition: Good Disposition: ADMITTED INPATIENT Admitting Provider: [facility] Unit Admitted: Telemetry
[2020-10-24 19:13] LABS: ALBUMIN 4.2 g/dL (3.5-5.0); ALKALINE PHOSPHATASE 151 U/L (38-126); ANION GAP 11 (5-19); ASPARTATE AMINO TRANSFERASE 29 U/L (14-36); BILIRUBIN,DIRECT 0.2 mg/dL (0.0-0.4); BILIRUBIN,TOTAL 0.6 mg/dL (0.2-1.3); BLOOD UREA NITROGEN 11 mg/dL (7-20); CARBON DIOXIDE 27 mmol/L (22-30); CHLORIDE 103 mmol/L (98-107); GLUCOSE 154 mg/dL (75-110); POTASSIUM 4.2 mmol/L (3.6-5.0); TOTAL PROTEIN 7.8 g/dL (6.3-8.2)
[2020-10-24 19:15] LABS: INTERNATIONAL RATION (INR) 1.03; PROTHROMBIN TIME 13.7 SEC (11.4-15.4)
--- NOTE | 2020-10-24 19:15 | RADIOLOGY REPORT (SQ) ---
EXAM DESCRIPTION: CHEST SINGLE VIEW IMAGES COMPLETED DATE/TIME: 10/24/2020 6:23 pm REASON FOR STUDY: cp, sob COMPARISON: 04/16/2020 EXAM PARAMETERS: NUMBER OF VIEWS: One view. TECHNIQUE: Single frontal radiographic view of the chest acquired. RADIATION DOSE: NA LIMITATIONS: None. FINDINGS: LUNGS AND PLEURA: There is about a 50% pneumothorax on the right. MEDIASTINUM AND HILAR STRUCTURES: No masses. Contour normal. HEART AND VASCULAR STRUCTURES: Heart normal in size. Normal vasculature. BONES: No acute findings. HARDWARE: None in the chest. OTHER: No other significant finding. IMPRESSION: Right sided pneumothorax. COMMENT: Pertinent findings on the imaging study reported as a CRITICAL RESULT to DR LOPEZ at19:0 8 on 10/24/2020. Category of Critical Result: Pneumothorax. TECHNICAL DOCUMENTATION: JOB ID: [id number] 2010 [employer]- All Rights Reserved Reading location - IP/workstation name: [email or web address]
[2020-10-24 19:16] LABS: PARTIAL THROMBOPLASTIN TIME 29.4 SEC (23.5-35.8)
--- NOTE | 2020-10-24 20:30 | PDOC CONSULTATION ---
Consultation Consult Date: 10/24/20 Attending physician:: MAURIZIO HANNON Provider Consulted: BEHZAD WAGNER Consult reason:: Right pneumothorax History of Present Illness Admission Date/PCP: HERMILA LAND MD History of Present Illness: VIOLETTA MENENDEZ is a 75 year old female Presents to the emergency department via ground rescue complaining shortness of breath. Patient is 3 weeks status post right thoracostomy tube placement for pneumothorax at the [facility]. The patient spent 5 days in the hospital there. No other procedures were performed. She was Covid negative at that time. Emergency department at [facility] she was found to have a 30 to 40% pneumothorax on the right side. She is short of breath, with saturations of 95 to 100% on nasal cannula oxygen. Surgery was consulted for chest tube insertion. Patient is 6-month status post fall with right rib fractures. CT scan at that time at [facility] showed rib fractures only, no evidence of mass in the chest. Patient has a remote history of smoking and COPD. Past Medical History Cardiac Medical History: Reports: Hyperlipidema Denies: Myocardial Infarction, Hypertension Pulmonary Medical History: Reports: Chronic Obstructive Pulmonary Disease (COPD) Denies: Asthma Neurological Medical History: Denies: Seizures Endocrine Medical History: Reports: Diabetes Mellitus Type 2, Hypothyroidism GI Medical History: Reports: Gastroesophageal Reflux Disease Denies: Hepatitis, Hiatal Hernia Hematology: Denies: Anemia, Sickle Cell Disease Past Surgical History Past Surgical History: Reports: Hysterectomy Denies: Mastectomy, Pacemaker Social History Information Source: Patient Smoking Status: Former Smoker Frequency of Alcohol Use: None Hx Recreational Drug Use: No Drugs: None Hx Prescription Drug Abuse: No Family History Family History: None, Reviewed & Not Pertinent Parental Family History Reviewed: No Children Family History Reviewed: No Sibling(s) Family History Reviewed.: No Medication/Allergy Home Medications: Acetaminophen/Diphenhydramine [Tylenol Pm Ex-Strength Caplet] 2 tab PO QPM 07/24/19 Atorvastatin Calcium [Lipitor 40 mg Tablet] 40 mg PO QHS 07/24/19 Esomeprazole Mag Trihydrate [Nexium] 40 mg PO QAM 07/24/19 Gabapentin [Neurontin 100 mg Capsule] 200 mg PO Q12 07/24/19 Glipizide [Glucotrol] 5 mg PO DAILY 07/24/19 Ipratropium/Albuterol Sulfate [Combivent Respimat 4 gm Mdi] 1 puff IH QID 07/24/19 Levothyroxine Sodium 100 mcg PO Q6AM 07/24/19 Cephalexin Monohydrate [Keflex 500 mg Capsule] 500 mg PO BID #14 capsule 07/27/19 Ondansetron HCl [Zofran 4 mg Tablet] 1 tab PO Q4H PRN #20 tablet 07/27/19 Ciprofloxacin HCl [Cipro 500 mg Tablet] 500 mg PO BID #10 tablet 11/25/19 Cyclobenzaprine HCl [Flexeril 5 mg Tablet] 5 mg PO TID PRN #15 tablet 11/25/19 Oxycodone HCl/Acetaminophen [Percocet 5-325 mg Tablet] 1 tab PO ASDIR PRN #12 tablet 11/25/19 Acetaminophen [Pain Relief] 650 mg PO Q6HP PRN #30 tablet 04/16/20 Oxycodone HCl/Acetaminophen [Percocet 5-325 mg Tablet] 1 tab PO Q6HP PRN #10 tablet 04/16/20 Cephalexin Monohydrate [Keflex 500 mg Capsule] 500 mg PO Q6H 7 Days #28 capsule 06/10/20 Allergies/Adverse Reactions: niacin [Niacin] Allergy (Verified 10/24/20 16:52) Generalized Itching sulfamethoxazole [From Bactrim] Allergy (Verified 10/24/20 16:52) Hives trimethoprim [From Bactrim] Allergy (Verified 10/24/20 16:52) Hives nitrofurantoin [From Macrobid] Adverse Reaction (Verified 10/24/20 16:52) HURT LUNGS Review of Systems Constitutional: PRESENT: other - Short of breath Eyes: PRESENT: other - Mild conjunctival irritation Ears: ABSENT: hearing changes Cardiovascular: PRESENT: chest pain - Chest pain right side Respiratory: PRESENT: dyspnea Integumentary: PRESENT: diaphoresis Physical Exam Vital Signs: Temp Pulse Resp BP Pulse Ox 97.8 F 98 19 184/88 H 100 10/24/20 16:48 10/24/20 16:48 10/24/20 19:29 10/24/20 19:29 10/24/20 19:42 Intake & Output 10/23/20 10/24/20 10/25/20 06:59 06:59 06:59 Weight 90.718 kg General appearance: PRESENT: mild distress Head exam: PRESENT: normocephalic Eye exam: PRESENT: EOMI Mouth exam: PRESENT: dry mucosa Teeth exam: PRESENT: poor dentation Neck exam: PRESENT: full ROM Respiratory exam: PRESENT: decreased breath sounds - Decreased breath sounds on the right side Cardiovascular exam: PRESENT: RRR Pulses: PRESENT: normal carotid pulses, normal radial pulses, normal femoral pulses, normal dorsalis pedis pul GI/Abdominal exam: PRESENT: soft Rectal exam: PRESENT: deferred Extremities exam: PRESENT: full ROM Musculoskeletal exam: PRESENT: full ROM Neurological exam: PRESENT: oriented to person, oriented to place, oriented to time, oriented to situation Psychiatric exam: PRESENT: appropriate affect Skin exam: PRESENT: dry Results Laboratory Results: 10/24/20 18:28 10/24/20 18:28 10/24/20 10/24/20 18:28 18:28 WBC 14.8 H RBC 4.93 Hgb 12.5 Hct 39.8 MCV 81 MCH 25.4 L MCHC 31.4 L RDW 17.0 H Plt Count 338 Seg Neutrophils % 70.0 Sodium 140.6 Potassium 4.2 Chloride 103 Carbon Dioxide 27 Anion Gap 11 BUN 11 Creatinine 0.72 Est GFR ( Amer) > 60 Glucose 154 H Calcium 10.0 Magnesium 1.5 L Total Bilirubin 0.6 AST 29 Alkaline Phosphatase 151 H Total Protein 7.8 Albumin 4.2 10/24/20 18:28 Troponin I < 0.012 Impressions: Chest X-Ray 10/24/20 17:09 IMPRESSION: Right sided pneumothorax. Assessment & Plan - Diagnosis (1) Pneumothorax on right Is this a current diagnosis for this admission?: Yes Plan: Impression: 40% pneumothorax right side with dyspnea in patient with a previous pneumothorax 3 weeks ago requiring thoracostomy tube placement. Covid status pending. No evidence of trauma. Remote history of COPD. Plan: 1. Patient needs admission to the hospital service with surgery consulting. We will place a thoracostomy tube at bedside this evening. 2. Patient may require further intervention such as VATS procedure pending her response to thoracostomy tube placement. 3. I discussed the above with the emergency room physician, Dr. Hannon. (2) Chronic obstructive pulmonary disease Is this a current diagnosis for this admission?: Yes (3) Type 2 diabetes mellitus Is this a current diagnosis for this admission?: Yes (4) History of fracture of rib Is this a current diagnosis for this admission?: Yes - Time Time Spent: 30 to 50 Minutes Smoking Cessation Education: 3 to 10 minutes Medications reviewed and adjusted accordingly: Yes Anticipated discharge: Home
[2020-10-24] MEDS ORDERED: LIDOCAINE 2% INJ (20 MG/ML) 20 ML MDV ONE (22:00)
[2020-10-24] MEDS ORDERED: MIDAZOLAM 2 MG/2 ML INJ IV ONE (22:02)
--- NOTE | 2020-10-24 22:41 | Operative Report ---
Operative Report DATE OF SURGERY: 10/24/20 PREOPERATIVE DIAGNOSIS: 1. Recurrent right pneumothorax. 2. COPD. 3. Obesi ty POSTOPERATIVE DIAGNOSIS: Same OPERATION: 1. Right 28 Malagasy thoracostomy tube insertion. 2. Interpretation of post insertion chest x-ray SURGEON: BEHZAD WAGNER ANESTHESIA: Moderate Sedation TISSUE REMOVED OR ALTERED: None ESTIMATED BLOOD LOSS: Scant INTRAOPERATIVE FINDINGS: See below PROCEDURE: The patient was taken from room 11 in the emergency department to the trauma room where she was placed in the semirecumbent position, hooked to monitoring devices. Nasal cannula oxygen flowing and saturations at 100%. Covid test negative. Surgical timeout conducted. The right anterior lateral chest wall was prepped and draped in a sterile fashion. Appropriate level of conscious sedation was induced with Versed. A suitable site for placement of the chest tube was chosen in the slightly lateral anterior chest along the anterior axillary line approximately ICS 7. Right breast fold inferiorly. The right chest wall was prepped with chlorhexidine. The site was anesthetized with 1% lidocaine. A 2 cm incision was made with a 15 blade, and Amy clamp used to spread the subcutaneous tissue, intercostal muscle and entered the right chest. There was a gush of air. We then inserted a 28 Malagasy chest tube using the Amy as a insertion tool. Chest tube was advanced to the apex based on palpation with the sentinel hole approximately 13 cm from the skin level. Chest tube was secured to the skin multiple times with 2-0 Prolene suture including a pursestring. Sterile dressing including Xeroform 4 x 4's and silk tape all applied. Patient tolerated this well. Portable semiupright chest x-ray showed chest tube to be in excellent position with the tip in the apex of the right hemithorax, sentinel hole inside the right chest. The right lung was not completely expanded with a persisting pneumothorax, however smaller compared to preinsertion. Chest tube was hooked to waterseal initially with a persisting air leak so suction was added. Patient will be admitted to the medicine service with surgery consulting. IV acetaminophen will be administered. Pulmonary toilet will be encouraged.
[2020-10-24] MEDS ORDERED: IPRATROPIUM/ALBUTEROL 0.5-2.5 MG/3 ML AMPUL NEB PRN (23:06)
--- NOTE | 2020-10-24 23:16 | RADIOLOGY REPORT (SQ) ---
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 Pre-existing right-sided pneumothorax appears diminished in size, now small. Associated subcutaneous emphysema is noted about the right lateral chest wall. Cardiac and mediastinal contours are stable. Parenchymal bands are evident about both lungs, likely indicating areas of atelectasis and/or scar. There is blunting of left costophrenic sulcus which could indicate a trace left pleural effusion. IMPRESSION: Interval placement of right-sided chest tube with decreased size of right-sided pneumothorax, now small. Blunting of left costophrenic sulcus, suspicious for a trace pleural effusion.
[2020-10-24] MEDS ORDERED: ACETAMINOPHEN 1,000 MG/100 ML RTUPB IV ONE (23:27)
[2020-10-24] MEDS: ACETAMINOPHEN 1,000 MG/100 ML RTUPB IV SCH (23:36)
[2020-10-24 23:38] LABS: PHOSPHORUS 4.7 mg/dL (2.5-4.5)
[2020-10-24 23:55] LABS: FREE T4 (FREE THYROXINE) 1.79 ng/dL (0.78-2.19)
[2020-10-25] MEDS ORDERED: ACETAMINOPHEN INJ/PF 1000 MG/100 ML SDV IV SCH
[2020-10-25 00:10] LABS: THYROID STIMULATING HORMONE 0.03 uIU/mL (0.47-4.68)
[2020-10-25 00:12] LABS: INTERNATIONAL RATION (INR) 1.05; PARTIAL THROMBOPLASTIN TIME 26.7 SEC (23.5-35.8); PROTHROMBIN TIME 13.9 SEC (11.4-15.4)
[2020-10-25 00:26] LABS: CREATINE KINASE MB 0.86 ng/mL (<4.55)
[2020-10-25 00:28] LABS: TROPONIN I < 0.012 ng/mL
[2020-10-25 06:16] LABS: APPEARANCE,URINE SLIGHTLY-CLOUDY; BILIRUBIN,URINE NEGATIVE (NEGATIVE); COLOR,URINE AMBER; GLUCOSE, URINE NEGATIVE (NEGATIVE); KETONES,URINE NEGATIVE (NEGATIVE); LEUKOCYTE ESTERASE,URINE LARGE (NEGATIVE); NITRITE,URINE NEGATIVE (NEGATIVE); PROTEIN,URINE 30 mg/dL (NEGATIVE); URINE SPECIFIC GRAVITY 1.019; UROBILINOGEN,URINE NEGATIVE mg/dL (<2.0)
[2020-10-25 06:29] LABS: URINE AMPHETAMINES SCREEN NEGATIVE; URINE BARBITURATES SCREEN NEGATIVE; URINE COCAINE SCREEN NEGATIVE; URINE MARIJUANA (THC) SCREEN NEGATIVE; URINE METHADONE SCREEN NEGATIVE; URINE PHENCYCLIDINE SCREEN NEGATIVE
[2020-10-25 06:30] LABS: URINE BENZODIAZEPINES SCREEN UNCONFIRMED POSITIVE
[2020-10-25 06:35] LABS: ABSOLUTE BASOPHILS # (AUTO) 0.1 10^3/uL (0.0-0.2); ABSOLUTE EOSINOPHILS # (AUTO) 0.1 10^3/uL (0.0-0.6); ABSOLUTE LYMPHOCYTES (AUTO) 2.7 10^3/uL (0.5-4.7); ABSOLUTE MONOCYTES (AUTO) 0.7 10^3/uL (0.1-1.4); ABSOLUTE NEUT (AUTO) 8.1 10^3/uL (1.7-8.2); BASOPHILS % (AUTO) 0.7 % (0-2); EOSINOPHILS % (AUTO) 0.8 % (0-6); HEMATOCRIT 37.2 % (36.0-47.0); HEMOGLOBIN 11.6 g/dL (12.0-15.5); LYMPHOCYTES % (AUTO) 23.2 % (13-45); MEAN CORPUSCULAR HEMOGLOBIN 25.3 pg (27.0-33.4); MEAN CORPUSCULAR HGB CONC 31.2 g/dL (32.0-36.0); MEAN CORPUSCULAR VOLUME 81 fl (80-97); PLATELET COUNT 224 10^3/uL (150-450); RED BLOOD COUNT 4.58 10^6/uL (3.72-5.28); RED CELL DISTRIBUTION WIDTH 16.7 % (11.5-14.0); SEGMENTED NEUTROPHILS % (AUTO) 69.3 % (42-78); TOTAL CELLS COUNTED % (AUTO) 100 %; WHITE BLOOD COUNT 11.7 10^3/uL (4.0-10.5)
[2020-10-25] MEDS: ACETAMINOPHEN 1,000 MG/100 ML RTUPB IV SCH ×3 (06:38→18:33)
[2020-10-25 06:52] LABS: ALBUMIN 3.6 g/dL (3.5-5.0); ALKALINE PHOSPHATASE 122 U/L (38-126); ANION GAP 7 (5-19); ASPARTATE AMINO TRANSFERASE 35 U/L (14-36); BILIRUBIN,DIRECT 0.3 mg/dL (0.0-0.4); BILIRUBIN,TOTAL 0.6 mg/dL (0.2-1.3); BLOOD UREA NITROGEN 12 mg/dL (7-20); CALCIUM 9.2 mg/dL (8.4-10.2); CARBON DIOXIDE 28 mmol/L (22-30); CHLORIDE 106 mmol/L (98-107); CHOLESTEROL 140.44 mg/dL (0-200); CREATINE KINASE 102 U/L (30-135); GLUCOSE 158 mg/dL (75-110); POTASSIUM 4.6 mmol/L (3.6-5.0); TRIGLYCERIDES 168 mg/dL (<150)
[2020-10-25 07:03] LABS: DIRECT LDL 72 mg/dL (<100)
[2020-10-25 07:07] LABS: TROPONIN I < 0.012 ng/mL; VLDL CHOLESTEROL 33.6 mg/dL (10-31)
--- NOTE | 2020-10-25 08:24 | RADIOLOGY REPORT (SQ) ---
EXAM DESCRIPTION: CHEST SINGLE VIEW IMAGES COMPLETED DATE/TIME: 10/25/2020 7:56 am REASON FOR STUDY: Interval change in right pneumothorax COMPARISON: 10/24/2020. EXAM PARAMETERS: NUMBER OF VIEWS: One view. TECHNIQUE: Single frontal radiographic view of the chest acquired. RADIATION DOSE: NA LIMITATIONS: None. FINDINGS: LUNGS AND PLEURA: Chronic interstitial changes. No opacities, masses or pneumothorax. No pleural effusion. MEDIASTINUM AND HILAR STRUCTURES: No masses. Contour normal. HEART AND VASCULAR STRUCTURES: Heart normal in size. Normal vasculature. BONES: No acute findings. HARDWARE: Stable right chest tube. OTHER: Small amount of subcutaneous emphysema on the right side. IMPRESSION: STABLE RIGHT CHEST TUBE. NO PNEUMOTHORAX. CHRONIC INTERSTITIAL CHANGES. NO ACUTE RADI OGRAPHIC FINDING IN THE CHEST. TECHNICAL DOCUMENTATION: JOB ID: [id number] 2010 [employer]- All Rights Reserved Reading location - IP/workstation name: [email or web address]
[2020-10-25] MEDS: DOCUSATE SODIUM 100 MG CAPSULE PO SCH ×2 (10:49→18:18)
[2020-10-25] MEDS: ENOXAPARIN SODIUM INJ 40 MG/0.4 ML DISP.SYRIN SUBCUT SCH (10:50)
[2020-10-25] MEDS ORDERED: HYDROCODONE/ACETAMINOPHEN 5-325 MG TABLET PO SCH (12:00)
[2020-10-25] MEDS: HYDROCODONE/ACETAMINOPHEN 5-325 MG TABLET PO PRN ×2 (12:47→22:00)
--- NOTE | 2020-10-25 17:23 | EKG REPORT ---
SEVERITY:- BORDERLINE ECG - SINUS RHYTHM LOW VOLTAGE THROUGHOUT : Confirmed by: Arely Ortiz MD 25-Oct-2020 17:22:47
--- NOTE | 2020-10-25 17:46 | PDOC H&P ---
History of Present Illness Admission Date/PCP: 10/24/20 22:04 HERMILA LAND MD History of Present Illness: VIOLETTA MENENDEZ is a 75 year old female, She came to the emergency room for evaluation of shortness of breath, chest x-ray was done, it demonstrated pneumothorax on the right side, the surgeon was consulted by the ED physician the right thoracostomy tube was inserted in the emergency room. About 3 weeks ago she was admitted at [facility] for 5 days when she had pneumothorax she underwent right thoracostomy tube placement, she was discharged home and she drove herself from [place] to [facility]. 6 months ago she fell, CT chest [facility] demonstrated rib fracture no evidence of mass lesion, she has underlining COPD, she stopped smoking many years ago.Medicine was consulted for inpatient care. Past Medical History Cardiac Medical History: Reports: Hyperlipidema Pulmonary Medical History: Reports: Chronic Obstructive Pulmonary Disease (COPD) Endocrine Medical History: Reports: Diabetes Mellitus Type 2, Hypothyroidism GI Medical History: Reports: Gastroesophageal Reflux Disease Past Surgical History Past Surgical History: Reports: Hysterectomy Social History Smoking Status: Former Smoker Cigarettes Packs Per Day: 2 Electronic Cigarette use?: No Number of Years Smokin Last Time Smoked: 1989 Frequency of Alcohol Use: None Hx Recreational Drug Use: No Drugs: None Hx Prescription Drug Abuse: No Family History Family History: Reviewed & Not Pertinent Parental Family History Reviewed: Yes Children Family History Reviewed: Yes Sibling(s) Family History Reviewed.: Yes Medication/Allergy Home Medications: Acetaminophen/Diphenhydramine [Tylenol Pm Ex-Strength Caplet] 2 tab PO QPM 07/24/19 Atorvastatin Calcium [Lipitor 40 mg Tablet] 40 mg PO QHS 07/24/19 Esomeprazole Mag Trihydrate [Nexium] 40 mg PO QAM 07/24/19 Gabapentin [Neurontin 100 mg Capsule] 200 mg PO Q12 07/24/19 Glipizide [Glucotrol] 5 mg PO DAILY 07/24/19 Ipratropium/Albuterol Sulfate [Combivent Respimat 4 gm Mdi] 1 puff IH QID 07/24/19 Levothyroxine Sodium 100 mcg PO Q6AM 07/24/19 Cephalexin Monohydrate [Keflex 500 mg Capsule] 500 mg PO BID #14 capsule 07/27/19 Ondansetron HCl [Zofran 4 mg Tablet] 1 tab PO Q4H PRN #20 tablet 07/27/19 Ciprofloxacin HCl [Cipro 500 mg Tablet] 500 mg PO BID #10 tablet 11/25/19 Cyclobenzaprine HCl [Flexeril 5 mg Tablet] 5 mg PO TID PRN #15 tablet 11/25/19 Oxycodone HCl/Acetaminophen [Percocet 5-325 mg Tablet] 1 tab PO ASDIR PRN #12 tablet 11/25/19 Acetaminophen [Pain Relief] 650 mg PO Q6HP PRN #30 tablet 04/16/20 Oxycodone HCl/Acetaminophen [Percocet 5-325 mg Tablet] 1 tab PO Q6HP PRN #10 tablet 04/16/20 Cephalexin Monohydrate [Keflex 500 mg Capsule] 500 mg PO Q6H 7 Days #28 capsule 06/10/20 Allergies/Adverse Reactions: niacin [Niacin] Allergy (Verified 10/24/20 16:52) Generalized Itching sulfamethoxazole [From Bactrim] Allergy (Verified 10/24/20 16:52) Hives trimethoprim [From Bactrim] Allergy (Verified 10/24/20 16:52) Hives nitrofurantoin [From Macrobid] Adverse Reaction (Verified 10/24/20 16:52) HURT LUNGS Review of Systems Constitutional: ABSENT: chills, fever(s), headache(s), weight gain, weight loss Eyes: ABSENT: visual disturbances Ears: ABSENT: hearing changes Cardiovascular: PRESENT: dyspnea on exertion Respiratory: PRESENT: dyspnea. ABSENT: cough, hemoptysis Gastrointestinal: ABSENT: abdominal pain, constipation, diarrhea, hematemesis, hematochezia, nausea, vomiting Genitourinary: ABSENT: dysuria, hematuria Musculoskeletal: ABSENT: joint swelling Integumentary: ABSENT: rash, wounds Neurological: ABSENT: abnormal gait, abnormal speech, confusion, dizziness, focal weakness, syncope Psychiatric: ABSENT: anxiety, depression, homidical ideation, suicidal ideation Endocrine: ABSENT: cold intolerance, heat intolerance, menstrual abnormalities, polydipsia, polyuria Hematologic/Lymphatic: ABSENT: easy bleeding, easy bruising, lymphadenopathy Physical Exam Vital Signs: Temp Pulse Resp BP Pulse Ox 97.8 F 70 16 132/63 H 100 10/25/20 16:31 10/25/20 16:31 10/25/20 16:31 10/25/20 16:29 10/25/20 16:31 Intake & Output 10/24/20 10/25/20 10/26/20 06:59 06:59 06:59 Intake Total 200 100 Output Total 290 Balance 200 -190 Weight 90.718 kg General appearance: PRESENT: no acute distress Head exam: PRESENT: atraumatic, normocephalic Eye exam: PRESENT: PERRLA Ear exam: PRESENT: normal external ear exam Mouth exam: PRESENT: moist, tongue midline Neck exam: PRESENT: full ROM Respiratory exam: PRESENT: clear to auscultation pranay Cardiovascular exam: PRESENT: RRR, +S1, +S2 Pulses: PRESENT: normal dorsalis pedis pul, +2 pedal pulses bilateral Vascular exam: PRESENT: normal capillary refill GI/Abdominal exam: PRESENT: normal bowel sounds, soft Rectal exam: PRESENT: deferred Neurological exam: PRESENT: alert, awake, oriented to person, oriented to place, oriented to time, oriented to situation, CN II-XII grossly intact Psychiatric exam: PRESENT: appropriate affect, normal mood Skin exam: PRESENT: dry, intact, warm. ABSENT: cyanosis, rash Results Laboratory Results: 10/25/20 06:07 10/25/20 06:07 10/24/20 10/24/20 10/24/20 18:28 18:28 18:28 WBC 14.8 H RBC 4.93 Hgb 12.5 Hct 39.8 MCV 81 MCH 25.4 L MCHC 31.4 L RDW 17.0 H Plt Count 338 Seg Neutrophils % 70.0 Sodium 140.6 Potassium 4.2 Chloride 103 Carbon Dioxide 27 Anion Gap 11 BUN 11 Creatinine 0.72 Est GFR ( Amer) > 60 Glucose 154 H Calcium 10.0 Phosphorus 4.7 H Magnesium 1.5 L Cancelled Total Bilirubin 0.6 AST 29 Alkaline Phosphatase 151 H Ammonia Total Protein 7.8 Albumin 4.2 Triglycerides Cholesterol LDL Cholesterol Direct VLDL Cholesterol HDL Cholesterol Amylase 37 Lipase 91.9 TSH Free T4 Urine Color Urine Appearance Urine pH Ur Specific [place] Urine Protein Urine Glucose (UA) Urine Ketones Urine Blood Urine Nitrite Ur Leukocyte Esterase Urine WBC (Auto) Urine RBC (Auto) 10/24/20 10/24/20 10/25/20 18:28 23:44 03:41 WBC RBC Hgb Hct MCV MCH MCHC RDW Plt Count Seg Neutrophils % Sodium Potassium Chloride Carbon Dioxide Anion Gap BUN Creatinine Est GFR ( Amer) Glucose Calcium Phosphorus Magnesium Total Bilirubin AST Alkaline Phosphatase Ammonia < 8.7 L Total Protein Albumin Triglycerides Cholesterol LDL Cholesterol Direct VLDL Cholesterol HDL Cholesterol Amylase Lipase TSH 0.03 L Free T4 1.79 Urine Color RAMYA Urine Appearance SLIGHTLY-CLOUDY Urine pH 5.0 Ur Specific [place] 1.019 Urine Protein 30 H Urine Glucose (UA) NEGATIVE Urine Ketones NEGATIVE Urine Blood SMALL H Urine Nitrite NEGATIVE Ur Leukocyte Esterase LARGE H Urine WBC (Auto) 144 Urine RBC (Auto) 31 10/25/20 10/25/20 06:07 06:07 WBC 11.7 H RBC 4.58 Hgb 11.6 L Hct 37.2 MCV 81 MCH 25.3 L MCHC 31.2 L RDW 16.7 H Plt Count 224 Seg Neutrophils % 69.3 Sodium 141.1 Potassium 4.6 Chloride 106 Carbon Dioxide 28 Anion Gap 7 BUN 12 Creatinine 0.69 Est GFR ( Amer) > 60 Glucose 158 H Calcium 9.2 Phosphorus Magnesium Total Bilirubin 0.6 AST 35 Alkaline Phosphatase 122 Ammonia Total Protein 7.0 Albumin 3.6 Triglycerides 168 H Cholesterol 140.44 LDL Cholesterol Direct 72 VLDL Cholesterol 33.6 H HDL Cholesterol 36 L Amylase Lipase TSH Free T4 Urine Color Urine Appearance Urine pH Ur Specific [place] Urine Protein Urine Glucose (UA) Urine Ketones Urine Blood Urine Nitrite Ur Leukocyte Esterase Urine WBC (Auto) Urine RBC (Auto) 10/24/20 10/24/20 10/24/20 18:28 23:44 23:44 Creatine Kinase 60 CK-MB (CK-2) 0.86 Troponin I < 0.012 < 0.012 10/25/20 10/25/20 10/25/20 06:07 06:07 11:45 Creatine Kinase 102 122 CK-MB (CK-2) 1.10 Troponin I < 0.012 Impressions: Chest X-Ray 10/25/20 07:34 IMPRESSION: STABLE RIGHT CHEST TUBE. NO PNEUMOTHORAX. CHRONIC INTERSTITIAL CHANGES. NO ACUTE RADIOGRAPHIC FINDING IN THE CHEST. Assessment & Plan - Diagnosis (1) Pneumothorax Qualifiers: Pneumothorax type: spontaneous, secondary Qualified Code(s): J93.12 - Secondary spontaneous pneumothorax Is this a current diagnosis for this admission?: Yes Plan: Patient had thoracostomy tube placement done by the surgeon Dr. Brice. The case was discussed with the surgeon DR Brice, there is the possibility that she may ultimately required video-assisted thoracoscopic surgery, VATS depending on her response to the thoracostomy tube placement bearing in mind that she just had pneumothorax less than a week ago for which she underwent thoracostomy tube placement in [facility]. (2) Chronic obstructive pulmonary disease Qualifiers: COPD type: unspecified COPD Qualified Code(s): J44.9 - Chronic obstructive pulmonary disease, unspecified Is this a current diagnosis for this admission?: Yes Plan: She has underlying COPD (3) Type 2 diabetes mellitus Qualifiers: Diabetes mellitus long-term insulin use: without medical terminologist use Diabetes mellitus complication status: with neurologic complications Diabetes mellitus complication detail: with polyneuropathy Qualified Code(s): E11.42 - Type 2 diabetes mellitus with diabetic polyneuropathy Is this a current diagnosis for this admission?: Yes - Time Time Spent: Greater than 70 Minutes Medications reviewed and adjusted accordingly: Yes Anticipated Discharge Disposition: Home, Self Care Anticipated Discharge Timeframe: within 72 hours
[2020-10-25] MEDS ORDERED: GLUCAGON,HUMAN RECOMB 1 MG INJ IM PRN (17:47)
[2020-10-25] MEDS ORDERED: DEXTROSE 40% GEL 15 GM TUBE PO PRN ×2 (17:47)
[2020-10-25] MEDS ORDERED: DEXTROSE 50%-WATER 25 GM/50 ML DISP.SYRIN IV PRN ×2 (17:47)
[2020-10-25] MEDS ORDERED: ACETAMINOPHEN IV ONE (18:23)
[2020-10-25] MEDS: INSULIN LISPRO 100 UNIT/ML 3 ML VIAL SUBCUT SCH ×2 (18:31→21:08)
[2020-10-25 19:12] LABS: CREATINE KINASE MB 0.75 ng/mL (<4.55)
[2020-10-25 19:14] LABS: TROPONIN I < 0.012 ng/mL
[2020-10-26] MEDS: HYDROCODONE/ACETAMINOPHEN 5-325 MG TABLET PO PRN ×4 (03:18→21:31)
[2020-10-26 06:57] LABS: ABSOLUTE BASOPHILS # (AUTO) 0.1 10^3/uL (0.0-0.2); ABSOLUTE EOSINOPHILS # (AUTO) 0.4 10^3/uL (0.0-0.6); ABSOLUTE LYMPHOCYTES (AUTO) 2.2 10^3/uL (0.5-4.7); ABSOLUTE MONOCYTES (AUTO) 0.7 10^3/uL (0.1-1.4); ABSOLUTE NEUT (AUTO) 5.7 10^3/uL (1.7-8.2); BASOPHILS % (AUTO) 0.9 % (0-2); EOSINOPHILS % (AUTO) 4.3 % (0-6); HEMATOCRIT 36.7 % (36.0-47.0); HEMOGLOBIN 11.6 g/dL (12.0-15.5); LYMPHOCYTES % (AUTO) 24.7 % (13-45); MEAN CORPUSCULAR HEMOGLOBIN 25.9 pg (27.0-33.4); MEAN CORPUSCULAR HGB CONC 31.7 g/dL (32.0-36.0); MEAN CORPUSCULAR VOLUME 82 fl (80-97); MONOCYTES % (AUTO) 7.6 % (3-13); PLATELET COUNT 243 10^3/uL (150-450); RED BLOOD COUNT 4.48 10^6/uL (3.72-5.28); RED CELL DISTRIBUTION WIDTH 16.9 % (11.5-14.0); SEGMENTED NEUTROPHILS % (AUTO) 62.5 % (42-78); TOTAL CELLS COUNTED % (AUTO) 100 %
[2020-10-26] MEDS: INSULIN LISPRO 100 UNIT/ML 3 ML VIAL SUBCUT SCH ×4 (07:44→21:51)
[2020-10-26] MEDS: DOCUSATE SODIUM 100 MG CAPSULE PO SCH ×2 (09:31→17:28)
[2020-10-26] MEDS: ENOXAPARIN SODIUM INJ 40 MG/0.4 ML DISP.SYRIN SUBCUT SCH (09:32)
--- NOTE | 2020-10-26 13:07 | PDOC PROGRESS REPORT ---
Subjective Date:: 10/26/20 Reason For Visit: TYPE 2 DIABETES,HYPERTENSION,PNEUMOTHORAX,RIGHT No distress; patient got up on side of bed Physical Exam Vital Signs: Temp Pulse Resp BP Pulse Ox 98.1 F 66 16 145/51 H 100 10/26/20 11:48 10/26/20 11:48 10/26/20 11:48 10/26/20 11:48 10/26/20 11:48 Intake & Output 10/25/20 10/26/20 10/27/20 06:59 06:59 06:59 Intake Total 200 760 Output Total 840 Balance 200 -80 Weight 90.718 kg 88.8 kg General appearance: PRESENT: no acute distress Respiratory exam: PRESENT: other - Thoracostomy tube site dry; no subcutaneous emphysema on right chest wall; Pleur-evac with persisting air leak Results Laboratory Results: 10/26/20 06:14 10/25/20 06:07 10/26/20 06:14 WBC 9.0 RBC 4.48 Hgb 11.6 L Hct 36.7 MCV 82 MCH 25.9 L MCHC 31.7 L RDW 16.9 H Plt Count 243 Seg Neutrophils % 62.5 10/24/20 10/24/20 10/24/20 18:28 23:44 23:44 Creatine Kinase 60 CK-MB (CK-2) 0.86 Troponin I < 0.012 < 0.012 10/25/20 10/25/20 10/25/20 06:07 06:07 11:45 Creatine Kinase 102 122 CK-MB (CK-2) 1.10 Troponin I < 0.012 10/25/20 18:30 Creatine Kinase CK-MB (CK-2) 0.75 Troponin I < 0.012 Impressions: Chest X-Ray 10/25/20 07:34 IMPRESSION: STABLE RIGHT CHEST TUBE. NO PNEUMOTHORAX. CHRONIC INTERSTITIAL CHANGES. NO ACUTE RADIOGRAPHIC FINDING IN THE CHEST. Assessment & Plan - Diagnosis (1) Pneumothorax on right Is this a current diagnosis for this admission?: Yes Plan: Impression: Hospital day 2 in patient with recurrent right pneumothorax, status post right thoracostomy tube placement, with persisting air leak likely due to popped bleb. Recommendations: 1. Continue current therapy; changed chest tube dressing daily and orders written 2. I discussed with patient last night the prognosis of a recurrent right pneumothorax with persistent air leak. She may require VATS procedure. She is very unenthused about undergoing further intervention. 3. We will continue to follow with you. (2) Chronic obstructive pulmonary disease Qualifiers: COPD type: unspecified COPD Qualified Code(s): J44.9 - Chronic obstructive pulmonary disease, unspecified Is this a current diagnosis for this admission?: Yes (3) Type 2 diabetes mellitus Qualifiers: Diabetes mellitus computer terminal operator insulin use: without nursing home use Diabetes mellitus complication status: with neurologic complications Diabetes mellitus complication detail: with polyneuropathy Qualified Code(s): E11.42 - Type 2 diabetes mellitus with diabetic polyneuropathy Is this a current diagnosis for this admission?: Yes (4) History of fracture of rib Is this a current diagnosis for this admission?: Yes - Time Anticipated Discharge Disposition: Home, Self Care Anticipated Discharge Timeframe: within 24 hours
--- NOTE | 2020-10-26 19:09 | PDOC PROGRESS REPORT ---
Subjective Date:: 10/26/20 Subjective:: She looks better today, no new complaints, she was seen by the surgeon that is a ir leak Reason For Visit: TYPE 2 DIABETES,HYPERTENSION,PNEUMOTHORAX,RIGHT Physical Exam Vital Signs: Temp Pulse Resp BP Pulse Ox 98.1 F 66 16 145/51 H 100 10/26/20 11:48 10/26/20 11:48 10/26/20 11:48 10/26/20 11:48 10/26/20 11:48 Intake & Output 10/25/20 10/26/20 10/27/20 06:59 06:59 06:59 Intake Total 200 760 982 Output Total 840 Balance 200 -80 982 Weight 90.718 kg 88.8 kg General appearance: PRESENT: no acute distress Eye exam: PRESENT: PERRLA Respiratory exam: PRESENT: clear to auscultation pranay Cardiovascular exam: PRESENT: +S1, +S2 Results Laboratory Results: 10/26/20 06:14 10/25/20 06:07 10/26/20 06:14 WBC 9.0 RBC 4.48 Hgb 11.6 L Hct 36.7 MCV 82 MCH 25.9 L MCHC 31.7 L RDW 16.9 H Plt Count 243 Seg Neutrophils % 62.5 10/25/20 03:41 Clean Catch Midstream Urine Culture - Final C.albicans/C.dubliniensis 10/24/20 10/24/20 10/24/20 18:28 23:44 23:44 Creatine Kinase 60 CK-MB (CK-2) 0.86 Troponin I < 0.012 < 0.012 10/25/20 10/25/20 10/25/20 06:07 06:07 11:45 Creatine Kinase 102 122 CK-MB (CK-2) 1.10 Troponin I < 0.012 10/25/20 18:30 Creatine Kinase CK-MB (CK-2) 0.75 Troponin I < 0.012 Impressions: Chest X-Ray 10/25/20 07:34 IMPRESSION: STABLE RIGHT CHEST TUBE. NO PNEUMOTHORAX. CHRONIC INTERSTITIAL CHANGES. NO ACUTE RADIOGRAPHIC FINDING IN THE CHEST. Assessment & Plan - Diagnosis (1) Pneumothorax Qualifiers: Pneumothorax type: spontaneous, secondary Qualified Code(s): J93.12 - Secondary spontaneous pneumothorax Is this a current diagnosis for this admission?: Yes Plan: Continue present treatment (2) Chronic obstructive pulmonary disease Qualifiers: COPD type: unspecified COPD Qualified Code(s): J44.9 - Chronic obstructive pulmonary disease, unspecified Is this a current diagnosis for this admission?: Yes (3) Type 2 diabetes mellitus Qualifiers: Diabetes mellitus remote computer terminal operator insulin use: without remote computer terminal operator use Diabetes mellitus complication status: with neurologic complications Diabetes mellitus complication detail: with polyneuropathy Qualified Code(s): E11.42 - Type 2 diabetes mellitus with diabetic polyneuropathy Is this a current diagnosis for this admission?: Yes - Time Time Spent with patient: 25-34 minutes Level of Care: IMCU Medications reviewed and adjusted accordingly: Yes Anticipated discharge: Home Anticipated DC Timeframe: Other
[2020-10-26] MEDS: DIPHENHYDRAMINE HCL 25 MG CAPSULE PO PRN (22:03)
[2020-10-26] MEDS: TRAMADOL HCL 50 MG TABLET PO PRN (23:30)
[2020-10-27] MEDS: DIPHENHYDRAMINE HCL 25 MG CAPSULE PO PRN (06:24)
[2020-10-27 06:29] LABS: ABSOLUTE BASOPHILS # (AUTO) 0.1 10^3/uL (0.0-0.2); ABSOLUTE EOSINOPHILS # (AUTO) 0.4 10^3/uL (0.0-0.6); ABSOLUTE LYMPHOCYTES (AUTO) 2.6 10^3/uL (0.5-4.7); ABSOLUTE MONOCYTES (AUTO) 0.7 10^3/uL (0.1-1.4); ABSOLUTE NEUT (AUTO) 4.9 10^3/uL (1.7-8.2); BASOPHILS % (AUTO) 0.9 % (0-2); EOSINOPHILS % (AUTO) 4.9 % (0-6); HEMATOCRIT 34.7 % (36.0-47.0); HEMOGLOBIN 11.2 g/dL (12.0-15.5); LYMPHOCYTES % (AUTO) 30.4 % (13-45); MEAN CORPUSCULAR HEMOGLOBIN 26.1 pg (27.0-33.4); MEAN CORPUSCULAR HGB CONC 32.3 g/dL (32.0-36.0); MEAN CORPUSCULAR VOLUME 81 fl (80-97); MONOCYTES % (AUTO) 7.7 % (3-13); PLATELET COUNT 235 10^3/uL (150-450); RED CELL DISTRIBUTION WIDTH 16.8 % (11.5-14.0); SEGMENTED NEUTROPHILS % (AUTO) 56.1 % (42-78); TOTAL CELLS COUNTED % (AUTO) 100 %; WHITE BLOOD COUNT 8.7 10^3/uL (4.0-10.5)
[2020-10-27] MEDS: ENOXAPARIN SODIUM INJ 40 MG/0.4 ML DISP.SYRIN SUBCUT SCH (09:15)
[2020-10-27] MEDS: INSULIN LISPRO 100 UNIT/ML 3 ML VIAL SUBCUT SCH ×3 (09:15→21:23)
[2020-10-27] MEDS: DOCUSATE SODIUM 100 MG CAPSULE PO SCH ×2 (09:15→17:05)
--- NOTE | 2020-10-27 09:42 | PDOC PROGRESS REPORT ---
Subjective Date:: 10/27/20 Reason For Visit: TYPE 2 DIABETES,HYPERTENSION,PNEUMOTHORAX,RIGHT Patient sitting at bedside. Denies shortness of breath. Chest tube to Pleur- evac, with suction, with persisting air leak. Physical Exam Vital Signs: Temp Pulse Resp BP Pulse Ox 97.5 F 82 16 128/74 H 100 10/27/20 03:50 10/27/20 03:50 10/27/20 03:50 10/27/20 03:50 10/27/20 03:50 Intake & Output 10/26/20 10/27/20 10/28/20 06:59 06:59 06:59 Intake Total 760 982 Output Total 878 260 Balance -118 722 Weight 88.8 kg 88.4 kg General appearance: PRESENT: no acute distress Respiratory exam: PRESENT: other - Chest tube dressing replaced; no evidence of subcu emphysema; continuous air leak through the chamber B of the Pleur-evac. Results Laboratory Results: 10/27/20 05:44 10/25/20 06:07 10/27/20 05:44 WBC 8.7 RBC 4.30 Hgb 11.2 L Hct 34.7 L MCV 81 MCH 26.1 L MCHC 32.3 RDW 16.8 H Plt Count 235 Seg Neutrophils % 56.1 10/25/20 03:41 Clean Catch Midstream Urine Culture - Final C.albicans/C.dubliniensis 10/24/20 10/24/20 10/24/20 18:28 23:44 23:44 Creatine Kinase 60 CK-MB (CK-2) 0.86 Troponin I < 0.012 < 0.012 10/25/20 10/25/20 10/25/20 06:07 06:07 11:45 Creatine Kinase 102 122 CK-MB (CK-2) 1.10 Troponin I < 0.012 10/25/20 18:30 Creatine Kinase CK-MB (CK-2) 0.75 Troponin I < 0.012 Impressions: Chest X-Ray 10/25/20 07:34 IMPRESSION: STABLE RIGHT CHEST TUBE. NO PNEUMOTHORAX. CHRONIC INTERSTITIAL CHANGES. NO ACUTE RADIOGRAPHIC FINDING IN THE CHEST. Assessment & Plan - Diagnosis (1) Pneumothorax on right Is this a current diagnosis for this admission?: Yes Plan: Impression: Persisting, near continuous air leak from chest tube and patient with recurrent pneumothorax, COPD, likely popped bleb that has not sealed Plan: 1. Reviewed patient's clinical situation with patient, nursing staff, and Dr. Ochoa. Patient's airleak is not closed. She will likely require surgical intervention. I told the patient this and she is not too enthused. Conversely, she cannot have the chest tube removed as she will develop a tension pneumothorax and I explained this to the patient. 2. I will obtain a CT scan of the chest, define the extent of her bullous disease. I have tentatively posted her for a VATS procedure on October 29. I have consulted Dr. English, computational scientist for preoperative cleara nce. I have also spoken with patient's granddaughter who is a chief nursing officer at [employer]. (2) Chronic obstructive pulmonary disease Qualifiers: COPD type: unspecified COPD Qualified Code(s): J44.9 - Chronic obstructive pulmonary disease, unspecified Is this a current diagnosis for this admission?: Yes (3) Type 2 diabetes mellitus Qualifiers: Diabetes mellitus skilled nursing insulin use: without skilled nursing use Diabetes mellitus complication status: with neurologic complications Diabetes mellitus complication detail: with polyneuropathy Qualified Code(s): E11.42 - Type 2 diabetes mellitus with diabetic polyneuropathy Is this a current diagnosis for this admission?: Yes (4) History of fracture of rib Is this a current diagnosis for this admission?: Yes - Time Anticipated Discharge Disposition: Home, Self Care Anticipated Discharge Timeframe: To be dete
[2020-10-27] MEDS: HYDROCODONE/ACETAMINOPHEN 5-325 MG TABLET PO PRN (17:05)
--- NOTE | 2020-10-27 17:16 | XCELERA REPORT ---
[address] [address] Transthoracic Echocardiogram Report Name: VIOLETTA MENENDEZ Age: 75 yrs Gender: Female : 1945 Patient Status: Inpatient Patient Location: [address] [place] [address] Study Date: 10/27/2020 10:17 AM Height: 61 in Weight: 194 lb BSA: 1.9 m2 Procedure: A two-dimensional transthoracic echocardiogram with color flow and Doppler was performed. Study Quality: Fair. Reason For Study: murmur/Htn/Preop History: murmur/Htn/Preop. Ordering Physician: ARELY DAN Performed By: Bea Bryan Interpretation Summary The left ventricle is normal in size. There is normal left ventricular wall thickness. LV EF is Greater than 65% Left ventricular systolic function is normal. Doppler measurements suggest impaired left ventricular relaxation, which is associated with grade I/IV or mild diastolic dysfunction The left ventricular wall motion is normal. There is no thrombus. No ASD,VSD ,or PFO seen. The right ventricle is normal in size and function. The right atrium is normal. The left atrial size is normal. There is mild mitral annular calcification. There is no evidence of mitral valve prolapse. There is no vegetation seen on the mitral valve. There is no mitral valve stenosis. There is no mitral regurgitation noted. There is no aortic valvular vegetation. There is no aortic valve stenosis There is aortic sclerosis without aortic stenosis. There is no LVOT obstruction. No aortic regurgitation is present. There is no tricuspid stenosis. There is a trace amount of tricuspid regurgitation No significant Pulmonary Hypertension.RVSO is 27 to 32 mm of Hg , with RA mean of 0 to 5. There is no pulmonic valvular stenosis. There is no pulmonic valvular regurgitation. The aortic root is normal size. The inferior vena cava appeared small and collapsed with respiration (RAP 0-5 mmHg) There is no pericardial effusion. MMode/2D Measurements & Calculations RVDd: 2.0 cm LVIDd: 3.9 cm FS: 37.9 % Ao root diam: 2.9 cm IVSd: 0.98 cm LVIDs: 2.4 cm EDV(Teich): 65.2 ml Ao root area: 6.6 cm2 LVPWd: 1.0 cm ESV(Teich): 20.4 ml LA dimension: 2.9 cm EF(Teich): 68.7 % Doppler Measurements & Calculations MV E max bee: MV P1/2t max bee: Ao V2 max: LV V1 max P.1 cm/sec 73.1 cm/sec 107.1 cm/sec 4.4 mmHg MV A max bee: MV P1/2t: 94.7 msec Ao max P.6 mmHg LV V1 max: 94.3 cm/sec MVA(P1/2t): 2.3 cm2 104.6 cm/sec MV E/A: 0.77 MV dec slope: 225.8 cm/sec2 MV dec time: 0.31 sec PA V2 max: TR max bee: MV P1/2t-pr_phl: 91.8 cm/sec 258.3 cm/sec 94.7 msec PA max PG: TR max P.7 mmHg 3.4 mmHg Left Ventricle The left ventricle is normal in size. There is normal left ventricular wall thickness. LV EF is Greater than 65%. Left ventricular systolic function is normal. Doppler measurements suggest impaired left ventricular relaxation, which is associated with grade I/IV or mild diastolic dysfunction. The left ventricular wall motion is normal. There is no thrombus. No ASD,VSD ,or PFO seen. Right Ventricle The right ventricle is normal in size and function. Atria The right atrium is normal. The left atrial size is normal. Mitral Valve There is mild mitral annular calcification. There is no evidence of mitral valve prolapse. There is no vegetation seen on the mitral valve. There is no mitral valve stenosis. There is no mitral regurgitation noted. Aortic Valve There is no aortic valvular vegetation. There is no aortic valve stenosis. There is aortic sclerosis without aortic stenosis. There is no LVOT obstruction. No aortic regurgitation is present. Tricuspid Valve There is no tricuspid stenosis. There is a trace amount of tricuspid regurgitation. No significant Pulmonary Hypertension.RVSO is 27 to 32 mm of Hg , with RA mean of 0 to 5. Pulmonic Valve There is no pulmonic valvular stenosis. There is no pulmonic valvular regurgitation. Great Vessels The aortic root is normal size. The inferior vena cava appeared small and collapsed with respiration (RAP 0-5 mmHg). Effusions There is no pericardial effusion. : ARELY DAN Lakshmi
--- NOTE | 2020-10-27 17:17 | PDOC CONSULTATION ---
Consultation-Blank Consultation: CARDIOLOGY CONSULTATION by Dr. Arely Ortiz on 10/27/2020. Patient seen at 4 PM. 60 minutes spent on the patient more than 50% time spent in direct patient care. CONSULT REQUESTING PHYSICIAN: Dr. Brice, surgical hist. REASON FOR CONSULTATION: Cardiac risk assessment for VATS procedure for persistent air leak post chest tube insertion for pneumothorax. HISTORY OF PRESENT ILLNESS: Patient is a 75-year-old female with known history of COPD, diabetes mellitus, hypothyroidism on replacement admitted with shortness of breath and found to have a right-sided pneumothorax. The patient had a chest tube insertion done earlier this admission. In spite of the chest tube the patient is having persistent air leak and is for VATS procedure. The patient denies history of hypertension or coronary artery disease. There is no history of KS or anginal symptoms. There is no clear-cut anginal symptoms. The patient does have chest pain when she takes a deep breath due to her lung problem. There is no PND orthopnea palpitations near syncope or syncope. There is no history of congestive heart failure. There is no history of TIA CVA. There were no arrhythmias seen on the monitor. Past Medical History Cardiac Medical History: Reports: Hyperlipidema Pulmonary Medical History: Reports: Chronic Obstructive Pulmonary Disease (COPD) Endocrine Medical History: Reports: Diabetes Mellitus Type 2, Hypothyroidism GI Medical History: Reports: Gastroesophageal Reflux Disease Past Surgical History Past Surgical History: Reports: Hysterectomy Social History Smoking Status: Former Smoker Cigarettes Packs Per Day: 2 Electronic Cigarette use?: No Number of Years Smokin Last Time Smoked: 1989 Frequency of Alcohol Use: None Hx Recreational Drug Use: No Drugs: None Hx Prescription Drug Abuse: No Family History Family History: Reviewed & Not Pertinent Parental Family History Reviewed: Yes Children Family History Reviewed: Yes Sibling(s) Family History Reviewed.: Yes RESUSCITATION STATUS: The patient is a full code. Her granddaughter is a surrogate healthcare decision maker. Medication/Allergy Home Medications: Acetaminophen/Diphenhydramine [Tylenol Pm Ex-Strength Caplet] 2 tab PO QPM 07/24/19 Atorvastatin Calcium [Lipitor 40 mg Tablet] 40 mg PO QHS 07/24/19 Esomeprazole Mag Trihydrate [Nexium] 40 mg PO QAM 07/24/19 Gabapentin [Neurontin 100 mg Capsule] 200 mg PO Q12 07/24/19 Glipizide [Glucotrol] 5 mg PO DAILY 07/24/19 Ipratropium/Albuterol Sulfate [Combivent Respimat 4 gm Mdi] 1 puff IH QID 07/24/19 Levothyroxine Sodium 100 mcg PO Q6AM 07/24/19 Cephalexin Monohydrate [Keflex 500 mg Capsule] 500 mg PO BID #14 capsule 07/27/19 Ondansetron HCl [Zofran 4 mg Tablet] 1 tab PO Q4H PRN #20 tablet 07/27/19 Ciprofloxacin HCl [Cipro 500 mg Tablet] 500 mg PO BID #10 tablet 11/25/19 Cyclobenzaprine HCl [Flexeril 5 mg Tablet] 5 mg PO TID PRN #15 tablet 11/25/19 Oxycodone HCl/Acetaminophen [Percocet 5-325 mg Tablet] 1 tab PO ASDIR PRN #12 tablet 11/25/19 Acetaminophen [Pain Relief] 650 mg PO Q6HP PRN #30 tablet 04/16/20 Oxycodone HCl/Acetaminophen [Percocet 5-325 mg Tablet] 1 tab PO Q6HP PRN #10 tablet 04/16/20 Cephalexin Monohydrate [Keflex 500 mg Capsule] 500 mg PO Q6H 7 Days #28 capsule 06/10/20 Allergies/Adverse Reactions: niacin [Niacin] Allergy (Verified 10/24/20 16:52) Generalized Itching sulfamethoxazole [From Bactrim] Allergy (Verified 10/24/20 16:52) Hives trimethoprim [From Bactrim] Allergy (Verified 10/24/20 16:52) Hives nitrofurantoin [From Macrobid] Adverse Reaction (Verified 10/24/20 16:52) HURT LUNGS Review of Systems Constitutional: ABSENT: chills, fever(s), headache(s), weight gain, weight loss Eyes: ABSENT: visual disturbances Ears: ABSENT: hearing changes Cardiovascular: PRESENT: dyspnea on exertion Respiratory: PRESENT: dyspnea. ABSENT: cough, hemoptysis Gastrointestinal: ABSENT: abdominal pain, constipation, diarrhea, hematemesis, hematochezia, nausea, vomiting Genitourinary: ABSENT: dysuria, hematuria Musculoskeletal: ABSENT: joint swelling Integumentary: ABSENT: rash, wounds Neurological: ABSENT: abnormal gait, abnormal speech, confusion, dizziness, focal weakness, syncope Psychiatric: ABSENT: anxiety, depression, homidical ideation, suicidal ideation Endocrine: ABSENT: cold intolerance, heat intolerance, menstrual abnormalities, polydipsia, polyuria Hematologic/Lymphatic: ABSENT: easy bleeding, easy bruising, lymphadenopathy Current Medications Generic Name Dose Route Start Last Admin Trade Name Freq PRN Reason Stop Dose Admin Hydrocodone Bitart/Acetaminophen 1 tab 10/25/20 22:12 10/27/20 17:05 Hydrocodone/Acetaminophen 5-325 Mg Tablet PO 11/01/20 22:11 1 tab Q4HP PRN Administration FOR PAIN Albuterol/Ipratropium 3 ml 10/24/20 23:06 Ipratropium/Albuterol 0.5-2.5 Mg/3 Ml Ampul NEB 11/23/20 23:05 RTQ4HP PRN SHORTNESS OF BREATH Dextrose 12.5 gm 10/25/20 17:47 Dextrose 50%-Water 25 Gm/50 Ml Disp.Syrin IV 11/24/20 17:46 PRN PRN FOR BG 50-69 IN ALERT PATIENT Protocol Dextrose 25 gm 10/25/20 17:47 Dextrose 50%-Water 25 Gm/50 Ml Disp.Syrin IV 11/24/20 17:46 PRN PRN PER PROTOCOL Protocol Diphenhydramine HCl 25 mg 10/26/20 21:56 10/27/20 06:24 Diphenhydramine Hcl 25 Mg Capsule PO 11/25/20 21:55 25 mg Q6HP PRN Administration ITCHING Docusate Sodium 100 mg 10/25/20 10:00 10/27/20 17:05 Docusate Sodium 100 Mg Capsule PO 11/24/20 09:59 100 mg BID RAUL Administration Enoxaparin Sodium 40 mg 10/25/20 10:00 10/27/20 09:15 Enoxaparin Sodium Inj 40 Mg/0.4 Ml Disp.Syrin SUBCUT 11/24/20 09:59 40 mg DAILY RAUL Administration Glucagon 1 mg 10/25/20 17:47 Glucagon,Human Recomb 1 Mg Inj IM 11/24/20 17:46 PRN PRN Evaluate for BG < 70 Protocol Glucose 15 gm 10/25/20 17:47 Dextrose 40% Gel 15 Gm Tube PO 11/24/20 17:46 PRN PRN FOR BG 50-69 IN ALERT PATIENT Protocol Glucose 30 gm 10/25/20 17:47 Dextrose 40% Gel 15 Gm Tube PO 11/24/20 17:46 PRN PRN FOR BG < 50 IN ALERT PATIENT Protocol Insulin Human Lispro 0 - 12 unit 10/25/20 18:00 10/27/20 16:14 Insulin Lispro 100 Unit/Ml 3 Ml Vial SUBCUT 11/24/20 17:59 Not Given ACHS [facility] Protocol Discontinued Medications Generic Name Dose Route Start Last Admin Trade Name Freq PRN Reason Stop Dose Admin Acetaminophen 1,000 mg 10/25/20 00:00 Acetaminophen Inj/Pf 1000 Mg/100 Ml Sdv IV 10/28/20 00:00 Q6 RAUL Hydrocodone Bitart/Acetaminophen 1 tab 10/25/20 12:00 10/25/20 11:17 Hydrocodone/Acetaminophen 5-325 Mg Tablet PO 11/01/20 11:59 Not Given Q6 RAUL Hydrocodone Bitart/Acetaminophen 1 tab 10/25/20 11:19 10/25/20 22:00 Hydrocodone/Acetaminophen 5-325 Mg Tablet PO 11/01/20 11:18 1 tab Q6HP PRN Administration FOR PAIN Acetaminophen 1,000 mg in 100 mls @ 400 mls/hr 10/25/20 00:00 10/25/20 18:48 Ofirmev Inj/Pf 1000 Mg/100 Ml Sdv IV 10/28/20 00:00 Infused Q6 RAUL Infusion Acetaminophen Confirm 10/24/20 23:27 Ofirmev Inj/Pf 1000 Mg/100 Ml Sdv Administered 10/24/20 23:28 Dose 1,000 mg in 100 mls @ ud IV .STK-MED ONE Acetaminophen Confirm 10/25/20 18:23 10/25/20 18:39 Ofirmev Inj/Pf 1000 Mg/100 Ml Sdv Administered 10/25/20 18:24 Not Given Dose 3,000 mg in 300 mls @ ud IV .STK-MED ONE Lidocaine HCl Confirm 10/24/20 22:00 10/24/20 22:10 Lidocaine 2% Inj (20 Mg/Ml) 20 Ml Mdv Administered 10/24/20 22:01 20 ml Dose Administration 20 ml .ROUTE .STK-MED ONE Midazolam HCl 4 mg 10/24/20 22:02 10/24/20 22:08 Midazolam 2 Mg/2 Ml Inj IV 12/18/20 22:03 4 mg NOW ONE Administration PHYSICAL EXAMINATION: The patient is moderately obese. In no acute distress. Selected Entries 10/27/20 16:00 Temperature 98.1 F Temperature Oral Source Pulse Rate 71 Respiratory 20 Rate Blood Pressure 136/49 H Blood Pressure 78 Mean BP Location Left Arm BP Position Supine O2 Sat by Pulse 100 Oximetry Oxygen Flow 2.50 Rate Oxygen Delivery Nasal Cannula Method HEAD: Is atraumatic normocephalic. EYES: Pupils equal round regular reactive to light and accommodation. Extraocular movements are normal. There is no conjunctival pallor. There is no scleral icterus. NOSE: There is no deviated nasal septum. There is no inflammation nasal mucous membrane. EARS: Tympanic membranes are intact. External auditory canals are clear. MOUTH: There is no ulcers in the mouth. There is no bleeding from the gums. Mucous membranes of mouth are moist. THROAT: There is no redness of the oropharynx. There is no exudates. SKIN: There is no skin rashes. There is no skin lesions. There is no petechia or ecchymosis. NECK: Supple. There is no JVD. Carotids are equal there is no bruit. There is no lymphadenopathy. There is no goiter. There is no accessory muscles of respiration use. Trachea central. LUNGS: There is diminished air entry prolonged expiration. There is diminished breath sounds in the right side with scattered rhonchi. There is no rales of CHF. HEART: S1-S2 is heard. There is no S3 gallop. There is no S4 gallop. There is systolic murmur left sternal border and the apex there is no rub. ABDOMEN: Soft. Nontender there is no possible megaly. Bowel sounds are well heard. EXTREMITIES: Femorals are slightly diminished. Leg pulses well felt. There is no pedal edema. There is no DVT or cellulitis. There is no cyanosis or clubbing. HEAD CLEANING PORTER: The patient is conscious awake alert oriented x3 with no focal deficits. PSYCHIATRIC: The patient judgment and insight are intact. Her affect is normal. The patient is EKG shows sinus rhythm. Left ventricular hypertrophy. ECHOCARDIOGRAM.: The left ventricle is normal in size. There is normal left ventricular wall thickness. LV EF is Greater than 65% Left ventricular systolic function is normal. Doppler measurements suggest impaired left ventricular relaxation, which is associated with grade I/IV or mild diastolic dysfunction The left ventricular wall motion is normal. There is no thrombus. No ASD,VSD ,or PFO seen. The right ventricle is normal in size and function. The right atrium is normal. The left atrial size is normal. There is mild mitral annular calcification. There is no evidence of mitral valve prolapse. There is no vegetation seen on the mitral valve. There is no mitral valve stenosis. There is no mitral regurgitation noted. There is no aortic valvular vegetation. There is no aortic valve stenosis There is aortic sclerosis without aortic stenosis. There is no LVOT obstruction. No aortic regurgitation is present. There is no tricuspid stenosis. There is a trace amount of tricuspid regurgitation No significant Pulmonary Hypertension.RVSO is 27 to 32 mm of Hg , with RA mean of 0 to 5. There is no pulmonic valvular stenosis. There is no pulmonic valvular regurgitation. The aortic root is normal size. The inferior vena cava appeared small and collapsed with respiration (RAP 0-5 mmHg) There is no pericardial effusion. Labs- Entire Visit 10/24/20 10/24/20 10/24/20 18:28 18:28 18:28 WBC 14.8 H RBC 4.93 Hgb 12.5 Hct 39.8 MCV 81 MCH 25.4 L MCHC 31.4 L RDW 17.0 H Plt Count 338 Lymph % (Auto) 22.5 [place] % (Auto) 5.9 Eos % (Auto) 1.3 Baso % (Auto) 0.3 Absolute Neuts (auto) 10.4 H Absolute Lymphs (auto) 3.3 Absolute Monos (auto) 0.9 Absolute Eos (auto) 0.2 Absolute Basos (auto) 0.0 Seg Neutrophils % 70.0 PT INR APTT Sodium 140.6 Potassium 4.2 Chloride 103 Carbon Dioxide 27 Anion Gap 11 BUN 11 Creatinine 0.72 Est GFR ( Amer) > 60 Est GFR (MDRD) Non-Af > 60 Glucose 154 H POC Glucose Hemoglobin A1c % Calcium 10.0 Phosphorus Magnesium 1.5 L Total Bilirubin 0.6 Direct Bilirubin 0.2 Neonat Total Bilirubin Not Reportable Neonat Direct Bilirubin Not Reportable Neonat Indirect Bili Not Reportable AST 29 ALT 14 Alkaline Phosphatase 151 H Ammonia Creatine Kinase CK-MB (CK-2) Troponin I < 0.012 Total Protein 7.8 Albumin 4.2 Triglycerides Cholesterol LDL Cholesterol Direct VLDL Cholesterol HDL Cholesterol Amylase Lipase TSH Free T4 Urine Color Urine Appearance Urine pH Ur Specific [place] Urine Protein Urine Glucose (UA) Urine Ketones Urine Blood Urine Nitrite Urine Bilirubin Urine Urobilinogen Ur Leukocyte Esterase Urine WBC (Auto) Urine RBC (Auto) U Hyaline Cast (Auto) Urine Bacteria (Auto) Squamous Epi Cells Auto Urine Mucus (Auto) Urine Yeast (Budding) Urine Ascorbic Acid Urine Opiates Screen Urine Methadone Screen Ur Barbiturates Screen Ur Phencyclidine Scrn Ur Amphetamines Screen U Benzodiazepines Scrn Urine Cocaine Screen U Marijuana (THC) Screen COVID-19 Source COVID-19 ([place]) Influenza A (RT-PCR) Influenza B (RT-PCR) RSV (RT-PCR) SARS-CoV-2 Rap RNA(RT-PCR) 10/24/20 10/24/20 10/24/20 18:28 18:28 18:28 WBC RBC Hgb Hct MCV MCH MCHC RDW Plt Count Lymph % (Auto) [place] % (Auto) Eos % (Auto) Baso % (Auto) Absolute Neuts (auto) Absolute Lymphs (auto) Absolute Monos (auto) Absolute Eos (auto) Absolute Basos (auto) Seg Neutrophils % PT 13.7 INR 1.03 APTT 29.4 Sodium Potassium Chloride Carbon Dioxide Anion Gap BUN Creatinine Est GFR ( Amer) Est GFR (MDRD) Non-Af Glucose POC Glucose Hemoglobin A1c % Calcium Phosphorus 4.7 H Magnesium Cancelled Total Bilirubin Direct Bilirubin Neonat Total Bilirubin Neonat Direct Bilirubin Neonat Indirect Bili AST ALT Alkaline Phosphatase Ammonia Creatine Kinase CK-MB (CK-2) Troponin I Total Protein Albumin Triglycerides Cholesterol LDL Cholesterol Direct VLDL Cholesterol HDL Cholesterol Amylase 37 Lipase 91.9 TSH 0.03 L Free T4 1.79 Urine Color Urine Appearance Urine pH Ur Specific [place] Urine Protein Urine Glucose (UA) Urine Ketones Urine Blood Urine Nitrite Urine Bilirubin Urine Urobilinogen Ur Leukocyte Esterase Urine WBC (Auto) Urine RBC (Auto) U Hyaline Cast (Auto) Urine Bacteria (Auto) Squamous Epi Cells Auto Urine Mucus (Auto) Urine Yeast (Budding) Urine Ascorbic Acid Urine Opiates Screen Urine Methadone Screen Ur Barbiturates Screen Ur Phencyclidine Scrn Ur Amphetamines Screen U Benzodiazepines Scrn Urine Cocaine Screen U Marijuana (THC) Screen COVID-19 Source COVID-19 ([place]) Influenza A (RT-PCR) Influenza B (RT-PCR) RSV (RT-PCR) SARS-CoV-2 Rap RNA(RT-PCR) 10/24/20 10/24/20 10/24/20 20:10 20:10 23:44 WBC RBC Hgb Hct MCV MCH MCHC RDW Plt Count Lymph % (Auto) [place] % (Auto) Eos % (Auto) Baso % (Auto) Absolute Neuts (auto) Absolute Lymphs (auto) Absolute Monos (auto) Absolute Eos (auto) Absolute Basos (auto) Seg Neutrophils % PT 13.9 INR 1.05 APTT 26.7 Sodium Potassium Chloride Carbon Dioxide Anion Gap BUN Creatinine Est GFR ( Amer) Est GFR (MDRD) Non-Af Glucose POC Glucose Hemoglobin A1c % Calcium Phosphorus Magnesium Total Bilirubin Direct Bilirubin Neonat Total Bilirubin Neonat Direct Bilirubin Neonat Indirect Bili AST ALT Alkaline Phosphatase Ammonia Creatine Kinase CK-MB (CK-2) Troponin I Total Protein Albumin Triglycerides Cholesterol LDL Cholesterol Direct VLDL Cholesterol HDL Cholesterol Amylase Lipase TSH Free T4 Urine Color Urine Appearance Urine pH Ur Specific [place] Urine Protein Urine Glucose (UA) Urine Ketones Urine Blood Urine Nitrite Urine Bilirubin Urine Urobilinogen Ur Leukocyte Esterase Urine WBC (Auto) Urine RBC (Auto) U Hyaline Cast (Auto) Urine Bacteria (Auto) Squamous Epi Cells Auto Urine Mucus (Auto) Urine Yeast (Budding) Urine Ascorbic Acid Urine Opiates Screen Urine Methadone Screen Ur Barbiturates Screen Ur Phencyclidine Scrn Ur Amphetamines Screen U Benzodiazepines Scrn Urine Cocaine Screen U Marijuana (THC) Screen COVID-19 Source Cancelled COVID-19 ([place]) Cancelled Influenza A (RT-PCR) NEGATIVE Influenza B (RT-PCR) NEGATIVE RSV (RT-PCR) NEGATIVE SARS-CoV-2 Rap RNA(RT-PCR) NEGATIVE 10/24/20 10/24/20 10/24/20 23:44 23:44 23:44 WBC RBC Hgb Hct MCV MCH MCHC RDW Plt Count Lymph % (Auto) [place] % (Auto) Eos % (Auto) Baso % (Auto) Absolute Neuts (auto) Absolute Lymphs (auto) Absolute Monos (auto) Absolute Eos (auto) Absolute Basos (auto) Seg Neutrophils % PT INR APTT Sodium Potassium Chloride Carbon Dioxide Anion Gap BUN Creatinine Est GFR ( Amer) Est GFR (MDRD) Non-Af Glucose POC Glucose Hemoglobin A1c % Calcium Phosphorus Magnesium Total Bilirubin Direct Bilirubin Neonat Total Bilirubin Neonat Direct Bilirubin Neonat Indirect Bili AST ALT Alkaline Phosphatase Ammonia < 8.7 L Creatine Kinase 60 CK-MB (CK-2) 0.86 Troponin I < 0.012 Total Protein Albumin Triglycerides Cholesterol LDL Cholesterol Direct VLDL Cholesterol HDL Cholesterol Amylase Lipase TSH Free T4 Urine Color Urine Appearance Urine pH Ur Specific [place] Urine Protein Urine Glucose (UA) Urine Ketones Urine Blood Urine Nitrite Urine Bilirubin Urine Urobilinogen Ur Leukocyte Esterase Urine WBC (Auto) Urine RBC (Auto) U Hyaline Cast (Auto) Urine Bacteria (Auto) Squamous Epi Cells Auto Urine Mucus (Auto) Urine Yeast (Budding) Urine Ascorbic Acid Urine Opiates Screen Urine Methadone Screen Ur Barbiturates Screen Ur Phencyclidine Scrn Ur Amphetamines Screen U Benzodiazepines Scrn Urine Cocaine Screen U Marijuana (THC) Screen COVID-19 Source COVID-19 ([place]) Influenza A (RT-PCR) Influenza B (RT-PCR) RSV (RT-PCR) SARS-CoV-2 Rap RNA(RT-PCR) 10/25/20 10/25/20 10/25/20 03:41 03:41 06:07 WBC RBC Hgb Hct MCV MCH MCHC RDW Plt Count Lymph % (Auto) [place] % (Auto) Eos % (Auto) Baso % (Auto) Absolute Neuts (auto) Absolute Lymphs (auto) Absolute Monos (auto) Absolute Eos (auto) Absolute Basos (auto) Seg Neutrophils % PT INR APTT Sodium 141.1 Potassium 4.6 Chloride 106 Carbon Dioxide 28 Anion Gap 7 BUN 12 Creatinine 0.69 Est GFR ( Amer) > 60 Est GFR (MDRD) Non-Af > 60 Glucose 158 H POC Glucose Hemoglobin A1c % Calcium 9.2 Phosphorus Magnesium Total Bilirubin 0.6 Direct Bilirubin 0.3 Neonat Total Bilirubin Not Reportable Neonat Direct Bilirubin Not Reportable Neonat Indirect Bili Not Reportable AST 35 ALT 13 Alkaline Phosphatase 122 Ammonia Creatine Kinase 102 CK-MB (CK-2) Troponin I Total Protein 7.0 Albumin 3.6 Triglycerides 168 H Cholesterol 140.44 LDL Cholesterol Direct 72 VLDL Cholesterol 33.6 H HDL Cholesterol 36 L Amylase Lipase TSH Free T4 Urine Color RAMYA Urine Appearance SLIGHTLY-CLOUDY Urine pH 5.0 Ur Specific [place] 1.019 Urine Protein 30 H Urine Glucose (UA) NEGATIVE Urine Ketones NEGATIVE Urine Blood SMALL H Urine Nitrite NEGATIVE Urine Bilirubin NEGATIVE Urine Urobilinogen NEGATIVE Ur Leukocyte Esterase LARGE H Urine WBC (Auto) 144 Urine RBC (Auto) 31 U Hyaline Cast (Auto) 1 Urine Bacteria (Auto) TRACE Squamous Epi Cells Auto 3 Urine Mucus (Auto) RARE Urine Yeast (Budding) PRESENT Urine Ascorbic Acid NEGATIVE Urine Opiates Screen NEGATIVE Urine Methadone Screen NEGATIVE Ur Barbiturates Screen NEGATIVE Ur Phencyclidine Scrn NEGATIVE Ur Amphetamines Screen NEGATIVE U Benzodiazepines Scrn UNCONFIRMED POSITIVE Urine Cocaine Screen NEGATIVE U Marijuana (THC) Screen NEGATIVE COVID-19 Source COVID-19 ([place]) Influenza A (RT-PCR) Influenza B (RT-PCR) RSV (RT-PCR) SARS-CoV-2 Rap RNA(RT-PCR) 10/25/20 10/25/20 10/25/20 06:07 06:07 06:07 WBC 11.7 H RBC 4.58 Hgb 11.6 L Hct 37.2 MCV 81 MCH 25.3 L MCHC 31.2 L RDW 16.7 H Plt Count 224 Lymph % (Auto) 23.2 [place] % (Auto) 6.0 Eos % (Auto) 0.8 Baso % (Auto) 0.7 Absolute Neuts (auto) 8.1 Absolute Lymphs (auto) 2.7 Absolute Monos (auto) 0.7 Absolute Eos (auto) 0.1 Absolute Basos (auto) 0.1 Seg Neutrophils % 69.3 PT INR APTT Sodium Potassium Chloride Carbon Dioxide Anion Gap BUN Creatinine Est GFR ( Amer) Est GFR (MDRD) Non-Af Glucose POC Glucose Hemoglobin A1c % 6.5 H Calcium Phosphorus Magnesium Total Bilirubin Direct Bilirubin Neonat Total Bilirubin Neonat Direct Bilirubin Neonat Indirect Bili AST ALT Alkaline Phosphatase Ammonia Creatine Kinase CK-MB (CK-2) 1.10 Troponin I < 0.012 Total Protein Albumin Triglycerides Cholesterol LDL Cholesterol Direct VLDL Cholesterol HDL Cholesterol Amylase Lipase TSH Free T4 Urine Color Urine Appearance Urine pH Ur Specific [place] Urine Protein Urine Glucose (UA) Urine Ketones Urine Blood Urine Nitrite Urine Bilirubin Urine Urobilinogen Ur Leukocyte Esterase Urine WBC (Auto) Urine RBC (Auto) U Hyaline Cast (Auto) Urine Bacteria (Auto) Squamous Epi Cells Auto Urine Mucus (Auto) Urine Yeast (Budding) Urine Ascorbic Acid Urine Opiates Screen Urine Methadone Screen Ur Barbiturates Screen Ur Phencyclidine Scrn Ur Amphetamines Screen U Benzodiazepines Scrn Urine Cocaine Screen U Marijuana (THC) Screen COVID-19 Source COVID-19 ([place]) Influenza A (RT-PCR) Influenza B (RT-PCR) RSV (RT-PCR) SARS-CoV-2 Rap RNA(RT-PCR) 10/25/20 10/25/20 10/25/20 08:50 11:45 12:42 WBC RBC Hgb Hct MCV MCH MCHC RDW Plt Count Lymph % (Auto) [place] % (Auto) Eos % (Auto) Baso % (Auto) Absolute Neuts (auto) Absolute Lymphs (auto) Absolute Monos (auto) Absolute Eos (auto) Absolute Basos (auto) Seg Neutrophils % PT INR APTT Sodium Potassium Chloride Carbon Dioxide Anion Gap BUN Creatinine Est GFR ( Amer) Est GFR (MDRD) Non-Af Glucose POC Glucose 132 H 130 H Hemoglobin A1c % Calcium Phosphorus Magnesium Total Bilirubin Direct Bilirubin Neonat Total Bilirubin Neonat Direct Bilirubin Neonat Indirect Bili AST ALT Alkaline Phosphatase Ammonia Creatine Kinase 122 CK-MB (CK-2) Troponin I Total Protein Albumin Triglycerides Cholesterol LDL Cholesterol Direct VLDL Cholesterol HDL Cholesterol Amylase Lipase TSH Free T4 Urine Color Urine Appearance Urine pH Ur Specific [place] Urine Protein Urine Glucose (UA) Urine Ketones Urine Blood Urine Nitrite Urine Bilirubin Urine Urobilinogen Ur Leukocyte Esterase Urine WBC (Auto) Urine RBC (Auto) U Hyaline Cast (Auto) Urine Bacteria (Auto) Squamous Epi Cells Auto Urine Mucus (Auto) Urine Yeast (Budding) Urine Ascorbic Acid Urine Opiates Screen Urine Methadone Screen Ur Barbiturates Screen Ur Phencyclidine Scrn Ur Amphetamines Screen U Benzodiazepines Scrn Urine Cocaine Screen U Marijuana (THC) Screen COVID-19 Source COVID-19 ([place]) Influenza A (RT-PCR) Influenza B (RT-PCR) RSV (RT-PCR) SARS-CoV-2 Rap RNA(RT-PCR) 10/25/20 10/25/20 10/25/20 16:29 18:30 20:57 WBC RBC Hgb Hct MCV MCH MCHC RDW Plt Count Lymph % (Auto) [place] % (Auto) Eos % (Auto) Baso % (Auto) Absolute Neuts (auto) Absolute Lymphs (auto) Absolute Monos (auto) Absolute Eos (auto) Absolute Basos (auto) Seg Neutrophils % PT INR APTT Sodium Potassium Chloride Carbon Dioxide Anion Gap BUN Creatinine Est GFR ( Amer) Est GFR (MDRD) Non-Af Glucose POC Glucose 128 H 149 H Hemoglobin A1c % Calcium Phosphorus Magnesium Total Bilirubin Direct Bilirubin Neonat Total Bilirubin Neonat Direct Bilirubin Neonat Indirect Bili AST ALT Alkaline Phosphatase Ammonia Creatine Kinase CK-MB (CK-2) 0.75 Troponin I < 0.012 Total Protein Albumin Triglycerides Cholesterol LDL Cholesterol Direct VLDL Cholesterol HDL Cholesterol Amylase Lipase TSH Free T4 Urine Color Urine Appearance Urine pH Ur Specific [place] Urine Protein Urine Glucose (UA) Urine Ketones Urine Blood Urine Nitrite Urine Bilirubin Urine Urobilinogen Ur Leukocyte Esterase Urine WBC (Auto) Urine RBC (Auto) U Hyaline Cast (Auto) Urine Bacteria (Auto) Squamous Epi Cells Auto Urine Mucus (Auto) Urine Yeast (Budding) Urine Ascorbic Acid Urine Opiates Screen Urine Methadone Screen Ur Barbiturates Screen Ur Phencyclidine Scrn Ur Amphetamines Screen U Benzodiazepines Scrn Urine Cocaine Screen U Marijuana (THC) Screen COVID-19 Source COVID-19 ([place]) Influenza A (RT-PCR) Influenza B (RT-PCR) RSV (RT-PCR) SARS-CoV-2 Rap RNA(RT-PCR) 10/26/20 10/26/20 10/26/20 06:14 07:24 11:48 WBC 9.0 RBC 4.48 Hgb 11.6 L Hct 36.7 MCV 82 MCH 25.9 L MCHC 31.7 L RDW 16.9 H Plt Count 243 Lymph % (Auto) 24.7 [place] % (Auto) 7.6 Eos % (Auto) 4.3 Baso % (Auto) 0.9 Absolute Neuts (auto) 5.7 Absolute Lymphs (auto) 2.2 Absolute Monos (auto) 0.7 Absolute Eos (auto) 0.4 Absolute Basos (auto) 0.1 Seg Neutrophils % 62.5 PT INR APTT Sodium Potassium Chloride Carbon Dioxide Anion Gap BUN Creatinine Est GFR ( Amer) Est GFR (MDRD) Non-Af Glucose POC Glucose 147 H 164 H Hemoglobin A1c % Calcium Phosphorus Magnesium Total Bilirubin Direct Bilirubin Neonat Total Bilirubin Neonat Direct Bilirubin Neonat Indirect Bili AST ALT Alkaline Phosphatase Ammonia Creatine Kinase CK-MB (CK-2) Troponin I Total Protein Albumin Triglycerides Cholesterol LDL Cholesterol Direct VLDL Cholesterol HDL Cholesterol Amylase Lipase TSH Free T4 Urine Color Urine Appearance Urine pH Ur Specific [place] Urine Protein Urine Glucose (UA) Urine Ketones Urine Blood Urine Nitrite Urine Bilirubin Urine Urobilinogen Ur Leukocyte Esterase Urine WBC (Auto) Urine RBC (Auto) U Hyaline Cast (Auto) Urine Bacteria (Auto) Squamous Epi Cells Auto Urine Mucus (Auto) Urine Yeast (Budding) Urine Ascorbic Acid Urine Opiates Screen Urine Methadone Screen Ur Barbiturates Screen Ur Phencyclidine Scrn Ur Amphetamines Screen U Benzodiazepines Scrn Urine Cocaine Screen U Marijuana (THC) Screen COVID-19 Source COVID-19 ([place]) Influenza A (RT-PCR) Influenza B (RT-PCR) RSV (RT-PCR) SARS-CoV-2 Rap RNA(RT-PCR) 10/26/20 10/26/20 10/27/20 16:08 21:43 05:44 WBC 8.7 RBC 4.30 Hgb 11.2 L Hct 34.7 L MCV 81 MCH 26.1 L MCHC 32.3 RDW 16.8 H Plt Count 235 Lymph % (Auto) 30.4 [place] % (Auto) 7.7 Eos % (Auto) 4.9 Baso % (Auto) 0.9 Absolute Neuts (auto) 4.9 Absolute Lymphs (auto) 2.6 Absolute Monos (auto) 0.7 Absolute Eos (auto) 0.4 Absolute Basos (auto) 0.1 Seg Neutrophils % 56.1 PT INR APTT Sodium Potassium Chloride Carbon Dioxide Anion Gap BUN Creatinine Est GFR ( Amer) Est GFR (MDRD) Non-Af Glucose POC Glucose 167 H 125 H Hemoglobin A1c % Calcium Phosphorus Magnesium Total Bilirubin Direct Bilirubin Neonat Total Bilirubin Neonat Direct Bilirubin Neonat Indirect Bili AST ALT Alkaline Phosphatase Ammonia Creatine Kinase CK-MB (CK-2) Troponin I Total Protein Albumin Triglycerides Cholesterol LDL Cholesterol Direct VLDL Cholesterol HDL Cholesterol Amylase Lipase TSH Free T4 Urine Color Urine Appearance Urine pH Ur Specific [place] Urine Protein Urine Glucose (UA) Urine Ketones Urine Blood Urine Nitrite Urine Bilirubin Urine Urobilinogen Ur Leukocyte Esterase Urine WBC (Auto) Urine RBC (Auto) U Hyaline Cast (Auto) Urine Bacteria (Auto) Squamous Epi Cells Auto Urine Mucus (Auto) Urine Yeast (Budding) Urine Ascorbic Acid Urine Opiates Screen Urine Methadone Screen Ur Barbiturates Screen Ur Phencyclidine Scrn Ur Amphetamines Screen U Benzodiazepines Scrn Urine Cocaine Screen U Marijuana (THC) Screen COVID-19 Source COVID-19 ([place]) Influenza A (RT-PCR) Influenza B (RT-PCR) RSV (RT-PCR) SARS-CoV-2 Rap RNA(RT-PCR) 10/27/20 10/27/20 10/27/20 07:18 11:56 16:00 WBC RBC Hgb Hct MCV MCH MCHC RDW Plt Count Lymph % (Auto) [place] % (Auto) Eos % (Auto) Baso % (Auto) Absolute Neuts (auto) Absolute Lymphs (auto) Absolute Monos (auto) Absolute Eos (auto) Absolute Basos (auto) Seg Neutrophils % PT INR APTT Sodium Potassium Chloride Carbon Dioxide Anion Gap BUN Creatinine Est GFR ( Amer) Est GFR (MDRD) Non-Af Glucose POC Glucose 161 H 123 H 129 H Hemoglobin A1c % Calcium Phosphorus Magnesium Total Bilirubin Direct Bilirubin Neonat Total Bilirubin Neonat Direct Bilirubin Neonat Indirect Bili AST ALT Alkaline Phosphatase Ammonia Creatine Kinase CK-MB (CK-2) Troponin I Total Protein Albumin Triglycerides Cholesterol LDL Cholesterol Direct VLDL Cholesterol HDL Cholesterol Amylase Lipase TSH Free T4 Urine Color Urine Appearance Urine pH Ur Specific [place] Urine Protein Urine Glucose (UA) Urine Ketones Urine Blood Urine Nitrite Urine Bilirubin Urine Urobilinogen Ur Leukocyte Esterase Urine WBC (Auto) Urine RBC (Auto) U Hyaline Cast (Auto) Urine Bacteria (Auto) Squamous Epi Cells Auto Urine Mucus (Auto) Urine Yeast (Budding) Urine Ascorbic Acid Urine Opiates Screen Urine Methadone Screen Ur Barbiturates Screen Ur Phencyclidine Scrn Ur Amphetamines Screen U Benzodiazepines Scrn Urine Cocaine Screen U Marijuana (THC) Screen COVID-19 Source COVID-19 ([place]) Influenza A (RT-PCR) Influenza B (RT-PCR) RSV (RT-PCR) SARS-CoV-2 Rap RNA(RT-PCR) Chest X-Ray 10/24/20 00:00 IMPRESSION: Interval placement of right-sided chest tube with decreased size of right-sided pneumothorax, now small. Blunting of left costophrenic sulcus, suspicious for a trace pleural effusion. Chest X-Ray 10/24/20 17:09 IMPRESSION: Right sided pneumothorax. Chest X-Ray 10/25/20 07:34 IMPRESSION: STABLE RIGHT CHEST TUBE. NO PNEUMOTHORAX. CHRONIC INTERSTITIAL CHANGES. NO ACUTE RADIOGRAPHIC FINDING IN THE CHEST. IMPRESSION/RECOMMENDATION: 1. In the thorax with persistent air leak even after chest tube insertion. Patient for VATS procedure on Tuesday. 2. Clinically no evidence of coronary artery disease. 3. Diabetes mellitus type 2: Continue current antidiabetic regimen and Accu- Cheks as per protocol. 4. COPD with no evidence of acute exacerbation 5. Hypothyroidism: Continue replacement. 6. Preoperative cardiac risk assessment. THE PATIENT WILL BE AN ACCEPTABLE/LOW CARDIAC RISK FOR THIS VATS PROCEDURE. Medications reviewed. Medical regimen management plan discussed with Dr. Ochoa covering for Dr. Oliveira. Discussed with the surgical hist. Medical decision making is of high complexity. 60 minutes spent on this patient more than 50% time spent in direct patient care. Will follow
--- NOTE | 2020-10-27 21:01 | PDOC PROGRESS REPORT ---
Subjective Date:: 10/27/20 Subjective:: Patient seen by the bedside, she still continues to have air leak, the tentative plan is for patient to have VATS by end of the week. She was seen by Dr. Ramirez cardiology for cardiac evaluation before procedure Reason For Visit: TYPE 2 DIABETES,HYPERTENSION,PNEUMOTHORAX,RIGHT Physical Exam Vital Signs: Temp Pulse Resp BP Pulse Ox 98.1 F 76 20 136/49 H 100 10/27/20 16:00 10/27/20 19:00 10/27/20 16:00 10/27/20 16:00 10/27/20 16:00 Intake & Output 10/26/20 10/27/20 10/28/20 06:59 06:59 06:59 Intake Total 760 982 451 Output Total 878 260 Balance -118 722 451 Weight 88.8 kg 88.4 kg General appearance: PRESENT: no acute distress Eye exam: PRESENT: PERRLA Respiratory exam: PRESENT: clear to auscultation pranay Cardiovascular exam: PRESENT: +S1, +S2 GI/Abdominal exam: PRESENT: soft Neurological exam: PRESENT: alert Results Laboratory Results: 10/27/20 05:44 10/25/20 06:07 10/27/20 05:44 WBC 8.7 RBC 4.30 Hgb 11.2 L Hct 34.7 L MCV 81 MCH 26.1 L MCHC 32.3 RDW 16.8 H Plt Count 235 Seg Neutrophils % 56.1 10/24/20 10/24/20 10/24/20 18:28 23:44 23:44 Creatine Kinase 60 CK-MB (CK-2) 0.86 Troponin I < 0.012 < 0.012 10/25/20 10/25/20 10/25/20 06:07 06:07 11:45 Creatine Kinase 102 122 CK-MB (CK-2) 1.10 Troponin I < 0.012 10/25/20 18:30 Creatine Kinase CK-MB (CK-2) 0.75 Troponin I < 0.012 Impressions: Chest X-Ray 10/25/20 07:34 IMPRESSION: STABLE RIGHT CHEST TUBE. NO PNEUMOTHORAX. CHRONIC INTERSTITIAL CHANGES. NO ACUTE RADIOGRAPHIC FINDING IN THE CHEST. Assessment & Plan - Diagnosis (1) Pneumothorax Qualifiers: Pneumothorax type: spontaneous, secondary Qualified Code(s): J93.12 - Secondary spontaneous pneumothorax Is this a current diagnosis for this admission?: Yes Plan: Continue present treatment (2) Chronic obstructive pulmonary disease Qualifiers: COPD type: unspecified COPD Qualified Code(s): J44.9 - Chronic obstructive pulmonary disease, unspecified Is this a current diagnosis for this admission?: Yes Plan: Continue treatment (3) Type 2 diabetes mellitus Qualifiers: Diabetes mellitus moth exterminator insulin use: without moth exterminator use Diabetes mellitus complication status: with neurologic complications Diabetes mellitus complication detail: with polyneuropathy Qualified Code(s): E11.42 - Type 2 diabetes mellitus with diabetic polyneuropathy Is this a current diagnosis for this admission?: Yes Plan: Continue treatment - Time Time Spent with patient: 35 or more minutes Level of Care: IMCU Medications reviewed and adjusted accordingly: Yes Anticipated DC Timeframe: Other
[2020-10-28] MEDS: HYDROCODONE/ACETAMINOPHEN 5-325 MG TABLET PO PRN ×2 (00:56→15:01)
[2020-10-28] MEDS: DIPHENHYDRAMINE HCL 25 MG CAPSULE PO PRN ×2 (01:51→15:02)
--- NOTE | 2020-10-28 09:08 | RADIOLOGY REPORT (SQ) ---
EXAM DESCRIPTION: CT CHEST WITH IMAGES COMPLETED DATE/TIME: 10/27/2020 11:35 pm REASON FOR STUDY: Define extent of COPD COMPARISON: Chest x-ray dated 10/25/2020. Chest CT dated 04/16/2020. TECHNIQUE: CT scan of the chest performed using helical scanning technique with dynamic intravenous contrast injection. Images reviewed with lung, soft tissue and bone windows. Reconstructed coronal and sagittal MPR and MIP images reviewed. All images stored on PACS. All CT scanners at this facility use dose modulation, iterative reconstruction, and/or weight based d osing when appropriate to reduce radiation dose to as low as reasonably achievable (ALARA). [facility]: Dose Right [facility]: CareDose [facility]: Dose Right [facility]: Teradose 4D [facility]: [employer] CONTRAST TYPE AND DOSE: contrast/concentration: Isovue 350.00 mmol/ml; Total Contrast Delivered: 80. 0 ml; Total Saline Delivered: 55.0 ml RENAL FUNCTION: BUN 12 creatinine 0.69. RADIATION DOSE: CT Rad equipment meets quality standard of care and radiation dose reduction techniq ues were employed. CTDIvol: 27.4 mGy. DLP: 1014 mGy-cm. . LIMITATIONS: None. FINDINGS: LUNGS AND PLEURA: Diffuse emphysematous changes, particularly in the upper lobes. A few b kenan in the right lower lobe. Chronic parenchymal scarring. No lobar infiltrates. Less than 10% pn eumothorax on the right with right chest tube. No pleural effusion. HILAR AND MEDIASTINAL STRUCTURES: No identified masses or abnormal nodes. HEART AND VASCULAR STRUCTURES: No aneurysm or dissection. No central pulmonary emboli. No pericardi al effusion. HARDWARE: Right chest tube. UPPER ABDOMEN: No significant findings. Limited exam. THYROID AND OTHER SOFT TISSUES: No masses. No adenopathy. Some subcutaneous emphysema in the right chest wall. BONES: No significant finding. OTHER: No other significant finding. IMPRESSION: RIGHT CHEST TUBE WITH LESS THAN 10% PNEUMOTHORAX. CHRONIC DIFFUSE EMPHYSEMATOUS CHANGES WITH PARENCHYMAL SCARRING. NO APPARENT ACUTE FINDINGS. TECHNICAL DOCUMENTATION: JOB ID: [id number] Quality ID # [id number]: Final reports with documentation of one or more dose reduction techniques (e.g., Au tomated exposure control, adjustment of the mA and/or kV according to patient size, use of iterative reconstruction technique) 2010 [employer]- All Rights Reserved Reading location - IP/workstation name: [email or web address]
[2020-10-28] MEDS: INSULIN LISPRO 100 UNIT/ML 3 ML VIAL SUBCUT SCH ×4 (10:27→21:37)
[2020-10-28] MEDS: ENOXAPARIN SODIUM INJ 40 MG/0.4 ML DISP.SYRIN SUBCUT SCH (10:35)
[2020-10-28] MEDS: DOCUSATE SODIUM 100 MG CAPSULE PO SCH ×2 (10:36→18:14)
--- NOTE | 2020-10-28 11:19 | PDOC PROGRESS REPORT ---
Subjective Date:: 10/28/20 Subjective:: 75-year-old female admitted with a spontaneous pneumothorax that is recurrent. The patient underwent tube thoracostomy. She denies any chest pain, shortness of breath, fevers, chills, nausea, vomiting, dizziness, orthostasis. Reason For Visit: TYPE 2 DIABETES,HYPERTENSION,PNEUMOTHORAX,RIGHT Physical Exam Vital Signs: Temp Pulse Resp BP Pulse Ox 97.4 F 67 20 118/65 100 10/28/20 07:43 10/28/20 07:43 10/28/20 07:43 10/28/20 07:43 10/28/20 07:43 Intake & Output 10/27/20 10/28/20 10/29/20 06:59 06:59 06:59 Intake Total 982 451 Output Total 282 26 Balance 700 425 Weight 88.4 kg 84.9 kg General appearance: PRESENT: no acute distress, cooperative, obese Head exam: PRESENT: atraumatic, normocephalic Eye exam: PRESENT: EOMI, PERRLA. ABSENT: scleral icterus Mouth exam: PRESENT: moist, neck supple Neck exam: ABSENT: meningismus, tenderness, thyromegaly, tracheal deviation Respiratory exam: PRESENT: unlabored, other - Tube thoracostomy in place. Slow, persistent air leak is present.. ABSENT: tachypnea, wheezes Cardiovascular exam: ABSENT: tachycardia GI/Abdominal exam: PRESENT: soft. ABSENT: distended, tenderness Rectal exam: PRESENT: deferred Extremities exam: ABSENT: clubbing Musculoskeletal exam: ABSENT: deformity Neurological exam: PRESENT: alert, awake. ABSENT: oriented to person, oriented to place, oriented to time, oriented to situation, CN II-XII grossly intact Psychiatric exam: ABSENT: agitated, anxious, depressed Focused psych exam: ABSENT: delusional Skin exam: ABSENT: cyanosis, erythema, jaundice Results Laboratory Results: 10/27/20 05:44 10/25/20 06:07 10/24/20 10/24/20 10/24/20 18:28 23:44 23:44 Creatine Kinase 60 CK-MB (CK-2) 0.86 Troponin I < 0.012 < 0.012 10/25/20 10/25/20 10/25/20 06:07 06:07 11:45 Creatine Kinase 102 122 CK-MB (CK-2) 1.10 Troponin I < 0.012 10/25/20 18:30 Creatine Kinase CK-MB (CK-2) 0.75 Troponin I < 0.012 Impressions: Chest X-Ray 10/25/20 07:34 IMPRESSION: STABLE RIGHT CHEST TUBE. NO PNEUMOTHORAX. CHRONIC INTERSTITIAL CHANGES. NO ACUTE RADIOGRAPHIC FINDING IN THE CHEST. Chest CT 10/27/20 09:38 IMPRESSION: RIGHT CHEST TUBE WITH LESS THAN 10% PNEUMOTHORAX. CHRONIC DIFFUSE EMPHYSEMATOUS CHANGES WITH PARENCHYMAL SCARRING. NO APPARENT ACUTE FINDINGS. Assessment & Plan - Diagnosis (1) Pneumothorax on right Is this a current diagnosis for this admission?: Yes - Time Anticipated Discharge Disposition: Unknown Anticipated Discharge Timeframe: Unknown - Plan Summary Plan Summary: 75-year-old female with a spontaneous pneumothorax. This is the second occurrence of her pneumothorax in the last month. She continues to have a persistent air leak. In light of the recurrent nature of the pneumothorax and the persistence of her airleak, the next most reasonable step is pleurodesis. Plan for VATS with pleurodesis tomorrow. This has been discussed with the patient at length. Risks/benefits discussed, informed consent obtained, and all questions answered.
--- NOTE | 2020-10-28 18:48 | Progress Note ---
Provider Note Provider Note: CARDIOLOGY PROGRESS NOTE by Dr. Arely Ortiz on 10/28/2020. SUBJECTIVE: The patient denies any chest pain discomfort. Shortness of breath is stable. There is no PND or orthopnea. There is no anginal symptoms. There is no palpitations near syncope syncope. There is no arrhythmias seen on the monitor. PHYSICAL EXAMINATION: The patient is moderately obese in no acute distress. Selected Entries 10/28/20 16:09 Temperature 98.0 F Temperature Oral Source Pulse Rate 72 Respiratory 18 Rate Blood Pressure 133/53 H Blood Pressure 79 Mean BP Location Right Arm BP Position Supine O2 Sat by Pulse 100 Oximetry Oxygen Flow 3.00 Rate Oxygen Delivery Nasal Cannula Method HEAD: Is atraumatic normocephalic. EYES: Pupils equal round regular reactive to light and accommodation. Extraocular movements are normal. There is no conjunctival pallor. There is no scleral icterus. NOSE: There is no deviated nasal septum. There is no inflammation nasal mucous membrane. EARS: Tympanic membranes are intact. External auditory canals are clear. MOUTH: There is no ulcers in the mouth. There is no bleeding from the gums. Mucous membranes of mouth are moist. THROAT: There is no redness of the oropharynx. There is no exudates. SKIN: There is no skin rashes. There is no skin lesions. There is no petechia or ecchymosis. NECK: Supple. There is no JVD. Carotids are equal there is no bruit. There is no lymphadenopathy. There is no goiter. There is no accessory muscles of respiration use. Trachea central. LUNGS: There is diminished air entry prolonged expiration. There is diminished breath sounds in the right side with scattered rhonchi. There is no rales of CHF. HEART: S1-S2 is heard. There is no S3 gallop. There is no S4 gallop. There is systolic murmur left sternal border and the apex there is no rub. ABDOMEN: Soft. Nontender there is no possible megaly. Bowel sounds are well heard. EXTREMITIES: Femorals are slightly diminished. Leg pulses well felt. There is no pedal edema. There is no DVT or cellulitis. There is no cyanosis or clubbing. STITCH CLEANER: The patient is conscious awake alert oriented x3 with no focal deficits. PSYCHIATRIC: The patient judgment and insight are intact. Her affect is normal. Labs- All tests 24 hr 10/27/20 10/28/20 10/28/20 21:04 07:58 12:52 POC Glucose 126 H 129 H 186 H 10/28/20 16:10 POC Glucose 141 H Chest X-Ray 10/24/20 00:00 IMPRESSION: Interval placement of right-sided chest tube with decreased size of right-sided pneumothorax, now small. Blunting of left costophrenic sulcus, suspicious for a trace pleural effusion. Chest X-Ray 10/24/20 17:09 IMPRESSION: Right sided pneumothorax. Chest X-Ray 10/25/20 07:34 IMPRESSION: STABLE RIGHT CHEST TUBE. NO PNEUMOTHORAX. CHRONIC INTERSTITIAL CHANGES. NO ACUTE RADIOGRAPHIC FINDING IN THE CHEST. Chest CT 10/27/20 09:38 IMPRESSION: RIGHT CHEST TUBE WITH LESS THAN 10% PNEUMOTHORAX. CHRONIC DIFFUSE EMPHYSEMATOUS CHANGES WITH PARENCHYMAL SCARRING. NO APPARENT ACUTE FINDINGS. IMPRESSION/RECOMMENDATION: 1. Right pneumothorax, s/p chest tube insertion in the thorax with persistent air leak even after chest tube insertion. Patient for VATS procedure on Tuesday. 2. Clinically no evidence of coronary artery disease. 3. Diabetes mellitus type 2: Continue current antidiabetic regimen and Accu- Cheks as per protocol. 4. COPD with no evidence of acute exacerbation 5. Hypothyroidism: Continue replacement. 6. Preoperative cardiac risk assessment. THE PATIENT WILL BE AN ACCEPTABLE/LOW CARDIAC RISK FOR THIS VATS PROCEDURE. Patient awaiting VATS pleurodesis tomorrow. Medical decision making is of moderate complexity. Medical medications reviewed. Medical regimen and management plan discussed with attending provider on the case. 40 minutes spent as patient more than 50% time spent in direct patient care. Will follow.
--- NOTE | 2020-10-28 20:21 | PDOC PROGRESS REPORT ---
Subjective Date:: 10/28/20 Subjective:: Patient seen by the bedside, scheduled for VATS procedure tomorrow, no new kelly rns presently Reason For Visit: TYPE 2 DIABETES,HYPERTENSION,PNEUMOTHORAX,RIGHT Physical Exam Vital Signs: Temp Pulse Resp BP Pulse Ox 98.0 F 94 18 133/53 H 100 10/28/20 16:09 10/28/20 19:00 10/28/20 16:09 10/28/20 16:09 10/28/20 16:09 Intake & Output 10/27/20 10/28/20 10/29/20 06:59 06:59 06:59 Intake Total 982 451 510 Output Total 282 26 Balance 700 425 510 Weight 88.4 kg 84.9 kg General appearance: PRESENT: no acute distress Eye exam: PRESENT: PERRLA Respiratory exam: PRESENT: clear to auscultation pranay Cardiovascular exam: PRESENT: +S1, +S2 GI/Abdominal exam: PRESENT: soft Neurological exam: PRESENT: alert Results Laboratory Results: 10/27/20 05:44 10/25/20 06:07 10/24/20 10/24/20 10/24/20 18:28 23:44 23:44 Creatine Kinase 60 CK-MB (CK-2) 0.86 Troponin I < 0.012 < 0.012 10/25/20 10/25/20 10/25/20 06:07 06:07 11:45 Creatine Kinase 102 122 CK-MB (CK-2) 1.10 Troponin I < 0.012 10/25/20 18:30 Creatine Kinase CK-MB (CK-2) 0.75 Troponin I < 0.012 Impressions: Chest X-Ray 10/25/20 07:34 IMPRESSION: STABLE RIGHT CHEST TUBE. NO PNEUMOTHORAX. CHRONIC INTERSTITIAL CHANGES. NO ACUTE RADIOGRAPHIC FINDING IN THE CHEST. Chest CT 10/27/20 09:38 IMPRESSION: RIGHT CHEST TUBE WITH LESS THAN 10% PNEUMOTHORAX. CHRONIC DIFFUSE EMPHYSEMATOUS CHANGES WITH PARENCHYMAL SCARRING. NO APPARENT ACUTE FINDINGS. Assessment & Plan - Diagnosis (1) Pneumothorax Qualifiers: Pneumothorax type: spontaneous, secondary Qualified Code(s): J93.12 - Secondary spontaneous pneumothorax Is this a current diagnosis for this admission?: Yes Plan: Continue present treatment (2) Chronic obstructive pulmonary disease Qualifiers: COPD type: unspecified COPD Qualified Code(s): J44.9 - Chronic obstructive pulmonary disease, unspecified Is this a current diagnosis for this admission?: Yes Plan: Continue treatment (3) Type 2 diabetes mellitus Qualifiers: Diabetes mellitus rodent exterminator insulin use: without assisted use Diabetes mellitus complication status: with neurologic complications Diabetes mellitus complication detail: with polyneuropathy Qualified Code(s): E11.42 - Type 2 diabetes mellitus with diabetic polyneuropathy Is this a current diagnosis for this admission?: Yes - Time Time Spent with patient: 25-34 minutes Level of Care: MEDICAL Medications reviewed and adjusted accordingly: Yes Anticipated discharge: Home - Inpatient Certification Based on my medical assessment, after consideration of the patient's comorbidities, presenting symptoms, or acuity I expect that the services needed warrant INPATIENT care.: Yes I certify that my determination is in accordance with my understanding of Medicare's requirements for reasonable and necessary INPATIENT services [42 CFR 412.3e].: Yes
[2020-10-29] MEDS ORDERED: EPHEDRINE SULFATE INJ 50 MG/1 ML AMPULE ONE (06:49)
[2020-10-29] MEDS ORDERED: MIDAZOLAM 2 MG/2 ML INJ ONE (06:49)
[2020-10-29] MEDS ORDERED: FENTANYL CITRATE INJ/PF 100 MCG/2 ML AMPUL ONE (06:49)
[2020-10-29] MEDS ORDERED: MORPHINE SULFATE 10 MG/ML INJ ONE (06:49)
[2020-10-29] MEDS ORDERED: SUGAMMADEX SODIUM 200 MG/2 ML SDV IV ONE (06:50)
[2020-10-29] MEDS ORDERED: PROPOFOL INJ 200 MG/20 ML VIAL IV ONE (06:50)
[2020-10-29] MEDS ORDERED: LIDOCAINE 2% INJ (20 MG/ML) 20 ML MDV ONE (06:52)
[2020-10-29] MEDS ORDERED: BUPIVACAINE HCL 0.25 % INJ/PF (2.5 MG/1 ML) 30 ML VIAL ONE (07:12)
[2020-10-29] MEDS ORDERED: LIDOCAINE 0.5% INJ-PF (5 MG/ML) 50 ML SDV ONE (07:12)
[2020-10-29] MEDS: INSULIN LISPRO 100 UNIT/ML 3 ML VIAL SUBCUT SCH ×4 (08:05→21:09)
[2020-10-29] MEDS ORDERED: CEFAZOLIN INJ 1 GM VIAL ONE (08:12)
[2020-10-29] MEDS ORDERED: FENTANYL CITRATE INJ/PF 100 MCG/2 ML AMPUL IV PRN ×3 (08:58)
[2020-10-29] MEDS ORDERED: MORPHINE SULFATE 10 MG/ML INJ IV PRN (08:58)
[2020-10-29] MEDS ORDERED: DIPHENHYDRAMINE HCL 50 MG/ML VIAL IV PRN (08:58)
[2020-10-29] MEDS ORDERED: PROMETHAZINE HCL INJ 25 MG/1 ML VIAL IV PRN (08:58)
[2020-10-29] MEDS ORDERED: MEPERIDINE HCL/PF INJ 25 MG/1 ML DISP.SYRIN IV PRN (08:58)
[2020-10-29] MEDS: DOCUSATE SODIUM 100 MG CAPSULE PO SCH ×2 (10:14→17:42)
--- NOTE | 2020-10-29 10:29 | Operative Report ---
Operative Report DATE OF SURGERY: 10/29/20 PREOPERATIVE DIAGNOSIS: 1. Persisting air leak status post right thoracostomy tube placement for spontaneous pneumothorax. 2. COPD. 3. Diabetes mellitus POSTOPERATIVE DIAGNOSIS: Same with intrathoracic adhesions and moderate to severe bullous emphysema OPERATION: 1. Right thoracoscopic evaluation, lysis of adhesions. 2. Stapled release of right lower lobe chest wall. 3. Mechanical pleurodesis. 4. Placement of chest tubes x2 right chest SURGEON: BEHZAD BASS PHARMACEUTICAL ENGINEER: ALEKSANDRA DIANE ANESTHESIA: GA TISSUE REMOVED OR ALTERED: None COMPLICATIONS: None ESTIMATED BLOOD LOSS: Minimal INTRAOPERATIVE FINDINGS: See below PROCEDURE: Patient for procedure: The patient is a 75-year-old white female, diabetic, obese, remote history of smoking, with COPD, bullous emphysematous disease. Patient is 1 month status post right thoracostomy tube placement in [place] for spontaneous pneumothorax. After 5-day hospitalization, chest tube removed uneventfully. 3 weeks later patient presented to [facility] emergency department where she was found to have a recurrent right pneumothorax. She had a right 28 [place] thoracostomy tube placed with near complete reexpansion of the lung, however she continued to have an air leak. Covid test negative. CT scan of the chest revealed bilateral emphysematous disease with extensive plaque involving bilateral upper lobe apices., no evidence of malignancy. The patient was felt to be an appropriate candidate for VATS procedure, possible blebectomy, mechanical pleurodesis. The details of the operation, as well as expectations postoperatively were discussed with the patient. She expressed her understanding and agreed to proceed. The patient was taken from the preoperative holding area to the main operating room where general endotracheal intubation was performed using a dual-lumen endotracheal tube, 41 cm in length. Right and left lung ventilation was confirmed individually with the patient in the supine position. Tube was secure d, then the patient was placed in the left lateral cubitus position, right side up, pillow under the left axilla, and left arm abducted anteriorly. Auscultation, ventilation and oxygenation again confirmed to be satisfactory with patient in the lateral position. The right chest, laterally, anteriorly and posteriorly was prepped and draped sterile fashion. Of note the previously placed chest tube was amputated approximately 8 cm from the exit site, and prepped into the field. Surgical plan surgical timeout were conducted. Markings were made on the skin for 3 port thoracoscopy. The distinct chest tube site was essentially in the patient's superior lateral aspect of the right breast, and to medial to be functional for thoracoscopy. The first site was in the ICS 4-5 position in the anterior axillary line. Skin was excised 1% plain lidocaine, incision made with a 15 blade, and a 5 mm laparoscopic port was inserted into the right chest. We are able to visualize now with a 5 degree viewing scope, flexible, the previously placed chest tube which was removed in its entirety. It was in fact very anterior. Under visualization, we placed 2 additional 5 mm ports, one in the air lateral chest, in the midaxillary line, at approximately ICS 9-10. The third port was placed in the posterior subscapular position approximately ICS 5. Visualization of the chest revealed the right upper, middle and lower lobes all to be satisfactorily decompressed. In fact at the case, the ventilation expansion, and compression of the right lung was outstanding. Patient had no problems maintaining her saturations throughout the course. There were several adhesions between the lower aspect of the right upper lobe along the fissure, and the lateral chest wall. These were taken down with the h armonic scalpel. There was no parenchymal complement in the separation. This enabled us to visualize the right upper lobe in its entirety. Photographs were taken. The lung was diseased, however there were no obvious thin cysts, with rupture, or visible leak. There was a portion of the right lower lobe adhesed to the lateral chest wall. It covered several centimeters of tissue. Photos were taken. I elected to divide this point of attachment with a single firing of the Endo DEONDRE stapler, 45 mm, blue load. Once this was accomplished, the lobe lower lobe was released from the chest wall. We were now able to visualize all 3 lobes. They were all collapse satisfactorily. We inspected the anterior, and lateral aspects of the right hilum and there was only a small cystic bleb along the midportion of the major fissure. We now fill the right chest with a saline, and reexpanded the right lung carefully, looking for any significant air leaking and we could not identify a definitive source. All 3 lobes expanded nicely. I did not feel a right upper lobe wedge resection was indicated as there was no active leaking at this time. The right lung was decompressed again, and we proceeded with mechanical pleurodesis using thinly cut strips of Bovie pads. Were fixed to laparoscopic graspers. We worked in a circumferential fashion, using all 3 ports for access to the entire right hemithorax. This proceeded uneventfully. There were multiple areas where the pleura was frankly stripped. Bleeding fortunately was minimal. Once this was accomplished, we brought onto the field to 28 [place] chest tubes one hard and one soft. Additional sideholes were cut in the stiff chest tube, and the soft chest tube was truncated by approximately 5 cm. Chest tube was threaded into the chest through the anterior axillary port with its tip in the apex. It was secured to the skin with multiple 2-0 Prolene sutures. The posterior chest tube was placed through the midaxillary port site, and s ecured into position with 2-0 Prolene suture, with the sideholes sufficiently in the chest. We now visualized the reexpansion of the lung by anesthesia. The lung came up nicely, demonstrating retention of the chest tubes in their intended positions. Chest tubes were hooked up to Pleur-evac's, waterseal only. Serial chest tube demonstrated an air leak with evacuation of serosanguineous fluid 150 cc. The anterior tube showed no evidence of leak. Patient was placed in supine position, successfully extubated, taken recovery in stable condition. Again patient maintained excellent saturations throughout the entire course. She was ventilating and oxygenating on the way to the recovery room. Portable upright chest x-ray pending at time dictation. The physician fleet assistant, Ms. Bush, provided assistance during this case by: Assisting with retracting tissue, instillation of local anesthesia and closure of skin incisions.
--- NOTE | 2020-10-29 10:44 | RADIOLOGY REPORT (SQ) ---
EXAM DESCRIPTION: CHEST SINGLE VIEW IMAGES COMPLETED DATE/TIME: 10/29/2020 10:25 am REASON FOR STUDY: chest tube placement COMPARISON: 10/25/2020 EXAM PARAMETERS: NUMBER OF VIEWS: One view. TECHNIQUE: Single frontal radiographic view of the chest acquired. RADIATION DOSE: NA LIMITATIONS: None. FINDINGS: LUNGS AND PLEURA: There is a large right-sided pneumothorax. A single large-bore right-si ded chest tubes in place. There is a 2nd large-bore chest tube overlying the subcutaneous tissue of the right hemithorax. There is subcutaneous emphysema. Minimal right basilar airspace disease proba janelle atelectasis. MEDIASTINUM AND HILAR STRUCTURES: No masses. Contour normal. HEART AND VASCULAR STRUCTURES: Heart normal in size. Normal vasculature. BONES: No acute findings. HARDWARE: None in the chest. OTHER: No other significant finding. IMPRESSION: Increasing right-sided pneumothorax. Large-bore right-sided chest tube remains in place . A 2nd tube overlies the subcutaneous tissue of the right hemithorax. There is increasing subcutan eous emphysema as well. TECHNICAL DOCUMENTATION: JOB ID: [id number] 2010 [employer]- All Rights Reserved Reading location - IP/workstation name: [email or web address]
[2020-10-29] MEDS ORDERED: DEXAMETHASONE SOD PHOSPHATE INJ 4 MG/1 ML VIAL ONE (11:24)
[2020-10-29] MEDS ORDERED: ROCURONIUM BROMIDE INJ 50 MG/5 ML VIAL IV ONE (11:24)
[2020-10-29] MEDS ORDERED: ONDANSETRON HCL INJ/PF 4 MG/2 ML SDV ONE (11:24)
[2020-10-29] MEDS ORDERED: SUCCINYLCHOLINE CHLORIDE INJ 200 MG/10 ML VIAL ONE (11:24)
[2020-10-29] MEDS ORDERED: METOCLOPRAMIDE HCL INJ/PF 10 MG/2 ML SDV ONE (11:24)
--- NOTE | 2020-10-29 12:10 | RADIOLOGY REPORT (SQ) ---
EXAM DESCRIPTION: CHEST SINGLE VIEW IMAGES COMPLETED DATE/TIME: 10/29/2020 12:00 pm REASON FOR STUDY: CHEST TUBE REMOVAL COMPARISON: Earlier the same day. EXAM PARAMETERS: NUMBER OF VIEWS: One view. TECHNIQUE: Single frontal radiographic view of the chest acquired. RADIATION DOSE: NA LIMITATIONS: None. FINDINGS: LUNGS AND PLEURA: Large-bore right-sided chest tube remains in place. Small right apical pneumothorax remains but is improved. The chest tube lying in the subcutaneous tissues of the right hemithorax has been removed. Persistent right basilar airspace disease MEDIASTINUM AND HILAR STRUCTURES: No masses. Contour normal. HEART AND VASCULAR STRUCTURES: Heart normal in size. Normal vasculature. BONES: No acute findings. HARDWARE: None in the chest. OTHER: No other significant finding. IMPRESSION: Small right apical pneumothorax. This is significantly improved from the earlier film. Other changes as described. TECHNICAL DOCUMENTATION: JOB ID: [id number] 2010 [employer]- All Rights Reserved Reading location - IP/workstation name: [email or web address]
[2020-10-29] MEDS: HYDROCODONE/ACETAMINOPHEN 5-325 MG TABLET PO PRN (13:09)
[2020-10-29] MEDS: DIPHENHYDRAMINE HCL 25 MG CAPSULE PO PRN (13:09)
[2020-10-29] MEDS ORDERED: ACETAMINOPHEN INJ/PF 1000 MG/100 ML SDV IV SCH (16:00)
[2020-10-29] MEDS: ACETAMINOPHEN 1,000 MG/100 ML RTUPB IV SCH ×2 (17:16→23:25)
--- NOTE | 2020-10-29 20:18 | PDOC PROGRESS REPORT ---
Subjective Date:: 10/29/20 Subjective:: Patient had VATS done today, she said she feels better with breathing Reason For Visit: TYPE 2 DIABETES,HYPERTENSION,PNEUMOTHORAX,RIGHT Physical Exam Vital Signs: Temp Pulse Resp BP Pulse Ox 98.3 F 76 22 H 115/49 L 99 10/29/20 16:04 10/29/20 16:04 10/29/20 16:04 10/29/20 16:04 10/29/20 16:04 Intake & Output 10/28/20 10/29/20 10/30/20 06:59 06:59 06:59 Intake Total 670 357 2973 Output Total 26 1670 Balance 087 604 1405 Weight 84.9 kg 78.9 kg General appearance: PRESENT: no acute distress Eye exam: PRESENT: PERRLA Respiratory exam: PRESENT: clear to auscultation pranay Cardiovascular exam: PRESENT: +S1, +S2 GI/Abdominal exam: PRESENT: soft Neurological exam: PRESENT: alert Results Laboratory Results: 10/27/20 05:44 10/25/20 06:07 10/24/20 10/24/20 10/24/20 18:28 23:44 23:44 Creatine Kinase 60 CK-MB (CK-2) 0.86 Troponin I < 0.012 < 0.012 10/25/20 10/25/20 10/25/20 06:07 06:07 11:45 Creatine Kinase 102 122 CK-MB (CK-2) 1.10 Troponin I < 0.012 10/25/20 18:30 Creatine Kinase CK-MB (CK-2) 0.75 Troponin I < 0.012 Impressions: Chest CT 10/27/20 09:38 IMPRESSION: RIGHT CHEST TUBE WITH LESS THAN 10% PNEUMOTHORAX. CHRONIC DIFFUSE EMPHYSEMATOUS CHANGES WITH PARENCHYMAL SCARRING. NO APPARENT ACUTE FINDINGS. Chest X-Ray 10/29/20 00:00 IMPRESSION: Small right apical pneumothorax. This is significantly improved from the earlier film. Other changes as described. Assessment & Plan - Diagnosis (1) Pneumothorax Qualifiers: Pneumothorax type: spontaneous, secondary Qualified Code(s): J93.12 - Secondary spontaneous pneumothorax Is this a current diagnosis for this admission?: Yes Plan: Continue present treatment (2) Chronic obstructive pulmonary disease Qualifiers: COPD type: unspecified COPD Qualified Code(s): J44.9 - Chronic obstructive pulmonary disease, unspecified Is this a current diagnosis for this admission?: Yes (3) Type 2 diabetes mellitus Qualifiers: Diabetes mellitus residential insulin use: without terminologist use Diabetes mellitus complication status: with neurologic complications Diabetes mellitus complication detail: with polyneuropathy Qualified Code(s): E11.42 - Type 2 diabetes mellitus with diabetic polyneuropathy Is this a current diagnosis for this admission?: Yes - Time Time Spent with patient: 35 or more minutes Level of Care: IMCU Anticipated DC Timeframe: Other
[2020-10-30] MEDS: ACETAMINOPHEN 1,000 MG/100 ML RTUPB IV SCH ×4 (05:36→23:41)
[2020-10-30] MEDS: HYDROCODONE/ACETAMINOPHEN 5-325 MG TABLET PO PRN (05:40)
[2020-10-30] MEDS: DIPHENHYDRAMINE HCL 25 MG CAPSULE PO PRN (05:40)
[2020-10-30] MEDS: INSULIN LISPRO 100 UNIT/ML 3 ML VIAL SUBCUT SCH ×4 (07:46→21:56)
[2020-10-30] MEDS: DOCUSATE SODIUM 100 MG CAPSULE PO SCH ×2 (09:56→17:14)
--- NOTE | 2020-10-30 14:20 | RADIOLOGY REPORT (SQ) ---
EXAM DESCRIPTION: CHEST SINGLE VIEW IMAGES COMPLETED DATE/TIME: 10/30/2020 2:07 pm REASON FOR STUDY: r/o ptx COMPARISON: 10/29/2020 EXAM PARAMETERS: NUMBER OF VIEWS: One view. TECHNIQUE: Single frontal radiographic view of the chest acquired. RADIATION DOSE: NA LIMITATIONS: None. FINDINGS: LUNGS AND PLEURA: Large bore right-sided chest tube again noted. Persistent very small r ight apical pneumothorax. Stable scarring and emphysematous changes in the lungs. Interval resoluti on of the right basilar airspace disease. The left lung is stable in appearance. MEDIASTINUM AND HILAR STRUCTURES: No masses. Contour normal. HEART AND VASCULAR STRUCTURES: Heart normal in size. Normal vasculature. BONES: No acute findings. HARDWARE: None in the chest. OTHER: No other significant finding. IMPRESSION: 1. As on the prior study dated 10/29/2020, large bore right-sided chest tube and persis tent very small right apical pneumothorax. 2. Interval resolution of the right basilar airspace disease. TECHNICAL DOCUMENTATION: JOB ID: [id number] 2010 [employer]- All Rights Reserved Reading location - IP/workstation name: [email or web address]
--- NOTE | 2020-10-30 15:28 | PDOC PROGRESS REPORT ---
Subjective Date:: 10/30/20 Subjective:: There is no new complaints Reason For Visit: TYPE 2 DIABETES,HYPERTENSION,PNEUMOTHORAX,RIGHT Physical Exam Vital Signs: Temp Pulse Resp BP Pulse Ox 97.9 F 75 20 141/44 H 99 10/30/20 12:29 10/30/20 12:29 10/30/20 12:29 10/30/20 12:29 10/30/20 12:29 Intake & Output 10/29/20 10/30/20 10/31/20 06:59 06:59 06:59 Intake Total 510 3090 100 Output Total 2145 Balance 510 945 100 Weight 78.9 kg 80.8 kg 80.8 kg General appearance: PRESENT: no acute distress Eye exam: PRESENT: PERRLA Respiratory exam: PRESENT: clear to auscultation pranay Cardiovascular exam: PRESENT: +S1, +S2 GI/Abdominal exam: PRESENT: soft Neurological exam: PRESENT: alert Results Laboratory Results: 10/27/20 05:44 10/25/20 06:07 10/25/20 00:34 Blood Blood Culture - Final NO GROWTH IN 5 DAYS 10/24/20 23:44 Blood Blood Culture - Final NO GROWTH IN 5 DAYS 10/24/20 10/24/20 10/24/20 18:28 23:44 23:44 Creatine Kinase 60 CK-MB (CK-2) 0.86 Troponin I < 0.012 < 0.012 10/25/20 10/25/20 10/25/20 06:07 06:07 11:45 Creatine Kinase 102 122 CK-MB (CK-2) 1.10 Troponin I < 0.012 10/25/20 18:30 Creatine Kinase CK-MB (CK-2) 0.75 Troponin I < 0.012 Impressions: Chest CT 10/27/20 09:38 IMPRESSION: RIGHT CHEST TUBE WITH LESS THAN 10% PNEUMOTHORAX. CHRONIC DIFFUSE EMPHYSEMATOUS CHANGES WITH PARENCHYMAL SCARRING. NO APPARENT ACUTE FINDINGS. Chest X-Ray 10/30/20 00:00 IMPRESSION: 1. As on the prior study dated 10/29/2020, large bore right-sided chest tube and persistent very small right apical pneumothorax. 2. Interval resolution of the right basilar airspace disease. Assessment & Plan - Diagnosis (1) Pneumothorax Qualifiers: Pneumothorax type: spontaneous, secondary Qualified Code(s): J93.12 - Secondary spontaneous pneumothorax Is this a current diagnosis for this admission?: Yes Plan: Continue present treatment (2) Chronic obstructive pulmonary disease Qualifiers: COPD type: unspecified COPD Qualified Code(s): J44.9 - Chronic obstructive pulmonary disease, unspecified Is this a current diagnosis for this admission?: Yes (3) Type 2 diabetes mellitus Qualifiers: Diabetes mellitus track machine operator repairer insulin use: without track machine operator repairer use Diabetes mellitus complication status: with neurologic complications Diabetes mellitus complication detail: with polyneuropathy Qualified Code(s): E11.42 - Type 2 diabetes mellitus with diabetic polyneuropathy Is this a current diagnosis for this admission?: Yes - Time Time Spent with patient: Less than 15 minutes Level of Care: MEDICAL Medications reviewed and adjusted accordingly: Yes Anticipated discharge: Home
--- NOTE | 2020-10-30 17:35 | PDOC PROGRESS REPORT ---
Subjective Date:: 10/30/20 Subjective:: c/o chest pain from tube sitting up in chair eating dinner Reason For Visit: TYPE 2 DIABETES,HYPERTENSION,PNEUMOTHORAX,RIGHT Physical Exam Vital Signs: Temp Pulse Resp BP Pulse Ox 97.9 F 65 20 141/44 H 99 10/30/20 12:29 10/30/20 14:00 10/30/20 12:29 10/30/20 12:29 10/30/20 12:29 Intake & Output 10/29/20 10/30/20 10/31/20 06:59 06:59 06:59 Intake Total 510 3090 200 Output Total 2145 Balance 510 945 200 Weight 78.9 kg 80.8 kg 80.8 kg General appearance: PRESENT: no acute distress Head exam: PRESENT: normocephalic Eye exam: PRESENT: EOMI Ear exam: PRESENT: normal external ear exam Mouth exam: PRESENT: moist Teeth exam: PRESENT: edentulous Neck exam: PRESENT: full ROM Respiratory exam: PRESENT: clear to auscultation pranay Cardiovascular exam: PRESENT: RRR Pulses: PRESENT: normal radial pulses, normal femoral pulses Vascular exam: PRESENT: normal capillary refill Breast: PRESENT: Normal GI/Abdominal exam: PRESENT: soft Rectal exam: PRESENT: deferred Extremities exam: PRESENT: full ROM Musculoskeletal exam: PRESENT: full ROM Neurological exam: PRESENT: alert, awake, oriented to person, oriented to place Psychiatric exam: PRESENT: appropriate affect Skin exam: PRESENT: dry Results Laboratory Results: 10/27/20 05:44 10/25/20 06:07 10/25/20 00:34 Blood Blood Culture - Final NO GROWTH IN 5 DAYS 10/24/20 23:44 Blood Blood Culture - Final NO GROWTH IN 5 DAYS 10/24/20 10/24/20 10/24/20 18:28 23:44 23:44 Creatine Kinase 60 CK-MB (CK-2) 0.86 Troponin I < 0.012 < 0.012 10/25/20 10/25/20 10/25/20 06:07 06:07 11:45 Creatine Kinase 102 122 CK-MB (CK-2) 1.10 Troponin I < 0.012 10/25/20 18:30 Creatine Kinase CK-MB (CK-2) 0.75 Troponin I < 0.012 Impressions: Chest CT 10/27/20 09:38 IMPRESSION: RIGHT CHEST TUBE WITH LESS THAN 10% PNEUMOTHORAX. CHRONIC DIFFUSE EMPHYSEMATOUS CHANGES WITH PARENCHYMAL SCARRING. NO APPARENT ACUTE FINDINGS. Chest X-Ray 10/30/20 00:00 IMPRESSION: 1. As on the prior study dated 10/29/2020, large bore right-sided chest tube and persistent very small right apical pneumothorax. 2. Interval resolution of the right basilar airspace disease. Assessment & Plan - Time Anticipated Discharge Disposition: Home, Self Care Anticipated Discharge Timeframe: unk - Plan Summary Plan Summary: Impression status post video-assisted thoracoscopic pleurodesis. Patient still with a small air leak and a small apical pneumothorax on this morning's chest x-ray. Otherwise patient seems to be doing fine. We will continue chest tube to suction. Repeat chest x-ray the next day or 2.
--- NOTE | 2020-10-30 20:18 | Progress Note ---
Provider Note Provider Note: CARDIOLOGY PROGRESS NOTE by dialogue to Arely Ortiz on 10/30/2020. OBJECTIVE: The patient yesterday had videoscopic assisted thoracoscopic pleurodesis. She is doing fine. There is a small air leak and a small apical pneumothorax. Patient asymptomatic from this. Her chest wall pain is much improved. She denies any anginal symptoms. There is no PND orthopnea or leg edema. There is no chest pain of angina. There is no arrhythmias seen on the monitor. PHYSICAL EXAMINATION: The patient is moderately obese. In no acute distress. She is sitting up in the chair. Selected Entries 10/30/20 16:34 Temperature 97.8 F Temperature Oral Source Pulse Rate 67 Respiratory 15 Rate Blood Pressure 130/43 H Blood Pressure 72 Mean BP Location Left Arm BP Position Sitting O2 Sat by Pulse 98 Oximetry Oxygen Flow 2.00 Rate Oxygen Delivery Nasal Cannula Method HEAD: Is atraumatic normocephalic. EYES: Pupils equal round regular reactive to light and accommodation. Extraocular movements are normal. There is no conjunctival pallor. There is no scleral icterus. NOSE: There is no deviated nasal septum. There is no inflammation nasal mucous membrane. EARS: Tympanic membranes are intact. External auditory canals are clear. MOUTH: There is no ulcers in the mouth. There is no bleeding from the gums. Mucous membranes of mouth are moist. THROAT: There is no redness of the oropharynx. There is no exudates. SKIN: There is no skin rashes. There is no skin lesions. There is no petechia or ecchymosis. NECK: Supple. There is no JVD. Carotids are equal there is no bruit. There is no lymphadenopathy. There is no goiter. There is no accessory muscles of respiration use. Trachea central. LUNGS: There is diminished air entry prolonged expiration. Bilateral lung garland are clear to auscultation.. There is no rales of CHF. HEART: S1-S2 is heard. There is no S3 gallop. There is no S4 gallop. There is systolic murmur left sternal border and the apex there is no rub. ABDOMEN: Soft. Nontender there is no possible megaly. Bowel sounds are well heard. EXTREMITIES: Femorals are slightly diminished. Leg pulses well felt. There is no pedal edema. There is no DVT or cellulitis. There is no cyanosis or clubbing. STOCK PLAN ADMINISTRATOR: The patient is conscious awake alert oriented x3 with no focal deficits. PSYCHIATRIC: The patient judgment and insight are intact. Her affect is normal. Labs- All tests 24 hr 10/29/20 10/30/20 10/30/20 21:01 07:31 11:40 POC Glucose 173 H 128 H 122 H 10/30/20 16:34 POC Glucose 139 H Chest X-Ray 10/24/20 00:00 IMPRESSION: Interval placement of right-sided chest tube with decreased size of right-sided pneumothorax, now small. Blunting of left costophrenic sulcus, suspicious for a trace pleural effusion. Chest X-Ray 10/24/20 17:09 IMPRESSION: Right sided pneumothorax. Chest X-Ray 10/25/20 07:34 IMPRESSION: STABLE RIGHT CHEST TUBE. NO PNEUMOTHORAX. CHRONIC INTERSTITIAL CHANGES. NO ACUTE RADIOGRAPHIC FINDING IN THE CHEST. Chest CT 10/27/20 09:38 IMPRESSION: RIGHT CHEST TUBE WITH LESS THAN 10% PNEUMOTHORAX. CHRONIC DIFFUSE EMPHYSEMATOUS CHANGES WITH PARENCHYMAL SCARRING. NO APPARENT ACUTE FINDINGS. Chest X-Ray 10/29/20 00:00 IMPRESSION: Increasing right-sided pneumothorax. Large-bore right-sided chest tube remains in place. A 2nd tube overlies the subcutaneous tissue of the right hemithorax. There is increasing subcutaneous emphysema as well. Chest X-Ray 10/29/20 00:00 IMPRESSION: Small right apical pneumothorax. This is significantly improved from the earlier film. Other changes as described. Chest X-Ray 10/30/20 00:00 IMPRESSION: 1. As on the prior study dated 10/29/2020, large bore right-sided chest tube and persistent very small right apical pneumothorax. 2. Interval resolution of the right basilar airspace disease. IMPRESSION/RECOMMENDATION: 1. Pneumothorax right lung: S/p video-assisted thoracoscopic pleurodesis. Patient with mild air leak and small apical pneumothorax. Patient asymptomatic. Surgery following the patient. 2. Clinically no evidence of coronary artery disease. But does have multiple risk factors for CAD. Hence would recommend IV Lexiscan Cardiolite stress test. This can be done as an outpatient. 3. Diabetes mellitus type 2: Continue current antidiabetic regimen and Accu- Cheks as per protocol. 4. COPD with no evidence of acute exacerbation 5. Hypothyroidism: Continue replacement. 6. Dyslipidemia. Patient is mildly elevated triglycerides, good LDL levels, and low HDL levels. 7. The patient's coronary artery disease risk factors are Namely age, dyslipidemia, and diabetes mellitus. Medications reviewed. Medical regimen management plan discussed with the Attending provider on the case medical decision making is of moderate complexity. 40 minutes spent on this patient more than 50% of time spent in direct patient care. Will sign off and follow the patient as an outpatient.
[2020-10-31] MEDS: ACETAMINOPHEN 1,000 MG/100 ML RTUPB IV SCH ×3 (05:11→17:34)
--- NOTE | 2020-10-31 08:19 | PDOC PROGRESS REPORT ---
Subjective Date:: 10/31/20 Subjective:: c/o pain at tube site Reason For Visit: TYPE 2 DIABETES,HYPERTENSION,PNEUMOTHORAX,RIGHT Physical Exam Vital Signs: Temp Pulse Resp BP Pulse Ox 97.4 F 63 20 133/64 H 97 10/31/20 00:10 10/31/20 00:10 10/31/20 00:10 10/31/20 00:10 10/31/20 00:10 Intake & Output 10/30/20 10/31/20 11/01/20 06:59 06:59 06:59 Intake Total 3090 1336 Output Total 2145 800 Balance 945 536 Weight 80.8 kg 80 kg General appearance: PRESENT: no acute distress Head exam: PRESENT: normocephalic Eye exam: PRESENT: EOMI Ear exam: PRESENT: normal external ear exam Mouth exam: PRESENT: moist Teeth exam: PRESENT: poor dentation Neck exam: PRESENT: full ROM Respiratory exam: PRESENT: crackles, decreased breath sounds, rhonchi Cardiovascular exam: PRESENT: RRR Pulses: PRESENT: normal radial pulses, normal femoral pulses Vascular exam: PRESENT: normal capillary refill Breast: PRESENT: Normal GI/Abdominal exam: PRESENT: soft Rectal exam: PRESENT: deferred Extremities exam: PRESENT: full ROM Musculoskeletal exam: PRESENT: full ROM Neurological exam: PRESENT: alert, awake, oriented to person, oriented to place Psychiatric exam: PRESENT: anxious, appropriate affect Skin exam: PRESENT: dry Results Laboratory Results: 10/27/20 05:44 10/25/20 06:07 10/24/20 10/24/20 10/24/20 18:28 23:44 23:44 Creatine Kinase 60 CK-MB (CK-2) 0.86 Troponin I < 0.012 < 0.012 10/25/20 10/25/20 10/25/20 06:07 06:07 11:45 Creatine Kinase 102 122 CK-MB (CK-2) 1.10 Troponin I < 0.012 10/25/20 18:30 Creatine Kinase CK-MB (CK-2) 0.75 Troponin I < 0.012 Impressions: Chest CT 10/27/20 09:38 IMPRESSION: RIGHT CHEST TUBE WITH LESS THAN 10% PNEUMOTHORAX. CHRONIC DIFFUSE EMPHYSEMATOUS CHANGES WITH PARENCHYMAL SCARRING. NO APPARENT ACUTE FINDINGS. Chest X-Ray 10/30/20 00:00 IMPRESSION: 1. As on the prior study dated 10/29/2020, large bore right-sided chest tube and persistent very small right apical pneumothorax. 2. Interval resolution of the right basilar airspace disease. Assessment & Plan - Time Anticipated Discharge Disposition: Home, Self Care Anticipated Discharge Timeframe: Unknown - Plan Summary Plan Summary: Chest tube remains on suction. There is still a significant air leak. Chest x-ray yesterday showed a small apical pneumothorax. We will repeat chest x-ray today. Continue chest tube zuniga ction.
[2020-10-31] MEDS: INSULIN LISPRO 100 UNIT/ML 3 ML VIAL SUBCUT SCH ×4 (08:55→21:40)
--- NOTE | 2020-10-31 09:46 | RADIOLOGY REPORT (SQ) ---
EXAM DESCRIPTION: CHEST SINGLE VIEW IMAGES COMPLETED DATE/TIME: 10/31/2020 9:30 am REASON FOR STUDY: chest tube COMPARISON: 10/30/2020 and 10/29/2020 EXAM PARAMETERS: NUMBER OF VIEWS: One view. TECHNIQUE: Single frontal radiographic view of the chest acquired. RADIATION DOSE: NA LIMITATIONS: None. FINDINGS: LUNGS AND PLEURA: Near complete resolution of a right apical pneumothorax. Otherwise stab le pulmonary exam. MEDIASTINUM AND HILAR STRUCTURES: No masses. Contour normal. HEART AND VASCULAR STRUCTURES: Heart normal in size. Normal vasculature. BONES: No acute findings. HARDWARE: Right hemithorax chest tube, stable. OTHER: No other significant finding. IMPRESSION: Near complete resolution of the right apical pneumothorax. Stable position and appearan ce of the right hemithorax chest tube. TECHNICAL DOCUMENTATION: JOB ID: [id number] 2010 [email or web address]- All Rights Reserved Reading location - IP/workstation name: [email or web address]
[2020-10-31] MEDS: DOCUSATE SODIUM 100 MG CAPSULE PO SCH ×2 (10:17→17:39)
--- NOTE | 2020-10-31 15:49 | PDOC PROGRESS REPORT ---
Subjective Date:: 10/31/20 Subjective:: Patient reported feeling and breathing better. OOB in recliner chair. She denied any chest pain. No reported fever or chills. No nausea, vomiting or abdominal pain. Reason For Visit: TYPE 2 DIABETES,HYPERTENSION,PNEUMOTHORAX,RIGHT Physical Exam Vital Signs: Temp Pulse Resp BP Pulse Ox 97.6 F 67 19 122/69 98 10/31/20 11:22 10/31/20 14:00 10/31/20 11:22 10/31/20 11:22 10/31/20 11:22 Intake & Output 10/30/20 10/31/20 11/01/20 06:59 06:59 06:59 Intake Total 3090 1436 Output Total 2145 875 Balance 945 561 Weight 80.8 kg 80 kg General appearance: PRESENT: no acute distress, obese Head exam: PRESENT: atraumatic, normocephalic Eye exam: PRESENT: conjunctiva pink, EOMI, PERRLA. ABSENT: scleral icterus Ear exam: PRESENT: normal external ear exam Mouth exam: PRESENT: moist, tongue midline Neck exam: PRESENT: full ROM. ABSENT: carotid bruit, JVD, lymphadenopathy, thyromegaly Respiratory exam: PRESENT: clear to auscultation pranay, decreased breath sounds - at lung bases, other - right chest tube in place. Cardiovascular exam: PRESENT: RRR, +S1, +S2. ABSENT: diastolic murmur, rubs, systolic murmur Vascular exam: ABSENT: pallor GI/Abdominal exam: PRESENT: normal bowel sounds, soft. ABSENT: tenderness Extremities exam: ABSENT: pedal edema Neurological exam: PRESENT: alert, awake, oriented to person, oriented to place, oriented to time, oriented to situation, CN II-XII grossly intact. ABSENT: motor sensory deficit Psychiatric exam: PRESENT: appropriate affect, normal mood. ABSENT: homicidal ideation, suicidal ideation Skin exam: PRESENT: dry, intact, warm. ABSENT: cyanosis, rash Results Laboratory Results: 10/27/20 05:44 10/25/20 06:07 10/24/20 10/24/20 10/24/20 18:28 23:44 23:44 Creatine Kinase 60 CK-MB (CK-2) 0.86 Troponin I < 0.012 < 0.012 10/25/20 10/25/20 10/25/20 06:07 06:07 11:45 Creatine Kinase 102 122 CK-MB (CK-2) 1.10 Troponin I < 0.012 10/25/20 18:30 Creatine Kinase CK-MB (CK-2) 0.75 Troponin I < 0.012 Impressions: Chest CT 10/27/20 09:38 IMPRESSION: RIGHT CHEST TUBE WITH LESS THAN 10% PNEUMOTHORAX. CHRONIC DIFFUSE EMPHYSEMATOUS CHANGES WITH PARENCHYMAL SCARRING. NO APPARENT ACUTE FINDINGS. Chest X-Ray 10/31/20 00:00 IMPRESSION: Near complete resolution of the right apical pneumothorax. Stable position and appearance of the right hemithorax chest tube. Assessment & Plan - Diagnosis (1) Pneumothorax on right Is this a current diagnosis for this admission?: Yes Plan: Continue current management and support. (2) Chronic obstructive pulmonary disease Qualifiers: COPD type: unspecified COPD Qualified Code(s): J44.9 - Chronic obstructive pulmonary disease, unspecified Is this a current diagnosis for this admission?: Yes Plan: Continue current treatment regimen. (3) Diabetes mellitus type 2 in obese Is this a current diagnosis for this admission?: Yes Plan: Continue current medication and dietary management. (4) Hypertension Qualifiers: Hypertension type: essential hypertension Qualified Code(s): I10 - Essential (primary) hypertension Is this a current diagnosis for this admission?: Yes Plan: Continue current medication and dietary management. - Time Time Spent with patient: 25-34 minutes Level of Care: IMCU Medications reviewed and adjusted accordingly: Yes Anticipated discharge: Home with Homehealth, SNF Anticipated DC Timeframe: within 72 hours - Inpatient Certification Based on my medical assessment, after consideration of the patient's comorbidities, presenting symptoms, or acuity I expect that the services needed warrant INPATIENT care.: Yes I certify that my determination is in accordance with my understanding of Medicare's requirements for reasonable and necessary INPATIENT services [42 CFR 412.3e].: Yes Medical Necessity: Significant Comorbidiites Make Outpatient Treatment Too Risky, Need Close Monitoring Due to Risk of Patient Decompensation, Need For IV Fluids, Need For Continuous Telemetry Monitoring, Risk of Complication if Not Cared For in Hospital, Risk of Diagnosis Which Will Require Inpatient Eval/Care/Monitoring 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 Obtain CBC with diff and CMP in am.
[2020-11-01] MEDS: ACETAMINOPHEN 1,000 MG/100 ML RTUPB IV SCH ×3 (00:05→12:10)
--- NOTE | 2020-11-01 09:00 | PDOC PROGRESS REPORT ---
Subjective Date:: 11/01/20 Reason For Visit: TYPE 2 DIABETES,HYPERTENSION,PNEUMOTHORAX,RIGHT Physical Exam Vital Signs: Temp Pulse Resp BP Pulse Ox 98.0 F 66 15 129/76 H 98 11/01/20 03:04 11/01/20 03:04 11/01/20 03:04 11/01/20 03:04 11/01/20 04:42 Intake & Output 10/31/20 11/01/20 11/02/20 06:59 06:59 06:59 Intake Total 1436 660 Output Total 875 650 Balance 561 10 Weight 80 kg Results Laboratory Results: 11/01/20 06:55 11/01/20 06:55 11/01/20 11/01/20 06:55 06:55 WBC Cancelled RBC Cancelled Hgb Cancelled Hct Cancelled MCV Cancelled MCH Cancelled MCHC Cancelled RDW Cancelled Plt Count Cancelled Seg Neutrophils % Cancelled Sodium Cancelled Potassium Cancelled Chloride Cancelled Carbon Dioxide Cancelled Anion Gap Cancelled BUN Cancelled Creatinine Cancelled Est GFR ( Amer) Cancelled Est GFR (Non-Af Amer) Cancelled Glucose Cancelled Calcium Cancelled Total Bilirubin Cancelled AST Cancelled Alkaline Phosphatase Cancelled Total Protein Cancelled Albumin Cancelled 10/24/20 10/24/20 10/24/20 18:28 23:44 23:44 Creatine Kinase 60 CK-MB (CK-2) 0.86 Troponin I < 0.012 < 0.012 10/25/20 10/25/20 10/25/20 06:07 06:07 11:45 Creatine Kinase 102 122 CK-MB (CK-2) 1.10 Troponin I < 0.012 10/25/20 18:30 Creatine Kinase CK-MB (CK-2) 0.75 Troponin I < 0.012 Impressions: Chest CT 10/27/20 09:38 IMPRESSION: RIGHT CHEST TUBE WITH LESS THAN 10% PNEUMOTHORAX. CHRONIC DIFFUSE EMPHYSEMATOUS CHANGES WITH PARENCHYMAL SCARRING. NO APPARENT ACUTE FINDINGS. Chest X-Ray 10/31/20 00:00 IMPRESSION: Near complete resolution of the right apical pneumothorax. Stable position and appearance of the right hemithorax chest tube. Assessment & Plan - Diagnosis (1) Pneumothorax on right Is this a current diagnosis for this admission?: Yes - Time Anticipated Discharge Disposition: unknown Anticipated Discharge Timeframe: unknown - Plan Summary Plan Summary: 75-year-old female status post VATS with mechanical pleurodesis on the right. The patient continues to have an air leak. Maintain chest tube to suction. Rep eat x-ray tomorrow.
[2020-11-01 09:42] LABS: ABSOLUTE BASOPHILS # (AUTO) 0.1 10^3/uL (0.0-0.2); ABSOLUTE EOSINOPHILS # (AUTO) 0.6 10^3/uL (0.0-0.6); ABSOLUTE LYMPHOCYTES (AUTO) 2.7 10^3/uL (0.5-4.7); ABSOLUTE MONOCYTES (AUTO) 0.5 10^3/uL (0.1-1.4); ABSOLUTE NEUT (AUTO) 7.2 10^3/uL (1.7-8.2); BASOPHILS % (AUTO) 0.7 % (0-2); EOSINOPHILS % (AUTO) 5.7 % (0-6); HEMATOCRIT 36.7 % (36.0-47.0); HEMOGLOBIN 11.8 g/dL (12.0-15.5); LYMPHOCYTES % (AUTO) 24.3 % (13-45); MEAN CORPUSCULAR HEMOGLOBIN 25.5 pg (27.0-33.4); MEAN CORPUSCULAR VOLUME 80 fl (80-97); MONOCYTES % (AUTO) 4.5 % (3-13); PLATELET COUNT 366 10^3/uL (150-450); RED CELL DISTRIBUTION WIDTH 16.9 % (11.5-14.0); SEGMENTED NEUTROPHILS % (AUTO) 64.8 % (42-78); TOTAL CELLS COUNTED % (AUTO) 100 %; WHITE BLOOD COUNT 11.1 10^3/uL (4.0-10.5)
[2020-11-01 10:02] LABS: ALBUMIN 3.9 g/dL (3.5-5.0); ALKALINE PHOSPHATASE 146 U/L (38-126); ANION GAP 9 (5-19); ASPARTATE AMINO TRANSFERASE 31 U/L (14-36); BILIRUBIN,DIRECT 0.3 mg/dL (0.0-0.4); BILIRUBIN,TOTAL 0.6 mg/dL (0.2-1.3); BLOOD UREA NITROGEN 16 mg/dL (7-20); CALCIUM 9.5 mg/dL (8.4-10.2); CARBON DIOXIDE 30 mmol/L (22-30); CHLORIDE 97 mmol/L (98-107); GLUCOSE 133 mg/dL (75-110); POTASSIUM 4.6 mmol/L (3.6-5.0); TOTAL PROTEIN 7.4 g/dL (6.3-8.2)
[2020-11-01] MEDS: INSULIN LISPRO 100 UNIT/ML 3 ML VIAL SUBCUT SCH ×4 (10:19→21:51)
[2020-11-01] MEDS: DOCUSATE SODIUM 100 MG CAPSULE PO SCH ×2 (11:36→17:58)
--- NOTE | 2020-11-01 14:13 | PDOC PROGRESS REPORT ---
Subjective Date:: 11/01/20 Subjective:: Patient denied any chest pain or difficulty with breathing. She expressed pain a round her right chest tube site and asking for pain medication. No reported fever or chills. No nausea, vomiting or abdominal pain. Reason For Visit: TYPE 2 DIABETES,HYPERTENSION,PNEUMOTHORAX,RIGHT Physical Exam Vital Signs: Temp Pulse Resp BP Pulse Ox 98.3 F 66 18 130/47 H 100 11/01/20 11:46 11/01/20 11:46 11/01/20 11:46 11/01/20 11:46 11/01/20 11:46 Intake & Output 10/31/20 11/01/20 11/02/20 06:59 06:59 06:59 Intake Total 1436 660 300 Output Total 875 650 250 Balance 561 10 50 Weight 80 kg Physical Exam: General appearance: PRESENT: no acute distress, obese Head exam: PRESENT: atraumatic, normocephalic Eye exam: PRESENT: conjunctiva pink. ABSENT: pallor, sclera icterus Ear exam: PRESENT: normal external ear exam Mouth exam: PRESENT: moist Respiratory exam: PRESENT: clear to auscultation pranay, decreased breath sounds - at lung bases, other - right chest tube in place. Cardiovascular exam: PRESENT: RRR, +S1, +S2. ABSENT: diastolic murmur, rubs, systolic murmur GI/Abdominal exam: PRESENT: normal bowel sounds, soft. ABSENT: tenderness Extremities exam: ABSENT: pedal edema Neurological exam: PRESENT: alert, awake Psychiatric exam: PRESENT: appropriate affect, normal mood. Skin exam: PRESENT: dry, intact, warm. ABSENT: cyanosis, rash Results Laboratory Results: 11/01/20 08:54 11/01/20 08:54 11/01/20 11/01/20 11/01/20 06:55 06:55 08:54 WBC Cancelled 11.1 H RBC Cancelled 4.60 Hgb Cancelled 11.8 L Hct Cancelled 36.7 MCV Cancelled 80 MCH Cancelled 25.5 L MCHC Cancelled 32.0 RDW Cancelled 16.9 H Plt Count Cancelled 366 Seg Neutrophils % Cancelled 64.8 Sodium Cancelled Potassium Cancelled Chloride Cancelled Carbon Dioxide Cancelled Anion Gap Cancelled BUN Cancelled Creatinine Cancelled Est GFR ( Amer) Cancelled Est GFR (Non-Af Amer) Cancelled Glucose Cancelled Calcium Cancelled Total Bilirubin Cancelled AST Cancelled Alkaline Phosphatase Cancelled Total Protein Cancelled Albumin Cancelled 11/01/20 08:54 WBC RBC Hgb Hct MCV MCH MCHC RDW Plt Count Seg Neutrophils % Sodium 135.6 L Potassium 4.6 Chloride 97 L Carbon Dioxide 30 Anion Gap 9 BUN 16 Creatinine 0.73 Est GFR ( Amer) > 60 Est GFR (Non-Af Amer) Glucose 133 H Calcium 9.5 Total Bilirubin 0.6 AST 31 Alkaline Phosphatase 146 H Total Protein 7.4 Albumin 3.9 10/24/20 10/24/20 10/24/20 18:28 23:44 23:44 Creatine Kinase 60 CK-MB (CK-2) 0.86 Troponin I < 0.012 < 0.012 10/25/20 10/25/20 10/25/20 06:07 06:07 11:45 Creatine Kinase 102 122 CK-MB (CK-2) 1.10 Troponin I < 0.012 10/25/20 18:30 Creatine Kinase CK-MB (CK-2) 0.75 Troponin I < 0.012 Impressions: Chest CT 10/27/20 09:38 IMPRESSION: RIGHT CHEST TUBE WITH LESS THAN 10% PNEUMOTHORAX. CHRONIC DIFFUSE EMPHYSEMATOUS CHANGES WITH PARENCHYMAL SCARRING. NO APPARENT ACUTE FINDINGS. Chest X-Ray 10/31/20 00:00 IMPRESSION: Near complete resolution of the right apical pneumothorax. Stable position and appearance of the right hemithorax chest tube. Assessment & Plan - Diagnosis (1) Pneumothorax on right Is this a current diagnosis for this admission?: Yes (2) Chronic obstructive pulmonary disease Qualifiers: COPD type: unspecified COPD Qualified Code(s): J44.9 - Chronic obstructive pulmonary disease, unspecified Is this a current diagnosis for this admission?: Yes (3) Diabetes mellitus type 2 in obese Is this a current diagnosis for this admission?: Yes (4) Hypertension Qualifiers: Hypertension type: essential hypertension Qualified Code(s): I10 - Essential (primary) hypertension Is this a current diagnosis for this admission?: Yes - Time Time Spent with patient: 25-34 minutes Level of Care: IMCU Medications reviewed and adjusted accordingly: Yes Anticipated discharge: Home with Homehealth, SNF Anticipated DC Timeframe: within 72 hours - Inpatient Certification Based on my medical assessment, after consideration of the patient's comorbidities, presenting symptoms, or acuity I expect that the services needed warrant INPATIENT care.: Yes I certify that my determination is in accordance with my understanding of Medicare's requirements for reasonable and necessary INPATIENT services [42 CFR 412.3e].: Yes Medical Necessity: Significant Comorbidiites Make Outpatient Treatment Too Risky, Need Close Monitoring Due to Risk of Patient Decompensation, Need For Continuous Telemetry Monitoring, Risk of Complication if Not Cared For in Hospital, Risk of Diagnosis Which Will Require Inpatient Eval/Care/Monitoring 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 Patient reported prior use of Tramadol without any problem and she is currently on Acetaminophen infusion therapy without any allergic reaction. Continue other current medication management. Surgical team input noted.
[2020-11-01] MEDS: IPRATROPIUM/ALBUTEROL 0.5-2.5 MG/3 ML AMPUL NEB SCH (19:22)
[2020-11-01] MEDS: TRAMADOL HCL 50 MG TABLET PO PRN (19:27)
[2020-11-01] MEDS: GABAPENTIN 100 MG CAPSULE PO SCH (21:51)
[2020-11-01] MEDS: ATORVASTATIN CALCIUM 40 MG TABLET PO SCH (21:51)
[2020-11-02] MEDS: TRAMADOL HCL 50 MG TABLET PO PRN ×3 (03:11→23:30)
[2020-11-02] MEDS: LEVOTHYROXINE SODIUM 0.112 MG TABLET PO SCH (05:56)
[2020-11-02] MEDS: INSULIN LISPRO 100 UNIT/ML 3 ML VIAL SUBCUT SCH ×3 (08:24→16:41)
[2020-11-02] MEDS: IPRATROPIUM/ALBUTEROL 0.5-2.5 MG/3 ML AMPUL NEB SCH ×4 (09:05→20:57)
[2020-11-02] MEDS: GABAPENTIN 100 MG CAPSULE PO SCH ×2 (09:35→21:30)
[2020-11-02] MEDS: DOCUSATE SODIUM 100 MG CAPSULE PO SCH ×2 (09:35→17:54)
--- NOTE | 2020-11-02 12:54 | PDOC PROGRESS REPORT ---
Subjective Date:: 11/02/20 Subjective:: Patient comfortable, no complaints Reason For Visit: TYPE 2 DIABETES,HYPERTENSION,PNEUMOTHORAX,RIGHT Physical Exam Vital Signs: Temp Pulse Resp BP Pulse Ox 98.1 F 70 18 129/41 H 96 11/02/20 07:40 11/02/20 09:05 11/02/20 09:05 11/02/20 03:44 11/02/20 09:05 Intake & Output 11/01/20 11/02/20 11/03/20 06:59 06:59 06:59 Intake Total 660 990 Output Total 650 1130 Balance 10 -140 Weight 79.8 kg General appearance: PRESENT: no acute distress, obese Respiratory exam: PRESENT: other - Right chest = chest tube in place, air leak noted in Pleur-evac, no air leak following clamp on chest tube Results Laboratory Results: 11/01/20 08:54 11/01/20 08:54 10/24/20 10/24/20 10/24/20 18:28 23:44 23:44 Creatine Kinase 60 CK-MB (CK-2) 0.86 Troponin I < 0.012 < 0.012 10/25/20 10/25/20 10/25/20 06:07 06:07 11:45 Creatine Kinase 102 122 CK-MB (CK-2) 1.10 Troponin I < 0.012 10/25/20 18:30 Creatine Kinase CK-MB (CK-2) 0.75 Troponin I < 0.012 Impressions: Chest CT 10/27/20 09:38 IMPRESSION: RIGHT CHEST TUBE WITH LESS THAN 10% PNEUMOTHORAX. CHRONIC DIFFUSE EMPHYSEMATOUS CHANGES WITH PARENCHYMAL SCARRING. NO APPARENT ACUTE FINDINGS. Chest X-Ray 10/31/20 00:00 IMPRESSION: Near complete resolution of the right apical pneumothorax. Stable position and appearance of the right hemithorax chest tube. Assessment & Plan - Diagnosis (1) Pneumothorax on right Is this a current diagnosis for this admission?: Yes - Time Anticipated Discharge Disposition: Home, Self Care Anticipated Discharge Timeframe: within 48 hours - Plan Summary Plan Summary: Assessment: Recurrent right pneumothorax Postoperative day #4 following right VATS with mechanical pleurodesis Air leak noted on Pleur-evac; however, this disappeared following clamping of the chest tube as per tubing connection failure Plan: Clamp chest tube Obtain stat chest x-ray If no pneumothorax identified, will leave the clamp in place and repeat chest x- ray in 4 hours Possible removal of the chest x-ray today if no pneumothorax identified in 4 hours.
--- NOTE | 2020-11-02 13:05 | Progress Note ---
Provider Note Provider Note: Pneumothorax identified upon clamping of the chest tube Plan: Resume chest tube to wall suction Repeat chest x-ray in 4 hours
--- NOTE | 2020-11-02 13:41 | RADIOLOGY REPORT (SQ) ---
EXAM DESCRIPTION: CHEST SINGLE VIEW IMAGES COMPLETED DATE/TIME: 11/02/2020 12:08 pm REASON FOR STUDY: Right lung pneumothorax COMPARISON: 10/31/2020 EXAM PARAMETERS: NUMBER OF VIEWS: One view. TECHNIQUE: Single frontal radiographic view of the chest acquired. RADIATION DOSE: NA LIMITATIONS: None. FINDINGS: LUNGS AND PLEURA: Interval development of a moderate to large right pneumothorax for measu ring about 4 cm from the right lung apex. Right chest tube remains in place. Compressive atelectasi s at the medial right lung. Left lung is clear. MEDIASTINUM AND HILAR STRUCTURES: No masses. Contour normal. HEART AND VASCULAR STRUCTURES: Heart normal in size. Normal vasculature. BONES: No acute findings. HARDWARE: None in the chest. OTHER: No other significant finding. IMPRESSION: Interval development of a moderate to large right pneumothorax. Right chest tube remain s in place. COMMENT: Findings discussed with Dr. Olivares on 11/02/2020 at 1334 hours Eastern time. TECHNICAL DOCUMENTATION: JOB ID: [id number] 2010 [employer]- All Rights Reserved Reading location - IP/workstation name: [email or web address]
--- NOTE | 2020-11-02 15:23 | PDOC PROGRESS REPORT ---
Subjective Date:: 11/02/20 Subjective:: Patient denied any chest pain or difficulty with breathing. She expressed pain a round her right lower abdominal region which she claimed relief with use of ice pack. No reported fever or chills. No nausea, vomiting or diarrhea. Reason For Visit: TYPE 2 DIABETES,HYPERTENSION,PNEUMOTHORAX,RIGHT Physical Exam Vital Signs: Temp Pulse Resp BP Pulse Ox 98.2 F 74 18 123/47 L 100 11/02/20 12:34 11/02/20 14:00 11/02/20 12:34 11/02/20 12:34 11/02/20 12:34 Intake & Output 11/01/20 11/02/20 11/03/20 06:59 06:59 06:59 Intake Total 660 990 240 Output Total 650 1130 250 Balance 10 -140 -10 Weight 79.8 kg Physical Exam: General appearance: PRESENT: no acute distress, obese Head exam: PRESENT: atraumatic, normocephalic Eye exam: PRESENT: conjunctiva pink. ABSENT: pallor, sclera icterus Ear exam: PRESENT: normal external ear exam Mouth exam: PRESENT: moist Respiratory exam: PRESENT: clear to auscultation pranay, decreased breath sounds - at lung bases, other - right chest tube in place. Cardiovascular exam: PRESENT: RRR, +S1, +S2. GI/Abdominal exam: PRESENT: normal bowel sounds, soft. ABSENT: tenderness Extremities exam: ABSENT: pedal edema Neurological exam: PRESENT: alert, awake Psychiatric exam: PRESENT: appropriate affect, normal mood. Skin exam: PRESENT: dry, intact, warm. ABSENT: cyanosis, rash Results Laboratory Results: 11/01/20 08:54 11/01/20 08:54 10/24/20 10/24/20 10/24/20 18:28 23:44 23:44 Creatine Kinase 60 CK-MB (CK-2) 0.86 Troponin I < 0.012 < 0.012 10/25/20 10/25/20 10/25/20 06:07 06:07 11:45 Creatine Kinase 102 122 CK-MB (CK-2) 1.10 Troponin I < 0.012 10/25/20 18:30 Creatine Kinase CK-MB (CK-2) 0.75 Troponin I < 0.012 Impressions: Chest CT 10/27/20 09:38 IMPRESSION: RIGHT CHEST TUBE WITH LESS THAN 10% PNEUMOTHORAX. CHRONIC DIFFUSE EMPHYSEMATOUS CHANGES WITH PARENCHYMAL SCARRING. NO APPARENT ACUTE FINDINGS. Chest X-Ray 11/02/20 00:00 IMPRESSION: Interval development of a moderate to large right pneumothorax. Right chest tube remains in place. Assessment & Plan - Diagnosis (1) Pneumothorax on right Is this a current diagnosis for this admission?: Yes (2) Chronic obstructive pulmonary disease Qualifiers: COPD type: unspecified COPD Qualified Code(s): J44.9 - Chronic obstructive pulmonary disease, unspecified Is this a current diagnosis for this admission?: Yes (3) Diabetes mellitus type 2 in obese Is this a current diagnosis for this admission?: Yes (4) Hypertension Qualifiers: Hypertension type: essential hypertension Qualified Code(s): I10 - Essential (primary) hypertension Is this a current diagnosis for this admission?: Yes - Time Time Spent with patient: 25-34 minutes Level of Care: IMCU Medications reviewed and adjusted accordingly: Yes Anticipated discharge: Home with Homehealth, SNF Anticipated DC Timeframe: within 72 hours - Inpatient Certification Based on my medical assessment, after consideration of the patient's comorbidities, presenting symptoms, or acuity I expect that the services needed warrant INPATIENT care.: Yes I certify that my determination is in accordance with my understanding of Medicare's requirements for reasonable and necessary INPATIENT services [42 CFR 412.3e].: Yes Medical Necessity: Significant Comorbidiites Make Outpatient Treatment Too Risky, Need Close Monitoring Due to Risk of Patient Decompensation, Need For Continuous Telemetry Monitoring, Need for Pain Control, Risk of Complication if Not Cared For in Hospital, Risk of Diagnosis Which Will Require Inpatient Eval/Care/Monitoring Post 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 Surgical team input noted.
--- NOTE | 2020-11-02 16:21 | RADIOLOGY REPORT (SQ) ---
EXAM DESCRIPTION: CHEST SINGLE VIEW IMAGES COMPLETED DATE/TIME: 11/02/2020 2:55 pm REASON FOR STUDY: Follow-up right pneumothorax, chest tube return dissection COMPARISON: Same date at 1357 hours. EXAM PARAMETERS: NUMBER OF VIEWS: One view. TECHNIQUE: Single frontal radiographic view of the chest acquired. RADIATION DOSE: NA LIMITATIONS: None. FINDINGS: LUNGS AND PLEURA: Improved right pneumothorax with tiny residual right apical component. Lungs are hyperinflated. Mild patchy peripheral opacities, stable. MEDIASTINUM AND HILAR STRUCTURES: No masses. Contour normal. HEART AND VASCULAR STRUCTURES: Heart normal in size. Normal vasculature. BONES: No acute findings. HARDWARE: Right chest tube remains in place. OTHER: No other significant finding. IMPRESSION: Improved right pneumothorax with tiny residual right apical pneumothorax. TECHNICAL DOCUMENTATION: JOB ID: [id number] 2010 [employer]- All Rights Reserved Reading location - IP/workstation name: [email or web address]
[2020-11-02] MEDS ORDERED: MORPHINE SULFATE 10 MG/ML INJ ONE (21:27)
[2020-11-02] MEDS: DIPHENHYDRAMINE HCL 25 MG CAPSULE PO PRN (21:30)
[2020-11-02] MEDS: ATORVASTATIN CALCIUM 40 MG TABLET PO SCH (21:32)
--- NOTE | 2020-11-02 22:26 | RADIOLOGY REPORT (SQ) ---
EXAM DESCRIPTION: CHEST SINGLE VIEW CLINICAL HISTORY: 75 years Female, excessive pain to chest tube site COMPARISON: Portable view the chest obtained earlier in the day at 3:47 PM FINDINGS: Lungs: Exam is underpenetrated. There is a right chest tube in place which is unchanged in position. There is a small apical pneumothorax which is unchanged. The pneumothorax also extends 4 mm off the lateral chest wall. Lungs are otherwise clear. Mediastinum: Cardiac and mediastinal silhouette are unchanged. Bones: Osseous structures are unchanged. IMPRESSION: Right-sided chest tube remains in place in the right apical pneumothorax is unchanged.
[2020-11-03] MEDS: INSULIN LISPRO 100 UNIT/ML 3 ML VIAL SUBCUT SCH ×5 (01:01→23:26)
[2020-11-03] MEDS: MORPHINE SULFATE 10 MG/ML INJ IV PRN ×3 (01:18→20:00)
[2020-11-03] MEDS: LEVOTHYROXINE SODIUM 0.112 MG TABLET PO SCH (05:30)
[2020-11-03] MEDS: IPRATROPIUM/ALBUTEROL 0.5-2.5 MG/3 ML AMPUL NEB SCH ×4 (08:42→20:47)
--- NOTE | 2020-11-03 08:45 | RADIOLOGY REPORT (SQ) ---
EXAM DESCRIPTION: CHEST SINGLE VIEW IMAGES COMPLETED DATE/TIME: 11/03/2020 8:03 am REASON FOR STUDY: Follow-up right pneumothorax following pleurodesis COMPARISON: 11/02/2020 EXAM PARAMETERS: NUMBER OF VIEWS: One view. TECHNIQUE: Single frontal radiographic view of the chest acquired. RADIATION DOSE: NA LIMITATIONS: None. FINDINGS: LUNGS AND PLEURA: Interval increase in size of the right-sided pneumothorax measuring 19 m m from the pleural line to the undersurface of the 2nd posterior rib, previously 2 mm. Large bore ch est tube remains in place. No new airspace disease. Unremarkable left hemithorax. MEDIASTINUM AND HILAR STRUCTURES: Stable. HEART AND VASCULAR STRUCTURES: Normal heart size. Vascular calcifications. BONES: Left-sided rib fractures of varying chronicity, unchanged. HARDWARE: Large bore right-sided chest tube, stable. OTHER: No other significant finding. IMPRESSION: Stable large bore right-sided chest tube with increased size of the right-sided pneumoth orax compared to prior exam. TECHNICAL DOCUMENTATION: JOB ID: [id number] 2010 [employer]- All Rights Reserved Reading location - IP/workstation name: [email or web address]
--- NOTE | 2020-11-03 09:18 | PDOC PROGRESS REPORT ---
Subjective Date:: 11/03/20 Subjective:: no c/o Reason For Visit: TYPE 2 DIABETES,HYPERTENSION,PNEUMOTHORAX,RIGHT Physical Exam Vital Signs: Temp Pulse Resp BP Pulse Ox 98.6 F 67 20 134/44 H 100 11/03/20 08:10 11/03/20 07:00 11/02/20 23:49 11/02/20 23:49 11/02/20 23:49 Intake & Output 11/02/20 11/03/20 11/04/20 06:59 06:59 06:59 Intake Total 990 610 Output Total 1130 950 Balance -140 -340 Weight 79.8 kg 79.8 kg Respiratory exam: PRESENT: other - right side chest tube, small air leak Results Laboratory Results: 11/01/20 08:54 11/01/20 08:54 10/24/20 10/24/20 10/24/20 18:28 23:44 23:44 Creatine Kinase 60 CK-MB (CK-2) 0.86 Troponin I < 0.012 < 0.012 10/25/20 10/25/20 10/25/20 06:07 06:07 11:45 Creatine Kinase 102 122 CK-MB (CK-2) 1.10 Troponin I < 0.012 10/25/20 18:30 Creatine Kinase CK-MB (CK-2) 0.75 Troponin I < 0.012 Impressions: Chest CT 10/27/20 09:38 IMPRESSION: RIGHT CHEST TUBE WITH LESS THAN 10% PNEUMOTHORAX. CHRONIC DIFFUSE EMPHYSEMATOUS CHANGES WITH PARENCHYMAL SCARRING. NO APPARENT ACUTE FINDINGS. Chest X-Ray 11/03/20 06:00 IMPRESSION: Stable large bore right-sided chest tube with increased size of the right-sided pneumothorax compared to prior exam. Assessment & Plan - Diagnosis (1) Pneumothorax on right Is this a current diagnosis for this admission?: Yes - Time Anticipated Discharge Disposition: Home with Home Health Anticipated Discharge Timeframe: when ready - Plan Summary Plan Summary: A/ Right recurrent penumothorax s/p mechanical pleurodesis via VATS CXray shows minimal residual pneumothorax P/ continue right CT wall suction via pleurovac
--- NOTE | 2020-11-03 09:38 | RADIOLOGY REPORT (SQ) ---
EXAM DESCRIPTION: CHEST SINGLE VIEW IMAGES COMPLETED DATE/TIME: 11/03/2020 9:22 am REASON FOR STUDY: chest tube insertion COMPARISON: Same day radiograph EXAM PARAMETERS: NUMBER OF VIEWS: One view. TECHNIQUE: Single frontal radiographic view of the chest acquired. RADIATION DOSE: NA LIMITATIONS: None. FINDINGS: LUNGS AND PLEURA: Decreased but persistent right-sided pneumothorax now measuring 6 mm fro m the pleural marking to the undersurface of the 2nd ribs, previously 19 mm. Stable large bore right -sided chest tube. No no airspace disease. MEDIASTINUM AND HILAR STRUCTURES: Stable. HEART AND VASCULAR STRUCTURES: Stable. BONES: Unchanged left-sided chronic rib fractures. HARDWARE: None in the chest. OTHER: Subcutaneous gas along the right chest wall. IMPRESSION: Decreased but persistent small right-sided pneumothorax. Stable large bore right-sided chest tube. TECHNICAL DOCUMENTATION: JOB ID: [id number] 2010 [employer]- All Rights Reserved Reading location - IP/workstation name: [email or web address]
[2020-11-03] MEDS: GABAPENTIN 100 MG CAPSULE PO SCH ×2 (10:44→23:25)
[2020-11-03] MEDS: DOCUSATE SODIUM 100 MG CAPSULE PO SCH ×2 (10:44→17:51)
[2020-11-03] MEDS: TRAMADOL HCL 50 MG TABLET PO PRN (17:51)
--- NOTE | 2020-11-03 21:22 | PDOC PROGRESS REPORT ---
Subjective Date:: 11/03/20 Subjective:: Patient seen by the bedside, no new complaints Reason For Visit: TYPE 2 DIABETES,HYPERTENSION,PNEUMOTHORAX,RIGHT Physical Exam Vital Signs: Temp Pulse Resp BP Pulse Ox 97.9 F 77 16 136/87 H 99 11/03/20 15:51 11/03/20 20:48 11/03/20 20:48 11/03/20 15:51 11/03/20 20:48 Intake & Output 11/02/20 11/03/20 11/04/20 06:59 06:59 06:59 Intake Total 990 610 640 Output Total 1130 950 250 Balance -140 -340 390 Weight 79.8 kg 79.8 kg General appearance: PRESENT: no acute distress Eye exam: PRESENT: PERRLA Respiratory exam: PRESENT: clear to auscultation pranay Cardiovascular exam: PRESENT: +S1, +S2 Results Laboratory Results: 11/01/20 08:54 11/01/20 08:54 10/24/20 10/24/20 10/24/20 18:28 23:44 23:44 Creatine Kinase 60 CK-MB (CK-2) 0.86 Troponin I < 0.012 < 0.012 10/25/20 10/25/20 10/25/20 06:07 06:07 11:45 Creatine Kinase 102 122 CK-MB (CK-2) 1.10 Troponin I < 0.012 10/25/20 18:30 Creatine Kinase CK-MB (CK-2) 0.75 Troponin I < 0.012 Impressions: Chest CT 10/27/20 09:38 IMPRESSION: RIGHT CHEST TUBE WITH LESS THAN 10% PNEUMOTHORAX. CHRONIC DIFFUSE EMPHYSEMATOUS CHANGES WITH PARENCHYMAL SCARRING. NO APPARENT ACUTE FINDINGS. Chest X-Ray 11/03/20 06:00 IMPRESSION: Stable large bore right-sided chest tube with increased size of the right-sided pneumothorax compared to prior exam. Assessment & Plan - Diagnosis (1) Pneumothorax Qualifiers: Pneumothorax type: spontaneous, secondary Qualified Code(s): J93.12 - Secondary spontaneous pneumothorax Is this a current diagnosis for this admission?: Yes Plan: Continue present treatment (2) Chronic obstructive pulmonary disease Qualifiers: COPD type: unspecified COPD Qualified Code(s): J44.9 - Chronic obstructive pulmonary disease, unspecified Is this a current diagnosis for this admission?: Yes (3) Type 2 diabetes mellitus Qualifiers: Diabetes mellitus long-term insulin use: without equipment operator intermodal yard use Diabetes mellitus complication status: with neurologic complications Diabetes mellitus complication detail: with polyneuropathy Qualified Code(s): E11.42 - Type 2 diabetes mellitus with diabetic polyneuropathy Is this a current diagnosis for this admission?: Yes - Time Time Spent with patient: 25-34 minutes Level of Care: IMCU Medications reviewed and adjusted accordingly: Yes Anticipated discharge: Home - Inpatient Certification Based on my medical assessment, after consideration of the patient's comorbidities, presenting symptoms, or acuity I expect that the services needed warrant INPATIENT care.: Yes I certify that my determination is in accordance with my understanding of Medicare's requirements for reasonable and necessary INPATIENT services [42 CFR 412.3e].: Yes
[2020-11-03] MEDS: ATORVASTATIN CALCIUM 40 MG TABLET PO SCH (23:25)
[2020-11-04] MEDS: LEVOTHYROXINE SODIUM 0.112 MG TABLET PO SCH (05:33)
[2020-11-04] MEDS: TRAMADOL HCL 50 MG TABLET PO PRN ×3 (05:33→21:56)
--- NOTE | 2020-11-04 08:11 | PDOC PROGRESS REPORT ---
Subjective Date:: 11/04/20 Subjective:: feels ok, no sob Reason For Visit: TYPE 2 DIABETES,HYPERTENSION,PNEUMOTHORAX,RIGHT Physical Exam Vital Signs: Temp Pulse Resp BP Pulse Ox 97.5 F 65 16 121/47 L 98 11/04/20 03:40 11/04/20 03:40 11/04/20 03:40 11/04/20 03:40 11/04/20 05:25 Intake & Output 11/03/20 11/04/20 11/05/20 06:59 06:59 06:59 Intake Total 610 640 Output Total 950 903 Balance -340 -263 Weight 79.8 kg 82.3 kg General appearance: PRESENT: no acute distress Head exam: PRESENT: normocephalic Eye exam: PRESENT: EOMI Ear exam: PRESENT: normal external ear exam Mouth exam: PRESENT: moist Teeth exam: PRESENT: poor dentation Neck exam: PRESENT: full ROM Respiratory exam: PRESENT: rhonchi, unlabored Cardiovascular exam: PRESENT: RRR Pulses: PRESENT: normal radial pulses, normal femoral pulses Breast: PRESENT: Normal GI/Abdominal exam: PRESENT: soft Rectal exam: PRESENT: deferred Extremities exam: PRESENT: full ROM Musculoskeletal exam: PRESENT: full ROM Neurological exam: PRESENT: alert, awake, oriented to person, oriented to place Psychiatric exam: PRESENT: appropriate affect Skin exam: PRESENT: dry Results Laboratory Results: 11/01/20 08:54 11/01/20 08:54 10/24/20 10/24/20 10/24/20 18:28 23:44 23:44 Creatine Kinase 60 CK-MB (CK-2) 0.86 Troponin I < 0.012 < 0.012 10/25/20 10/25/20 10/25/20 06:07 06:07 11:45 Creatine Kinase 102 122 CK-MB (CK-2) 1.10 Troponin I < 0.012 10/25/20 18:30 Creatine Kinase CK-MB (CK-2) 0.75 Troponin I < 0.012 Impressions: Chest CT 10/27/20 09:38 IMPRESSION: RIGHT CHEST TUBE WITH LESS THAN 10% PNEUMOTHORAX. CHRONIC DIFFUSE EMPHYSEMATOUS CHANGES WITH PARENCHYMAL SCARRING. NO APPARENT ACUTE FINDINGS. Chest X-Ray 11/03/20 06:00 IMPRESSION: Stable large bore right-sided chest tube with increased size of the right-sided pneumothorax compared to prior exam. Assessment & Plan - Time Anticipated Discharge Disposition: Home, Self Care Anticipated Discharge Timeframe: unk - Plan Summary Plan Summary: still with air leak with heimlich valve in place cont suction
[2020-11-04] MEDS: INSULIN LISPRO 100 UNIT/ML 3 ML VIAL SUBCUT SCH ×4 (08:50→21:54)
[2020-11-04] MEDS: IPRATROPIUM/ALBUTEROL 0.5-2.5 MG/3 ML AMPUL NEB SCH ×4 (09:04→20:02)
[2020-11-04] MEDS: DOCUSATE SODIUM 100 MG CAPSULE PO SCH ×2 (09:44→17:36)
[2020-11-04] MEDS: GABAPENTIN 100 MG CAPSULE PO SCH ×2 (09:47→21:54)
--- NOTE | 2020-11-04 12:46 | RADIOLOGY REPORT (SQ) ---
EXAM DESCRIPTION: CHEST SINGLE VIEW IMAGES COMPLETED DATE/TIME: 11/04/2020 9:07 am REASON FOR STUDY: Follow-up right pneumothorax following pleurodesis COMPARISON: 11/03/2020 NUMBER OF VIEWS: One view. TECHNIQUE: Single frontal radiographic image of the chest acquired. LIMITATIONS: None. FINDINGS: LUNGS AND PLEURA: FURTHER DECREASE IN SIZE OF RIGHT APICAL PNEUMOTHORAX, LESS THAN 10%. 2 .5 MM FROM PLEURAL MARGIN TO THE APEX. MEDIASTINUM AND HEART: Stable heart size and mediastinal structures. SUPPORT DEVICES: Appropriate location without change. BONY STRUCTURES: No acute findings. HARDWARE: None. OTHER: No other significant finding. IMPRESSION: Improving right apical pneumothorax. Reading location - IP/workstation name: [email or web address]
[2020-11-04] MEDS: MORPHINE SULFATE 10 MG/ML INJ IV PRN ×2 (15:46→23:21)
--- NOTE | 2020-11-04 21:00 | PDOC PROGRESS REPORT ---
Subjective Date:: 11/04/20 Subjective:: Patient feels better Reason For Visit: TYPE 2 DIABETES,HYPERTENSION,PNEUMOTHORAX,RIGHT Physical Exam Vital Signs: Temp Pulse Resp BP Pulse Ox 97.8 F 72 16 120/61 98 11/04/20 19:21 11/04/20 20:02 11/04/20 20:02 11/04/20 19:21 11/04/20 20:02 Intake & Output 11/03/20 11/04/20 11/05/20 06:59 06:59 06:59 Intake Total 610 640 778 Output Total 950 903 590 Balance -340 -263 188 Weight 79.8 kg 82.3 kg 82.3 kg General appearance: PRESENT: no acute distress Eye exam: PRESENT: PERRLA Respiratory exam: PRESENT: clear to auscultation pranay Cardiovascular exam: PRESENT: +S1, +S2 Results Laboratory Results: 11/01/20 08:54 11/01/20 08:54 10/24/20 10/24/20 10/24/20 18:28 23:44 23:44 Creatine Kinase 60 CK-MB (CK-2) 0.86 Troponin I < 0.012 < 0.012 10/25/20 10/25/20 10/25/20 06:07 06:07 11:45 Creatine Kinase 102 122 CK-MB (CK-2) 1.10 Troponin I < 0.012 10/25/20 18:30 Creatine Kinase CK-MB (CK-2) 0.75 Troponin I < 0.012 Impressions: Chest CT 10/27/20 09:38 IMPRESSION: RIGHT CHEST TUBE WITH LESS THAN 10% PNEUMOTHORAX. CHRONIC DIFFUSE EMPHYSEMATOUS CHANGES WITH PARENCHYMAL SCARRING. NO APPARENT ACUTE FINDINGS. Chest X-Ray 11/04/20 06:00 IMPRESSION: Improving right apical pneumothorax. Assessment & Plan - Diagnosis (1) Pneumothorax Qualifiers: Pneumothorax type: spontaneous, secondary Qualified Code(s): J93.12 - Secondary spontaneous pneumothorax Is this a current diagnosis for this admission?: Yes Plan: Continue present treatment (2) Chronic obstructive pulmonary disease Qualifiers: COPD type: unspecified COPD Qualified Code(s): J44.9 - Chronic obstructive pulmonary disease, unspecified Is this a current diagnosis for this admission?: Yes (3) Type 2 diabetes mellitus Qualifiers: Diabetes mellitus termite treater helper insulin use: without chcf use Diabetes mellitus complication status: with neurologic complications Diabetes mellitus complication detail: with polyneuropathy Qualified Code(s): E11.42 - Type 2 diabetes mellitus with diabetic polyneuropathy Is this a current diagnosis for this admission?: Yes - Time Time Spent with patient: Less than 15 minutes Level of Care: IMCU Medications reviewed and adjusted accordingly: Yes Anticipated DC Timeframe: within 72 hours
[2020-11-04] MEDS: ATORVASTATIN CALCIUM 40 MG TABLET PO SCH (21:54)
[2020-11-05] MEDS: LEVOTHYROXINE SODIUM 0.112 MG TABLET PO SCH (05:19)
[2020-11-05] MEDS: TRAMADOL HCL 50 MG TABLET PO PRN ×3 (06:46→22:00)
[2020-11-05] MEDS: IPRATROPIUM/ALBUTEROL 0.5-2.5 MG/3 ML AMPUL NEB SCH ×4 (08:13→19:57)
--- NOTE | 2020-11-05 08:17 | RADIOLOGY REPORT (SQ) ---
EXAM DESCRIPTION: CHEST SINGLE VIEW IMAGES COMPLETED DATE/TIME: 11/05/2020 7:42 am REASON FOR STUDY: Follow-up right pneumothorax following pleurodesis COMPARISON: 11/04/2020 NUMBER OF VIEWS: One view. TECHNIQUE: Single frontal radiographic image of the chest acquired. LIMITATIONS: None. FINDINGS: LUNGS AND PLEURA: Grossly stable. In the medial right apex small pneumothorax remains sli ghtly decreased in size from yesterday. Large-bore right-sided chest tube remains in place. Stable subpleural airspace disease. MEDIASTINUM AND HILAR STRUCTURES: Stable heart size and mediastinal structures. HEART AND VASCULAR STRUCTURES: Stable appearance. BONES: No acute findings. HARDWARE: None in the chest. OTHER: No other significant finding. IMPRESSION: Right-sided small apical pneumothorax continues to decrease in size. Large-bore right-s ided chest tube remains in place. TECHNICAL DOCUMENTATION: JOB ID: [id number] 2010 [employer]- All Rights Reserved Reading location - IP/workstation name: [email or web address]
[2020-11-05] MEDS: INSULIN LISPRO 100 UNIT/ML 3 ML VIAL SUBCUT SCH ×3 (09:28→22:00)
[2020-11-05] MEDS: DOCUSATE SODIUM 100 MG CAPSULE PO SCH ×3 (09:28→18:02)
[2020-11-05] MEDS: GABAPENTIN 100 MG CAPSULE PO SCH ×2 (09:28→22:00)
--- NOTE | 2020-11-05 14:10 | PDOC PROGRESS REPORT ---
Subjective Date:: 11/05/20 Subjective:: Patient has no complaints; however, she reports spitting up some yellow phlegm Reason For Visit: TYPE 2 DIABETES,HYPERTENSION,PNEUMOTHORAX,RIGHT Physical Exam Vital Signs: Temp Pulse Resp BP Pulse Ox 97.7 F 74 16 121/60 98 11/05/20 03:39 11/05/20 11:59 11/05/20 11:59 11/05/20 03:39 11/05/20 11:59 Intake & Output 11/04/20 11/05/20 11/06/20 06:59 06:59 06:59 Intake Total 640 1038 Output Total 903 1490 Balance -263 -452 Weight 82.3 kg 85.1 kg General appearance: PRESENT: no acute distress, obese Respiratory exam: PRESENT: other - Right lateral thoracostomy tube filled with serous fluid, positive air leak on inspiration Results Laboratory Results: 11/01/20 08:54 11/01/20 08:54 10/24/20 10/24/20 10/24/20 18:28 23:44 23:44 Creatine Kinase 60 CK-MB (CK-2) 0.86 Troponin I < 0.012 < 0.012 10/25/20 10/25/20 10/25/20 06:07 06:07 11:45 Creatine Kinase 102 122 CK-MB (CK-2) 1.10 Troponin I < 0.012 10/25/20 18:30 Creatine Kinase CK-MB (CK-2) 0.75 Troponin I < 0.012 Impressions: Chest CT 10/27/20 09:38 IMPRESSION: RIGHT CHEST TUBE WITH LESS THAN 10% PNEUMOTHORAX. CHRONIC DIFFUSE EMPHYSEMATOUS CHANGES WITH PARENCHYMAL SCARRING. NO APPARENT ACUTE FINDINGS. Chest X-Ray 11/05/20 06:00 IMPRESSION: Right-sided small apical pneumothorax continues to decrease in size. Large-bore right-sided chest tube remains in place. Assessment & Plan - Diagnosis (1) Pneumothorax on right Is this a current diagnosis for this admission?: Yes - Time Anticipated Discharge Disposition: Home with Home Health Anticipated Discharge Timeframe: When ready - Plan Summary Plan Summary: Assessment: Postoperative day #7 following right VATS for recurrent spontaneous pneumothorax Small, but persistent air leak on inspiration noted Chest x-ray done today reveals decreasing apical pneumothorax compared to previous chest x-ray Physical exam reveals right-sided thoracostomy tube filled with serous fluid Plan: Continue chest tube to Pleur-evac/wall suction Repeat chest x-ray in the morning
--- NOTE | 2020-11-05 14:15 | Progress Note ---
Provider Note Provider Note: Discussion has been entertained with anesthesia in regard to the possibility of performing colonoscopy on this patient as well. Plan: Bowel prep tonight EGD colonoscopy tomorrow No change with preop preparation including note from cardiology, EKG, and blood work
[2020-11-05] MEDS ORDERED: DEXTROSE 40% GEL 15 GM TUBE PO PRN ×2 (14:25)
[2020-11-05] MEDS ORDERED: GLUCAGON,HUMAN RECOMB 1 MG INJ SUBCUT PRN (14:25)
[2020-11-05] MEDS ORDERED: DEXTROSE 50%-WATER 25 GM/50 ML DISP.SYRIN IV PRN ×2 (14:25)
[2020-11-05] MEDS ORDERED: NORMAL SALINE 1000 ML 1,000 ML IV PRN (16:00)
[2020-11-05] MEDS: PEG 3350/NA SULF,BICARB,CL/KCL 4000 ML PEG ONE ×2 (17:55→22:09)
[2020-11-05] MEDS: BISACODYL 10 MG SUPP.RECT PR ONE ×2 (17:55→22:09)
--- NOTE | 2020-11-05 20:06 | PDOC PROGRESS REPORT ---
Subjective Date:: 11/05/20 Subjective:: Patient with no new complaints Reason For Visit: TYPE 2 DIABETES,HYPERTENSION,PNEUMOTHORAX,RIGHT Physical Exam Vital Signs: Temp Pulse Resp BP Pulse Ox 97.9 F 163 H 18 119/85 98 11/05/20 17:40 11/05/20 17:40 11/05/20 17:40 11/05/20 17:40 11/05/20 17:40 Intake & Output 11/04/20 11/05/20 11/06/20 06:59 06:59 06:59 Intake Total 640 1038 600 Output Total 903 1490 550 Balance -263 -452 50 Weight 82.3 kg 85.1 kg General appearance: PRESENT: no acute distress Eye exam: PRESENT: PERRLA Respiratory exam: PRESENT: clear to auscultation pranay Cardiovascular exam: PRESENT: +S1, +S2 GI/Abdominal exam: PRESENT: soft Neurological exam: PRESENT: alert Results Laboratory Results: 11/01/20 08:54 11/01/20 08:54 10/24/20 10/24/20 10/24/20 18:28 23:44 23:44 Creatine Kinase 60 CK-MB (CK-2) 0.86 Troponin I < 0.012 < 0.012 10/25/20 10/25/20 10/25/20 06:07 06:07 11:45 Creatine Kinase 102 122 CK-MB (CK-2) 1.10 Troponin I < 0.012 10/25/20 18:30 Creatine Kinase CK-MB (CK-2) 0.75 Troponin I < 0.012 Impressions: Chest CT 10/27/20 09:38 IMPRESSION: RIGHT CHEST TUBE WITH LESS THAN 10% PNEUMOTHORAX. CHRONIC DIFFUSE EMPHYSEMATOUS CHANGES WITH PARENCHYMAL SCARRING. NO APPARENT ACUTE FINDINGS. Chest X-Ray 11/05/20 06:00 IMPRESSION: Right-sided small apical pneumothorax continues to decrease in size. Large-bore right-sided chest tube remains in place. Assessment & Plan - Diagnosis (1) Pneumothorax Qualifiers: Pneumothorax type: spontaneous, secondary Qualified Code(s): J93.12 - Secondary spontaneous pneumothorax Is this a current diagnosis for this admission?: Yes Plan: Continue present treatment (2) Chronic obstructive pulmonary disease Qualifiers: COPD type: unspecified COPD Qualified Code(s): J44.9 - Chronic obstructive pulmonary disease, unspecified Is this a current diagnosis for this admission?: Yes (3) Type 2 diabetes mellitus Qualifiers: Diabetes mellitus bow string maker insulin use: without detention use Diabetes mellitus complication status: with neurologic complications Diabetes mellitus complication detail: with polyneuropathy Qualified Code(s): E11.42 - Type 2 diabetes mellitus with diabetic polyneuropathy Is this a current diagnosis for this admission?: Yes - Time Time Spent with patient: Less than 15 minutes Level of Care: IMCU Medications reviewed and adjusted accordingly: Yes Anticipated discharge: Home - Inpatient Certification Based on my medical assessment, after consideration of the patient's comorbidities, presenting symptoms, or acuity I expect that the services needed warrant INPATIENT care.: Yes I certify that my determination is in accordance with my understanding of Medicare's requirements for reasonable and necessary INPATIENT services [42 CFR 412.3e].: Yes
[2020-11-05] MEDS: ATORVASTATIN CALCIUM 40 MG TABLET PO SCH (22:00)
[2020-11-06] MEDS: MORPHINE SULFATE 10 MG/ML INJ IV PRN (01:15)
[2020-11-06] MEDS: LEVOTHYROXINE SODIUM 0.112 MG TABLET PO SCH (05:08)
[2020-11-06] MEDS ORDERED: NA PHOS,M-B/NA PHOS,DI-BA (ADULT) 133 ML ENEMA PR ONE (06:00)
[2020-11-06] MEDS: IPRATROPIUM/ALBUTEROL 0.5-2.5 MG/3 ML AMPUL NEB SCH ×4 (08:54→21:16)
--- NOTE | 2020-11-06 10:11 | PDOC PROGRESS REPORT ---
Subjective Date:: 11/06/20 Reason For Visit: TYPE 2 DIABETES,HYPERTENSION,PNEUMOTHORAX,RIGHT Patient transferring bed to chair. Pleur-evac hooked to suction with persisting air leak. Physical Exam Vital Signs: Temp Pulse Resp BP Pulse Ox 97.4 F 78 16 114/48 L 100 11/06/20 08:09 11/06/20 08:54 11/06/20 08:54 11/06/20 03:10 11/06/20 08:54 Intake & Output 11/05/20 11/06/20 11/07/20 06:59 06:59 06:59 Intake Total 1038 860 Output Total 1490 1050 Balance -452 -190 Weight 85.1 kg 80.7 kg General appearance: PRESENT: no acute distress Respiratory exam: PRESENT: other - Patient with good respiratory effort, good cough; no subcutaneous emphysema. Pleur-evac examined. Patient continues to have near continuous air leak Results Laboratory Results: 11/01/20 08:54 11/01/20 08:54 10/24/20 10/24/20 10/24/20 18:28 23:44 23:44 Creatine Kinase 60 CK-MB (CK-2) 0.86 Troponin I < 0.012 < 0.012 10/25/20 10/25/20 10/25/20 06:07 06:07 11:45 Creatine Kinase 102 122 CK-MB (CK-2) 1.10 Troponin I < 0.012 10/25/20 18:30 Creatine Kinase CK-MB (CK-2) 0.75 Troponin I < 0.012 Impressions: Chest CT 10/27/20 09:38 IMPRESSION: RIGHT CHEST TUBE WITH LESS THAN 10% PNEUMOTHORAX. CHRONIC DIFFUSE EMPHYSEMATOUS CHANGES WITH PARENCHYMAL SCARRING. NO APPARENT ACUTE FINDINGS. Assessment & Plan - Diagnosis (1) Pneumothorax on right Is this a current diagnosis for this admission?: Yes Plan: Impression: Patient is postoperative day 8 VATS procedure persisting air leak, no subcutaneous emphysema; chest x-ray today shows small apical and lateral pneumothorax. Plan: 1. Continue patient on suction Pleur-evac 2. We will continue to follow patient; additional intervention may be required. (2) Chronic obstructive pulmonary disease Qualifiers: COPD type: unspecified COPD Qualified Code(s): J44.9 - Chronic obstructive pulmonary disease, unspecified Is this a current diagnosis for this admission?: Yes (3) Type 2 diabetes mellitus Qualifiers: Diabetes mellitus technician terminal and repeater insulin use: without halfway use Diabetes mellitus complication status: with neurologic complications Diabetes mellitus complication detail: with polyneuropathy Qualified Code(s): E11.42 - Type 2 diabetes mellitus with diabetic polyneuropathy Is this a current diagnosis for this admission?: Yes (4) History of fracture of rib Is this a current diagnosis for this admission?: Yes - Time Anticipated Discharge Disposition: Home, Self Care Anticipated Discharge Timeframe: TBD
[2020-11-06] MEDS: DOCUSATE SODIUM 100 MG CAPSULE PO SCH ×2 (11:08→17:43)
[2020-11-06] MEDS: INSULIN LISPRO 100 UNIT/ML 3 ML VIAL SUBCUT SCH ×4 (11:09→23:14)
[2020-11-06] MEDS: GABAPENTIN 100 MG CAPSULE PO SCH ×2 (11:09→23:16)
--- NOTE | 2020-11-06 14:13 | RADIOLOGY REPORT (SQ) ---
EXAM DESCRIPTION: CHEST SINGLE VIEW IMAGES COMPLETED DATE/TIME: 11/06/2020 8:39 am REASON FOR STUDY: Follow-up right pneumothorax following pleurodesis COMPARISON: Previous day. NUMBER OF VIEWS: One view. TECHNIQUE: Single frontal radiographic image of the chest acquired. LIMITATIONS: None. FINDINGS: LUNGS AND PLEURA: Estimated 10% right apical pneumothorax not significantly changed. MEDIASTINUM AND HEART: Stable heart size and mediastinal structures. SUPPORT DEVICES: Appropriate location without change. BONY STRUCTURES: No acute findings. HARDWARE: None. OTHER: No other significant finding. IMPRESSION: STABLE APPEARANCE OF THE CHEST. SUPPORT DEVICES UNCHANGED. Reading location - IP/workstation name: [email or web address]
[2020-11-06] MEDS: TRAMADOL HCL 50 MG TABLET PO PRN ×2 (14:26→23:18)
--- NOTE | 2020-11-06 17:13 | PDOC PROGRESS REPORT ---
Subjective Date:: 11/06/20 Subjective:: Patient seen by the bedside, she was admitted for pleural effusion status post c lose thoracostomy, status post VATS, still have air leak, she may require another intervention Reason For Visit: TYPE 2 DIABETES,HYPERTENSION,PNEUMOTHORAX,RIGHT Physical Exam Vital Signs: Temp Pulse Resp BP Pulse Ox 97.4 F 72 16 114/48 L 100 11/06/20 08:09 11/06/20 11:56 11/06/20 11:56 11/06/20 03:10 11/06/20 11:56 Intake & Output 11/05/20 11/06/20 11/07/20 06:59 06:59 06:59 Intake Total 1038 860 Output Total 1490 1050 Balance -452 -190 Weight 85.1 kg 80.7 kg General appearance: PRESENT: no acute distress Eye exam: PRESENT: PERRLA Respiratory exam: PRESENT: clear to auscultation pranay Cardiovascular exam: PRESENT: +S1, +S2 GI/Abdominal exam: PRESENT: soft Neurological exam: PRESENT: alert Results Laboratory Results: 11/01/20 08:54 11/01/20 08:54 10/24/20 10/24/20 10/24/20 18:28 23:44 23:44 Creatine Kinase 60 CK-MB (CK-2) 0.86 Troponin I < 0.012 < 0.012 10/25/20 10/25/20 10/25/20 06:07 06:07 11:45 Creatine Kinase 102 122 CK-MB (CK-2) 1.10 Troponin I < 0.012 10/25/20 18:30 Creatine Kinase CK-MB (CK-2) 0.75 Troponin I < 0.012 Impressions: Chest CT 10/27/20 09:38 IMPRESSION: RIGHT CHEST TUBE WITH LESS THAN 10% PNEUMOTHORAX. CHRONIC DIFFUSE EMPHYSEMATOUS CHANGES WITH PARENCHYMAL SCARRING. NO APPARENT ACUTE FINDINGS. Chest X-Ray 11/06/20 06:00 IMPRESSION: STABLE APPEARANCE OF THE CHEST. SUPPORT DEVICES UNCHANGED. Assessment & Plan - Diagnosis (1) Pneumothorax Qualifiers: Pneumothorax type: spontaneous, secondary Qualified Code(s): J93.12 - Secondary spontaneous pneumothorax Is this a current diagnosis for this admission?: Yes Plan: Continue present treatment (2) Chronic obstructive pulmonary disease Qualifiers: COPD type: unspecified COPD Qualified Code(s): J44.9 - Chronic obstructive pulmonary disease, unspecified Is this a current diagnosis for this admission?: Yes (3) Type 2 diabetes mellitus Qualifiers: Diabetes mellitus penitentiary insulin use: without penitentiary use Diabetes mellitus complication status: with neurologic complications Diabetes mellitus complication detail: with polyneuropathy Qualified Code(s): E11.42 - Type 2 diabetes mellitus with diabetic polyneuropathy Is this a current diagnosis for this admission?: Yes - Time Time Spent with patient: 15-24 minutes Level of Care: IMCU Medications reviewed and adjusted accordingly: Yes Anticipated discharge: Home Anticipated DC Timeframe: within 72 hours
[2020-11-06] MEDS: ATORVASTATIN CALCIUM 40 MG TABLET PO SCH (23:18)
[2020-11-07] MEDS: TRAMADOL HCL 50 MG TABLET PO PRN (05:01)
[2020-11-07] MEDS: MORPHINE SULFATE 10 MG/ML INJ IV PRN ×3 (05:30→21:04)
[2020-11-07] MEDS: LEVOTHYROXINE SODIUM 0.112 MG TABLET PO SCH (05:35)
[2020-11-07] MEDS: IPRATROPIUM/ALBUTEROL 0.5-2.5 MG/3 ML AMPUL NEB SCH ×4 (08:06→20:50)
[2020-11-07] MEDS: INSULIN LISPRO 100 UNIT/ML 3 ML VIAL SUBCUT SCH ×4 (08:41→21:25)
--- NOTE | 2020-11-07 08:48 | RADIOLOGY REPORT (SQ) ---
EXAM DESCRIPTION: CHEST SINGLE VIEW IMAGES COMPLETED DATE/TIME: 11/07/2020 8:09 am REASON FOR STUDY: Follow-up right pneumothorax following pleurodesis COMPARISON: 11/06/2020. EXAM PARAMETERS: NUMBER OF VIEWS: One view. TECHNIQUE: Single frontal radiographic view of the chest acquired. RADIATION DOSE: NA LIMITATIONS: None. FINDINGS: LUNGS AND PLEURA: Minimal right pneumothorax, unchanged. Mild pleural thickening on the r ight. Lungs otherwise clear. MEDIASTINUM AND HILAR STRUCTURES: No masses. Contour normal. HEART AND VASCULAR STRUCTURES: Heart normal in size. Normal vasculature. BONES: No acute findings. HARDWARE: The right chest tube has been retracted a few cm. Note that the side holes are located in the soft tissues of the chest. OTHER: No other significant finding. IMPRESSION: RIGHT CHEST TUBE DESCRIBED. STABLE MINIMAL RIGHT PNEUMOTHORAX. TECHNICAL DOCUMENTATION: JOB ID: [id number] 2010 [employer]- All Rights Reserved Reading location - IP/workstation name: [email or web address]
[2020-11-07] MEDS: GABAPENTIN 100 MG CAPSULE PO SCH ×2 (11:22→21:05)
[2020-11-07] MEDS: DOCUSATE SODIUM 100 MG CAPSULE PO SCH ×2 (11:22→17:28)
--- NOTE | 2020-11-07 11:41 | PDOC PROGRESS REPORT ---
Subjective Date:: 11/07/20 Reason For Visit: TYPE 2 DIABETES,HYPERTENSION,PNEUMOTHORAX,RIGHT Physical Exam Vital Signs: Temp Pulse Resp BP Pulse Ox 98.0 F 90 16 119/65 99 11/07/20 03:33 11/07/20 08:06 11/07/20 08:06 11/07/20 03:33 11/07/20 08:06 Intake & Output 11/06/20 11/07/20 11/08/20 06:59 06:59 06:59 Intake Total 860 700 Output Total 1050 250 Balance -190 450 Weight 80.7 kg Results Laboratory Results: 11/01/20 08:54 11/01/20 08:54 10/24/20 10/24/20 10/24/20 18:28 23:44 23:44 Creatine Kinase 60 CK-MB (CK-2) 0.86 Troponin I < 0.012 < 0.012 10/25/20 10/25/20 10/25/20 06:07 06:07 11:45 Creatine Kinase 102 122 CK-MB (CK-2) 1.10 Troponin I < 0.012 10/25/20 18:30 Creatine Kinase CK-MB (CK-2) 0.75 Troponin I < 0.012 Impressions: Chest CT 10/27/20 09:38 IMPRESSION: RIGHT CHEST TUBE WITH LESS THAN 10% PNEUMOTHORAX. CHRONIC DIFFUSE EMPHYSEMATOUS CHANGES WITH PARENCHYMAL SCARRING. NO APPARENT ACUTE FINDINGS. Chest X-Ray 11/07/20 06:00 IMPRESSION: RIGHT CHEST TUBE DESCRIBED. STABLE MINIMAL RIGHT PNEUMOTHORAX. Assessment & Plan - Diagnosis (1) Pneumothorax on right Is this a current diagnosis for this admission?: Yes - Time Anticipated Discharge Disposition: unknown Anticipated Discharge Timeframe: unknown - Plan Summary Plan Summary: 75-year-old female with a persistent air leak via her right chest tube. Increased to 25 cm of water suction. Heimlich valve was removed. Further plan/surgery per Dr. Brice. Maintain chest tube for now. Patient stable.
[2020-11-07] MEDS: ATORVASTATIN CALCIUM 40 MG TABLET PO SCH (21:05)
--- NOTE | 2020-11-07 22:00 | PDOC PROGRESS REPORT ---
Subjective Date:: 11/07/20 Subjective:: Patient seen by the bedside, she was admitted for pleural effusion status post c lose thoracostomy, status post VATS, still have air leak, she may require another intervention Reason For Visit: TYPE 2 DIABETES,HYPERTENSION,PNEUMOTHORAX,RIGHT Physical Exam Vital Signs: Temp Pulse Resp BP Pulse Ox 98.2 F 85 17 127/61 H 100 11/07/20 21:20 11/07/20 19:30 11/07/20 19:30 11/07/20 19:30 11/07/20 19:30 Intake & Output 11/06/20 11/07/20 11/08/20 06:59 06:59 06:59 Intake Total 860 700 598 Output Total 1050 250 Balance -190 450 598 Weight 80.7 kg General appearance: PRESENT: no acute distress Eye exam: PRESENT: PERRLA Respiratory exam: PRESENT: clear to auscultation pranay Cardiovascular exam: PRESENT: +S1, +S2 GI/Abdominal exam: PRESENT: soft Neurological exam: PRESENT: alert Results Laboratory Results: 11/01/20 08:54 11/01/20 08:54 10/24/20 10/24/20 10/24/20 18:28 23:44 23:44 Creatine Kinase 60 CK-MB (CK-2) 0.86 Troponin I < 0.012 < 0.012 10/25/20 10/25/20 10/25/20 06:07 06:07 11:45 Creatine Kinase 102 122 CK-MB (CK-2) 1.10 Troponin I < 0.012 10/25/20 18:30 Creatine Kinase CK-MB (CK-2) 0.75 Troponin I < 0.012 Impressions: Chest CT 10/27/20 09:38 IMPRESSION: RIGHT CHEST TUBE WITH LESS THAN 10% PNEUMOTHORAX. CHRONIC DIFFUSE EMPHYSEMATOUS CHANGES WITH PARENCHYMAL SCARRING. NO APPARENT ACUTE FINDINGS. Chest X-Ray 11/07/20 06:00 IMPRESSION: RIGHT CHEST TUBE DESCRIBED. STABLE MINIMAL RIGHT PNEUMOTHORAX. Assessment & Plan - Diagnosis (1) Pneumothorax Qualifiers: Pneumothorax type: spontaneous, secondary Qualified Code(s): J93.12 - Secondary spontaneous pneumothorax Is this a current diagnosis for this admission?: Yes Plan: Continue present treatment (2) Chronic obstructive pulmonary disease Qualifiers: COPD type: unspecified COPD Qualified Code(s): J44.9 - Chronic obstructive pulmonary disease, unspecified Is this a current diagnosis for this admission?: Yes (3) Type 2 diabetes mellitus Qualifiers: Diabetes mellitus supervisor intermediates insulin use: without supervisor intermediates use Diabetes mellitus complication status: with neurologic complications Diabetes mellitus complication detail: with polyneuropathy Qualified Code(s): E11.42 - Type 2 diabetes mellitus with diabetic polyneuropathy Is this a current diagnosis for this admission?: Yes - Time Time Spent with patient: Less than 15 minutes Level of Care: IMCU Medications reviewed and adjusted accordingly: Yes Anticipated discharge: Home Anticipated DC Timeframe: Other
[2020-11-08] MEDS: TRAMADOL HCL 50 MG TABLET PO PRN (01:10)
[2020-11-08] MEDS: LEVOTHYROXINE SODIUM 0.112 MG TABLET PO SCH (08:26)
[2020-11-08] MEDS: INSULIN LISPRO 100 UNIT/ML 3 ML VIAL SUBCUT SCH ×4 (08:26→21:38)
--- NOTE | 2020-11-08 08:45 | RADIOLOGY REPORT (SQ) ---
EXAM DESCRIPTION: CHEST SINGLE VIEW IMAGES COMPLETED DATE/TIME: 11/08/2020 7:48 am REASON FOR STUDY: Follow-up right pneumothorax following pleurodesis COMPARISON: None. NUMBER OF VIEWS: One view. TECHNIQUE: Single frontal radiographic image of the chest acquired. LIMITATIONS: None. FINDINGS: LUNGS AND PLEURA: Less than 10% right apical pneumothorax. No significant change. MEDIASTINUM AND HEART: Stable heart size and mediastinal structures. SUPPORT DEVICES: Appropriate location without change. BONY STRUCTURES: No acute findings. HARDWARE: None. OTHER: No other significant finding. IMPRESSION: No significant change. Less than 10% right apical pneumothorax. Reading location - IP/workstation name: [email or web address]
[2020-11-08] MEDS: GABAPENTIN 100 MG CAPSULE PO SCH ×2 (09:13→21:39)
[2020-11-08] MEDS: DOCUSATE SODIUM 100 MG CAPSULE PO SCH ×2 (09:13→17:21)
[2020-11-08] MEDS: IPRATROPIUM/ALBUTEROL 0.5-2.5 MG/3 ML AMPUL NEB SCH ×4 (09:39→19:03)
--- NOTE | 2020-11-08 10:29 | PDOC PROGRESS REPORT ---
Subjective Date:: 11/08/20 Subjective:: feels ok, no sob Reason For Visit: TYPE 2 DIABETES,HYPERTENSION,PNEUMOTHORAX,RIGHT Physical Exam Vital Signs: Temp Pulse Resp BP Pulse Ox 98.3 F 69 16 106/52 L 95 11/08/20 07:31 11/08/20 09:39 11/08/20 09:39 11/08/20 07:31 11/08/20 09:39 Intake & Output 11/07/20 11/08/20 11/09/20 06:59 06:59 06:59 Intake Total 700 958 Output Total 250 Balance 450 958 Weight 84.7 kg General appearance: PRESENT: no acute distress Head exam: PRESENT: normocephalic Eye exam: PRESENT: EOMI Ear exam: PRESENT: normal external ear exam Mouth exam: PRESENT: moist Neck exam: PRESENT: full ROM Respiratory exam: PRESENT: clear to auscultation pranay Cardiovascular exam: PRESENT: RRR Pulses: PRESENT: normal radial pulses, normal femoral pulses Vascular exam: PRESENT: normal capillary refill Breast: PRESENT: Normal GI/Abdominal exam: PRESENT: soft Rectal exam: PRESENT: deferred Extremities exam: PRESENT: full ROM Musculoskeletal exam: PRESENT: ambulatory, full ROM Neurological exam: PRESENT: alert, awake, oriented to person, oriented to place Psychiatric exam: PRESENT: appropriate affect Skin exam: PRESENT: dry Results Laboratory Results: 11/01/20 08:54 11/01/20 08:54 10/24/20 10/24/20 10/24/20 18:28 23:44 23:44 Creatine Kinase 60 CK-MB (CK-2) 0.86 Troponin I < 0.012 < 0.012 10/25/20 10/25/20 10/25/20 06:07 06:07 11:45 Creatine Kinase 102 122 CK-MB (CK-2) 1.10 Troponin I < 0.012 10/25/20 18:30 Creatine Kinase CK-MB (CK-2) 0.75 Troponin I < 0.012 Impressions: Chest CT 10/27/20 09:38 IMPRESSION: RIGHT CHEST TUBE WITH LESS THAN 10% PNEUMOTHORAX. CHRONIC DIFFUSE EMPHYSEMATOUS CHANGES WITH PARENCHYMAL SCARRING. NO APPARENT ACUTE FINDINGS. Chest X-Ray 11/08/20 06:00 IMPRESSION: No significant change. Less than 10% right apical pneumothorax. Assessment & Plan - Time Anticipated Discharge Disposition: Home, Self Care Anticipated Discharge Timeframe: unk - Plan Summary Plan Summary: s/p vats procedure for pneumothorax still with air leak, sl less less than 10% apical pneumo will cont suction per Dr Glover
[2020-11-08] MEDS: MORPHINE SULFATE 10 MG/ML INJ IV PRN ×2 (17:49→21:44)
--- NOTE | 2020-11-08 18:31 | PDOC PROGRESS REPORT ---
Subjective Date:: 11/08/20 Subjective:: Patient seen by the bedside, she was admitted for pleural effusion status post c lose thoracostomy, status post VATS, still have air leak, she may require another intervention Reason For Visit: TYPE 2 DIABETES,HYPERTENSION,PNEUMOTHORAX,RIGHT Physical Exam Vital Signs: Temp Pulse Resp BP Pulse Ox 99.2 F 84 16 110/41 L 99 11/08/20 15:23 11/08/20 16:37 11/08/20 16:37 11/08/20 15:23 11/08/20 16:37 Intake & Output 11/07/20 11/08/20 11/09/20 06:59 06:59 06:59 Intake Total 700 958 100 Output Total 250 Balance 450 958 100 Weight 84.7 kg General appearance: PRESENT: no acute distress Eye exam: PRESENT: PERRLA Respiratory exam: PRESENT: clear to auscultation pranay Cardiovascular exam: PRESENT: +S1, +S2 GI/Abdominal exam: PRESENT: soft Neurological exam: PRESENT: alert Results Laboratory Results: 11/01/20 08:54 11/01/20 08:54 10/24/20 10/24/20 10/24/20 18:28 23:44 23:44 Creatine Kinase 60 CK-MB (CK-2) 0.86 Troponin I < 0.012 < 0.012 10/25/20 10/25/20 10/25/20 06:07 06:07 11:45 Creatine Kinase 102 122 CK-MB (CK-2) 1.10 Troponin I < 0.012 10/25/20 18:30 Creatine Kinase CK-MB (CK-2) 0.75 Troponin I < 0.012 Impressions: Chest CT 10/27/20 09:38 IMPRESSION: RIGHT CHEST TUBE WITH LESS THAN 10% PNEUMOTHORAX. CHRONIC DIFFUSE EMPHYSEMATOUS CHANGES WITH PARENCHYMAL SCARRING. NO APPARENT ACUTE FINDINGS. Chest X-Ray 11/08/20 06:00 IMPRESSION: No significant change. Less than 10% right apical pneumothorax. Assessment & Plan - Diagnosis (1) Pneumothorax Qualifiers: Pneumothorax type: spontaneous, secondary Qualified Code(s): J93.12 - Secondary spontaneous pneumothorax Is this a current diagnosis for this admission?: Yes Plan: Continue present treatment (2) Chronic obstructive pulmonary disease Qualifiers: COPD type: unspecified COPD Qualified Code(s): J44.9 - Chronic obstructive pulmonary disease, unspecified Is this a current diagnosis for this admission?: Yes (3) Type 2 diabetes mellitus Qualifiers: Diabetes mellitus senior living insulin use: without pharmacy tech customer service use Diabetes mellitus complication status: with neurologic complications Diabetes mellitus complication detail: with polyneuropathy Qualified Code(s): E11.42 - Type 2 diabetes mellitus with diabetic polyneuropathy Is this a current diagnosis for this admission?: Yes - Time Time Spent with patient: 35 or more minutes Level of Care: ICU Medications reviewed and adjusted accordingly: Yes Anticipated discharge: Home Anticipated DC Timeframe: within 36 hours
[2020-11-08] MEDS: ATORVASTATIN CALCIUM 40 MG TABLET PO SCH (21:39)
[2020-11-09] MEDS: MORPHINE SULFATE 10 MG/ML INJ IV PRN ×2 (05:16→16:53)
[2020-11-09] MEDS: LEVOTHYROXINE SODIUM 0.112 MG TABLET PO SCH (05:17)
[2020-11-09] MEDS: INSULIN LISPRO 100 UNIT/ML 3 ML VIAL SUBCUT SCH ×4 (08:28→21:34)
[2020-11-09] MEDS: IPRATROPIUM/ALBUTEROL 0.5-2.5 MG/3 ML AMPUL NEB SCH ×4 (09:08→20:54)
--- NOTE | 2020-11-09 10:22 | PDOC PROGRESS REPORT ---
Subjective Date:: 11/09/20 Subjective:: Feels well, no shortness of breath Reason For Visit: TYPE 2 DIABETES,HYPERTENSION,PNEUMOTHORAX,RIGHT Physical Exam Vital Signs: Temp Pulse Resp BP Pulse Ox 98.1 F 74 16 114/99 H 100 11/09/20 08:16 11/09/20 09:08 11/09/20 09:08 11/09/20 07:53 11/09/20 09:08 Intake & Output 11/08/20 11/09/20 11/10/20 06:59 06:59 06:59 Intake Total 958 100 Output Total 62 Balance 958 38 Weight 84.7 kg 85.8 kg General appearance: PRESENT: no acute distress Head exam: PRESENT: normocephalic Eye exam: PRESENT: EOMI Ear exam: PRESENT: normal external ear exam Mouth exam: PRESENT: moist Teeth exam: PRESENT: poor dentation Neck exam: PRESENT: full ROM Respiratory exam: PRESENT: clear to auscultation pranay Cardiovascular exam: PRESENT: RRR Pulses: PRESENT: normal radial pulses, normal femoral pulses Vascular exam: PRESENT: normal capillary refill Breast: PRESENT: Normal GI/Abdominal exam: PRESENT: soft Rectal exam: PRESENT: deferred Extremities exam: PRESENT: full ROM Musculoskeletal exam: PRESENT: full ROM Neurological exam: PRESENT: alert, awake, oriented to person, oriented to place Psychiatric exam: PRESENT: appropriate affect Skin exam: PRESENT: dry Results Laboratory Results: 11/01/20 08:54 11/01/20 08:54 10/24/20 10/24/20 10/24/20 18:28 23:44 23:44 Creatine Kinase 60 CK-MB (CK-2) 0.86 Troponin I < 0.012 < 0.012 10/25/20 10/25/20 10/25/20 06:07 06:07 11:45 Creatine Kinase 102 122 CK-MB (CK-2) 1.10 Troponin I < 0.012 10/25/20 18:30 Creatine Kinase CK-MB (CK-2) 0.75 Troponin I < 0.012 Impressions: Chest CT 10/27/20 09:38 IMPRESSION: RIGHT CHEST TUBE WITH LESS THAN 10% PNEUMOTHORAX. CHRONIC DIFFUSE EMPHYSEMATOUS CHANGES WITH PARENCHYMAL SCARRING. NO APPARENT ACUTE FINDINGS. Chest X-Ray 11/08/20 06:00 IMPRESSION: No significant change. Less than 10% right apical pneumothorax. Assessment & Plan - Time Anticipated Discharge Disposition: Home, Self Care Anticipated Discharge Timeframe: Unknown - Plan Summary Plan Summary: Patient status post video-assisted thoracoscopic pleurodesis. Remains with chest tube in place on the right side with a slight air leak however this has been improving over the last couple days. Last chest x-ray shows a persistent right small apical pneumothorax. The airleak seems to be slowing over the last few days. Will leave the chest tube on suction today and consider taking it off wall suction tomorrow and repeating the chest x-ray.
[2020-11-09] MEDS: GABAPENTIN 100 MG CAPSULE PO SCH ×2 (10:40→21:35)
[2020-11-09] MEDS: DOCUSATE SODIUM 100 MG CAPSULE PO SCH ×2 (10:40→17:00)
[2020-11-09] MEDS: TRAMADOL HCL 50 MG TABLET PO PRN ×2 (11:44→21:47)
--- NOTE | 2020-11-09 18:14 | PDOC PROGRESS REPORT ---
Subjective Date:: 11/09/20 Subjective:: Patient is alert she feels well, still have air leak, medically stable Reason For Visit: TYPE 2 DIABETES,HYPERTENSION,PNEUMOTHORAX,RIGHT Physical Exam Vital Signs: Temp Pulse Resp BP Pulse Ox 97.6 F 86 14 110/50 L 100 11/09/20 15:38 11/09/20 15:38 11/09/20 15:38 11/09/20 15:38 11/09/20 15:38 Intake & Output 11/08/20 11/09/20 11/10/20 06:59 06:59 06:59 Intake Total 958 100 856 Output Total 62 Balance 958 38 856 Weight 84.7 kg 85.8 kg General appearance: PRESENT: no acute distress Eye exam: PRESENT: PERRLA Respiratory exam: PRESENT: clear to auscultation pranay Cardiovascular exam: PRESENT: +S1, +S2 GI/Abdominal exam: PRESENT: soft Neurological exam: PRESENT: alert Results Laboratory Results: 11/01/20 08:54 11/01/20 08:54 10/24/20 10/24/20 10/24/20 18:28 23:44 23:44 Creatine Kinase 60 CK-MB (CK-2) 0.86 Troponin I < 0.012 < 0.012 10/25/20 10/25/20 10/25/20 06:07 06:07 11:45 Creatine Kinase 102 122 CK-MB (CK-2) 1.10 Troponin I < 0.012 10/25/20 18:30 Creatine Kinase CK-MB (CK-2) 0.75 Troponin I < 0.012 Impressions: Chest CT 10/27/20 09:38 IMPRESSION: RIGHT CHEST TUBE WITH LESS THAN 10% PNEUMOTHORAX. CHRONIC DIFFUSE EMPHYSEMATOUS CHANGES WITH PARENCHYMAL SCARRING. NO APPARENT ACUTE FINDINGS. Chest X-Ray 11/08/20 06:00 IMPRESSION: No significant change. Less than 10% right apical pneumothorax. Assessment & Plan - Diagnosis (1) Pneumothorax Qualifiers: Pneumothorax type: spontaneous, secondary Qualified Code(s): J93.12 - Secondary spontaneous pneumothorax Is this a current diagnosis for this admission?: Yes Plan: Continue present treatment (2) Chronic obstructive pulmonary disease Qualifiers: COPD type: unspecified COPD Qualified Code(s): J44.9 - Chronic obstructive pulmonary disease, unspecified Is this a current diagnosis for this admission?: Yes (3) Type 2 diabetes mellitus Qualifiers: Diabetes mellitus jail insulin use: without jail use Diabetes mellitus complication status: with neurologic complications Diabetes mellitus complication detail: with polyneuropathy Qualified Code(s): E11.42 - Type 2 diabetes mellitus with diabetic polyneuropathy Is this a current diagnosis for this admission?: Yes - Time Time Spent with patient: 15-24 minutes Level of Care: MEDICAL Medications reviewed and adjusted accordingly: Yes Anticipated discharge: Home Anticipated DC Timeframe: within 72 hours
[2020-11-09] MEDS: ATORVASTATIN CALCIUM 40 MG TABLET PO SCH (21:34)
[2020-11-10] MEDS: LEVOTHYROXINE SODIUM 0.112 MG TABLET PO SCH (05:54)
[2020-11-10] MEDS: TRAMADOL HCL 50 MG TABLET PO PRN ×3 (06:51→22:10)
[2020-11-10] MEDS: IPRATROPIUM/ALBUTEROL 0.5-2.5 MG/3 ML AMPUL NEB SCH ×4 (08:09→19:52)
[2020-11-10] MEDS: INSULIN LISPRO 100 UNIT/ML 3 ML VIAL SUBCUT SCH ×4 (08:22→22:06)
--- NOTE | 2020-11-10 09:22 | PDOC PROGRESS REPORT ---
Subjective Date:: 11/10/20 Reason For Visit: TYPE 2 DIABETES,HYPERTENSION,PNEUMOTHORAX,RIGHT Patient has no complaints. Chest tube remains to Pleur-evac suction. Physical Exam Vital Signs: Temp Pulse Resp BP Pulse Ox 97.5 F 68 16 127/50 H 100 11/10/20 07:35 11/10/20 08:09 11/10/20 08:09 11/10/20 07:35 11/10/20 08:09 Intake & Output 11/09/20 11/10/20 11/11/20 06:59 06:59 06:59 Intake Total 100 856 Output Total 62 19 Balance 38 837 Weight 85.8 kg 85.8 kg General appearance: PRESENT: no acute distress Respiratory exam: PRESENT: other - Chest tube dressing intact; no subcutaneous emphysema. Pleur-evac chamber examined. No evidence of air leak. Results Laboratory Results: 11/01/20 08:54 11/01/20 08:54 10/24/20 10/24/20 10/24/20 18:28 23:44 23:44 Creatine Kinase 60 CK-MB (CK-2) 0.86 Troponin I < 0.012 < 0.012 10/25/20 10/25/20 10/25/20 06:07 06:07 11:45 Creatine Kinase 102 122 CK-MB (CK-2) 1.10 Troponin I < 0.012 10/25/20 18:30 Creatine Kinase CK-MB (CK-2) 0.75 Troponin I < 0.012 Impressions: Chest CT 10/27/20 09:38 IMPRESSION: RIGHT CHEST TUBE WITH LESS THAN 10% PNEUMOTHORAX. CHRONIC DIFFUSE EMPHYSEMATOUS CHANGES WITH PARENCHYMAL SCARRING. NO APPARENT ACUTE FINDINGS. Chest X-Ray 11/08/20 06:00 IMPRESSION: No significant change. Less than 10% right apical pneumothorax. Assessment & Plan - Diagnosis (1) Pneumothorax on right Is this a current diagnosis for this admission?: Yes Plan: Impression: Patient 12 days status post VATS procedure, with cessation of air leak based on clinical examination Pleur-evac. Pleur-evac placed to waterseal. Tolerated well by the patient this morning Plan: 1. Check portable upright chest x-ray in 2 hours to assess status of right lung. 2. If lung stays up, will leave on waterseal status, then eventually switch her to a Heimlich valve. (2) Chronic obstructive pulmonary disease Qualifiers: COPD type: unspecified COPD Qualified Code(s): J44.9 - Chronic obstructive pulmonary disease, unspecified Is this a current diagnosis for this admission?: Yes (3) Type 2 diabetes mellitus Qualifiers: Diabetes mellitus residential insulin use: without residential use Diabetes mellitus complication status: with neurologic complications Diabetes mellitus complication detail: with polyneuropathy Qualified Code(s): E11.42 - Type 2 diabetes mellitus with diabetic polyneuropathy Is this a current diagnosis for this admission?: Yes (4) History of fracture of rib Is this a current diagnosis for this admission?: Yes - Time Anticipated Discharge Disposition: Home, Self Care Anticipated Discharge Timeframe: within 72 hours
--- NOTE | 2020-11-10 10:00 | PDOC PROGRESS REPORT ---
Subjective Date:: 11/10/20 Subjective:: Patient is currently doing well Currently on the chest to follow-up with the surgery no complaints Reason For Visit: TYPE 2 DIABETES,HYPERTENSION,PNEUMOTHORAX,RIGHT Physical Exam Vital Signs: Temp Pulse Resp BP Pulse Ox 97.5 F 68 16 127/50 H 100 11/10/20 07:35 11/10/20 08:09 11/10/20 08:09 11/10/20 07:35 11/10/20 08:09 Intake & Output 11/09/20 11/10/20 11/11/20 06:59 06:59 06:59 Intake Total 100 856 Output Total 62 19 Balance 38 837 Weight 85.8 kg 85.8 kg General appearance: PRESENT: no acute distress Eye exam: PRESENT: PERRLA Mouth exam: PRESENT: neck supple Respiratory exam: PRESENT: clear to auscultation pranay Additional comments: Chest tube is intact Cardiovascular exam: PRESENT: +S1, +S2 GI/Abdominal exam: PRESENT: normal bowel sounds, soft Neurological exam: PRESENT: alert, awake, oriented to person, oriented to place, oriented to time, oriented to situation Results Laboratory Results: 11/01/20 08:54 11/01/20 08:54 10/24/20 10/24/20 10/24/20 18:28 23:44 23:44 Creatine Kinase 60 CK-MB (CK-2) 0.86 Troponin I < 0.012 < 0.012 10/25/20 10/25/20 10/25/20 06:07 06:07 11:45 Creatine Kinase 102 122 CK-MB (CK-2) 1.10 Troponin I < 0.012 10/25/20 18:30 Creatine Kinase CK-MB (CK-2) 0.75 Troponin I < 0.012 Impressions: Chest CT 10/27/20 09:38 IMPRESSION: RIGHT CHEST TUBE WITH LESS THAN 10% PNEUMOTHORAX. CHRONIC DIFFUSE EMPHYSEMATOUS CHANGES WITH PARENCHYMAL SCARRING. NO APPARENT ACUTE FINDINGS. Chest X-Ray 11/08/20 06:00 IMPRESSION: No significant change. Less than 10% right apical pneumothorax. Assessment & Plan - Diagnosis (1) Diabetes mellitus type 2 in obese Is this a current diagnosis for this admission?: Yes (2) Hypertension Is this a current diagnosis for this admission?: Yes (3) Pneumothorax on right Is this a current diagnosis for this admission?: Yes (4) Chronic obstructive pulmonary disease Qualifiers: COPD type: unspecified COPD Qualified Code(s): J44.9 - Chronic obstructive pulmonary disease, unspecified Is this a current diagnosis for this admission?: Yes (5) History of uterine cancer Is this a current diagnosis for this admission?: Yes - Time Time Spent with patient: 15-24 minutes Level of Care: TELE Medications reviewed and adjusted accordingly: Yes Anticipated discharge: Home with Homehealth Anticipated DC Timeframe: within 48 hours - Plan Summary Plan Summary: Continue follow-up with the surgery patient is medically stable
[2020-11-10] MEDS: GABAPENTIN 100 MG CAPSULE PO SCH ×2 (10:59→22:10)
[2020-11-10] MEDS: DOCUSATE SODIUM 100 MG CAPSULE PO SCH ×2 (11:00→17:08)
--- NOTE | 2020-11-10 13:17 | RADIOLOGY REPORT (SQ) ---
EXAM DESCRIPTION: CHEST SINGLE VIEW IMAGES COMPLETED DATE/TIME: 11/10/2020 1:04 pm REASON FOR STUDY: chest tube COMPARISON: 11/08/2020 NUMBER OF VIEWS: One view. TECHNIQUE: Single frontal radiographic image of the chest acquired. LIMITATIONS: None. FINDINGS: LUNGS AND PLEURA: Small right apical pneumothorax has resolved. Large-bore right-sided ch est tube remains in place. No other interval changes. MEDIASTINUM AND HILAR STRUCTURES: Stable heart size and mediastinal structures. HEART AND VASCULAR STRUCTURES: Stable appearance. BONES: No acute findings. HARDWARE: None in the chest. OTHER: No other significant finding. IMPRESSION: Small right apical pneumothorax has resolved. Large-bore right-sided chest tube remains in place. TECHNICAL DOCUMENTATION: JOB ID: [id number] 2010 [employer]- All Rights Reserved Reading location - IP/workstation name: [email or web address]
[2020-11-10] MEDS: ATORVASTATIN CALCIUM 40 MG TABLET PO SCH (22:10)
[2020-11-11] MEDS ORDERED: LEVOTHYROXINE SODIUM 0.112 MG TABLET ONE (07:00)
[2020-11-11] MEDS: LEVOTHYROXINE SODIUM 0.112 MG TABLET PO SCH (07:08)
--- NOTE | 2020-11-11 08:29 | PDOC PROGRESS REPORT ---
Subjective Date:: 11/11/20 Subjective:: Patient has no complaints Reason For Visit: TYPE 2 DIABETES,HYPERTENSION,PNEUMOTHORAX,RIGHT Physical Exam Vital Signs: Temp Pulse Resp BP Pulse Ox 97.8 F 69 18 116/39 L 100 11/11/20 07:24 11/11/20 07:24 11/11/20 07:24 11/11/20 07:24 11/11/20 07:24 Intake & Output 11/10/20 11/11/20 11/12/20 06:59 06:59 06:59 Intake Total 856 1052 Output Total 19 Balance 837 1052 Weight 85.8 kg 83.3 kg General appearance: PRESENT: no acute distress, obese Respiratory exam: PRESENT: clear to auscultation pranay, other - Right side chest tube in place, no subcutaneous emphysema, wound clean, thoracoscopy wounds clean dry and intact Results Laboratory Results: 11/01/20 08:54 11/01/20 08:54 10/24/20 10/24/20 10/24/20 18:28 23:44 23:44 Creatine Kinase 60 CK-MB (CK-2) 0.86 Troponin I < 0.012 < 0.012 10/25/20 10/25/20 10/25/20 06:07 06:07 11:45 Creatine Kinase 102 122 CK-MB (CK-2) 1.10 Troponin I < 0.012 10/25/20 18:30 Creatine Kinase CK-MB (CK-2) 0.75 Troponin I < 0.012 Impressions: Chest CT 10/27/20 09:38 IMPRESSION: RIGHT CHEST TUBE WITH LESS THAN 10% PNEUMOTHORAX. CHRONIC DIFFUSE EMPHYSEMATOUS CHANGES WITH PARENCHYMAL SCARRING. NO APPARENT ACUTE FINDINGS. Chest X-Ray 11/10/20 10:00 IMPRESSION: Small right apical pneumothorax has resolved. Large-bore right- sided chest tube remains in place. Assessment & Plan - Diagnosis (1) Pneumothorax on right Is this a current diagnosis for this admission?: Yes - Time Anticipated Discharge Disposition: Home with Home Health Anticipated Discharge Timeframe: When ready - Plan Summary Plan Summary: Assessment: S/p VATS with mechanical pleurodesis for recurrent right pneumothorax Chest x-ray portable done on November 10 demonstrates no residual pneumothorax, no pleural effusion Physical exam reveals lungs clear to auscultation and right chest tube in place with wound clean dry intact Plan: Continue chest tube to waterseal today Portable chest x-ray today Chest x-ray PA lateral in radiology tomorrow
[2020-11-11] MEDS: INSULIN LISPRO 100 UNIT/ML 3 ML VIAL SUBCUT SCH ×4 (08:47→21:39)
[2020-11-11] MEDS: IPRATROPIUM/ALBUTEROL 0.5-2.5 MG/3 ML AMPUL NEB SCH ×4 (09:16→20:04)
[2020-11-11] MEDS: TRAMADOL HCL 50 MG TABLET PO PRN ×2 (09:57→16:20)
[2020-11-11] MEDS: GABAPENTIN 100 MG CAPSULE PO SCH ×2 (09:58→22:05)
[2020-11-11] MEDS: DOCUSATE SODIUM 100 MG CAPSULE PO SCH ×2 (09:58→18:42)
--- NOTE | 2020-11-11 11:41 | RADIOLOGY REPORT (SQ) ---
EXAM DESCRIPTION: CHEST SINGLE VIEW IMAGES COMPLETED DATE/TIME: 11/11/2020 11:28 am REASON FOR STUDY: Follow-up right pneumothorax and chest tube placem COMPARISON: 11/10/2020. EXAM PARAMETERS: NUMBER OF VIEWS: One view. TECHNIQUE: Single frontal radiographic view of the chest acquired. RADIATION DOSE: NA LIMITATIONS: None. FINDINGS: LUNGS AND PLEURA: No pneumothorax. Mild right lateral pleural thickening and streaky dens ity in the right apex unchanged. MEDIASTINUM AND HILAR STRUCTURES: No masses. Contour normal. HEART AND VASCULAR STRUCTURES: Heart normal in size. Normal vasculature. BONES: No acute findings. HARDWARE: Stable chest tube. OTHER: No other significant finding. IMPRESSION: STABLE APPEARANCE. NO PNEUMOTHORAX. TECHNICAL DOCUMENTATION: JOB ID: [id number] 2010 [employer]- All Rights Reserved Reading location - IP/workstation name: [email or web address]
--- NOTE | 2020-11-11 12:22 | PDOC PROGRESS REPORT ---
Subjective Date:: 11/11/20 Subjective:: Patient is currently doing well Currently on the chest to follow-up with the surgery no complaints Reason For Visit: TYPE 2 DIABETES,HYPERTENSION,PNEUMOTHORAX,RIGHT Physical Exam Vital Signs: Temp Pulse Resp BP Pulse Ox 97.8 F 61 18 116/39 L 100 11/11/20 10:00 11/11/20 09:16 11/11/20 09:16 11/11/20 07:24 11/11/20 09:16 Intake & Output 11/10/20 11/11/20 11/12/20 06:59 06:59 06:59 Intake Total 856 1052 Output Total 19 Balance 837 1052 Weight 85.8 kg 83.3 kg General appearance: PRESENT: no acute distress, well-developed, well-nourished Head exam: PRESENT: atraumatic, normocephalic Eye exam: PRESENT: conjunctiva pink, EOMI, PERRLA. ABSENT: scleral icterus Ear exam: PRESENT: normal external ear exam Mouth exam: PRESENT: moist, tongue midline Neck exam: PRESENT: full ROM. ABSENT: carotid bruit, JVD, lymphadenopathy, thyromegaly Additional comments: Chest tube is intact Cardiovascular exam: PRESENT: RRR. ABSENT: diastolic murmur, rubs, systolic murmur Pulses: PRESENT: normal dorsalis pedis pul, +2 pedal pulses bilateral Vascular exam: PRESENT: normal capillary refill GI/Abdominal exam: PRESENT: normal bowel sounds, soft. ABSENT: distended, guarding, mass, organolmegaly, rebound, tenderness Rectal exam: PRESENT: deferred Neurological exam: PRESENT: alert, awake, oriented to person, oriented to place, oriented to time, oriented to situation, CN II-XII grossly intact. ABSENT: motor sensory deficit Psychiatric exam: PRESENT: appropriate affect, normal mood. ABSENT: homicidal ideation, suicidal ideation Skin exam: PRESENT: dry, intact, warm. ABSENT: cyanosis, rash Results Laboratory Results: 11/01/20 08:54 11/01/20 08:54 10/24/20 10/24/20 10/24/20 18:28 23:44 23:44 Creatine Kinase 60 CK-MB (CK-2) 0.86 Troponin I < 0.012 < 0.012 10/25/20 10/25/20 10/25/20 06:07 06:07 11:45 Creatine Kinase 102 122 CK-MB (CK-2) 1.10 Troponin I < 0.012 10/25/20 18:30 Creatine Kinase CK-MB (CK-2) 0.75 Troponin I < 0.012 Impressions: Chest CT 10/27/20 09:38 IMPRESSION: RIGHT CHEST TUBE WITH LESS THAN 10% PNEUMOTHORAX. CHRONIC DIFFUSE EMPHYSEMATOUS CHANGES WITH PARENCHYMAL SCARRING. NO APPARENT ACUTE FINDINGS. Chest X-Ray 11/11/20 00:00 IMPRESSION: STABLE APPEARANCE. NO PNEUMOTHORAX. Assessment & Plan - Diagnosis (1) Diabetes mellitus type 2 in obese Is this a current diagnosis for this admission?: Yes (2) Hypertension Is this a current diagnosis for this admission?: Yes (3) Pneumothorax on right Is this a current diagnosis for this admission?: Yes (4) Chronic obstructive pulmonary disease Qualifiers: COPD type: unspecified COPD Qualified Code(s): J44.9 - Chronic obstructive pulmonary disease, unspecified Is this a current diagnosis for this admission?: Yes (5) History of uterine cancer Is this a current diagnosis for this admission?: Yes - Time Time Spent with patient: 15-24 minutes Level of Care: IMCU Medications reviewed and adjusted accordingly: Yes Anticipated discharge: Home with Homehealth Anticipated DC Timeframe: Other - Plan Summary Plan Summary: Continues to current medications discussed with the surgeon on the bedside hopefully remove the chest tube in the next 24 to 48 hours patient is medically stable
[2020-11-11] MEDS: ATORVASTATIN CALCIUM 40 MG TABLET PO SCH (22:05)
[2020-11-12] MEDS: LEVOTHYROXINE SODIUM 0.112 MG TABLET PO SCH (05:45)
[2020-11-12] MEDS: TRAMADOL HCL 50 MG TABLET PO PRN ×3 (05:45→17:59)
[2020-11-12] MEDS: IPRATROPIUM/ALBUTEROL 0.5-2.5 MG/3 ML AMPUL NEB SCH ×4 (08:26→22:11)
--- NOTE | 2020-11-12 08:55 | PDOC PROGRESS REPORT ---
Subjective Date:: 11/12/20 Subjective:: no c/o Reason For Visit: TYPE 2 DIABETES,HYPERTENSION,PNEUMOTHORAX,RIGHT Physical Exam Vital Signs: Temp Pulse Resp BP Pulse Ox 98.1 F 72 16 120/50 L 100 11/12/20 08:27 11/12/20 07:41 11/12/20 07:41 11/12/20 07:41 11/12/20 07:41 Intake & Output 11/11/20 11/12/20 11/13/20 06:59 06:59 06:59 Intake Total 1052 680 Output Total 10 Balance 1052 670 Weight 83.3 kg 81.9 kg General appearance: PRESENT: no acute distress, obese Respiratory exam: PRESENT: other - right chest tube in place, no air leak Results Laboratory Results: 11/01/20 08:54 11/01/20 08:54 10/24/20 10/24/20 10/24/20 18:28 23:44 23:44 Creatine Kinase 60 CK-MB (CK-2) 0.86 Troponin I < 0.012 < 0.012 10/25/20 10/25/20 10/25/20 06:07 06:07 11:45 Creatine Kinase 102 122 CK-MB (CK-2) 1.10 Troponin I < 0.012 10/25/20 18:30 Creatine Kinase CK-MB (CK-2) 0.75 Troponin I < 0.012 Impressions: Chest CT 10/27/20 09:38 IMPRESSION: RIGHT CHEST TUBE WITH LESS THAN 10% PNEUMOTHORAX. CHRONIC DIFFUSE EMPHYSEMATOUS CHANGES WITH PARENCHYMAL SCARRING. NO APPARENT ACUTE FINDINGS. Assessment & Plan - Diagnosis (1) Pneumothorax on right Is this a current diagnosis for this admission?: Yes - Time Anticipated Discharge Disposition: Home with Home Health Anticipated Discharge Timeframe: within 72 hours - Plan Summary Plan Summary: Assessment: S/p VATS with mechanical pleurodesis for recurrent right pneumothorax Chest x-ray 2 views done today demonstrates no residual pneumothorax, no pleural effusion Physical exam reveals lungs clear to auscultation and right chest tube in place with wound clean dry intact Plan: Continue chest tube to water seal today Remove Pleurovac and place Heilmich valve Repeat portable chest x-ray today in 4 hours after Heilmich valve is in place Chest x-ray PA lateral in radiology tomorrow
[2020-11-12] MEDS: INSULIN LISPRO 100 UNIT/ML 3 ML VIAL SUBCUT SCH ×4 (08:56→21:46)
--- NOTE | 2020-11-12 09:01 | RADIOLOGY REPORT (SQ) ---
EXAM DESCRIPTION: CHEST 2 VIEWS IMAGES COMPLETED DATE/TIME: 11/12/2020 8:21 am REASON FOR STUDY: Follow-up pneumothorax, right CT on waterseal COMPARISON: 11/11/2020 and 11/10/2020 EXAM PARAMETERS: NUMBER OF VIEWS: two views TECHNIQUE: Digital Frontal and Lateral radiographic views of the chest acquired. RADIATION DOSE: NA LIMITATIONS: none FINDINGS: LUNGS AND PLEURA: No pneumothorax. Persistent right lateral pleural thickening. No new f ocal consolidation. No pleural effusion. MEDIASTINUM AND HILAR STRUCTURES: No masses or contour abnormalities. HEART AND VASCULAR STRUCTURES: Heart normal size. No evidence for failure. BONES: No acute findings. HARDWARE: Right hemithorax chest tube with the tip and proximal port within the right hemithorax. OTHER: No other significant finding. IMPRESSION: 1. Stable pulmonary exam. No recurrent pneumothorax. 2. Stable right hemithorax chest tube. TECHNICAL DOCUMENTATION: JOB ID: [id number] [address]- All Rights Reserved Reading location - IP/workstation name: [email or web address]
[2020-11-12] MEDS: GABAPENTIN 100 MG CAPSULE PO SCH ×2 (09:25→21:46)
[2020-11-12] MEDS: DOCUSATE SODIUM 100 MG CAPSULE PO SCH ×2 (09:26→17:33)
--- NOTE | 2020-11-12 10:11 | PDOC PROGRESS REPORT ---
Subjective Date:: 11/12/20 Subjective:: Patient is currently doing fair no new complaints Since chest x-ray is all stable Surgery follow-up with the chest tubes Reason For Visit: TYPE 2 DIABETES,HYPERTENSION,PNEUMOTHORAX,RIGHT Physical Exam Vital Signs: Temp Pulse Resp BP Pulse Ox 98.1 F 72 16 120/50 L 100 11/12/20 08:27 11/12/20 07:41 11/12/20 07:41 11/12/20 07:41 11/12/20 07:41 Intake & Output 11/11/20 11/12/20 11/13/20 06:59 06:59 06:59 Intake Total 1052 680 Output Total 10 Balance 1052 670 Weight 83.3 kg 81.9 kg General appearance: PRESENT: no acute distress, well-developed, well-nourished Head exam: PRESENT: atraumatic, normocephalic Eye exam: PRESENT: conjunctiva pink, EOMI, PERRLA. ABSENT: scleral icterus Ear exam: PRESENT: normal external ear exam Mouth exam: PRESENT: moist, tongue midline Neck exam: PRESENT: full ROM. ABSENT: carotid bruit, JVD, lymphadenopathy, thyromegaly Respiratory exam: PRESENT: clear to auscultation pranay Cardiovascular exam: PRESENT: RRR. ABSENT: diastolic murmur, rubs, systolic murmur Pulses: PRESENT: normal dorsalis pedis pul, +2 pedal pulses bilateral Vascular exam: PRESENT: normal capillary refill GI/Abdominal exam: PRESENT: normal bowel sounds, soft. ABSENT: distended, guarding, mass, organolmegaly, rebound, tenderness Rectal exam: PRESENT: deferred Neurological exam: PRESENT: alert, awake, oriented to person, oriented to place, oriented to time, oriented to situation, CN II-XII grossly intact. ABSENT: motor sensory deficit Psychiatric exam: PRESENT: appropriate affect, normal mood. ABSENT: homicidal ideation, suicidal ideation Skin exam: PRESENT: dry, intact, warm. ABSENT: cyanosis, rash Results Laboratory Results: 11/01/20 08:54 11/01/20 08:54 10/24/20 10/24/20 10/24/20 18:28 23:44 23:44 Creatine Kinase 60 CK-MB (CK-2) 0.86 Troponin I < 0.012 < 0.012 10/25/20 10/25/2020 06:07 06:07 11:45 Creatine Kinase 102 122 CK-MB (CK-2) 1.10 Troponin I < 0.012 10/25/20 18:30 Creatine Kinase CK-MB (CK-2) 0.75 Troponin I < 0.012 Impressions: Chest CT 10/27/20 09:38 IMPRESSION: RIGHT CHEST TUBE WITH LESS THAN 10% PNEUMOTHORAX. CHRONIC DIFFUSE EMPHYSEMATOUS CHANGES WITH PARENCHYMAL SCARRING. NO APPARENT ACUTE FINDINGS. Chest X-Ray 11/12/20 06:00 IMPRESSION: 1. Stable pulmonary exam. No recurrent pneumothorax. 2. Stable right hemithorax chest tube. Assessment & Plan - Diagnosis (1) Diabetes mellitus type 2 in obese Is this a current diagnosis for this admission?: Yes (2) Hypertension Is this a current diagnosis for this admission?: Yes (3) Pneumothorax on right Is this a current diagnosis for this admission?: Yes (4) Chronic obstructive pulmonary disease Qualifiers: COPD type: unspecified COPD Qualified Code(s): J44.9 - Chronic obstructive pulmonary disease, unspecified Is this a current diagnosis for this admission?: Yes (5) History of uterine cancer Is this a current diagnosis for this admission?: Yes - Time Time Spent with patient: 15-24 minutes Level of Care: TELE Medications reviewed and adjusted accordingly: Yes Anticipated discharge: Home with Homehealth Anticipated DC Timeframe: Other - Plan Summary Plan Summary: Continues the current medications follow-up with the surgery patient is medically stable
--- NOTE | 2020-11-12 13:39 | RADIOLOGY REPORT (SQ) ---
EXAM DESCRIPTION: CHEST SINGLE VIEW IMAGES COMPLETED DATE/TIME: 11/12/2020 1:08 pm REASON FOR STUDY: 1300 (4 hours post Heimlich valve) COMPARISON: 11/12/2020 EXAM PARAMETERS: NUMBER OF VIEWS: One view. TECHNIQUE: Single frontal radiographic view of the chest acquired. RADIATION DOSE: NA LIMITATIONS: None. FINDINGS: LUNGS AND PLEURA: No pneumothorax. MEDIASTINUM AND HILAR STRUCTURES: No masses. Contour normal. HEART AND VASCULAR STRUCTURES: Heart normal in size. Normal vasculature. BONES: No acute findings. HARDWARE: Thoracotomy tube remains in place on the right. OTHER: No other significant finding. IMPRESSION: No pneumothorax. Thoracotomy tube remains in place. TECHNICAL DOCUMENTATION: JOB ID: [id number] 2010 [employer]- All Rights Reserved Reading location - IP/workstation name: [email or web address]
[2020-11-12] MEDS: ATORVASTATIN CALCIUM 40 MG TABLET PO SCH (21:46)
[2020-11-13] MEDS: LEVOTHYROXINE SODIUM 0.112 MG TABLET PO SCH (05:11)
[2020-11-13] MEDS: TRAMADOL HCL 50 MG TABLET PO PRN (05:11)
[2020-11-13] MEDS: INSULIN LISPRO 100 UNIT/ML 3 ML VIAL SUBCUT SCH ×2 (07:54→11:20)
[2020-11-13] MEDS: IPRATROPIUM/ALBUTEROL 0.5-2.5 MG/3 ML AMPUL NEB SCH (08:09)
[2020-11-13] MEDS: DOCUSATE SODIUM 100 MG CAPSULE PO SCH (09:22)
[2020-11-13] MEDS: GABAPENTIN 100 MG CAPSULE PO SCH (09:22)
--- NOTE | 2020-11-13 09:41 | PDOC PROGRESS REPORT ---
Subjective Date:: 11/13/20 Subjective:: No complaints Reason For Visit: TYPE 2 DIABETES,HYPERTENSION,PNEUMOTHORAX,RIGHT Physical Exam Vital Signs: Temp Pulse Resp BP Pulse Ox 98.1 F 67 15 119/42 L 100 11/13/20 08:22 11/13/20 08:09 11/13/20 08:09 11/13/20 07:11 11/13/20 08:09 Intake & Output 11/12/20 11/13/20 11/14/20 06:59 06:59 06:59 Intake Total 680 610 Output Total 10 Balance 670 610 Weight 81.9 kg 81.1 kg General appearance: PRESENT: no acute distress, obese Respiratory exam: PRESENT: clear to auscultation pranay, other - Right-sided chest tube in place, Anand valve in place without fluttering Results Laboratory Results: 11/01/20 08:54 11/01/20 08:54 10/24/20 10/24/20 10/24/20 18:28 23:44 23:44 Creatine Kinase 60 CK-MB (CK-2) 0.86 Troponin I < 0.012 < 0.012 10/25/20 10/25/20 10/25/20 06:07 06:07 11:45 Creatine Kinase 102 122 CK-MB (CK-2) 1.10 Troponin I < 0.012 10/25/20 18:30 Creatine Kinase CK-MB (CK-2) 0.75 Troponin I < 0.012 Impressions: Chest CT 10/27/20 09:38 IMPRESSION: RIGHT CHEST TUBE WITH LESS THAN 10% PNEUMOTHORAX. CHRONIC DIFFUSE EMPHYSEMATOUS CHANGES WITH PARENCHYMAL SCARRING. NO APPARENT ACUTE FINDINGS. Assessment & Plan - Diagnosis (1) Pneumothorax on right Is this a current diagnosis for this admission?: Yes - Time Anticipated Discharge Disposition: Home with Home Health Anticipated Discharge Timeframe: within 24 hours - Plan Summary Plan Summary: Assessment: Status post mechanical pleurodesis on the right side for recurrent pneumothorax Status post placement of chest tube on waterseal with hemic valve, no fluttering noted Chest x-ray PA lateral done in radiology this morning shows no recurrent pneumothorax Physical exam demonstrates rectus tube in place with dressings clean, dry, intact Plan: Discharge patient to home today as per primary care physician Follow-up in the office with Dr. Brice in 1 week Chest Xray PA+Lateral on the day of the appointment and before the appointment time Home health care nurse to visit patient twice next week to check on chest tube dressings Right chest tube and Heilmich valve routine care teaching to the patient. I will sign off. Please call me with questions
--- NOTE | 2020-11-13 09:52 | PDOC PROGRESS REPORT ---
Subjective Date:: 11/20/20 Reason For Visit: TYPE 2 DIABETES,HYPERTENSION,PNEUMOTHORAX,RIGHT Patient is currently doing well No chest pain no shortness of breath Patient's blood sugar under well control on a sliding scale Patient's blood pressure is also stable Physical Exam Vital Signs: Temp Pulse Resp BP Pulse Ox 98.1 F 67 15 119/42 L 100 11/13/20 08:22 11/13/20 08:09 11/13/20 08:09 11/13/20 07:11 11/13/20 08:09 Intake & Output 11/12/20 11/13/20 11/14/20 06:59 06:59 06:59 Intake Total 680 610 Output Total 10 Balance 670 610 Weight 81.9 kg 81.1 kg General appearance: PRESENT: no acute distress, well-developed, well-nourished Head exam: PRESENT: atraumatic, normocephalic Eye exam: PRESENT: conjunctiva pink, EOMI, PERRLA. ABSENT: scleral icterus Ear exam: PRESENT: normal external ear exam Mouth exam: PRESENT: moist, tongue midline Neck exam: PRESENT: full ROM. ABSENT: carotid bruit, JVD, lymphadenopathy, thyromegaly Respiratory exam: PRESENT: clear to auscultation pranay Cardiovascular exam: PRESENT: RRR. ABSENT: diastolic murmur, rubs, systolic murmur Pulses: PRESENT: normal dorsalis pedis pul, +2 pedal pulses bilateral Vascular exam: PRESENT: normal capillary refill GI/Abdominal exam: PRESENT: normal bowel sounds, soft. ABSENT: distended, guarding, mass, organolmegaly, rebound, tenderness Rectal exam: PRESENT: deferred Neurological exam: PRESENT: alert, awake, oriented to person, oriented to place, oriented to time, oriented to situation, CN II-XII grossly intact. ABSENT: motor sensory deficit Psychiatric exam: PRESENT: appropriate affect, normal mood. ABSENT: homicidal ideation, suicidal ideation Skin exam: PRESENT: dry, intact, warm. ABSENT: cyanosis, rash Results Laboratory Results: 11/01/20 08:54 11/01/20 08:54 10/24/20 10/24/20 10/24/20 18:28 23:44 23:44 Creatine Kinase 60 CK-MB (CK-2) 0.86 Troponin I < 0.012 < 0.012 10/25/20 10/25/20 10/25/20 06:07 06:07 11:45 Creatine Kinase 102 122 CK-MB (CK-2) 1.10 Troponin I < 0.012 10/25/20 18:30 Creatine Kinase CK-MB (CK-2) 0.75 Troponin I < 0.012 Impressions: Chest CT 10/27/20 09:38 IMPRESSION: RIGHT CHEST TUBE WITH LESS THAN 10% PNEUMOTHORAX. CHRONIC DIFFUSE EMPHYSEMATOUS CHANGES WITH PARENCHYMAL SCARRING. NO APPARENT ACUTE FINDINGS. Assessment & Plan - Diagnosis (1) Diabetes mellitus type 2 in obese Is this a current diagnosis for this admission?: Yes (2) Hypertension Is this a current diagnosis for this admission?: Yes (3) Pneumothorax on right Is this a current diagnosis for this admission?: Yes (4) Chronic obstructive pulmonary disease Qualifiers: COPD type: unspecified COPD Qualified Code(s): J44.9 - Chronic obstructive pulmonary disease, unspecified Is this a current diagnosis for this admission?: Yes (5) History of uterine cancer Is this a current diagnosis for this admission?: Yes - Time Time Spent with patient: 15-24 minutes Level of Care: TELE Medications reviewed and adjusted accordingly: Yes Anticipated discharge: Home with Homehealth Anticipated DC Timeframe: within 24 hours - Plan Summary Plan Summary: Continues to current medications
--- NOTE | 2020-11-13 10:10 | RADIOLOGY REPORT (SQ) ---
EXAM DESCRIPTION: CHEST 2 VIEWS IMAGES COMPLETED DATE/TIME: 11/13/2020 9:13 am REASON FOR STUDY: f/u right pneumothorax COMPARISON: Previous day NUMBER OF VIEWS: Two view TECHNIQUE: Frontal and lateral radiographic images of the chest acquired. LIMITATIONS: None. FINDINGS: LUNGS AND PLEURA: No significant change. No pneumothorax. MEDIASTINUM AND HILAR STRUCTURES: Stable heart size and mediastinal structures. HEART AND VASCULAR STRUCTURES: Stable appearance. SUPPORT DEVICES: Appropriate location without change. BONES: No acute findings. OTHER: No other significant finding. IMPRESSION: No pneumothorax. TECHNICAL DOCUMENTATION: JOB ID: [id number] 2010 [employer]- All Rights Reserved Reading location - IP/workstation name: [email or web address]
[2020-11-13 11:17] VITALS: BP 117/46
--- NOTE | 2020-11-13 13:29 | PDOC DISCHARGE SUMMARY ---
Impression - Admit/DC Date/PCP Admission Date/Primary Care Provider: 10/24/20 22:04 HERIMLA LAND MD Discharge Date: 11/13/20 - Discharge Diagnosis (1) Diabetes mellitus type 2 in obese Is this a current diagnosis for this admission?: Yes (2) Hypertension Is this a current diagnosis for this admission?: Yes (3) Pneumothorax on right Is this a current diagnosis for this admission?: Yes (4) Chronic obstructive pulmonary disease Is this a current diagnosis for this admission?: Yes (5) History of uterine cancer Is this a current diagnosis for this admission?: Yes - Additional Information Resuscitation Status: Full Code Discharge Diet: Diabetic Discharge Activity: Activity As Tolerated, Balance Activity w/Rest, No Lifting Over 10 Pounds, No tub bath Referrals: HERMILA LAND MD [Primary Care Provider] - 11/24/20 8:45 am BEHZAD WAGNER MD [ACTIVE STAFF] - 11/21/20 3:15 pm Home Medications: Atorvastatin Calcium [Lipitor 40 mg Tablet] 40 mg PO QHS 07/24/19 Esomeprazole Mag Trihydrate [Nexium] 40 mg PO QAM 07/24/19 Gabapentin [Neurontin 100 mg Capsule] 200 mg PO Q12 07/24/19 Ipratropium/Albuterol Sulfate [Combivent Respimat 4 gm Mdi] 1 puff IH QID 07/24/19 Levothyroxine Sodium [Levothyroxine] 112 mcg PO DAILY 10/26/20 Metformin HCl [Glucophage 500 mg Tablet] 500 mg PO BID 10/26/20 History of Present Illiness History of Present Illness: VIOLETTA MENENDEZ is a 75 year old female Patient was admitted for the right-sided pleural effusion and recurrent pneumothorax underwent for the chest tube placement and pleurodesis Hospital Course Hospital Course: Is a 75-year-old female admitting in the hospital for the right-sided pleural effusion and pneumothorax recurrent patient underwent for the right-sided chest tube placement and pleurodesis by Dr. Wagner and then patient's stay in the hospital subsequent chest x-ray and pneumothorax is all resolved Patient at this point discharged with a chest tube and per surgery follow as outpatient patient's chest x-ray was all stable Patient is medically all stable patient's diabetes medicines was currently stopped only Metformin If the blood sugar is going above 160 Patient also arrange the home health physical therapy She is currently doing well Physically patient is to follow-up with the surgery for ongoing chest tube status post pleurodesis Physical Exam Vital Signs: Temp Pulse Resp BP Pulse Ox 98.1 F 72 18 117/46 L 100 11/13/20 10:18 11/13/20 11:13 11/13/20 11:13 11/13/20 11:13 11/13/20 11:13 Intake & Output 11/12/20 11/13/20 11/14/20 06:59 06:59 06:59 Intake Total 680 610 240 Output Total 10 Balance 670 610 240 Weight 81.9 kg 81.1 kg General appearance: PRESENT: no acute distress, well-developed, well-nourished Head exam: PRESENT: atraumatic, normocephalic Eye exam: PRESENT: conjunctiva pink, EOMI, PERRLA. ABSENT: scleral icterus Ear exam: PRESENT: normal external ear exam Mouth exam: PRESENT: moist, tongue midline Neck exam: ABSENT: carotid bruit, JVD, lymphadenopathy, thyromegaly Respiratory exam: PRESENT: clear to auscultation pranay. ABSENT: rales, rhonchi, wheezes Cardiovascular exam: PRESENT: RRR. ABSENT: diastolic murmur, rubs, systolic murmur Pulses: PRESENT: normal dorsalis pedis pul Vascular exam: PRESENT: normal capillary refill GI/Abdominal exam: PRESENT: normal bowel sounds, soft. ABSENT: distended, guarding, mass, organolmegaly, rebound, tenderness Rectal exam: PRESENT: deferred Extremities exam: PRESENT: full ROM. ABSENT: calf tenderness, clubbing, pedal edema Neurological exam: PRESENT: alert, awake, oriented to person, oriented to place, oriented to time, oriented to situation, CN II-XII grossly intact. ABSENT: motor sensory deficit Psychiatric exam: PRESENT: appropriate affect, normal mood. ABSENT: homicidal ideation, suicidal ideation Skin exam: PRESENT: dry, intact, warm. ABSENT: cyanosis, rash Results Laboratory Results: WBC 11.1 10^3/uL (4.0-10.5) H 11/01/20 08:54 RBC 4.60 10^6/uL (3.72-5.28) 11/01/20 08:54 Hgb 11.8 g/dL (12.0-15.5) L 11/01/20 08:54 Hct 36.7 % (36.0-47.0) 11/01/20 08:54 MCV 80 fl (80-97) 11/01/20 08:54 MCH 25.5 pg (27.0-33.4) L 11/01/20 08:54 MCHC 32.0 g/dL (32.0-36.0) 11/01/20 08:54 RDW 16.9 % (11.5-14.0) H 11/01/20 08:54 Plt Count 366 10^3/uL (150-450) 11/01/20 08:54 Lymph % (Auto) 24.3 % (13-45) 11/01/20 08:54 Taliaferro % (Auto) 4.5 % (3-13) 11/01/20 08:54 Eos % (Auto) 5.7 % (0-6) 11/01/20 08:54 Baso % (Auto) 0.7 % (0-2) 11/01/20 08:54 Absolute Neuts (auto) 7.2 10^3/uL (1.7-8.2) 11/01/20 08:54 Absolute Lymphs (auto) 2.7 10^3/uL (0.5-4.7) 11/01/20 08:54 Absolute Monos (auto) 0.5 10^3/uL (0.1-1.4) 11/01/20 08:54 Absolute Eos (auto) 0.6 10^3/uL (0.0-0.6) 11/01/20 08:54 Absolute Basos (auto) 0.1 10^3/uL (0.0-0.2) 11/01/20 08:54 Seg Neutrophils % 64.8 % (42-78) 11/01/20 08:54 Platelet Estimate Cancelled 11/01/20 06:55 PT 13.9 SEC (11.4-15.4) 10/24/20 23:44 INR 1.05 10/24/20 23:44 APTT 26.7 SEC (23.5-35.8) 10/24/20 23:44 Sodium 135.6 mmol/L (137-145) L 11/01/20 08:54 Potassium 4.6 mmol/L (3.6-5.0) 11/01/20 08:54 Chloride 97 mmol/L (98-107) L 11/01/20 08:54 Carbon Dioxide 30 mmol/L (22-30) 11/01/20 08:54 Anion Gap 9 (5-19) 11/01/20 08:54 BUN 16 mg/dL (7-20) 11/01/20 08:54 Creatinine 0.73 mg/dL (0.52-1.25) 11/01/20 08:54 Est GFR ( Amer) > 60 (>60) 11/01/20 08:54 Est GFR (Non-Af Amer) Cancelled 11/01/20 06:55 Est GFR (MDRD) Non-Af > 60 (>60) 11/01/20 08:54 Glucose 133 mg/dL (75-110) H 11/01/20 08:54 POC Glucose 156 mg/dL (70-110) H 11/13/20 11:14 Hemoglobin A1c % 6.5 % (4.7-6.0) H 10/25/20 06:07 Calcium 9.5 mg/dL (8.4-10.2) 11/01/20 08:54 Phosphorus 4.7 mg/dL (2.5-4.5) H 10/24/20 18:28 Magnesium 1.5 mg/dL (1.6-2.3) L 10/24/20 18:28 Magnesium Cancelled 10/24/20 18:28 Total Bilirubin 0.6 mg/dL (0.2-1.3) 11/01/20 08:54 Direct Bilirubin 0.3 mg/dL (0.0-0.4) 11/01/20 08:54 Neonat Total Bilirubin Not Reportable 11/01/20 08:54 Neonat Direct Bilirubin Not Reportable 11/01/20 08:54 Neonat Indirect Bili Not Reportable 11/01/20 08:54 AST 31 U/L (14-36) 11/01/20 08:54 ALT 16 U/L (<35) 11/01/20 08:54 Alkaline Phosphatase 146 U/L (38-126) H 11/01/20 08:54 Ammonia < 8.7 umol/L (9-33) L 10/24/20 23:44 Creatine Kinase 122 U/L (30-135) 10/25/20 11:45 CK-MB (CK-2) 0.75 ng/mL (<4.55) 10/25/20 18:30 Troponin I < 0.012 ng/mL 10/25/20 18:30 Total Protein 7.4 g/dL (6.3-8.2) 11/01/20 08:54 Albumin 3.9 g/dL (3.5-5.0) 11/01/20 08:54 Triglycerides 168 mg/dL (<150) H 10/25/20 06:07 Cholesterol 140.44 mg/dL (0-200) 10/25/20 06:07 LDL Cholesterol Direct 72 mg/dL (<100) 10/25/20 06:07 VLDL Cholesterol 33.6 mg/dL (10-31) H 10/25/20 06:07 HDL Cholesterol 36 mg/dL (>40) L 10/25/20 06:07 Amylase 37 U/L (30-110) 10/24/20 18:28 Lipase 91.9 U/L (23-300) 10/24/20 18:28 EGFR Cancelled 11/01/20 06:55 TSH 0.03 uIU/mL (0.47-4.68) L 10/24/20 18:28 Free T4 1.79 ng/dL (0.78-2.19) 10/24/20 18:28 Urine Color RAMYA 10/25/20 03:41 Urine Appearance SLIGHTLY-CLOUDY 10/25/20 03:41 Urine pH 5.0 (5.0-9.0) 10/25/20 03:41 Ur Specific Winston 1.019 10/25/20 03:41 Urine Protein 30 mg/dL (NEGATIVE) H 10/25/20 03:41 Urine Glucose (UA) NEGATIVE mg/dL (NEGATIVE) 10/25/20 03:41 Urine Ketones NEGATIVE mg/dL (NEGATIVE) 10/25/20 03:41 Urine Blood SMALL (NEGATIVE) H 10/25/20 03:41 Urine Nitrite NEGATIVE (NEGATIVE) 10/25/20 03:41 Urine Bilirubin NEGATIVE (NEGATIVE) 10/25/20 03:41 Urine Urobilinogen NEGATIVE mg/dL (<2.0) 10/25/20 03:41 Ur Leukocyte Esterase LARGE (NEGATIVE) H 10/25/20 03:41 Urine WBC (Auto) 144 /HPF 10/25/20 03:41 Urine RBC (Auto) 31 /HPF 10/25/20 03:41 U Hyaline Cast (Auto) 1 /LPF 10/25/20 03:41 Urine Bacteria (Auto) TRACE /HPF 10/25/20 03:41 Squamous Epi Cells Auto 3 /HPF 10/25/20 03:41 Urine Mucus (Auto) RARE /LPF 10/25/20 03:41 Urine Yeast (Budding) PRESENT /HPF 10/25/20 03:41 Urine Ascorbic Acid NEGATIVE (NEGATIVE) 10/25/20 03:41 Urine Opiates Screen NEGATIVE 10/25/20 03:41 Urine Methadone Screen NEGATIVE 10/25/20 03:41 Ur Barbiturates Screen NEGATIVE 10/25/20 03:41 Ur Phencyclidine Scrn NEGATIVE 10/25/20 03:41 Ur Amphetamines Screen NEGATIVE 10/25/20 03:41 U Benzodiazepines Scrn UNCONFIRMED POSITIVE 10/25/20 03:41 Urine Cocaine Screen NEGATIVE 10/25/20 03:41 U Marijuana (THC) Screen NEGATIVE 10/25/20 03:41 COVID-19 Source Cancelled 10/24/20 20:10 COVID-19 ([place]) Cancelled 10/24/20 20:10 Influenza A (RT-PCR) NEGATIVE (NEGATIVE) 10/24/20 20:10 Influenza B (RT-PCR) NEGATIVE (NEGATIVE) 10/24/20 20:10 RSV (RT-PCR) NEGATIVE (NEGATIVE) 10/24/20 20:10 SARS-CoV-2 Rap RNA(RT-PCR) NEGATIVE (NEGATIVE) 10/24/20 20:10 Slides for Path Review Cancelled 11/01/20 06:55 10/24/20 10/24/20 10/25/20 18:28 23:44 06:07 CK-MB (CK-2) 0.86 1.10 Troponin I < 0.012 < 0.012 < 0.012 10/25/20 18:30 CK-MB (CK-2) 0.75 Troponin I < 0.012 Impressions: Chest X-Ray 10/24/20 00:00 IMPRESSION: Interval placement of right-sided chest tube with decreased size of right-sided pneumothorax, now small. Blunting of left costophrenic sulcus, suspicious for a trace pleural effusion. Chest X-Ray 10/24/20 17:09 IMPRESSION: Right sided pneumothorax. Chest X-Ray 10/25/20 07:34 IMPRESSION: STABLE RIGHT CHEST TUBE. NO PNEUMOTHORAX. CHRONIC INTERSTITIAL CHANGES. NO ACUTE RADIOGRAPHIC FINDING IN THE CHEST. Chest CT 10/27/20 09:38 IMPRESSION: RIGHT CHEST TUBE WITH LESS THAN 10% PNEUMOTHORAX. CHRONIC DIFFUSE EMPHYSEMATOUS CHANGES WITH PARENCHYMAL SCARRING. NO APPARENT ACUTE FINDINGS. Chest X-Ray 10/29/20 00:00 IMPRESSION: Increasing right-sided pneumothorax. Large-bore right-sided chest tube remains in place. A 2nd tube overlies the subcutaneous tissue of the right hemithorax. There is increasing subcutaneous emphysema as well. Chest X-Ray 10/29/20 00:00 IMPRESSION: Small right apical pneumothorax. This is significantly improved from the earlier film. Other changes as described. Chest X-Ray 10/30/20 00:00 IMPRESSION: 1. As on the prior study dated 10/29/2020, large bore right-sided chest tube and persistent very small right apical pneumothorax. 2. Interval resolution of the right basilar airspace disease. Chest X-Ray 10/31/20 00:00 IMPRESSION: Near complete resolution of the right apical pneumothorax. Stable position and appearance of the right hemithorax chest tube. Chest X-Ray 11/02/20 00:00 IMPRESSION: Interval development of a moderate to large right pneumothorax. Right chest tube remains in place. Chest X-Ray 11/02/20 00:00 IMPRESSION: Right-sided chest tube remains in place in the right apical pneumothorax is unchanged. Chest X-Ray 11/02/20 16:00 IMPRESSION: Improved right pneumothorax with tiny residual right apical pneumothorax. Chest X-Ray 11/03/20 00:00 IMPRESSION: Decreased but persistent small right-sided pneumothorax. Stable large bore right-sided chest tube. Chest X-Ray 11/03/20 06:00 IMPRESSION: Stable large bore right-sided chest tube with increased size of the right-sided pneumothorax compared to prior exam. Chest X-Ray 11/04/20 06:00 IMPRESSION: Improving right apical pneumothorax. Chest X-Ray 11/05/20 06:00 IMPRESSION: Right-sided small apical pneumothorax continues to decrease in size. Large-bore right-sided chest tube remains in place. Chest X-Ray 11/06/20 06:00 IMPRESSION: STABLE APPEARANCE OF THE CHEST. SUPPORT DEVICES UNCHANGED. Chest X-Ray 11/07/20 06:00 IMPRESSION: RIGHT CHEST TUBE DESCRIBED. STABLE MINIMAL RIGHT PNEUMOTHORAX. Chest X-Ray 11/08/20 06:00 IMPRESSION: No significant change. Less than 10% right apical pneumothorax. Chest X-Ray 11/10/20 10:00 IMPRESSION: Small right apical pneumothorax has resolved. Large-bore right- sided chest tube remains in place. Chest X-Ray 11/11/20 00:00 IMPRESSION: STABLE APPEARANCE. NO PNEUMOTHORAX. Chest X-Ray 11/12/20 06:00 IMPRESSION: 1. Stable pulmonary exam. No recurrent pneumothorax. 2. Stable right hemithorax chest tube. Chest X-Ray 11/12/20 13:00 IMPRESSION: No pneumothorax. Thoracotomy tube remains in place. Chest X-Ray 11/13/20 06:00 IMPRESSION: No pneumothorax. Plan Time Spent: Greater than 30 Minutes - Follow-up with the surgery for the chest tube Stroke Is this a Stroke Patient?: No Acute Heart Failure Is this a Heart Failure Patient?: No
== END 2020-11-13 12:30 | disposition home health service (06) | DRG 165 ==
LOC: ER 16:37 → EH 22:04 → 3S 10-25 12:16 → 5 11-07 02:38 → 5TH 11-08 00:55
PROVIDERS: ADMIT Internal Medicine; ATTEND Family Medicine
PROC: 0W9930Z Drainage of Right Pleural Cavity with Drainage Device, Percutaneous Approach (ICD-10-PCS; 2020-10-24)
PROC: 3E0L3GC Introduction of Other Therapeutic Substance into Pleural Cavity, Percutaneous Approach (ICD-10-PCS; 2020-10-24)
PROC: B24BZZ4 Ultrasonography of Heart with Aorta, Transesophageal (ICD-10-PCS; 2020-10-27)
PROC: 0B5N4ZZ Destruction of Right Pleura, Percutaneous Endoscopic Approach (ICD-10-PCS; principal; 2020-10-29 07:30)
DX: J93.12 Secondary spontaneous pneumothorax (principal); E11.42 Type 2 diabetes mellitus with diabetic polyneuropathy; I10 Essential (primary) hypertension; E66.9 Obesity, unspecified; E03.9 Hypothyroidism, unspecified; E78.5 Hyperlipidemia, unspecified; I51.7 Cardiomegaly; K21.9 Gastro-esophageal reflux disease without esophagitis; J43.9 Emphysema, unspecified; E11.9 Type 2 diabetes mellitus without complications; Z20.822 Contact with and (suspected) exposure to COVID-19; Z85.42 Personal history of malignant neoplasm of other parts of uterus; Z79.899 Other long term (current) drug therapy; Z79.84 Long term (current) use of oral hypoglycemic drugs; Z87.891 Personal history of nicotine dependence; Z88.8 Allergy status to other drugs, medicaments and biological substances; Z88.3 Allergy status to other anti-infective agents
CPT/HCPCS: 36415; 540; 71045; 71046; 71260; 80053; 80061; 80307; 81001; 82140; 82150; 82550; 82553; 82962; 83036; 83690; 83735; 84100; 84439; 84443; 84484; 85025; 85610; 85730; 87040; 87086; 93005; 93010; 93306; 94640; 94799; 99285; 0241U; C9803; J0131; J0330; J0690; J1100; J1650; J1815; J2250; J2270; J2405; J2704; J2765; J3010; J3490

== ENCOUNTER → 2020-11-21 | Outpatient (CLI) | payer MEDICARE ==
--- NOTE | 2020-11-21 10:14 | RADIOLOGY REPORT (SQ) ---
EXAM DESCRIPTION: CHEST 2 VIEWS IMAGES COMPLETED DATE/TIME: 11/21/2020 9:35 am REASON FOR STUDY: (J93.9)PNEUMOTHORAX, UNSPECIFIED COMPARISON: 11/13/2020 EXAM PARAMETERS: NUMBER OF VIEWS: two views TECHNIQUE: Digital Frontal and Lateral radiographic views of the chest acquired. RADIATION DOSE: NA LIMITATIONS: none FINDINGS: LUNGS AND PLEURA: Patchy chronic interstitial opacities. No focal consolidation or pleura l effusion. No pneumothorax. MEDIASTINUM AND HILAR STRUCTURES: No masses or contour abnormalities. HEART AND VASCULAR STRUCTURES: Heart normal size. No evidence for failure. BONES: No acute findings. HARDWARE: None in the chest. OTHER: No other significant finding. IMPRESSION: No pneumothorax. Patchy bilateral areas of interstitial thickening and scarring, grossly stable. TECHNICAL DOCUMENTATION: JOB ID: [id number] 2010 [employer]- All Rights Reserved Reading location - IP/workstation name: [email or web address]
== END ==
LOC: RAD 09:24
PROVIDERS: ATTEND Surgery
DX: J93.9 Pneumothorax, unspecified (principal)
CPT/HCPCS: 71046